=== PATIENT | female | born 1940 | race Caucasian/White ===

== ENCOUNTER → 2016-11-10 | Outpatient (CLI) | payer BC ==
[~2016-11-10] MED LIST: AMPH20TA2 PO; BUPR200T2 PO; CALC1CHW24 PO; CARV6.252 PO; CHOL1CHW10; CHOL4POW2 PO; CHOL4POW6 PO; CLC100 PO; CYAN10002; CYAN500S SL; CYCL0.052 OP; CYNI1000 INJ; DICY20TA10 PO; ERGO500037 PO; EYE PROMISE RESTORE PO; FERR325T PO; FERR325T51 PO; GABA-113 PO; HYDR-3124 PO; HYDR-5688 PO; IMMODIUM PO; KFL500 PO; LEVO-371 PO; LEVO175T PO; LOSA100T65 PO; LOSA50TA54 PO; LPT/20 PO; LSX20 PO; MCRK/20 PO; MULT-190 PO; MULT-663 PO; MULTCAP33 PO; NUTR1TAB4 PO; PANT1TAB48 PO; PEDICHW50 PO; POTATAB13 PO; RSTOPS OPB; VENL150C PO; VTMD PO; ZIPR1CAP8 PO; [UNRECOGNIZED DRUG - CODE] PO
[2016-11-10 15:35] LABS: HEMATOCRIT 37.8 % (37-47); MEAN CELL VOLUME 89.4 fL (80-100); MEAN CORPUSCULAR HEMOGLOBIN 29.6 pg (25-34); MEAN CORPUSCULAR HGB CONC 33.1 g/dl (32-36); MEAN PLATELET VOLUME 10.2 fL (7.4-10.4); PLATELET COUNT 279 K/uL (130-400); RED BLOOD COUNT 4.23 M/uL (4.2-5.4); WHITE BLOOD COUNT 7.13 K/uL (4.8-10.8)
[2016-11-10 15:55] LABS: BLOOD UREA NITROGEN 19 mg/dl (7-18); BUN/CREATININE RATIO 19.9 (10-20); CALCIUM 8.3 mg/dl (8.5-10.1); CARBON DIOXIDE 27 mmol/L (21-32); CHLORIDE 105 mmol/L (98-107); CREATININE 0.96 mg/dl (0.60-1.20); GLUCOSE 101 mg/dl (70-99); PHOSPHORUS 3.8 mg/dl (2.5-4.9); POTASSIUM 4.2 mmol/L (3.5-5.1); SODIUM 142 mmol/L (136-145); URIC ACID 5.2 mg/dl (2.6-7.2); URINE PROTIEN/CREAT RATIO 0.4 (0-0.2); URINE TOTAL PROTEIN 28.2 mg/dl (0-11.9)
[2016-11-10 16:02] LABS: URINE APPEARANCE CLEAR (CLEAR); URINE BILIRUBIN NEG (NEG); URINE COLOR YELLOW; URINE NITRITE NEG (NEG); URINE SPECIFIC GRAVITY 1.018 (1.000-1.030); UROBILINOGEN NEG (NEG)
[2016-11-10 16:07] LABS: MANUAL MICROSCOPIC REQUIRED? NO; REVIEW REQ? NO
== END | disposition home or self-care (01) ==
LOC: C.LAB1850 14:41
PROVIDERS: ATTEND Internal Medicine Nephrology
DX: I12.9 Hypertensive chronic kidney disease with stage 1 through stage 4 chronic kidney disease, or unspecified chronic kidney disease (principal); N18.3 Chronic kidney disease, stage 3 (moderate); N20.0 Calculus of kidney; M10.9 Gout, unspecified; R60.9 Edema, unspecified

== ENCOUNTER 2017-01-13 11:44 | Emergency (ER) | payer BC ==
[~2017-01-13] VITALS: Ht 160 cm; Wt 120.0 kg
[~2017-01-13 11:44] MED LIST changes: -CARV6.252 PO; -CHOL4POW2 PO; -CYCL0.052 OP; -CYNI1000 INJ; -FERR325T PO; -LOSA100T65 PO; -LPT/20 PO; -LSX20 PO; -MCRK/20 PO; -MULTCAP33 PO; -VTMD PO
[2017-01-13 12:00] VITALS: O2SAT 94
[2017-01-13 12:07] VITALS: TEMP 36.6; Ht 160 cm; Wt 120.0 kg
[2017-01-13 13:16] LABS: BASO % 0.9 %; BASO ABS # 0.06 K/uL (0-0.2); COMPLETE YES; EOS % 4.6 %; HEMATOCRIT 34.3 % (37-47); IG% 0.6 %; LYMPH ABS # 1.19 K/uL (1.2-3.4); MEAN CELL VOLUME 89.3 fL (80-100); MEAN CORPUSCULAR HEMOGLOBIN 29.4 pg (25-34); MEAN CORPUSCULAR HGB CONC 32.9 g/dl (32-36); MEAN PLATELET VOLUME 10.3 fL (7.4-10.4); MONO % 8.1 %; NEUT % 68.8 %; PLATELET COUNT 291 K/uL (130-400); RED BLOOD COUNT 3.84 M/uL (4.2-5.4); WHITE BLOOD COUNT 7.02 K/uL (4.8-10.8)
[2017-01-13 13:21] LABS: PARTIAL THROMBOPLASTIN RATIO 1.1; PROTHROMBIN TIME (PATIENT) 10.8 SECONDS (9.0-12.0)
[2017-01-13 13:23] LABS: ALT/SGPT 25 U/L (12-78); BLOOD UREA NITROGEN 46 mg/dl (7-18); BUN/CREATININE RATIO 45.6 (10-20); CALCIUM 7.9 mg/dl (8.5-10.1); CARBON DIOXIDE 29 mmol/L (21-32); CHLORIDE 102 mmol/L (98-107); GLUCOSE 98 mg/dl (70-99); MAGNESIUM 2.2 mg/dl (1.8-2.4); POTASSIUM 3.9 mmol/L (3.5-5.1); SODIUM 138 mmol/L (136-145)
[2017-01-13] MEDS ORDERED: LSX20 PO (13:24)
[2017-01-13] MEDS ORDERED: FERR325T PO (13:24)
[2017-01-13] MEDS ORDERED: CYNI1000 INJ (13:24)
[2017-01-13] MEDS ORDERED: LOSA100T65 PO (13:24)
[2017-01-13] MEDS ORDERED: CYCL0.052 OP (13:24)
[2017-01-13] MEDS ORDERED: CARV6.252 PO (13:24)
[2017-01-13] MEDS ORDERED: CHOL4POW2 PO (13:24)
[2017-01-13] MEDS ORDERED: LPT/20 PO (13:24)
[2017-01-13] MEDS ORDERED: VTMD PO (13:24)
[2017-01-13] MEDS ORDERED: MCRK/20 PO (13:24)
[2017-01-13] MEDS ORDERED: MULTCAP33 PO (13:29)
[2017-01-13] MEDS ORDERED: SODIUM CHLORIDE 0.9% 500ML 500 ML IV STA (13:32)
[2017-01-13 13:33] LABS: ALKALINE PHOSPHATASE 118 U/L (45-117); AST/SGOT 20 U/L (15-37)
--- NOTE | 2017-01-13 13:33 | DIAGNOSTIC IMAGING REPORT ---
CHEST ONE VIEW PORTABLE CLINICAL HISTORY: weakness, post mi dyspnea COMPARISON STUDY: 06/04/2016. FINDINGS: mild cardiomegaly. Density medial left base unchanged from the prior study. Mild increase in prominence of the pulmonary vasculature. Diaphragms are smooth. IMPRESSION: Probable early congestive failure Electronically signed by: Bismark Barrera M.D. 01/13/2017 1:32 PM Dictated Date/Time: 01/13/2017 1:31 PM
[2017-01-13 13:54] LABS: URINE APPEARANCE CLEAR (CLEAR); URINE BILIRUBIN NEG (NEG); URINE COLOR YELLOW; URINE NITRITE NEG (NEG); URINE SPECIFIC GRAVITY 1.009 (1.000-1.030); UROBILINOGEN NEG (NEG)
[2017-01-13 14:02] LABS: MANUAL MICROSCOPIC REQUIRED? NO; REVIEW REQ? NO
[2017-01-13 16:52] VITALS: BP 138/82; PULSE 70; O2SAT 96
--- NOTE | 2017-01-13 17:16 | EMERGENCY ROOM VISIT NOTE ---
History Report prepared by Hi: Neeta Harper Under the Supervision of: Dr. Patrice Livingston M.D. First contact with patient: 13:07 Chief Complaint: DEHYDRATION Stated Complaint: MEDICATION PROBLEMS Nursing Triage Summary: had VT on IN TO SEE HER DR TODAY BUT WAS FEELING DEHYDRATED AND GENERAL WEAKNESS. History of Present Illness The patient is a 76 year old female who presents to the Emergency Room with complaints of persistent weakness starting this morning around 1000. She reports feeling unsteady and overall weak. She states she is very sleepy and unable to keep her eyes open. She denies any missed medications. She was in the hospital last week for a "mild heart attack". She has a cardiac catheterization , but no stents were placed. She was feeling well after the hospitalization until this morning. She reports she feels dehydrated since she began taking Lasix twice daily. She reports that she has been urinating more and feels dehydrated. At the doctors office today, she was found to have an O2 sat of 90% and low blood pressure. Pt denies LOC, headache, fevers, chills, diaphoresis, visual changes, neck pain, chest pain, breathing difficulties, nausea, vomiting , abdominal pain, back pain, melena, hematochezia, numbness, lymphadenopathy, rash, or other complaints. Source of History: patient Onset: 1000 this morning Position: other (global) Quality: other (weakness) Timing: other (persistent) Associated Symptoms: + fatigue, + urinary symptoms (increased urination) Review of Systems See HPI for pertinent positives and negatives. A total of ten systems were reviewed and were otherwise negative. Past Medical & Surgical Medical Problems: (1) Aortic stenosis (2) Kidney disease (3) Pre-diabetes Surgical Problems: (1) History of gastric bypass (2) Hx of thyroidectomy (3) S/P knee replacement Family History Cancer Social History Smoking Status: Never Smoker Alcohol Use: none Drug Use: none Marital Status: Housing Status: lives alone Occupation Status: retired Current/Historical Medications Scheduled Amphetamine-Dextroamphetamine 20MG (Adderall 20MG), 20 MG PO BID Atorvastatin (Atorvastatin Calcium), 1 TAB PO DAILY Bupropion Hcl (Wellbutrin Sr), 200 MG PO QAM Calcium & Phosphorus W/ Vitami (Citracal Calcium Gummies), 2 PO BID Carvedilol (Coreg), 1 TAB PO BID Cholecalciferol (Vitamin D3), 1 TAB DAILY Cholestyramine Light (Questran Powder Light), 4 GM PO BID Cyanocobalamin (B-12 Dots), 500 MCG SL DAILY Cyanocobalamin (Cyanocobalamin), 1 DOSE INJ [id number] Cyclosporine (Ophth) (Restasis), 1 DROP OP BID [id number] Oil-Vitamin E (Thera Tears Nutrition), 3 CAP PO QAM Dicyclomine Hcl (Dicyclomine Hcl), 1 TAB PO QID Docusate Sodium (Docusate Sodium), 100 MG PO BID Ergocalciferol (Vitamin D), 1 CAP PO MONTHLY Ferrous Sulfate (Ferrous Sulfate), 1 TAB PO DAILY Furosemide (Furosemide), 1 TAB PO DAILY Gabapentin (Neurontin), 600 MG PO HS Hydroxyzine Hcl (Atarax), 25 MG PO HS Levocetirizine Dihydrochloride (Xyzal), 5 MG PO HS Levothyroxine Sodium (Synthroid), 175 MCG PO QAM Losartan Potassium (Cozaar), 1 TAB PO DAILY Multiple Minerals W/ Vitamins (Citracal Plus), 2 TABS PO BID Multiple Vitamins W/ Minerals (Preservision Areds), 1 CAP PO DAILY Nutritional Supplements (Theralith Xr), 2 TAB PO BID Pantoprazole (Protonix), 40 MG PO QAM Pediatric Multiple Vitamin W/ (Flintstones Chewable), 1 TAB PO BID Potassium Chloride (Potassium Chloride ER), 1 TAB PO DAILY Venlafaxine Hcl (Effexor Xr), 150 MG PO BID Ziprasidone Hcl (Geodon), 80 MG PO BID Scheduled PRN Hydrocodone/Acetaminophen 5MG/325MG ([place] 5MG/325MG), 1-2 TAB PO Q6H PRN for Pain Allergies Coded Allergies: Statins (Verified Allergy, Mild, UNKNOWN, 01/13/17) Oxycodone (Verified Allergy, Unknown, RASH, 01/13/17) Sulfa Antibiotics (Verified Allergy, Unknown, "TAKES TOP LAYER OF TONGUE OFF", 01/13/17) Lactose Intolerance (GI) (Verified Adverse Reaction, Unknown, GI UPSET AND DIARRHEA, 01/13/17) Physical Exam Vital Signs Date Time Temp Pulse Resp B/P Pulse Ox O2 Delivery O2 Flow Rate FiO2 01/13/17 16:52 70 20 138/82 96 Room Air 01/13/17 15:52 102 20 96 Room Air 01/13/17 15:51 102 20 96 Room Air 01/13/17 15:01 71 16 132/70 97 Nasal Cannula 01/13/17 14:04 64 122/58 69 143/73 71 134/77 01/13/17 12:07 36.6 70 18 140/75 95 Room Air 01/13/17 12:00 94 Room Air Physical Exam GENERAL: Awake, alert, tired-appearing, in no distress. HENT: Normocephalic, atraumatic. Oropharynx unremarkable. Dry mucous membranes. EYES: Normal conjunctiva. Sclera non-icteric. NECK: Supple. No nuchal rigidity. FROM. No JVD. RESPIRATORY: Clear to auscultation. CARDIAC: Regular rate, normal rhythm. Extremities warm and well perfused. Pulses equal. Systolic ejection murmur. ABDOMEN: Soft, non-distended. No tenderness to palpation. No rebound or guarding. No masses. RECTAL: Deferred. MUSCULOSKELETAL: Chest examination reveals no tenderness. The back is symmetrical on inspection without obvious abnormality. There is no CVA tenderness to palpation. No joint edema. LOWER EXTREMITIES: Calves are equal size bilaterally and non-tender. No edema. No discoloration. NEURO: Normal sensorium. No sensory or motor deficits noted. SKIN: No rash or jaundice noted. Medical Decision & Procedures ER Provider Diagnostic Interpretation: X ray results as stated below per my interpretation and radiologist interpretation. CHEST ONE VIEW PORTABLE CLINICAL HISTORY: weakness, post mi dyspnea COMPARISON STUDY: 06/04/2016. FINDINGS: mild cardiomegaly. Density medial left base unchanged from the prior study. Mild increase in prominence of the pulmonary vasculature. Diaphragms are smooth. IMPRESSION: Probable early congestive failure Electronically signed by: Bismark Barrera M.D. 01/13/2017 1:32 PM Dictated Date/Time: 01/13/2017 1:31 PM Laboratory Results 01/13/17 11:57 Red Blood Count 3.84, Mean Corpuscular Volume 89.3, Mean Corpuscular Hemoglobin 29.4, Mean Corpuscular Hemoglobin Concent 32.9, Mean Platelet Volume 10.3, Neutrophils (%) (Auto) 68.8, Lymphocytes (%) (Auto) 17.0, Monocytes (%) (Auto) 8.1, Eosinophils (%) (Auto) 4.6, Basophils (%) (Auto) 0.9, Neutrophils # (Auto) 4.84, Lymphocytes # (Auto) 1.19, Monocytes # (Auto) 0.57, Eosinophils # (Auto) 0.32, Basophils # (Auto) 0.06 01/13/17 11:57 Test 01/13/17 11:57 01/13/17 13:30 White Blood Count 7.02 K/uL (4.8-10.8) Red Blood Count 3.84 M/uL (4.2-5.4) Hemoglobin 11.3 g/dL (12.0-16.0) Hematocrit 34.3 % (37-47) Mean Corpuscular Volume 89.3 fL (80-100) Mean Corpuscular Hemoglobin 29.4 pg (25-34) Mean Corpuscular Hemoglobin Concent 32.9 g/dl (32-36) Platelet Count 291 K/uL (130-400) Mean Platelet Volume 10.3 fL (7.4-10.4) Neutrophils (%) (Auto) 68.8 % Lymphocytes (%) (Auto) 17.0 % Monocytes (%) (Auto) 8.1 % Eosinophils (%) (Auto) 4.6 % Basophils (%) (Auto) 0.9 % Neutrophils # (Auto) 4.84 K/uL (1.4-6.5) Lymphocytes # (Auto) 1.19 K/uL (1.2-3.4) Monocytes # (Auto) 0.57 K/uL (0.11-0.59) Eosinophils # (Auto) 0.32 K/uL (0-0.5) Basophils # (Auto) 0.06 K/uL (0-0.2) RDW Standard Deviation 45.1 fL (36.4-46.3) RDW Coefficient of Variation 13.9 % (11.5-14.5) Immature Granulocyte % (Auto) 0.6 % Immature Granulocyte # (Auto) 0.04 K/uL (0.00-0.02) Prothrombin Time 10.8 SECONDS (9.0-12.0) Prothromb Time International Ratio 1.0 (0.9-1.1) Activated Partial Thromboplast Time 27.5 SECONDS (21.0-31.0) Partial Thromboplastin Ratio 1.1 Anion Gap 7.0 mmol/L (3-11) Est Creatinine Clear Calc Drug Dose 61.0 ml/min Estimated GFR () 63.8 Estimated GFR (Non- 55.1 BUN/Creatinine Ratio 45.6 (10-20) Calcium Level 7.9 mg/dl (8.5-10.1) Magnesium Level 2.2 mg/dl (1.8-2.4) Total Bilirubin 0.3 mg/dl (0.2-1) Direct Bilirubin < 0.1 mg/dl (0-0.2) Aspartate Amino Transf (AST/SGOT) 20 U/L (15-37) Alanine Aminotransferase (ALT/SGPT) 25 U/L (12-78) Alkaline Phosphatase 118 U/L (45-117) Troponin I 0.017 ng/ml (0-0.045) Pro-B-Type Natriuretic Peptide 687 pg/ml (0-900) Total Protein 7.4 gm/dl (6.4-8.2) Albumin 3.2 gm/dl (3.4-5.0) Lipase 220 U/L (73-393) Thyroid Stimulating Hormone (TSH) 1.160 uIu/ml (0.300-4.500) Urine Color YELLOW Urine Appearance CLEAR (CLEAR) Urine pH 5.0 (4.5-7.5) Urine Specific [place] 1.009 (1.000-1.030) Urine Protein NEG (NEG) Urine Glucose (UA) NEG (NEG) Urine Ketones NEG (NEG) Urine Occult Blood NEG (NEG) Urine Nitrite NEG (NEG) Urine Bilirubin NEG (NEG) Urine Urobilinogen NEG (NEG) Urine Leukocyte Esterase NEG (NEG) Laboratory results reviewed by me. Medications Administered Medications (Trade) Dose Ordered Sig/Huey Route Start Time Stop Time Status Last Admin Dose Admin Sodium Chloride (Nss 500ml) 500 ml @ 999 mls/hr Q31M STAT IV 01/13/17 13:32 01/13/17 14:02 DC 01/13/17 13:32 999 MLS/HR ECG Indication: weakness Rate (beats per minute): 62 Rhythm: sinus rhythm Findings: 1st degree AV block, no acute ischemic change, no ectopy ED Course 1329: The patient was evaluated in room B8. A complete history and physical exam was performed. Pre-hospital EKG reveals no ischemic change. 1332: NSS 500 ml @ 999 mls/hr IV. 1558: I reevaluated the patient. She is feeling well. Her ambulatory pulse ox is normal. 1621: I discussed the patient's case with Dr. Walker, [facility] - cardiology. 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 She has been taking her Lasix twice a day, but he states that the patient was only supposed to be taking it once a day. 1641: I reevaluated the patient. I discussed results and discharge instructions : she verbalized understanding and agreement. The patient is ready for discharge. 1732: The patient's daughter has come to the ED. I told her that the patient had been taking double the prescribed dosage of Lasix. I went over all the results and the treatment plan with her. I answered any questions that she had pertaining to the patient. She verbalized understanding and agreement. The patient will go home now. Medical Decision Triage Nursing notes reviewed. The patient's presentation and history were concerning for weakness. Etiologies such as dehydration, metabolic, infection, hypo/hyperglycemia, electrolyte abnormalities, cardiac sources, intracerebral event, toxicologic, neurologic, as well as others were entertained. The patient was evaluated. She looks somewhat dehydrated. Her lips are dry. She had no lower extremity edema. There are no rales on examination. Pulse oximetry was normal. Orthostatic testing was unremarkable. The patient had an unremarkable CBC except for mild anemia. Urinalysis was negative. Dehydration was noted on chemical panel. Magnesium, troponin, TSH, LFTs and lipase were normal. BNP was normal. Chest x-ray question some pulmonary vascular congestion but this does not fit with the clinical examination. On consultation with cardiology it was noted that the patient should've been taking Lasix once daily and only twice daily if her weight increased. The patient was in a properly taking this twice daily. I believe that she is why I' m depleted. I discussed this with the patient and her family. She did receive a 500 mL saline bolus and was feeling much better. She will hold her evening Lasix and only take it once a day. She will follow-up as an outpatient. I gave my usual and customary discussion regarding this issue. By the evaluation outlined above other emergent etiologies such as those listed in the differential, as well as others, were deemed relatively unlikely. The patient and daughter were informed about the findings as listed above. All questions were answered and they were pleased with the treatment. Return instructions were outlined and the patient was discharged in stable condition. The patient was referred to cardiology and her PCP for follow-up for a recheck of the current condition. The chart was completed utilizing [employer] Speech voice recognition software. Grammatical errors, random word insertions, pronoun errors, and incomplete sentences are an occasional consequence of this system due to software limitations, ambient noise, and hardware issues. Any formal questions or concerns about the content, text, or information contained within the body of this dictation should be directly addressed to the physician for clarification. Consults Time Called: 1609 Consulting Physician: Dr. Walker, [facility] - cardiology Returned Call: [phone] I discussed the patient's case with him. 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 She has been taking her Lasix twice a day, but he states that the patient was only supposed to be taking it once a day. Impression Primary Impression: Dehydration Additional Impression: Weakness Scribe Attestation The scribe's documentation has been prepared under my direction and personally reviewed by me in its entirety. I confirm that the note above accurately reflects all work, treatment, procedures, and medical decision making performed by me. Departure Information Dispostion Home / Self-Care Referrals Raad Skinner M.D. (PCP) Forms HOME CARE DOCUMENTATION FORM, IMPORTANT VISIT INFORMATION, WORK / SCHOOL INSTRUCTIONS Patient Instructions My [facility] Additional Instructions Take your Lasix only once a day. Monitor your weight daily if you find that your weight is going up more than 2-3 pounds take the Lasix twice a day. Follow all instructions given to you by [facility]. Follow up with your primary clinic next week. Return to the ER for worsening weakness, feelings of dehydration, chest pain, difficulty breathing, fevers, vomiting, worsening of your condition, or as needed. Problem Qualifiers
== END 2017-01-13 16:54 | disposition home or self-care (01) ==
LOC: EDBD 11:44 → C.EDB 11:54
DX: E86.0 Dehydration (principal); R53.1 Weakness; I44.0 Atrioventricular block, first degree; R73.03 Prediabetes; I35.0 Nonrheumatic aortic (valve) stenosis; Z87.442 Personal history of urinary calculi; Z98.84 Bariatric surgery status; Z98.890 Other specified postprocedural states; Z96.659 Presence of unspecified artificial knee joint; Z79.899 Other long term (current) drug therapy; Z88.2 Allergy status to sulfonamides; Z88.5 Allergy status to narcotic agent; Z88.8 Allergy status to other drugs, medicaments and biological substances; Z91.011 Allergy to milk products; Z80.9 Family history of malignant neoplasm, unspecified

== ENCOUNTER → 2017-03-07 | Outpatient (CLI) | payer BC, OTHER ==
[~2017-03-07] MED LIST changes: +CARV6.252 PO; +CHOL4POW2 PO; -CHOL4POW6 PO; -CYAN10002; +CYCL0.052 OP; +CYNI1000 INJ; -ERGO500037 PO; -EYE PROMISE RESTORE PO; +FERR1TAB62 PO; -FERR325T51 PO; -IMMODIUM PO; -KFL500 PO; -LEVO-371 PO; +LEVO5TAB2 PO; +LOSA100T65 PO; -LOSA50TA54 PO; +LPT/20 PO; +LSX20 PO; +MCRK/20 PO; -MULT-190 PO; +MULTCAP33 PO; -POTATAB13 PO; -RSTOPS OPB; +VTMD PO
--- NOTE | 2017-03-08 08:28 | PAP/PSG TECHNICIAN REPORT ---
[facility] Client Customer Manager Polysomnogram Report Study name: None Report date: 03/08/2017 Study date: 03/07/2017 Referring Physician: Raad Skinner MD Name: WERNER NICOLAS Interpreting Physician: Patrice Gray M.D. Date of : 1940 Client Customer Manager: Alva Kelley, PSGT. Sex: Female Age: 76 StudyType: PSG Weight: 260 lbs Height: 76 years, Height 5' 4.5" BMI: 43.93 Medications: SEE LIST OF 15 MRDICATIONS LISTED IN CHART. Patient History 76 YR. OLD FEMALE HERE FOR TITRATION CHECK. SHE IS USEING C-PAP AT THIS TIME AT THE RATE OF 12 CM H2O. SHE STATES THAT SHE ISNT ABLE TO SLEEP LONGER THAN 3 HOURS PER NIGHT, SHE WAKES OFTEN THROUGHOUT THE NIGHT. SHE WAS SHORT OF BREATH WHEN SHE ARRIVED AND HAD TO SIT SOON SHE GOT INTO HER ROOM TONIGHT. Parameters Monitored NPSG: E1-M2, E2-M1, Fp1-M2, Fp2-M1, F3-M2, F4-M2, F4-M1, C3-M2, C4-M2, C4-M1, O1-M2, O2-M2, O2-M1, T3-M2, T4-M1, P3-M2, P4-M1, CHIN1, CHIN2, HR, EKG, Legs, PFLOW, SNOR, FLOW, CFLOW, Tidal Volume, THOR, ABDO, SpO2, PLTH, CPRESS, ETCO2 Wave, ETCO2, pH Sleep Architecture Sleep Stages Time at Lights Off 10:04:39 PM STAGES Time (min.) TST (%) Time at Lights On 5:12:09 AM Wake 66.5 -- Total Recording Time (TRT) 426.50 min. N1 2.5 1 Total Sleep Period (TSP) 412.5 min. N2 357.5 99 Total Sleep Time (TST) 360.0min. N3 0.0 0 Awake Time 66.5 min. REM 0.0 0 Wake after Sleep Onset 53.5 min. Sleep Efficiency (SE) 84 % Sleep Onset Latency (RASHEED) 14.0 min. Number of Stage 1 Shifts None Awakenings 3 Stage Changes 11 Number of REM periods N/A REM 0.0 0 REM Latency NONE min. NREM 360.0 100 Body Position Analysis Supine Right Left Side Prone Vertical Total Sleep Time (min.) 426.1 0.0 0.0 0.00 0.0 0.4 Total Sleep Time (%) 100% 0% 0% 0 0% N/A% Total Sleep Time REM (min.) 0.0 0.0 0.0 None 0.0 0.0 Total Sleep Time NREM (min.) 360.0 0.0 0.0 None 0.0 0.0 Intermittent Wake (min.) 66.1 0.0 0.0 None 0.0 0.4 Total Sleep Period (%) 100% None None None None None Arousals Myoclonus (PLM) * Events Count Index Events Count Index Spontaneous 18 3 Events Awake (PLMW) 0 0.0 Respiratory 1 0.2 Events Asleep w/ Arousal (PLMA) 1 0.2 PLM 1 0 Events Asleep w/o Arousal (PLMS) 49 8.2 Snoring 1 0 Total Asleep 50 8.3 Total 21 4 Total 50 7 Respiratory Analysis * CA OA MA CH H RERA Total Count 0 0 0 0 6 0 6 Index 0.0 0.0 0.0 0 1.0 0 1.0 Mean Duration 0.0 0.0 0.0 0.00 17.2 0.0 17.2 Longest Duration 0.0 0.0 0.0 0.00 0.0 0.0 22.2 Respiratory Event Summary Total Supine ~Supine Right Left Prone REM NREM Apneas Count 0 0 N/A N/A N/A N/A N/A 0 Index 0.0 0 N/A N/A N/A N/A N/A 0 Hypopneas (4% Desat) Count 6 6 N/A N/A N/A N/A N/A 6 Index 1.0 1.0 N/A N/A N/A N/A N/A 1.0 Apneas & All Hypopneas Count 6 6 N/A N/A N/A N/A N/A 6 Index 1.0 1 N/A N/A N/A N/A N/A 1.0 Respiratory Events (Neurological Surgeon+All Hyp+RERA) Count 6 6 N/A N/A N/A N/A N/A 6 Index 1.0 1 N/A N/A N/A N/A N/A 1.0 Respiratory Related Arousal Count 1 6 N/A N/A N/A N/A N/A 1 Index 0.2 0 N/A N/A N/A N/A N/A 0 Snoring Analysis Supine Right Left Prone REM NREM Total Snore duration 1.5 min Snores count 37 N/A N/A N/A N/A 37 37 Snore mean duration 2.4 Sec Snores index 6 N/A N/A N/A N/A 6.2 6.2 TST with snoring (%) 0.4% Desaturation Event Summary: Minimum %SpO2 Event Count Mean/Min/Max Duration(sec.) Desaturation Index % Time In Bed > 90 8 31.5 / 16.0 / 57.8 1.3 90.3 86 - 90 6 37.9 / 16.0 / 57.8 9.7 9.0 81 - 85 0 N/A 0.0 0.8 76 - 80 0 N/A 0.0 0.0 71 - 75 0 N/A 0.0 0.0 66 - 70 0 N/A 0.0 0.0 61 - 65 0 N/A 0.0 0.0 56 - 60 0 N/A 0.0 0.0 51 - 55 0 N/A 0.0 0.0 < 50 0 N/A 0.0 0.0 Total REM NREM Awake <50% 0.0 min. 0.0 min. 0.0 min. 0.0 min. 51 - 60% 0.0 min. 0.0 min. 0.0 min. 0.0 min. 61 - 70% 0.0 min. 0.0 min. 0.0 min. 0.0 min. 71 - 80% 0.0 min. 0.0 min. 0.0 min. 0.0 min. 81 - 90% 40.3 min. 0.0 min. 23.8 min. 16.6 min. 91 - 100% 374.0 min. 0.0 min. 336.3 min. 37.8 min. Average 92 0 92 92 Minimum SpO2 82 N/A 82 82 Desaturation Event Index 1.5 0.0 1.8 0.0 # Desat. Events below 89% 9 N/A 9 0 Time(%) with Saturation below 89% 4.4 0.0 2.4 2.0 Time(min.) with Saturation below 89% 18.4 0.0 10.0 8.4 Time (mins) REM (mins) NREM (mins) % of TST SpO2 Below 90% 10 N/A N10 4.0 SpO2 Below 88% 6 0 0 2 Heart Rate Analysis Min (bpm) Max (bpm) Average (bpm) Awake 57 127 64 NREM 55 75 64 REM N/A N/A N/A Overall 55 75 64 Supplemental O2 Values Minimum O2 level: None Value Start Time End Time Client Customer Manager Comments PAP Study: MS. Nicolas slept in the supine positions. No cardiac arrhythmia or PLM's noted. No bruxism noted. CPAP was initiated at +8 CMH2O and up-titrated to an optimal level of +12 CMH2O, which nearly eliminated all respiratory events and snoring. A Small Res Med Mirage Quattro, was used during titration Ms. Nicolas awoke to use the restroom one time during the night. Ms. Nicolas stated, I did sleep better than I do when I am in my own bed. The final report will be interpreted and signed by a sleep physician. The completed physician report will then be placed in the patient medical record. Therapy Event: Therapy (cm H20) 0 8 10 11 12 Total Time at Pressure (min.) 0.4 19.2 65.3 171.3 170.3 TST at Pressure (min.) 0.0 5.6 60.3 169.3 124.8 # Periods 1 1 1 1 1 Sleep Onset (min.) N/A 13.6 0.0 0.0 0.0 REM Onset (min.) N/A N/A N/A N/A N/A Sleep Efficiency % 0 29 92 98 73 Wakefulness (%) 100.0 70.7 7.7 1.2 26.7 Wakefulness (min.) 0.4 13.6 5.0 2.0 45.5 NREM 1 (%) 0.0 5.2 0.0 0.3 0.6 NREM 1 (min.) 0.0 1.0 0.0 0.5 1.0 NREM 2 (%) 0.0 24.0 92.3 98.5 72.7 NREM 2 (min.) 0.0 4.6 60.3 168.8 123.8 NREM 3 (%) 0.0 0.0 0.0 0.0 0.0 NREM 3 (min.) 0.0 0.0 0.0 0.0 0.0 REM (%) 0.0 0.0 0.0 0.0 0.0 REM (min.) 0.0 0.0 0.0 0.0 0.0 # Arousals N/A 0 5 10 6 Arousal Index N/A 0.0 5.0 3.5 2.9 # Snore N/A 6 10 0 21 Snore Index N/A 64.2 10.0 0.0 10.1 AHI N/A 10.7 1.0 1.1 0.5 AHI Supine N/A 10.7 1.0 1.1 0.5 AHI Non-Supine N/A N/A N/A N/A N/A NREM AHI N/A 10.7 1.0 1.1 0.5 REM AHI N/A N/A N/A N/A N/A RDI N/A 10.7 1.0 1.1 0.5 # Obstructive N/A 0 0 0 0 # Central Ap N/A 0 0 0 0 # Mixed N/A 0 0 0 0 # Hypopneas N/A 1 1 3 1 RERAS N/A 0 0 0 0 Total Respiratory Events N/A 1 1 3 1 Time Below SpO2 89.00% (min.) 0.0 2.6 6.6 0.4 0.4 Mean NREM SpO2 (%) N/A 88 91 92 93 Mean REM SpO2 (%) N/A N/A N/A N/A N/A Mean Sleep SpO2 (%) N/A 88 91 92 93 Min NREM SpO2 (%) N/A 83 82 83 88 Min REM SpO2 (%) N/A N/A N/A N/A N/A Position Supine (min.) 0.0 5.6 60.3 169.3 124.8 Position Non-supine (min.) 0.0 0.0 0.0 0.0 0.0 LM Index Sleep N/A 0.0 5.0 8.2 10.6 LM Index NREM N/A 0.0 5.0 8.2 10.6 LM Index REM N/A N/A N/A N/A N/A Mean Heart Rate (bpm) N/A 70 69 66 60 Min Heart Rate (bpm) N/A 65 66 55 57
--- NOTE | 2017-03-09 13:49 | POLYSOMNOGRAPH REPORT ---
CLINICAL DATA: 76-year-old female with BMI of 43.[address] Skinner and Dr. Beal for a CPAP titration study. She is currently using CPAP at 12 cm of water pressure. However, she cannot sleep any longer than 3 hours and awakens throughout the night. SLEEP ARCHITECTURE: Total sleep period was 412.5 minutes. Total sleep time was 360 minutes all non-REM sleep. Sleep onset latency was 14 minutes. REM was not achieved. Sleep efficiency was 84%. Wake after sleep onset was 53.5 minutes. Sleep consisted of stage N1 1%, and N2 99%. AROUSAL DATA: 21 arousals were recorded for an index of 4 per hour. PLM DATA: No significant PLMD was seen. There were 50 limb movements during sleep noted for an index of 8.3 per hour with arousal index of 0.2 per hour. RESPIRATORY DATA: The AHI was 1. There were 6 hypopneic episodes, the mean duration of which was 17.2 seconds. OXIMETRY DATA: Mild nocturnal hypoxemia was seen. Oxygen raul was 82% during non-REM sleep. Mean saturation was 92%. Time below 88% was 6 minutes. EKG: Heart rates ranged from 55-75 beats per minute. No arrhythmias were noted. SPIRAL RUNNER'S COMMENTS AND TREATMENT SUMMARY: The patient slept supine. She was started on CPAP and titrated up to 12 cm of water pressure using a small ResMed Mirage Quattro mask. At her final pressure setting, she slept for 124.8 minutes with an AHI of 0.5. At 10 cm water pressure she had an AHI of 1 and at 11 cm water pressure she had an AHI of 1.1. IMPRESSION: Obstructive sleep apnea corrected with CPAP at 12 cm of water pressure. RECOMMENDATIONS: The patient should be continued on her current regimen of CPAP. [facility]
== END | disposition home or self-care (01) ==
LOC: C.NEUR 20:00
PROVIDERS: ATTEND Internal Medicine Pulmonary Disease
DX: G25.81 Restless legs syndrome (principal); G47.30 Sleep apnea, unspecified

== ENCOUNTER → 2017-03-14 | Outpatient (CLI) | payer BC, OTHER ==
[~2017-03-14] VITALS: Ht 160 cm; Wt 119.9 kg
[2017-03-14 14:17] VITALS: BP 166/82; PULSE 78; Ht 160 cm; Wt 119.9 kg
== END | disposition home or self-care (01) ==
LOC: C.NEUR 13:37
PROVIDERS: ATTEND Physician Assistant
DX: G47.30 Sleep apnea, unspecified (principal)

== ENCOUNTER → 2017-05-09 | Outpatient (CLI) | payer BC ==
[~2017-05-09] MED LIST changes: -FERR1TAB62 PO; +FERR325T PO; +LEVO-371 PO; -LEVO5TAB2 PO
[2017-05-09 16:41] LABS: HEMATOCRIT 36.7 % (37-47); MEAN CELL VOLUME 89.7 fL (80-100); MEAN CORPUSCULAR HEMOGLOBIN 28.9 pg (25-34); MEAN CORPUSCULAR HGB CONC 32.2 g/dl (32-36); MEAN PLATELET VOLUME 10.1 fL (7.4-10.4); PLATELET COUNT 287 K/uL (130-400); RED BLOOD COUNT 4.09 M/uL (4.2-5.4)
[2017-05-09 17:09] LABS: BLOOD UREA NITROGEN 25 mg/dl (7-18); BUN/CREATININE RATIO 25.4 (10-20); CALCIUM 8.6 mg/dl (8.5-10.1); CARBON DIOXIDE 31 mmol/L (21-32); CHLORIDE 104 mmol/L (98-107); GLUCOSE 90 mg/dl (70-99); POTASSIUM 3.8 mmol/L (3.5-5.1); SODIUM 139 mmol/L (136-145); URIC ACID 4.9 mg/dl (2.6-7.2); URINE TOTAL PROTEIN < 5.0 mg/dl (0-11.9)
[2017-05-09 17:10] LABS: PHOSPHORUS 4.8 mg/dl (2.5-4.9)
[2017-05-09 17:17] LABS: URINE APPEARANCE CLEAR (CLEAR); URINE BILIRUBIN NEG (NEG); URINE COLOR YELLOW; URINE NITRITE NEG (NEG); URINE SPECIFIC GRAVITY 1.017 (1.000-1.030); UROBILINOGEN NEG (NEG)
[2017-05-09 17:29] LABS: MANUAL MICROSCOPIC REQUIRED? NO; REVIEW REQ? NO
== END | disposition home or self-care (01) ==
LOC: C.LAB1850 15:50
PROVIDERS: ATTEND Internal Medicine Nephrology
DX: I10 Essential (primary) hypertension (principal); N20.0 Calculus of kidney; M10.9 Gout, unspecified; R60.9 Edema, unspecified; N18.3 Chronic kidney disease, stage 3 (moderate); E55.9 Vitamin D deficiency, unspecified

== ENCOUNTER → 2017-05-09 | Outpatient (CLI) | payer BC, OTHER ==
--- NOTE | 2017-05-09 15:41 | DIAGNOSTIC IMAGING REPORT ---
[facility]UB CLINICAL HISTORY: NEPHROLITHIASIS nephrocalcinosis COMPARISON STUDY: 01/13/2016 FINDINGS: Nonobstructive bowel pattern. Surgical changes consistent with prior hernia repair. Stable bilateral nephrocalcinosis. No new or additional calcifications. Postoperative total right hip arthroplasty. Severe degenerative change lumbar spine unchanged. IMPRESSION: Stable bilateral nephrocalcinosis. The above report was generated using voice recognition software. It may contain grammatical, syntax or spelling errors. Electronically signed by: Bismark Barrera M.D. 05/09/2017 3:39 PM Dictated Date/Time: 05/09/2017 3:39 PM
== END | disposition home or self-care (01) ==
LOC: C.RAD 14:51
PROVIDERS: ATTEND Nurse Practitioner Family
DX: N20.0 Calculus of kidney (principal)

== ENCOUNTER → 2017-06-24 | Outpatient (CLI) | payer BC ==
--- NOTE | 2017-06-24 15:55 | DIAGNOSTIC IMAGING REPORT ---
SOFT TISS HEAD/NECK-THYROID CLINICAL HISTORY: 76 years-old Female with THYROID CA. COMPARISON: Thyroid ultrasound 06/19/2014 TECHNIQUE: Multiple real time sonographic images of the thyroid were obtained accessing meyers scale appearance and color doppler flow. FINDINGS: MEASUREMENTS: No residual thyroid tissue is identified. Small node of the right lateral neck is seen measuring up to 0.8 x 0.3 cm which appears physiologic. Small nodes of the left neck are seen, largest of which measures 1.1 x 0.4 cm. No pathologic adenopathy identified. IMPRESSION: 1. No evidence of residual or recurrent malignancy within the thyroid bed. 2. A few nonenlarged lymph nodes of the right and left neck are seen which appear physiologic. The above report was generated using voice recognition software. It may contain grammatical, syntax or spelling errors. Electronically signed by: Brennan Colvin M.D. 06/24/2017 3:54 PM Dictated Date/Time: 06/24/2017 3:52 PM
== END | disposition home or self-care (01) ==
LOC: C.ULTR 15:15
PROVIDERS: ATTEND Internal Medicine
DX: C73 Malignant neoplasm of thyroid gland (principal)

== ENCOUNTER → 2017-09-26 | Outpatient (CLI) | payer BC ==
[~2017-09-26] MED LIST changes: +FERR1TAB62 PO; -FERR325T PO; -LEVO-371 PO; +LEVO5TAB2 PO
[2017-09-26 16:58] LABS: HEMATOCRIT 35.7 % (37-47); MEAN CELL VOLUME 90.8 fL (80-100); MEAN CORPUSCULAR HEMOGLOBIN 28.5 pg (25-34); MEAN CORPUSCULAR HGB CONC 31.4 g/dl (32-36); MEAN PLATELET VOLUME 10.5 fL (7.4-10.4); PLATELET COUNT 275 K/uL (130-400); RED BLOOD COUNT 3.93 M/uL (4.2-5.4); WHITE BLOOD COUNT 6.16 K/uL (4.8-10.8)
[2017-09-26 17:04] LABS: ALT/SGPT 25 U/L (12-78); BLOOD UREA NITROGEN 51 mg/dl (7-18); BUN/CREATININE RATIO 39.8 (10-20); CALCIUM 8.4 mg/dl (8.5-10.1); CARBON DIOXIDE 31 mmol/L (21-32); CHLORIDE 101 mmol/L (98-107); CREATININE 1.28 mg/dl (0.60-1.20); GLUCOSE 91 mg/dl (70-99); MAGNESIUM 2.5 mg/dl (1.8-2.4); POTASSIUM 3.8 mmol/L (3.5-5.1); SODIUM 140 mmol/L (136-145); URIC ACID 6.4 mg/dl (2.6-7.2)
[2017-09-26 17:07] LABS: ALB/GLOB RATIO 0.8 (0.9-2); ALKALINE PHOSPHATASE 123 U/L (45-117); AST/SGOT 23 U/L (15-37)
[2017-09-26 17:08] LABS: URINE APPEARANCE CLEAR (CLEAR); URINE BILIRUBIN NEG (NEG); URINE COLOR YELLOW; URINE NITRITE NEG (NEG); URINE SPECIFIC GRAVITY 1.018 (1.000-1.030); UROBILINOGEN NEG (NEG)
[2017-09-26 17:12] LABS: MANUAL MICROSCOPIC REQUIRED? NO; REVIEW REQ? NO
[2017-09-26 17:28] LABS: CREATININE, URINE 29.4 mg/dl; URINE TOTAL PROTEIN < 5.0 mg/dl (0-11.9)
== END | disposition home or self-care (01) ==
LOC: C.LAB1850 14:41
PROVIDERS: ATTEND Internal Medicine Nephrology
DX: I10 Essential (primary) hypertension (principal); N20.0 Calculus of kidney; N18.3 Chronic kidney disease, stage 3 (moderate); R60.9 Edema, unspecified; E55.9 Vitamin D deficiency, unspecified

== ENCOUNTER 2017-12-05 14:49 | Inpatient (IN) | payer OTHER, BC ==
[2017-12-05] VITALS (9 sets, daily range): BP systolic 93–124; BP diastolic 55–78; PULSE 62–83; TEMP 36.7–36.8; O2SAT 99–100; BMI 46.4
[~2017-12-05] VITALS: Ht 170.2 cm; Wt 123.3 kg
[~2017-12-05 14:49] MED LIST changes: -LPT/20 PO; +LPT20 PO; +PANT1TAB3 PO; -PANT1TAB48 PO
[2017-12-05] MEDS ORDERED: RAPID SEQUENCE INDUCTION BAG ONE (14:56)
[2017-12-05] MEDS ORDERED: FUROSEMIDE 40 MG/4 ML VIAL ONE (14:59)
[2017-12-05] MEDS ORDERED: PROPOFOL IV EMULSION 10 MG/ML 100 ML VIAL IV STA (15:12)
--- NOTE | 2017-12-05 15:12 | DIAGNOSTIC IMAGING REPORT ---
CHEST ONE VIEW PORTABLE CLINICAL HISTORY: EVALUATE RESPIRATORY DISTRESS.DYSPNEA dyspnea COMPARISON STUDY: 01/13/2017 FINDINGS: Cardiomegaly. Findings of pulmonary edema. Diaphragms are smooth. Costophrenic angles are sharp. IMPRESSION: Pulmonary edema The above report was generated using voice recognition software. It may contain grammatical, syntax or spelling errors. Electronically signed by: Bismark Barrera M.D. 12/05/2017 3:11 PM Dictated Date/Time: 12/05/2017 3:11 PM
[2017-12-05] MEDS ORDERED: PROPOFOL IV EMULSION 10 MG/ML 100 ML VIAL IV ONE (15:14)
[2017-12-05] MEDS ORDERED: FENTANYL 1250MCG/250ML NSS IV PRN (15:15)
[2017-12-05] MEDS ORDERED: NITROGLYCERIN/D5W 100 MCG/ML 500 ML IV PRN (15:15)
[2017-12-05 15:16] LABS: BASO % 0.7 %; BASO ABS # 0.07 K/uL (0-0.2); EOS % 4.4 %; EOS ABS # 0.42 K/uL (0-0.5); HEMATOCRIT 39.5 % (37-47); HEMOGLOBIN 12.4 g/dL (12.0-16.0); IG# 0.03 K/uL (0.00-0.02); LYMPH % 22.6 %; LYMPH ABS # 2.13 K/uL (1.2-3.4); MEAN CORPUSCULAR HEMOGLOBIN 28.2 pg (25-34); MEAN CORPUSCULAR HGB CONC 31.4 g/dl (32-36); MEAN PLATELET VOLUME 10.2 fL (7.4-10.4); MONO % 4.8 %; MONO ABS # 0.45 K/uL (0.11-0.59); NEUT % 67.2 %; NEUT ABS # 6.34 K/uL (1.4-6.5); PLATELET COUNT 287 K/uL (130-400); RED CELL DISTRIBUTION WIDTH CV 14.8 % (11.5-14.5); RED CELL DISTRIBUTION WIDTH SD 48.9 fL (36.4-46.3); WHITE BLOOD COUNT 9.44 K/uL (4.8-10.8)
[2017-12-05] MEDS ORDERED: MIDAZOLAM HCL 5 MG/ML 1 ML VIAL IV STA (15:17)
--- NOTE | 2017-12-05 15:21 | DIAGNOSTIC IMAGING REPORT ---
CHEST ONE VIEW PORTABLE CLINICAL HISTORY: SOB dyspnea COMPARISON STUDY: 12/05/2017 2:58 PM. FINDINGS: Endotracheal tube placed at the origin of the right mainstem bronchus. This should be pulled back several centimeters. Heart remains enlarged. Findings of pulmonary edema are unchanged. IMPRESSION: Endotracheal tube placed in origin of the right mainstem bronchus. This should be pulled back several centimeters. Unchanging findings of pulmonary edema. The above report was generated using voice recognition software. It may contain grammatical, syntax or spelling errors. Electronically signed by: Bismark Barrera M.D. 12/05/2017 3:19 PM Dictated Date/Time: 12/05/2017 3:19 PM
[2017-12-05] MEDS ORDERED: MIDAZOLAM 125MG/250ML D5W 250 ML IV PRN (15:30)
[2017-12-05 15:31] LABS: ALBUMIN 3.4 gm/dl (3.4-5.0); CALCIUM 8.1 mg/dl (8.5-10.1); CREATININE 1.33 mg/dl (0.60-1.20); POTASSIUM 4.7 mmol/L (3.5-5.1)
[2017-12-05 15:33] LABS: PTT PATIENT 19.8 SECONDS (21.0-31.0)
[2017-12-05 15:36] LABS: TOTAL PROTEIN 8.2 gm/dl (6.4-8.2)
--- NOTE | 2017-12-05 16:10 | Cardiology Consultation ---
Cardiology Consultation Date of Consultation: Dec 05, 2017. Reason for Consultation: CHF Pt evaluation today including: physical exam, lab review, review of studies, review of inpatient medication list, conversation w/ attending History of Present Illness This is a 77-year-old woman whom I have seen in the past, although she currently follows with Dr. Walker. She has a history of morbid obesity for which she had gastric bypass surgery, hypercholesterolemia, hypertension as well as aortic stenosis. She does have a history of dyspnea on exertion and long -standing left ventricular hypertrophy and diastolic dysfunction. Per our office records, in 2015 her aortic valve area is 1.3 cm. She had cardiac catheterization at [facility] in December 2016 which showed clean coronary arteries, I don't know the extent of her aortic stenosis at that time. An echocardiogram done around that time however suggested mild to moderate aortic stenosis by don't know that there is been one subsequently. She apparently has been having difficulty with fluid retention and shortness of breath recently, she then presented with severe dyspnea and congestive heart failure requiring intubation. She is therefore currently intubated (I'm seeing her in the emergency room) and cannot provide a history. She is markedly hypertensive in the emergency room. She also has a left bundle branch block pattern which is new compared to our prior records here (from 01/13/2017). Past Medical/Surgical History (1) Aortic stenosis (2) Pre-diabetes (3) Kidney disease (4) History of gastric bypass (5) Hx of thyroidectomy (6) Open fracture of left elbow (7) S/P knee replacement Family History Cancer Social History Smoking Status: Never Smoker History of Alcohol Use: Yes Review of Systems Review of systems cannot be obtained as the patient is intubated. Allergies Coded Allergies: Statins (Verified Allergy, Mild, UNKNOWN, 01/13/17) Oxycodone (Verified Allergy, Unknown, RASH, 01/13/17) Sulfa Antibiotics (Verified Allergy, Unknown, "TAKES TOP LAYER OF TONGUE OFF", 01/13/17) Lactose Intolerance (GI) (Verified Adverse Reaction, Unknown, GI UPSET AND DIARRHEA, 01/13/17) Medications Current Inpatient Medications Medications (Trade) Dose Ordered Sig/Huey Route Start Time Stop Time Status Last Admin Dose Admin Nitroglycerin/ Dextrose 500 ml @ 0 mls/hr Q0M PRN IV 12/05/17 15:15 01/04/18 15:14 Physical Exam Vital Signs Past 12 Hours Date Time Temp Pulse Resp B/P (MAP) Pulse Ox O2 Delivery O2 Flow Rate FiO2 12/05/17 15:45 99 20 122/86 95 Mechanical Ventilator 12/05/17 15:20 Mechanical Ventilator 12/05/17 15:20 Mechanical Ventilator 12/05/17 15:19 108 22 183/115 96 Mechanical Ventilator 12/05/17 15:08 98 12/05/17 15:05 118 12/05/17 14:59 119 20 204/148 98 BiPAP Constitutional: General Apperance: overweight Level of Distress: NAD, severe distress, acutely ill Head: normocephalic Eyes: Pupils: PERRLA ENMT: normal ENT inspection Neck: supple, no masses Lungs: Respiratory effort: tachypneic Auscultation: breath sounds normal, no wheezing, rales/crackles on the left , rales/crackles on the right, pertinent finding (intubated) Cardiovascular: Heart Auscultation: RRR, no rubs, no gallops, III/ GEOVANNY Peripheral Pulses: Bruits: none appreciated Abdomen: Bowel Sounds: normal Inspection & Palpation: soft, no tenderness, guarding & rebound, no masses Extremities: edema (+1 bilateral edema) Neurologic: Cranial Nerves: grossly intact Sensation: grossly intact Data Laboratory Results: Last 24 Hours Test 12/05/17 15:00 12/05/17 15:35 White Blood Count 9.44 K/uL Red Blood Count 4.39 M/uL Hemoglobin 12.4 g/dL Hematocrit 39.5 % Mean Corpuscular Volume 90.0 fL Mean Corpuscular Hemoglobin 28.2 pg Mean Corpuscular Hemoglobin Concent 31.4 g/dl Platelet Count 287 K/uL Mean Platelet Volume 10.2 fL Neutrophils (%) (Auto) 67.2 % Lymphocytes (%) (Auto) 22.6 % Monocytes (%) (Auto) 4.8 % Eosinophils (%) (Auto) 4.4 % Basophils (%) (Auto) 0.7 % Neutrophils # (Auto) 6.34 K/uL Lymphocytes # (Auto) 2.13 K/uL Monocytes # (Auto) 0.45 K/uL Eosinophils # (Auto) 0.42 K/uL Basophils # (Auto) 0.07 K/uL RDW Standard Deviation 48.9 fL RDW Coefficient of Variation 14.8 % Immature Granulocyte % (Auto) 0.3 % Immature Granulocyte # (Auto) 0.03 K/uL Prothrombin Time 10.8 SECONDS Prothromb Time International Ratio 1.0 Activated Partial Thromboplast Time 19.8 SECONDS Partial Thromboplastin Ratio 0.8 Sodium Level 134 mmol/L Potassium Level 4.7 mmol/L Chloride Level 99 mmol/L Carbon Dioxide Level 26 mmol/L Anion Gap 9.0 mmol/L Blood Urea Nitrogen 26 mg/dl Creatinine 1.33 mg/dl Est Creatinine Clear Calc Drug Dose 51.5 ml/min Estimated GFR () 44.9 Estimated GFR (Non- 38.7 BUN/Creatinine Ratio 19.3 Random Glucose 272 mg/dl Calcium Level 8.1 mg/dl Total Bilirubin 0.5 mg/dl Aspartate Amino Transf (AST/SGOT) 25 U/L Alanine Aminotransferase (ALT/SGPT) 25 U/L Alkaline Phosphatase 148 U/L Troponin I 0.042 ng/ml Pro-B-Type Natriuretic Peptide 2941 pg/ml Total Protein 8.2 gm/dl Albumin 3.4 gm/dl Globulin 4.8 gm/dl Albumin/Globulin Ratio 0.7 Bedside Blood Gas pH (LAB) 7.14 Bedside Blood Gas pCO2 (LAB) 88 mmHg Bedside Blood Gas pO2 (LAB) 390 mmHg Bedside Blood Gas HCO3 (LAB) 30 meq/L Bedside Blood Gas Total CO2 33 mEq/l Bedside Blood Gas Base Excess (LAB) 1.0 meq/L Bedside Blood Gas O2 Saturation 100.0 % Imaging: Chest x-ray shows CHF (pulmonary edema) EKG: Electrocardiogram shows sinus tachycardia at 118 bpm with a left bundle branch block pattern Telemetry reviewed: Sinus tachycardia, no significant arrhythmia Cardiac catheterization: At [facility] in December 2016, no significant coronary artery disease. Echocardiography: December 2016 at [facility] showed severe left ventricular hypertrophy and diastolic dysfunction, mild to moderate aortic stenosis Assessment & Plan #1. CHF: She presents in severe congestive heart failure requiring intubation. She is markedly hypertensive. The contributing factors to her presentation may be severe hypertension, in conjunction with left ventricular hypertrophy and diastolic dysfunction. She also has some degree of aortic stenosis but that may not be related to her presentation. She does present with left bundle branch block however which can lead to decompensation. We will need to do an echocardiogram to look at her aortic valve as well as her left ventricular function. In the meantime she will need to be diuresed and supported for her respiratory status. #2. Left bundle-branch block: She has what appears to be new onset left bundle branch block (although I don't have electric cart gram over the last year in our records). That may or may not be related to her presentation. She does not have positive cardiac enzymes and to my knowledge has not been having chest discomfort and has a history of a clean catheterization within the last year therefore I don't believe we should consider emergency coronary evaluation. We will need to watch her following admission to see whether this is a rate- related bundle branch block. #3. Aortic stenosis: In 2016 she appeared to moderate aortic stenosis, I understand an echocardiogram in December 2016 done [facility] showed a similar finding. I don't have a valve area. That suggests that she does not have rapid progression, we will need to confirm that by echocardiography her. Thank you for allowing me to participate in her care.
[2017-12-05] MEDS ORDERED: CZR50 (16:52)
[2017-12-05] MEDS ORDERED: BUME1TAB PO (16:53)
[2017-12-05] MEDS ORDERED: VENL75CA PO (16:54)
[2017-12-05] MEDS ORDERED: AMPH20CA3 PO (16:55)
[2017-12-05] MEDS ORDERED: NUTR1TAB4 PO (16:58)
[2017-12-05] MEDS ORDERED: NITROGLYCERIN 0.4 MG SL PER TAB CHARGE SL PRN (17:00)
[2017-12-05] MEDS ORDERED: ICU PROTOCOL FOR HYPERGLYCEMIA PRN (17:00)
[2017-12-05] MEDS ORDERED: LORAZEPAM 2 MG/ML 1 ML VIAL IV PRN (17:00)
[2017-12-05] MEDS ORDERED: ASPI81TA28 PO (17:00)
[2017-12-05] MEDS ORDERED: CARV12.52 PO (17:02)
[2017-12-05] MEDS ORDERED: CHOL500024 PO (17:05)
[2017-12-05] MEDS ORDERED: CALC-20 PO (17:11)
[2017-12-05] MEDS ORDERED: LCTX PO (17:16)
[2017-12-05] MEDS ORDERED: TEMA15CA4 PO (17:17)
--- NOTE | 2017-12-05 18:13 | History and Physical ---
History & Physical Date & Time of Service: Dec 05, 2017 at 17:49 Chief Complaint: Primary Care Physician: Raad Skinner M.D. History of Present Illness Source: family, hospital records, EMS 77 year old female with past medical history of chronic diastolic congestive heart failure, patient had workup on December 2016 including cardiac catheterization that showed clean coronaries, 2-D echo that showed preserved contractility function. Patient recently gained 30 pounds weight and noticed increased swelling in her lower extremities. As per family she was placed in [place] and that caused some renal impairment. 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 She was instructed to use her CPAP machine regularly, strict salt restriction. Initially she thought that she is improving. Today she went to the dentist and then to grocery shopping. In her way back from grocery she was extremely short of breath. When she went to her apartment building the site operations manager of the apartment building called [phone] and she was brought to the hospital. She was found to be severely short of breath was brought on BiPAP by paramedics. Was intubated in ED for hypoxic respiratory failure. During my exam she was already intubated, most of history was obtained from her family, staff, and hospital records. Dr. Walker faxed his office notes. Past Medical/Surgical History Medical Problems: (1) Aortic stenosis Status: Chronic (2) Kidney disease Status: Chronic (3) Open fracture of left elbow Status: Resolved (4) Pre-diabetes Status: Chronic Surgical Problems: (1) History of gastric bypass Status: Resolved (2) Hx of thyroidectomy Status: Resolved (3) S/P knee replacement Status: Resolved Family History Cancer Social History Smoking Status: Never Smoker Drug Use: none Marital Status: Housing status: lives alone Occupational Status: retired Immunizations History of Influenza Vaccine: Unknown Influenza Vaccine Date: Sep 13, 2005 History of Tetanus Vaccine?: Yes Tetanus Immunization Date: Apr 01, 2001 History of Pneumococcal: Yes Pneumococcal Date: March 13, 2002 History of Hepatitis B Vaccine: Unknown Hepatitis Immunization Date: March 13, 2002 Multi-Drug Resistant Organisms History of MDRO: No Allergies Coded Allergies: Statins (Verified Allergy, Mild, UNKNOWN, 01/13/17) Oxycodone (Verified Allergy, Unknown, RASH, 01/13/17) Sulfa Antibiotics (Verified Allergy, Unknown, "TAKES TOP LAYER OF TONGUE OFF", 01/13/17) Lactose Intolerance (GI) (Verified Adverse Reaction, Unknown, GI UPSET AND DIARRHEA, 01/13/17) Home Medications Scheduled Amphetamine-Dextroamphetamine 20MG (Adderall Xr 20MG), 20 MG PO BID Aspirin (Aspirin Ec), 81 MG PO DAILY Atorvastatin (Lipitor), 20 MG PO DAILY Bumetanide (Bumex), 0.5 MG PO DAILY Bupropion Hcl (Wellbutrin Sr), 200 MG PO QAM Calcium Carbonate-Vitamin D (Calcium 600 + D), 2 TABS PO BID Carvedilol (Coreg), 12.5 MG PO BID Cholecalciferol (Vitamin D3 Ultra Potency), 50,000 UNITS PO MONTHLY Cyanocobalamin (Cyanocobalamin), 1 DOSE INJ [id number] Cyclosporine (Ophth) (Restasis), 1 DROP OP BID Ferrous Sulfate (Ferrous Sulfate), 325 MG PO BID Gabapentin (Neurontin), 600 MG PO HS Hydroxyzine Hcl (Atarax), 25 MG PO HS Lactobacillus Acidophilus (Lactinex), 1 TAB PO DAILY Levocetirizine Dihydrochloride (Xyzal), 5 MG PO HS Levothyroxine Sodium (Synthroid), 175 MCG PO QAM Losartan Potassium (Losartan Potassium), 50 MG DAILY Multiple Vitamins W/ Minerals (Preservision Areds), 1 CAP PO DAILY Nutritional Supplements (Theralith Xr), 1 TAB PO DAILY Pantoprazole (Protonix), 40 MG PO QAM Potassium Chloride (Potassium Chloride ER), 20 MEQ PO DAILY Temazepam (Restoril), 15 MG PO HS Venlafaxine Hcl (Effexor Xr), 75 MG PO DAILY Ziprasidone Hcl (Geodon), 80 MG PO BID Review of Systems Due to patient status review of system was unobtainable/unreliable We'll attempt to obtain review of system as needed from staff and family Physical Exam Vital Signs Date Time Temp Pulse Resp B/P (MAP) Pulse Ox O2 Delivery O2 Flow Rate FiO2 12/05/17 17:36 79 20 94/62 94 12/05/17 17:21 93/63 12/05/17 17:20 82 20 94 12/05/17 17:16 87 20 99/76 95 Mechanical Ventilator 12/05/17 17:05 89 22 110/72 97 Mechanical Ventilator 12/05/17 16:57 94 22 130/97 96 Mechanical Ventilator 12/05/17 16:51 91 20 125/76 94 Mechanical Ventilator 12/05/17 16:45 95 22 136/96 94 Mechanical Ventilator 12/05/17 16:40 96 20 146/91 94 Mechanical Ventilator 12/05/17 16:30 93 20 160/106 92 Mechanical Ventilator 12/05/17 16:25 91 22 143/91 93 Mechanical Ventilator 12/05/17 16:20 95 22 125/84 94 Mechanical Ventilator 12/05/17 16:10 96 20 138/86 94 Mechanical Ventilator 12/05/17 16:06 99 20 137/89 94 Mechanical Ventilator 12/05/17 16:00 99 22 132/82 94 Mechanical Ventilator 12/05/17 15:51 100 20 119/80 95 Mechanical Ventilator 12/05/17 15:45 99 20 122/86 95 Mechanical Ventilator 12/05/17 15:40 60 12/05/17 15:25 100 12/05/17 15:20 Mechanical Ventilator 12/05/17 15:20 Mechanical Ventilator 12/05/17 15:19 108 22 183/115 96 Mechanical Ventilator 12/05/17 15:08 98 12/05/17 15:05 118 12/05/17 14:59 119 20 204/148 98 BiPAP General Appearance: + moderate distress, + obese Head: normocephalic, atraumatic Eyes: normal inspection, EOMI ENT: normal ENT inspection Neck: supple Respiratory/Chest: + respiratory distress, + decreased breath sounds, + accessory muscle use, + crackles, + rales Cardiovascular: regular rate, rhythm, no edema, no gallop, no JVD, no murmur, normal peripheral pulses Abdomen/GI: normal bowel sounds, non tender, soft, no organomegaly, no pulsatile mass Back: normal inspection, no CVA tenderness, no muscle spasm, normal range of motion Extremities/Musculoskelatal: normal inspection, + pedal edema Neurologic/Psych: + pertinent finding (intubated sedated) Skin: normal color, warm/dry, no rash Diagnostics Laboratory Results Results Past 24 Hours Test 12/05/17 15:00 12/05/17 15:35 Range/Units White Blood Count 9.44 4.8-10.8 K/uL Red Blood Count 4.39 4.2-5.4 M/uL Hemoglobin 12.4 12.0-16.0 g/dL Hematocrit 39.5 37-47 % Mean Corpuscular Volume 90.0 80-100 fL Mean Corpuscular Hemoglobin 28.2 25-34 pg Mean Corpuscular Hemoglobin Concent 31.4 32-36 g/dl Platelet Count 287 130-400 K/uL Mean Platelet Volume 10.2 7.4-10.4 fL Neutrophils (%) (Auto) 67.2 % Lymphocytes (%) (Auto) 22.6 % Monocytes (%) (Auto) 4.8 % Eosinophils (%) (Auto) 4.4 % Basophils (%) (Auto) 0.7 % Neutrophils # (Auto) 6.34 1.4-6.5 K/uL Lymphocytes # (Auto) 2.13 1.2-3.4 K/uL Monocytes # (Auto) 0.45 0.11-0.59 K/uL Eosinophils # (Auto) 0.42 0-0.5 K/uL Basophils # (Auto) 0.07 0-0.2 K/uL RDW Standard Deviation 48.9 36.4-46.3 fL RDW Coefficient of Variation 14.8 11.5-14.5 % Immature Granulocyte % (Auto) 0.3 % Immature Granulocyte # (Auto) 0.03 0.00-0.02 K/uL Prothrombin Time 10.8 9.0-12.0 SECONDS Prothromb Time International Ratio 1.0 0.9-1.1 Activated Partial Thromboplast Time 19.8 21.0-31.0 SECONDS Partial Thromboplastin Ratio 0.8 Sodium Level 134 136-145 mmol/L Potassium Level 4.7 3.5-5.1 mmol/L Chloride Level 99 98-107 mmol/L Carbon Dioxide Level 26 21-32 mmol/L Anion Gap 9.0 3-11 mmol/L Blood Urea Nitrogen 26 7-18 mg/dl Creatinine 1.33 0.60-1.20 mg/dl Est Creatinine Clear Calc Drug Dose 51.5 ml/min Estimated GFR () 44.9 Estimated GFR (Non- 38.7 BUN/Creatinine Ratio 19.3 10-20 Random Glucose 272 70-99 mg/dl Calcium Level 8.1 8.5-10.1 mg/dl Total Bilirubin 0.5 0.2-1 mg/dl Aspartate Amino Transf (AST/SGOT) 25 15-37 U/L Alanine Aminotransferase (ALT/SGPT) 25 12-78 U/L Alkaline Phosphatase 148 45-117 U/L Troponin I 0.042 0-0.045 ng/ml Pro-B-Type Natriuretic Peptide 2941 0-1800 pg/ml Total Protein 8.2 6.4-8.2 gm/dl Albumin 3.4 3.4-5.0 gm/dl Globulin 4.8 2.5-4.0 gm/dl Albumin/Globulin Ratio 0.7 0.9-2 Bedside Blood Gas pH (LAB) 7.14 7.35-7.45 Bedside Blood Gas pCO2 (LAB) 88 35-46 mmHg Bedside Blood Gas pO2 (LAB) 390 80-95 mmHg Bedside Blood Gas HCO3 (LAB) 30 19-24 meq/L Bedside Blood Gas Total CO2 33 24-31 mEq/l Bedside Blood Gas Base Excess (LAB) 1.0 -9-1.8 meq/L Bedside Blood Gas O2 Saturation 100.0 90-95 % Impression Assessment and Plan 77 years old female presented to the ED with acute on chronic diastolic congestive heart failure with hypoxic respiratory failure required intubation ED. 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 Sunshine appreciate Consult critical care attending Dr. Morales Heparin for DVT prophylaxis Continue depression medications Continue levothyroxine Check lipids and hemoglobin A1c to stratify patient risk Protonix 40 GI prophylaxis VTE Prophylaxis VTE Risk Assessment Done? Y/N: Yes Risk Level: Moderate
[2017-12-05] MEDS ORDERED: FUROSEMIDE INJ 100 MG in DEXTROSE 5% 100ML 90 ML IV SCH (19:30)
[2017-12-05] MEDS: NITROGLYCERIN 2% OINTMENT 30GM TUBE EXT SCH (20:25)
[2017-12-05] MEDS: CARVEDILOL 6.25 MG TAB PO SCH (20:27)
[2017-12-05] MEDS: ZIPRASIDONE 80 MG CAP PO SCH (20:31)
[2017-12-05] MEDS ORDERED: CARVEDILOL 12.5 MG TAB PO SCH (21:00)
[2017-12-05] MEDS ORDERED: POTASSIUM CHLORIDE 20 MEQ TABCR PO SCH (21:00)
[2017-12-05] MEDS ORDERED: FENTANYL CITRATE INJ 50 MCG/1 ML 2 ML VIAL ONE (21:02)
[2017-12-05] MEDS ORDERED: POTASSIUM CHLORIDE 20 MEQ/15 ML UDC NG SCH (22:00)
[2017-12-05] MEDS: HEPARIN SOD 5000 UNIT/0.5 ML CARP SQ SCH (22:05)
--- NOTE | 2017-12-05 22:20 | EMERGENCY ROOM VISIT NOTE ---
History Report prepared by Hi: Amadeo Soria Under the Supervision of: Dr. Juan Fraire D.O. First contact with patient: 14:55 Chief Complaint: RESPIRATORY PROBLEMS History of Present Illness The patient is a 77 year old female who presents to the Emergency Room with complaints of constant shortness of breath starting this morning. Per the EMS, the patient was feeling more short of breath today, and she was fund to 47% on room air, and she was diaphoretic with increased work of breathing. The patient has a history of heart failure, and she has had a similar episode in the past which was relieved with a CPAP. The patient was given 40mg of Lasix, 3 sprays of nitroglycerin SL, and she was put on CPAP, and her saturation went up to 91% . She denies any new cough, chest pain, or runny nose. She states that she has been gaining weight recently. History is limited secondary to altered mental status. On review of the EMR, the patient has a history of aortic stenosis, gastric bypass, HTN, HLD, and she was in the hospital in 2011. Source of History: patient, EMS History Limited By: AMS Onset: this morning Position: other (global) Quality: other (shortness of breath) Timing: constant Associated Symptoms: No cough Review of Systems History is limited secondary to altered mental status. Past Medical & Surgical Medical Problems: (1) Acute respiratory failure with hypoxia (2) Aortic stenosis (3) Kidney disease (4) Open fracture of left elbow (5) Pre-diabetes Surgical Problems: (1) History of gastric bypass (2) Hx of thyroidectomy (3) S/P knee replacement Family History Cancer Social History Smoking Status: Never Smoker Alcohol Use: none Drug Use: none Marital Status: Housing Status: lives alone Occupation Status: retired Current/Historical Medications Scheduled Amphetamine-Dextroamphetamine 20MG (Adderall Xr 20MG), 20 MG PO BID Aspirin (Aspirin Ec), 81 MG PO DAILY Atorvastatin (Lipitor), 20 MG PO DAILY Bumetanide (Bumex), 0.5 MG PO DAILY Bupropion Hcl (Wellbutrin Sr), 200 MG PO QAM Calcium Carbonate-Vitamin D (Calcium 600 + D), 2 TABS PO BID Carvedilol (Coreg), 12.5 MG PO BID Cholecalciferol (Vitamin D3 Ultra Potency), 50,000 UNITS PO MONTHLY Cyanocobalamin (Cyanocobalamin), 1 DOSE INJ [id number] Cyclosporine (Ophth) (Restasis), 1 DROP OP BID Ferrous Sulfate (Ferrous Sulfate), 325 MG PO BID Gabapentin (Neurontin), 600 MG PO HS Hydroxyzine Hcl (Atarax), 25 MG PO HS Lactobacillus Acidophilus (Lactinex), 1 TAB PO DAILY Levocetirizine Dihydrochloride (Xyzal), 5 MG PO HS Levothyroxine Sodium (Synthroid), 175 MCG PO QAM Losartan Potassium (Losartan Potassium), 50 MG DAILY Multiple Vitamins W/ Minerals (Preservision Areds), 1 CAP PO DAILY Nutritional Supplements (Theralith Xr), 1 TAB PO DAILY Pantoprazole (Protonix), 40 MG PO QAM Potassium Chloride (Potassium Chloride ER), 20 MEQ PO DAILY Temazepam (Restoril), 15 MG PO HS Venlafaxine Hcl (Effexor Xr), 75 MG PO DAILY Ziprasidone Hcl (Geodon), 80 MG PO BID Allergies Coded Allergies: Statins (Verified Allergy, Mild, UNKNOWN, 01/13/17) Oxycodone (Verified Allergy, Unknown, RASH, 01/13/17) Sulfa Antibiotics (Verified Allergy, Unknown, "TAKES TOP LAYER OF TONGUE OFF", 01/13/17) Lactose Intolerance (GI) (Verified Adverse Reaction, Unknown, GI UPSET AND DIARRHEA, 01/13/17) Physical Exam Vital Signs Date Time Temp Pulse Resp B/P (MAP) Pulse Ox O2 Delivery O2 Flow Rate FiO2 12/05/17 17:05 89 22 110/72 97 Mechanical Ventilator 12/05/17 16:57 94 22 130/97 96 Mechanical Ventilator 12/05/17 16:51 91 20 125/76 94 Mechanical Ventilator 12/05/17 16:45 95 22 136/96 94 Mechanical Ventilator 12/05/17 16:40 96 20 146/91 94 Mechanical Ventilator 12/05/17 16:30 93 20 160/106 92 Mechanical Ventilator 12/05/17 16:25 91 22 143/91 93 Mechanical Ventilator 12/05/17 16:20 95 22 125/84 94 Mechanical Ventilator 12/05/17 16:10 96 20 138/86 94 Mechanical Ventilator 12/05/17 16:06 99 20 137/89 94 Mechanical Ventilator 12/05/17 16:00 99 22 132/82 94 Mechanical Ventilator 12/05/17 15:51 100 20 119/80 95 Mechanical Ventilator 12/05/17 15:45 99 20 122/86 95 Mechanical Ventilator 12/05/17 15:40 60 12/05/17 15:25 100 12/05/17 15:20 Mechanical Ventilator 12/05/17 15:20 Mechanical Ventilator 12/05/17 15:19 108 22 183/115 96 Mechanical Ventilator 12/05/17 15:08 98 12/05/17 15:05 118 12/05/17 14:59 119 20 204/148 98 BiPAP Physical Exam GENERAL: Sitting up in bed, intermittently responsive, on BIPAP, dyspneic unable to answer questions EYE EXAM: normal conjunctiva. OROPHARYNX: BIPAP in place. NECK: Positive JVD, supple, no nuchal rigidity, no adenopathy, non-tender LUNGS: Coarse bilaterally with rhonchi. Normal chest wall mechanics HEART: Tachycardic with systolic murmur, S1 normal and S2 normal ABDOMEN: abdomen soft, non-tender, normo-active bowel sounds, no masses, no rebound or guarding. BACK: Back is symmetrical on inspection and there is no deformity, no midline tenderness, no CVA tenderness. SKIN: no rashes and no bruising UPPER EXTREMITIES: upper extremities are grossly normal. LOWER EXTREMITIES: Pitting edema bilaterally. NEURO EXAM: Intermittently shakes her head yes and no. Moving all extremities. Non-focal. Medical Decision & Procedures ER Provider Diagnostic Interpretation: Radiology results as stated below per my review and the radiologist's interpretation: CHEST ONE VIEW PORTABLE CLINICAL HISTORY: EVALUATE RESPIRATORY DISTRESS.DYSPNEA dyspnea COMPARISON STUDY: 01/13/2017 FINDINGS: Cardiomegaly. Findings of pulmonary edema. Diaphragms are smooth. Costophrenic angles are sharp. IMPRESSION: Pulmonary edema The above report was generated using voice recognition software. It may contain grammatical, syntax or spelling errors. Electronically signed by: Haris Barrera M.D. 12/05/2017 3:11 PM Dictated Date/Time: 12/05/2017 3:11 PM CHEST ONE VIEW PORTABLE CLINICAL HISTORY: SOB dyspnea COMPARISON STUDY: 12/05/2017 2:58 PM. FINDINGS: Endotracheal tube placed at the origin of the right mainstem bronchus. This should be pulled back several centimeters. Heart remains enlarged. Findings of pulmonary edema are unchanged. IMPRESSION: Endotracheal tube placed in origin of the right mainstem bronchus. This should be pulled back several centimeters. Unchanging findings of pulmonary edema. The above report was generated using voice recognition software. It may contain grammatical, syntax or spelling errors. Electronically signed by: Haris Barrera M.D. 12/05/2017 3:19 PM Dictated Date/Time: 12/05/2017 3:19 PM Laboratory Results 12/05/17 15:00 Red Blood Count 4.39, Mean Corpuscular Volume 90.0, Mean Corpuscular Hemoglobin 28.2, Mean Corpuscular Hemoglobin Concent 31.4, Mean Platelet Volume 10.2, Neutrophils (%) (Auto) 67.2, Lymphocytes (%) (Auto) 22.6, Monocytes (%) (Auto) 4.8, Eosinophils (%) (Auto) 4.4, Basophils (%) (Auto) 0.7, Neutrophils # (Auto) 6.34, Lymphocytes # (Auto) 2.13, Monocytes # (Auto) 0.45, Eosinophils # (Auto) 0.42, Basophils # (Auto) 0.07 12/05/17 15:00 Test 12/05/17 15:00 12/05/17 15:35 White Blood Count 9.44 K/uL (4.8-10.8) Red Blood Count 4.39 M/uL (4.2-5.4) Hemoglobin 12.4 g/dL (12.0-16.0) Hematocrit 39.5 % (37-47) Mean Corpuscular Volume 90.0 fL (80-100) Mean Corpuscular Hemoglobin 28.2 pg (25-34) Mean Corpuscular Hemoglobin Concent 31.4 g/dl (32-36) Platelet Count 287 K/uL (130-400) Mean Platelet Volume 10.2 fL (7.4-10.4) Neutrophils (%) (Auto) 67.2 % Lymphocytes (%) (Auto) 22.6 % Monocytes (%) (Auto) 4.8 % Eosinophils (%) (Auto) 4.4 % Basophils (%) (Auto) 0.7 % Neutrophils # (Auto) 6.34 K/uL (1.4-6.5) Lymphocytes # (Auto) 2.13 K/uL (1.2-3.4) Monocytes # (Auto) 0.45 K/uL (0.11-0.59) Eosinophils # (Auto) 0.42 K/uL (0-0.5) Basophils # (Auto) 0.07 K/uL (0-0.2) RDW Standard Deviation 48.9 fL (36.4-46.3) RDW Coefficient of Variation 14.8 % (11.5-14.5) Immature Granulocyte % (Auto) 0.3 % Immature Granulocyte # (Auto) 0.03 K/uL (0.00-0.02) Prothrombin Time 10.8 SECONDS (9.0-12.0) Prothromb Time International Ratio 1.0 (0.9-1.1) Activated Partial Thromboplast Time 19.8 SECONDS (21.0-31.0) Partial Thromboplastin Ratio 0.8 Anion Gap 9.0 mmol/L (3-11) Est Creatinine Clear Calc Drug Dose 51.5 ml/min Estimated GFR () 44.9 Estimated GFR (Non- 38.7 BUN/Creatinine Ratio 19.3 (10-20) Calcium Level 8.1 mg/dl (8.5-10.1) Total Bilirubin 0.5 mg/dl (0.2-1) Aspartate Amino Transf (AST/SGOT) 25 U/L (15-37) Alanine Aminotransferase (ALT/SGPT) 25 U/L (12-78) Alkaline Phosphatase 148 U/L (45-117) Troponin I 0.042 ng/ml (0-0.045) Pro-B-Type Natriuretic Peptide 2941 pg/ml (0-1800) Total Protein 8.2 gm/dl (6.4-8.2) Albumin 3.4 gm/dl (3.4-5.0) Globulin 4.8 gm/dl (2.5-4.0) Albumin/Globulin Ratio 0.7 (0.9-2) Triglycerides Level 84 mg/dl (0-150) Cholesterol Level 213 mg/dl (0-200) HDL Cholesterol 102 mg/dl LDL Cholesterol, Calculated 94 mg/dl VLDL Cholesterol, Calculated 17 mg/dl Cholesterol/HDL Ratio 2.1 Bedside Blood Gas pH (LAB) 7.14 (7.35-7.45) Bedside Blood Gas pCO2 (LAB) 88 mmHg (35-46) Bedside Blood Gas pO2 (LAB) 390 mmHg (80-95) Bedside Blood Gas HCO3 (LAB) 30 meq/L (19-24) Bedside Blood Gas Total CO2 33 mEq/l (24-31) Bedside Blood Gas Base Excess (LAB) 1.0 meq/L (-9-1.8) Bedside Blood Gas O2 Saturation 100.0 % (90-95) Laboratory results per my review. Medications Administered Medications (Trade) Dose Ordered Sig/Huey Route Start Time Stop Time Status Last Admin Dose Admin Miscellaneous (Rapid Sequence Induction Bag) 1 ea STK-MED ONCE N/A 12/05/17 14:56 12/05/17 14:57 DC 12/05/17 14:56 1 EA Propofol (Diprivan Iv Emulsion 100ml Vial) 1 dose UD STAT IV 12/05/17 15:12 12/05/17 15:18 DC 12/05/17 15:12 1 DOSE Midazolam HCl (Versed Inj) 4 mg NOW STAT IV 12/05/17 15:17 12/05/17 15:19 DC 12/05/17 15:17 4 MG Procedure EM PROCEDURE NOTE - Endotracheal Intubation PROCEDURE NOTE: Informed consent was not obtained by the patient. Verify Correct Patient: yes Procedure: Endotracheal intubation Indication: Resp failure The procedure was done emergently. Description of the Procedure: The patient was seen and properly identified. The patient was pre-oxygenated and intubated after rapid sequence induction with meds: Succinylcholine and ketamine. Intubation was performed using a glidescope 3 and a 7.5 cuffed endotracheal tube. The tube was visualized going through the cords and secured with the 25cm haris at the lips. The patient had good bilateral breath sounds in the axillae with good chest rise. Proper ET tube placement was confirmed by end tidal CO2 detector. The patient tolerated the procedure well. ECG Indication: SOB/dyspnea Rate (beats per minute): 118 Rhythm: sinus tachycardia Findings: LBBB, nonspecific-ST abn (Inferior) Change: Patient's electrocardiogram interpreted by me. ED Course ED COURSE: Vital signs were reviewed and showed hypoxia, tachycardia, and tachypnea The patients medical record was reviewed The above diagnostic studies were performed and reviewed. ED treatments and interventions as stated above. 1455: The patient was evaluated in room B1. A complete history and physical examination was performed. 1514: I discussed the patient's case with Dr. Lorraine DAVALOS Cardiology, and he is going to evaluate the patient. 1528: I reevaluated the patient, and Dr. Peters was at the patient's bedside. 1536: I discussed the patient's case with Dr. Aaron Beatty Cardiology, and he follows up with the patient. He states that the patient has a clean cath in 2017. She had an EF of 65% and severe diastolic failure. 1546: I reviewed the patient's case with Dr. Raúl DAVALOS Hospitalist. He will evaluate the patient for further management. 1556: I reassessed the patient, and Dr. Raúl DAVALOS Hospitalist was evaluating the patient at bedside. The patient's daughter states that the patient has gained 30 pounds over the past year. The patient's ET tube was pulled back. On ABG, the patient's pH was 7.1 Respiratory increased the respiratory rate. 1603: I talked to Dr. Olsen and Dr. Peters at the patient's bedside. 1630: I reevaluated the patient. 1642: I discussed the patient's case with Dr. Andrew Pena [facility] 1650: Upon reevaluation, the patient is doing okay.I discussed my findings with the patient. Based on the patients age, coexisting illnesses, exam and lab findings the decision to treat as an inpatient was made. The patient remained stable while under my care. The patient will be evaluated for further management. Medical Decision Differential diagnoses includes but is not limited to pneumonia, bronchitis, COPD/Asthma exacerbation, pneumothorax, pulmonary embolism, congestive heart failure, acute coronary syndrome. Patient is a 77-year-old female who presents to ER in severe respiratory distress brought in by ambulance. She was on CPAP on arrival. Initially she was able to nod her head yes and no to some intermittent questioning. She eventually became unresponsive and started to lose her airway. At this point elected to intubate her. She remained on BiPAP as we push ketamine and was intubated with 7.5 ET tube following ketamine and succinylcholine. Chest x-ray was obtained. Tube was pulled back. Chest x-ray showed diffuse pulmonary edema which is confirmed on exam with pitting edema and JVD. I consult to cardiology due to the report of sudden onset of shortness of breath with the new left bundle. They evaluated her at bedside. They recommended discussing the case with her drier who sees her as an outpatient. I called Dr. Cespedes and notes the patient had a clean cath in 2017. She has severe diastolic dysfunction as well. He will not be able to see her today and consequently I had the patient valuated by 9 year. I also discussed the case with the associate professor of media arts who evaluated her at bedside as well. I did update the grandson spoke with the daughter via phone. I also discussed case with internal medicine. CBC and BMP was fairly unremarkable. BSG was slightly elevated. ABG shows a pH is 7.1. CO2 is 88. Patient was admitted to internal medicine with acute respiratory failure secondary to hypoxia, CHF, metabolic acidosis intubated on a propofol drip which was titrated and we held the nitroglycerin drip as her systolic blood pressures trended down. Medication Reconcilliation Current Medication List: was personally reviewed by me Blood Pressure Screening Patient's blood pressure: Elevated blood pressure Monitored by the hospitalist Consults Time Called: 1510 Consulting Physician: Dr. Lorraine DAVALOS Cardiology Returned Call: 1514 I discussed the patient's case with Dr. Lorraine DAVALOS Cardiology, and he is going to evaluate the patient. Additional Consults: Time Called: 1528 Consulted Physician: Dr. Aaron Beatty Cardiology Returned Call: 1536 Additional Comments: I discussed the patient's case with Dr. Aaron Beatty Cardiology, and he follows up with the patient. He states that the patient has a clean cath in 2017. She had an EF of 65% and severe diastolic failure. Time Called: 1538 Consulted Physician: Dr. Raúl DAVALOS Hospitalist Returned Call: 1549 Additional Comments: I reviewed the patient's case with Dr. Raúl DAVALOS Hospitalist. He will evaluate the patient for further management. Impression Primary Impression: CHF (congestive heart failure) Additional Impressions: Acute respiratory failure with hypoxia Metabolic acidosis Critical Care I have personally spent 130 minutes of critical care time in the direct management of this patient. This includes bedside care, interpretation of diagnostic studies, and testing, discussion with consultants, patient, and family members, and other required patient management activities. This 130 minutes is in excess of all separately billable procedures. Scribe Attestation The scribe's documentation has been prepared under my direction and personally reviewed by me in its entirety. I confirm that the note above accurately reflects all work, treatment, procedures, and medical decision making performed by me. Departure Information Dispostion Being Evaluated By Hospitalist Referrals Raad Skinner M.D. (PCP) Patient Instructions My [facility] Problem Qualifiers Primary Impression: CHF (congestive heart failure) Heart failure type: unspecified Heart failure chronicity: unspecified Qualified Codes: I50.9 - Heart failure, unspecified
[2017-12-05] MEDS: MIDAZOLAM HCL 5 MG/ML 1 ML VIAL IV PRN (22:37)
[2017-12-06] VITALS (20 sets, daily range): BP systolic 97–150; BP diastolic 51–81; PULSE 63–80; TEMP 36.5–36.9; O2SAT 93–100; Ht 170.2 cm; Wt 123.3 kg
[2017-12-06 01:13] LABS: CKMB 7.3 ng/ml (0.5-3.6)
[2017-12-06] MEDS: FENTANYL CITRATE INJ 50 MCG/1 ML 2 ML VIAL IV PRN ×2 (01:26→05:04)
[2017-12-06] MEDS: NITROGLYCERIN 2% OINTMENT 30GM TUBE EXT SCH (02:00)
[2017-12-06] MEDS: MIDAZOLAM HCL 5 MG/ML 1 ML VIAL IV PRN (03:07)
[2017-12-06] MEDS: HEPARIN SOD 5000 UNIT/0.5 ML CARP SQ SCH (05:31)
[2017-12-06] MEDS: LEVOTHYROXINE 175 MCG TAB PO SCH (05:33)
[2017-12-06 05:46] LABS: BASO % 0.2 %; BASO ABS # 0.02 K/uL (0-0.2); EOS % 0.3 %; EOS ABS # 0.03 K/uL (0-0.5); HEMATOCRIT 32.5 % (37-47); HEMOGLOBIN 10.5 g/dL (12.0-16.0); IG# 0.02 K/uL (0.00-0.02); LYMPH % 13.2 %; LYMPH ABS # 1.14 K/uL (1.2-3.4); MEAN CELL VOLUME 87.1 fL (80-100); MEAN CORPUSCULAR HEMOGLOBIN 28.2 pg (25-34); MEAN CORPUSCULAR HGB CONC 32.3 g/dl (32-36); MONO % 8.2 %; MONO ABS # 0.71 K/uL (0.11-0.59); NEUT % 77.9 %; NEUT ABS # 6.71 K/uL (1.4-6.5); PLATELET COUNT 234 K/uL (130-400); RED CELL DISTRIBUTION WIDTH CV 14.6 % (11.5-14.5); RED CELL DISTRIBUTION WIDTH SD 46.8 fL (36.4-46.3); WHITE BLOOD COUNT 8.63 K/uL (4.8-10.8)
[2017-12-06 06:01] LABS: HEMOGLOBIN A1C 5.8 % (4.5-5.6)
[2017-12-06 06:29] LABS: CKMB 7.1 ng/ml (0.5-3.6)
[2017-12-06 06:31] LABS: ALBUMIN 2.9 gm/dl (3.4-5.0); ALKALINE PHOSPHATASE 115 U/L (45-117); ALT/SGPT 21 U/L (12-78); AST/SGOT 18 U/L (15-37); BLOOD UREA NITROGEN 25 mg/dl (7-18); CALCIUM 7.8 mg/dl (8.5-10.1); CARBON DIOXIDE 30 mmol/L (21-32); CREATININE 1.04 mg/dl (0.60-1.20); GLUCOSE 104 mg/dl (70-99); PHOSPHORUS 5.5 mg/dl (2.5-4.9); POTASSIUM 3.7 mmol/L (3.5-5.1); SODIUM 136 mmol/L (136-145); TOTAL PROTEIN 6.8 gm/dl (6.4-8.2)
--- NOTE | 2017-12-06 07:16 | Critical Care Consultation ---
Critical Care Consultation Date of Consultation: Dec 05, 2017. Attending Physician: Malgorzata Mondragon MD Reason for Consultation: Acute on chronic diastolic CHF with hypoxic respiratory failure requiring intubation. History of Present Illness 77 yo female PMH chronic diastolic congestive HF presented via EMS with acute SOB on afternoon of admission. [This history per patient's daughter and medical records, as she was already intubated at my time of evaluation.] Reportedly has gained 30 lbs over past year. Sees cardiology (Dr. Walker). Has most recently been on bumex every other day per daughter. Daughter also notes poor compliance with CPAP use and salt restriction in diet. Today, became acutely SOB requiring BiPAP via EMS and intubation in the ED for hypoxic respiratory failure. Past Medical/Surgical History Medical Problems: (1) Aortic stenosis Status: Chronic (2) Kidney disease Status: Chronic (3) Open fracture of left elbow Status: Resolved (4) Pre-diabetes Status: Chronic Surgical Problems: (1) History of gastric bypass Status: Resolved (2) Hx of thyroidectomy Status: Resolved (3) S/P knee replacement Status: Resolved Family History Cancer Social History Smoking Status: Never Smoker Drug Use: none Marital Status: Housing Status: lives alone Occupation Status: retired Allergies Coded Allergies: Statins (Verified Allergy, Mild, UNKNOWN, 01/13/17) Oxycodone (Verified Allergy, Unknown, RASH, 01/13/17) Sulfa Antibiotics (Verified Allergy, Unknown, "TAKES TOP LAYER OF TONGUE OFF", 01/13/17) Lactose Intolerance (GI) (Verified Adverse Reaction, Unknown, GI UPSET AND DIARRHEA, 01/13/17) Home Medications Scheduled Amphetamine-Dextroamphetamine 20MG (Adderall Xr 20MG), 20 MG PO BID Aspirin (Aspirin Ec), 81 MG PO DAILY Atorvastatin (Lipitor), 20 MG PO DAILY Bumetanide (Bumex), 0.5 MG PO DAILY Bupropion Hcl (Wellbutrin Sr), 200 MG PO QAM Calcium Carbonate-Vitamin D (Calcium 600 + D), 2 TABS PO BID Carvedilol (Coreg), 12.5 MG PO BID Cholecalciferol (Vitamin D3 Ultra Potency), 50,000 UNITS PO MONTHLY Cyanocobalamin (Cyanocobalamin), 1 DOSE INJ [id number] Cyclosporine (Ophth) (Restasis), 1 DROP OP BID Ferrous Sulfate (Ferrous Sulfate), 325 MG PO BID Gabapentin (Neurontin), 600 MG PO HS Hydroxyzine Hcl (Atarax), 25 MG PO HS Lactobacillus Acidophilus (Lactinex), 1 TAB PO DAILY Levocetirizine Dihydrochloride (Xyzal), 5 MG PO HS Levothyroxine Sodium (Synthroid), 175 MCG PO QAM Losartan Potassium (Losartan Potassium), 50 MG DAILY Multiple Vitamins W/ Minerals (Preservision Areds), 1 CAP PO DAILY Nutritional Supplements (Theralith Xr), 1 TAB PO DAILY Pantoprazole (Protonix), 40 MG PO QAM Potassium Chloride (Potassium Chloride ER), 20 MEQ PO DAILY Temazepam (Restoril), 15 MG PO HS Venlafaxine Hcl (Effexor Xr), 75 MG PO DAILY Ziprasidone Hcl (Geodon), 80 MG PO BID Current Inpatient Medications Current Inpatient Medications Medications (Trade) Dose Ordered Sig/Huey Route Start Time Stop Time Status Last Admin Dose Admin Atorvastatin Calcium (Lipitor Tab) 20 mg DAILY PO 12/06/17 09:00 01/05/18 08:59 Bupropion HCl (Wellbutrin-Sr Tab) 200 mg QAM PO 12/06/17 09:00 01/05/18 08:59 Carvedilol (Coreg Tab) 6.25 mg BID PO 12/05/17 21:00 01/04/18 20:59 Levothyroxine Sodium (Synthroid Tab) 175 mcg DAILYBB PO 12/06/17 06:00 01/05/18 06:59 Venlafaxine HCl (effeXOR EXTENDED REL CAP) 75 mg DAILY PO 12/06/17 09:00 01/05/18 08:59 Ziprasidone (Geodon Cap) 80 mg BID PO 12/05/17 21:00 01/04/18 20:59 Heparin Sodium (Porcine) (Heparin Sq 5000 Unit/0.5ml) 5,000 unit Q8H SQ 12/05/17 22:00 01/04/18 21:59 Lorazepam (Ativan Inj) 1 mg Q6H PRN IV 12/05/17 17:00 01/04/18 16:59 Nitroglycerin (Nitrostat Tab) 0.4 mg UD PRN SL 12/05/17 17:00 01/04/18 16:59 Nitroglycerin (Nitroglycerin 2% Oint) 1 inch Q6H EXT 12/05/17 20:00 01/04/18 19:59 Pantoprazole Sodium 40 mg/ Syringe 10 ml @ 5 mls/min DAILY IV 12/06/17 09:00 01/05/18 08:59 Miscellaneous Information ([facility] Protocol For Hyperglycemia) 1 ea PRN PRN N/A 12/05/17 17:00 12/07/17 16:59 Furosemide 100 mg/ Dextrose 100 ml @ 3 mls/hr Q24H IV 12/05/17 19:30 01/04/18 19:29 Potassium Chloride (Klor-Con Tab) 20 meq BID PO 12/05/17 21:00 01/04/18 20:59 Aspirin (Aspirin Chew) 81 mg DAILY PO 12/06/17 09:00 01/05/18 08:59 Review of Systems Unable to obtain ROS due to patient's being intubated. Physical Exam Date Time Temp Pulse Resp B/P (MAP) Pulse Ox O2 Delivery O2 Flow Rate FiO2 12/05/17 18:47 36.8 83 21 111/69 12/05/17 18:01 60 12/05/17 17:36 79 20 94/62 94 12/05/17 17:21 93/63 12/05/17 17:20 82 20 94 12/05/17 17:16 87 20 99/76 95 Mechanical Ventilator 12/05/17 17:05 89 22 110/72 97 Mechanical Ventilator 12/05/17 16:57 94 22 130/97 96 Mechanical Ventilator 12/05/17 16:51 91 20 125/76 94 Mechanical Ventilator 12/05/17 16:45 95 22 136/96 94 Mechanical Ventilator 12/05/17 16:40 96 20 146/91 94 Mechanical Ventilator 12/05/17 16:30 93 20 160/106 92 Mechanical Ventilator 12/05/17 16:25 91 22 143/91 93 Mechanical Ventilator 12/05/17 16:20 95 22 125/84 94 Mechanical Ventilator 12/05/17 16:10 96 20 138/86 94 Mechanical Ventilator 12/05/17 16:06 99 20 137/89 94 Mechanical Ventilator 12/05/17 16:00 99 22 132/82 94 Mechanical Ventilator 12/05/17 15:51 100 20 119/80 95 Mechanical Ventilator 12/05/17 15:45 99 20 122/86 95 Mechanical Ventilator 12/05/17 15:40 60 12/05/17 15:25 100 12/05/17 15:20 Mechanical Ventilator 12/05/17 15:20 Mechanical Ventilator 12/05/17 15:19 108 22 183/115 96 Mechanical Ventilator 12/05/17 15:08 98 12/05/17 15:05 118 12/05/17 14:59 119 20 204/148 98 BiPAP Head: normocephalic Eyes: conjunctivae normal ENT: other (Intubated) Neck: trachea midline Respiratory: rales, respiratory distress, other (decreased breath sounds throughout) Cardiovasular: regular rate/rhythm, normal S1S2, no murmur Abdomen: normal bowel sounds, no guarding Upper Extremities: no edema Lower Extremities: edema (pedal) Neuro: other (Intubated, sedated on propofol) Laboratory Results Last 24 Hours Test 12/05/17 15:00 12/05/17 15:35 White Blood Count 9.44 K/uL Red Blood Count 4.39 M/uL Hemoglobin 12.4 g/dL Hematocrit 39.5 % Mean Corpuscular Volume 90.0 fL Mean Corpuscular Hemoglobin 28.2 pg Mean Corpuscular Hemoglobin Concent 31.4 g/dl Platelet Count 287 K/uL Mean Platelet Volume 10.2 fL Neutrophils (%) (Auto) 67.2 % Lymphocytes (%) (Auto) 22.6 % Monocytes (%) (Auto) 4.8 % Eosinophils (%) (Auto) 4.4 % Basophils (%) (Auto) 0.7 % Neutrophils # (Auto) 6.34 K/uL Lymphocytes # (Auto) 2.13 K/uL Monocytes # (Auto) 0.45 K/uL Eosinophils # (Auto) 0.42 K/uL Basophils # (Auto) 0.07 K/uL RDW Standard Deviation 48.9 fL RDW Coefficient of Variation 14.8 % Immature Granulocyte % (Auto) 0.3 % Immature Granulocyte # (Auto) 0.03 K/uL Prothrombin Time 10.8 SECONDS Prothromb Time International Ratio 1.0 Activated Partial Thromboplast Time 19.8 SECONDS Partial Thromboplastin Ratio 0.8 Sodium Level 134 mmol/L Potassium Level 4.7 mmol/L Chloride Level 99 mmol/L Carbon Dioxide Level 26 mmol/L Anion Gap 9.0 mmol/L Blood Urea Nitrogen 26 mg/dl Creatinine 1.33 mg/dl Est Creatinine Clear Calc Drug Dose 51.5 ml/min Estimated GFR () 44.9 Estimated GFR (Non- 38.7 BUN/Creatinine Ratio 19.3 Random Glucose 272 mg/dl Calcium Level 8.1 mg/dl Total Bilirubin 0.5 mg/dl Aspartate Amino Transf (AST/SGOT) 25 U/L Alanine Aminotransferase (ALT/SGPT) 25 U/L Alkaline Phosphatase 148 U/L Troponin I 0.042 ng/ml Pro-B-Type Natriuretic Peptide 2941 pg/ml Total Protein 8.2 gm/dl Albumin 3.4 gm/dl Globulin 4.8 gm/dl Albumin/Globulin Ratio 0.7 Triglycerides Level 84 mg/dl Cholesterol Level 213 mg/dl HDL Cholesterol 102 mg/dl LDL Cholesterol, Calculated 94 mg/dl VLDL Cholesterol, Calculated 17 mg/dl Cholesterol/HDL Ratio 2.1 Bedside Blood Gas pH (LAB) 7.14 Bedside Blood Gas pCO2 (LAB) 88 mmHg Bedside Blood Gas pO2 (LAB) 390 mmHg Bedside Blood Gas HCO3 (LAB) 30 meq/L Bedside Blood Gas Total CO2 33 mEq/l Bedside Blood Gas Base Excess (LAB) 1.0 meq/L Bedside Blood Gas O2 Saturation 100.0 % Diagnostic Results CHEST ONE VIEW PORTABLE - [id number] COMPARISON STUDY: 01/13/2017 FINDINGS: Cardiomegaly. Findings of pulmonary edema. Diaphragms are smooth. Costophrenic angles are sharp. IMPRESSION: Pulmonary edema CHEST ONE VIEW PORTABLE s/p intubation [id number] IMPRESSION: Endotracheal tube placed in origin of the right mainstem bronchus. This should be pulled back several centimeters. Unchanging findings of pulmonary edema. Assessment & Plan 77yo female presented to ED with acute on chronic diastolic congestive heart failure with hypoxic respiratory failure. [employer]: Sedated on propofol. - Continuing home effexor and geodon. Pulm: Intubated in ED on 12Feb. CXR suggestive of pulmonary edema. - Start on lasix drip. - Pulmonary toilet. CVS: Initially hypertensive, received NTG ointment. Initial TnI 0.42 and EKG with LBBB. - On home coreg. - Start lasix drip for diuresis. ID: Afebrile. No known recent illness. Endo: PMH pre-diabetes. Glucose here okay. - Check lipid and A1c values for some risk stratification. - Continue home levothyroxine. Renal/Electrolytes: Placed jimenez catheter. Monitor I/O and overall renal function. GI: Protonix for prophylaxis. Heme: Hb 12.4. No suspected bleeding issues. Skin: No acute issues. Lines: Left arm PIV. Right arm PIV. Code status: Full code DVT prophy: Heparin. PT/OT: Not at this time. Dispo: Admit to ICU. Resident Physician Supervision Note: Dr. Marino was resident physician during care of patient. I separately evaluated patient and did history and exam. I discussed the case with the resident and generally agree with the findings and plan. During my evaluation patient was intubated and mildly sedated with propofol. I had an extensive discussion with the patient's daughter regarding goals of care. It appears that the patient has a long-standing history of medical noncompliance and when she would comply with her sodium diuresis and fluid restriction she would routinely be adherent for a couple of days and then feel that if she was doing well she could have a "cheat day". Emphasized to the patient's daughter that she cannot have cheat days otherwise similar CHF decompensations will occur. In discussing goals of care and the decreased functional status and poor likelihood that the patient would actually survive a cardiac arrest it was felt patient would not want to undergo heroic measures in event of cardiopulmonary arrest. I have personally spent 45 minutes of critical care time in the direct management of this patient. This is a life/limb threatening event. This includes time spent evaluating patient, direct bedside care, chart review, placing orders, interpretation of diagnostic studies, discussion with consultants, patient, and/or family members regarding treatment decisions, as well as other required patient management activities. This time is exclusive of all separately billable procedures, and teaching time and separate from and in addition to any other critical care service time. This documentation is reflective of date of service December 05, 2017 Documented By: Jimmy Morales DO
--- NOTE | 2017-12-06 07:27 | DIAGNOSTIC IMAGING REPORT ---
CHEST ONE VIEW PORTABLE HISTORY: Short of breath. COMPARISON: Chest 12/05/2017. FINDINGS: No pneumothorax. No significant pleural effusions. The heart remains mildly enlarged. Nasogastric tube terminates below the diaphragm. Endotracheal tube terminates approximately 2 cm from the lola. Significant improvement in the pulmonary edema. No new focal lung consolidations. IMPRESSION: 1. Significant improvement in the pulmonary edema. 2. Satisfactory support line placement. Electronically signed by: Kirt Giang M.D. 12/06/2017 7:26 AM Dictated Date/Time: 12/06/2017 7:25 AM
[2017-12-06] MEDS ORDERED: PANTOprazole SOD 40 MG TAB PO SCH (09:00)
[2017-12-06] MEDS ORDERED: PANTOprazole INJ 40 MG in SYRINGE 0 ML IV SCH (09:00)
[2017-12-06] MEDS ORDERED: NURSING VERBAL MED ORDER ONE (09:15)
--- NOTE | 2017-12-06 09:40 | ECHOCARDIOGRAM REPORT ---
*NOTICE TO RECEIVING DEMOCRAT AGENCY This information is strictly Confidential and protected under [place] law. [place] law prohibits you from making any further disclosure of this information unless further disclosure is expressly permitted by the written consent of the person to whom it pertains or is authorized by law. A general authorization for the release of medical or other information is not sufficient for this purpose. Hospital accepts no responsibility if the information is made available to any other person, INCLUDING THE PATIENT. Interpretation Summary * Name: WERNER NICOLAS Study Date: 12/06/2017 07:20 AM BP: 136/74 mmHg * Patient Location: .MSICU\S\E108\S\1 HR: 80 * : 1940 (M/d/yyyy) Gender: Female Height: 67 in * Age: 77 yrs Ethnicity: [place] Weight: 296 lb * Ordering Physician: Leonard Peters * Referring Physician: Self, Referred * Performed By: Isabela Dinh RDCS * * Reason For Study: NEW LBBB, AORTIC STENOSIS * BSA: 2.4 m2 * -- Conclusions -- * The LV basal and mid segments are hyperdynamic (especially the base) with hypokinesis of the mid to apical segments most c/w Takasubo's CM. * Normal LV function with EF 55% * Hypertrophy of the basal septum. * Due to the hyperdynamic basal segments there is a late peaking dagger shaped 4 m/s gradient across the basal LV and LVOT. * The right ventricle is normal in size and function. * The right ventricular systolic function is normal as assessed by tricuspid annular plane systolic excursion (TAPSE) (normal >1.5 cm). * The left atrium is moderately dilated. * The right atrium is mildly dilated. * Visually the AoV is moderately stenotic and not severely stenotic * Peak Velocity is 4 m/s with MG 40 mm/hg but LVOT velocity can not be adequetely measured to calculate dimensionless index. * TR velocity not assessed Procedure Details * A contrast injection of Definity was performed to improve assessment of LV function. * Contrast was injected into an intravenous site in the right arm. * One vial of Definity ultrasound contrast was diluted in normal saline to a total volume of 10 ml. A total of '2' ml of solution was administered during imaging. * Lot # [id number] of Definity utilized for procedure. * Expiration date NOV 11. * The attending nurse who injected the contrast agent was ELIA TRINIDAD. Left Ventricle * The LV basal and mid segments are hyperdynamic (especially the base) with hypokinesis of the mid to apical segments most c/w Takasubo's CM. Normal LV function with EF 55% Hypertrophy of the basal septum. Due to the hyperdynamic basal segments there is a late peaking dagger shaped 4 m/s gradient across the basal LV and LVOT. Right Ventricle * The right ventricle is normal in size and function. * The right ventricular systolic function is normal as assessed by tricuspid annular plane systolic excursion (TAPSE) (normal >1.5 cm). Atria * The left atrium is moderately dilated. * The right atrium is mildly dilated. Mitral Valve * There is moderate mitral annular calcification. * There is mild mitral regurgitation. Tricuspid Valve * The tricuspid valve is not well visualized, but is grossly normal. * TR velocity not assessed Aortic Valve * Visually the AoV is moderately stenotic and not severely stenotic Peak Velocity is 4 m/s with MG 40 mm/hg but LVOT velocity can not be adequetely measured to calculate dimensionless index. Pulmonic Valve * The pulmonic valve is not well visualized. Great Vessels * The aortic root is normal size. Pericardium/Pleural * There is no pericardial effusion. Great Vessels * Normal inferior vena cava diameter and respiratory variation suggests normal central venous pressure. Left Ventricular Diastolic Function * Grade I diastolic dysfunction, (abnormal relaxation pattern). MMode 2D Measurements and Calculations Ao root diam 3.0 cm Ao root area 7.1 cm\S\2 LA dimension 4.2 cm LA/Ao 1.4 LVOT diam 2.1 cm LVOT area 3.3 cm\S\2 LVAd ap4 34.1 cm\S\2 LVLd ap4 8.6 cm EDV(MOD-sp4) 105.1 ml EDV(sp4-el) 113.9 ml LVAs ap4 23.5 cm\S\2 LVLs ap4 7.7 cm ESV(MOD-sp4) 56.5 ml ESV(sp4-el) 60.8 ml EF(MOD-sp4) 46.2 % EF(sp4-el) 46.6 % LVAd ap2 32.5 cm\S\2 LVLd ap2 8.4 cm EDV(MOD-sp2) 98.0 ml EDV(sp2-el) 106.7 ml LVAs ap2 22.0 cm\S\2 LVLs ap2 7.5 cm ESV(MOD-sp2) 52.4 ml ESV(sp2-el) 54.8 ml EF(MOD-sp2) 46.5 % EF(sp2-el) 48.6 % LVLd %diff -2.61 % EDV(MOD-bp) 102.6 ml LVLs %diff -2.47 % ESV(MOD-bp) 55.1 ml EF(MOD-bp) 46.3 % SV(MOD-sp4) 48.5 ml SI(MOD-sp4) 20.3 ml/m\S\2 SV(MOD-sp2) 45.6 ml SI(MOD-sp2) 19.1 ml/m\S\2 SV(MOD-bp) 47.5 ml SI(MOD-bp) 19.9 ml/m\S\2 SV(sp4-el) 53.1 ml SI(sp4-el) 22.2 ml/m\S\2 SV(sp2-el) 51.9 ml SI(sp2-el) 21.7 ml/m\S\2 Doppler Measurements and Calculations MV E max bea 97.3 cm/sec MV A max bea 175.7 cm/sec MV E/A 0.55 MV dec time 0.27 sec Ao V2 max 445.0 cm/sec Ao max PG 79.5 mmHg Ao max PG (full) 58.3 mmHg Ao V2 mean 299.3 cm/sec Ao mean PG 41.8 mmHg Ao mean PG (full) 30.5 mmHg Ao V2 VTI 106.2 cm LUMA(I,A) 1.7 cm\S\2 LUMA(I,D) 1.7 cm\S\2 LUMA(V,A) 1.7 cm\S\2 LUMA(V,D) 1.7 cm\S\2 LV V1 max PG 21.2 mmHg LV V1 mean PG 11.4 mmHg LV V1 max 230.1 cm/sec LV V1 mean 153.8 cm/sec LV V1 VTI 54.7 cm SV(Ao) 756.0 ml SI(Ao) 316.5 ml/m\S\2 SV(LVOT) 183.0 ml SI(LVOT) 76.6 ml/m\S\2
[2017-12-06] MEDS ORDERED: ACETAMINOPHEN IV 650 MG / 65ML IV PRN (09:45)
--- NOTE | 2017-12-06 09:59 | Cardiology Follow-Up ---
Subjective General Date of Service: Dec 06, 2017. Pt evaluation today including: conversation w/ patient, chart review, lab review, review of studies, conversation w/ retail wireless sales consultant History of Present Illness The patient is a 77 year old female Allergies Coded Allergies: Statins (Verified Allergy, Mild, UNKNOWN, 01/13/17) Oxycodone (Verified Allergy, Unknown, RASH, 01/13/17) Sulfa Antibiotics (Verified Allergy, Unknown, "TAKES TOP LAYER OF TONGUE OFF", 01/13/17) Lactose Intolerance (GI) (Verified Adverse Reaction, Unknown, GI UPSET AND DIARRHEA, 01/13/17) Social History Smoking Status: Never Smoker Hx Alcohol Use - Type And Amou: Yes Hx Substance Use - Type And Am: Yes (OBTAINED FROM OLD RECORD) Problem List Medical Problems: (1) CHF (congestive heart failure) Status: Acute (2) Dehydration Status: Acute (3) Metabolic acidosis Status: Acute (4) Weakness Status: Acute Review of Systems Respiratory: + cough, + shortness of breath (improved), No dyspnea at rest Cardiac: + edema, No chest pain, No palpitations Additional ROS Details: Feels better and looks much better than last week in office Physical Exam Vital Signs Last Vital Signs Documentation Date Time Temp Pulse Resp B/P (MAP) Pulse Ox O2 Delivery O2 Flow Rate FiO2 12/06/17 08:02 30 12/06/17 08:02 96 CPAP Mechanical Ventilator 12/06/17 08:00 36.8 80 12 136/74 (94) Physical Exam Constitutional: General Apperance: overweight Level of Distress: mild distress, acutely ill Head: normocephalic Eyes: Pupils: PERRLA Lungs: Auscultation: breath sounds normal, no wheezing, rales/crackles on the left , rales/crackles on the right Cardiovascular: Heart Auscultation: RRR, no rubs, no gallops, III/ GEOVANNY Abdomen: Bowel Sounds: normal Inspection & Palpation: soft, no tenderness, guarding & rebound, no masses Extremities: edema (mild edema) Assessment and Plan Assessment and Plan 1)Acute resp failure--extubated this am 2)Acute on chronic Diastolic CHF 3)Moderate Aortic Stenosis 4) Echo c/w Takotsubo's CM--LVEF 55%, hyperdynamic base with 4 m/s gradient 5) New LBBB resolved this am with minimal troponin elevation 6) Non compliance with diet and CPAP 7) Cath at [facility] [place] 01/07 without epicardial CAD and elevated LVEDP of 28 mm/hg and moderate by cath Diuresed well; Increase BB to achieve a HR of 55 BPM Palliative care consult Nutrition evaluation Switch to home lasix IV LBBB resolved Laboratory Results Last 24 Hours Test 12/05/17 15:00 12/05/17 15:35 12/05/17 19:05 12/05/17 20:16 White Blood Count 9.44 K/uL Red Blood Count 4.39 M/uL Hemoglobin 12.4 g/dL Hematocrit 39.5 % Mean Corpuscular Volume 90.0 fL Mean Corpuscular Hemoglobin 28.2 pg Mean Corpuscular Hemoglobin Concent 31.4 g/dl Platelet Count 287 K/uL Mean Platelet Volume 10.2 fL Neutrophils (%) (Auto) 67.2 % Lymphocytes (%) (Auto) 22.6 % Monocytes (%) (Auto) 4.8 % Eosinophils (%) (Auto) 4.4 % Basophils (%) (Auto) 0.7 % Neutrophils # (Auto) 6.34 K/uL Lymphocytes # (Auto) 2.13 K/uL Monocytes # (Auto) 0.45 K/uL Eosinophils # (Auto) 0.42 K/uL Basophils # (Auto) 0.07 K/uL RDW Standard Deviation 48.9 fL RDW Coefficient of Variation 14.8 % Immature Granulocyte % (Auto) 0.3 % Immature Granulocyte # (Auto) 0.03 K/uL Prothrombin Time 10.8 SECONDS Prothromb Time International Ratio 1.0 Activated Partial Thromboplast Time 19.8 SECONDS Partial Thromboplastin Ratio 0.8 Sodium Level 134 mmol/L Potassium Level 4.7 mmol/L Chloride Level 99 mmol/L Carbon Dioxide Level 26 mmol/L Anion Gap 9.0 mmol/L Blood Urea Nitrogen 26 mg/dl Creatinine 1.33 mg/dl Est Creatinine Clear Calc Drug Dose 51.5 ml/min Estimated GFR () 44.9 Estimated GFR (Non- 38.7 BUN/Creatinine Ratio 19.3 Random Glucose 272 mg/dl Calcium Level 8.1 mg/dl Total Bilirubin 0.5 mg/dl Aspartate Amino Transf (AST/SGOT) 25 U/L Alanine Aminotransferase (ALT/SGPT) 25 U/L Alkaline Phosphatase 148 U/L Troponin I 0.042 ng/ml Pro-B-Type Natriuretic Peptide 2941 pg/ml Total Protein 8.2 gm/dl Albumin 3.4 gm/dl Globulin 4.8 gm/dl Albumin/Globulin Ratio 0.7 Triglycerides Level 84 mg/dl Cholesterol Level 213 mg/dl HDL Cholesterol 102 mg/dl LDL Cholesterol, Calculated 94 mg/dl VLDL Cholesterol, Calculated 17 mg/dl Cholesterol/HDL Ratio 2.1 Bedside Blood Gas pH (LAB) 7.14 Bedside Blood Gas pCO2 (LAB) 88 mmHg Bedside Blood Gas pO2 (LAB) 390 mmHg Bedside Blood Gas HCO3 (LAB) 30 meq/L Bedside Blood Gas Total CO2 33 mEq/l Bedside Blood Gas Base Excess (LAB) 1.0 meq/L Bedside Blood Gas O2 Saturation 100.0 % Urine Color YELLOW Urine Appearance CLEAR Urine pH 5.0 Urine Specific [place] 1.008 Urine Protein NEG Urine Glucose (UA) NEG Urine Ketones NEG Urine Occult Blood TRACE Urine Nitrite NEG Urine Bilirubin NEG Urine Urobilinogen NEG Urine Leukocyte Esterase NEG Urine WBC (Auto) 1-5 /hpf Urine RBC (Auto) 0-4 /hpf Urine Hyaline Casts (Auto) 5-10 /lpf Urine Epithelial Cells (Auto) 5-10 /lpf Urine Bacteria (Auto) NEG Bedside Glucose 128 mg/dl Test 12/05/17 23:05 12/06/17 00:28 12/06/17 05:30 Bedside Glucose 121 mg/dl Creatine Kinase MB 7.3 ng/ml 7.1 ng/ml Creatine Kinase MB Ratio Troponin I 0.730 ng/ml 0.843 ng/ml White Blood Count 8.63 K/uL Red Blood Count 3.73 M/uL Hemoglobin 10.5 g/dL Hematocrit 32.5 % Mean Corpuscular Volume 87.1 fL Mean Corpuscular Hemoglobin 28.2 pg Mean Corpuscular Hemoglobin Concent 32.3 g/dl Platelet Count 234 K/uL Mean Platelet Volume 10.0 fL Neutrophils (%) (Auto) 77.9 % Lymphocytes (%) (Auto) 13.2 % Monocytes (%) (Auto) 8.2 % Eosinophils (%) (Auto) 0.3 % Basophils (%) (Auto) 0.2 % Neutrophils # (Auto) 6.71 K/uL Lymphocytes # (Auto) 1.14 K/uL Monocytes # (Auto) 0.71 K/uL Eosinophils # (Auto) 0.03 K/uL Basophils # (Auto) 0.02 K/uL RDW Standard Deviation 46.8 fL RDW Coefficient of Variation 14.6 % Immature Granulocyte % (Auto) 0.2 % Immature Granulocyte # (Auto) 0.02 K/uL Venous Blood pH 7.45 Venous Blood Partial Pressure CO2 45 mmHg Venous Blood Partial Pressure O2 95 mmHg Venous Blood HCO3 30 mmol/L Venous Blood Oxygen Saturation 97.3 % Venous Blood Base Excess 5.4 mEq/L Sodium Level 136 mmol/L Potassium Level 3.7 mmol/L Chloride Level 99 mmol/L Carbon Dioxide Level 30 mmol/L Anion Gap 7.0 mmol/L Blood Urea Nitrogen 25 mg/dl Creatinine 1.04 mg/dl Est Creatinine Clear Calc Drug Dose 63.7 ml/min Estimated GFR () 60.4 Estimated GFR (Non- 52.1 BUN/Creatinine Ratio 24.5 Random Glucose 104 mg/dl Estimated Average Glucose 120 mg/dl Hemoglobin A1c 5.8 % Calcium Level 7.8 mg/dl Phosphorus Level 5.5 mg/dl Magnesium Level 2.1 mg/dl Total Bilirubin 0.3 mg/dl Direct Bilirubin < 0.1 mg/dl Aspartate Amino Transf (AST/SGOT) 18 U/L Alanine Aminotransferase (ALT/SGPT) 21 U/L Alkaline Phosphatase 115 U/L Total Protein 6.8 gm/dl Albumin 2.9 gm/dl Globulin 3.9 gm/dl Albumin/Globulin Ratio 0.7
[2017-12-06] MEDS: ATORVASTATIN 20 MG TAB PO SCH (10:26)
[2017-12-06] MEDS: VENLAFAXINE HCL XR 75 MG CAPXR PO SCH (10:26)
[2017-12-06] MEDS: BuPROPion SR 100 MG TABCR PO SCH (10:26)
[2017-12-06] MEDS: ACETAMINOPHEN IV 650 MG / 65ML IV PRN (10:26)
[2017-12-06] MEDS: ASPIRIN 81 MG CHEW PO SCH (10:26)
[2017-12-06] MEDS: ZIPRASIDONE 80 MG CAP PO SCH ×2 (10:27→21:56)
[2017-12-06] MEDS: CARVEDILOL 6.25 MG TAB PO SCH ×2 (10:33→21:00)
--- NOTE | 2017-12-06 10:38 | Clinical Documentation Query ---
CLINICAL DOCUMENTATION QUERY Dr. JEFF, In your clinical opinion does this patient have: ( xx ) Chronic kidney disease, stage 2-3 ( ) Not Agree ( ) Other explanation of clinical findings (Please Explain) ( ) Unable to determine (Please Define) ( ) Need to Discuss The medical record reflects the following clinical findings, treatment, and risk factors. Clinical Indicators:77 yo female presenting with acute respiratory failure and acute/chronic diastolic CHF. PMH includes "kidney disease". Review of historical GFR shows range of 52.1-69.5 over the past 2 years Treatment: monitor PRP's, treat comorbid conditions Risk Factors: age, chronic diastolic CHF, pre DM, HTN Please clarify and document your clinical opinion in the progress notes and discharge summary. Terms such as "probable", "suspected", "likely", "questionable", "possible", or "still to be ruled out" are acceptable. IF IN AGREEMENT, YOU MUST DOCUMENT ABOVE DIAGNOSTIC STATEMENT IN DAILY PROGRESS NOTES AND DISCHARGE SUMMARY. This document is not part of the patient's record. Thank You, Greer Jin, RN [phone]
[2017-12-06] MEDS ORDERED: BUMETANIDE 1 MG TAB PO SCH (11:00)
[2017-12-06] MEDS: CARVEDILOL 3.125 MG TAB PO SCH ×2 (11:04→21:00)
[2017-12-06] MEDS: POTASSIUM CHLORIDE 20 MEQ TABCR PO SCH ×2 (11:06→21:57)
[2017-12-06] MEDS ORDERED: CHOLECALCIFEROL 50000 UNIT PO SCH (14:15)
[2017-12-06] MEDS: ENOXAPARIN 40 MG/0.4 ML SYR SQ SCH (14:16)
--- NOTE | 2017-12-06 14:56 | Hospitalist Progress Note ---
Hospitalist Progress Note Date of Service Dec 06, 2017. (Valeri Garcia .MYRON) Subjective Pt evaluation today including: conversation w/ patient, physical exam, chart review, lab review, review of studies, review of inpatient medication list Voiding: jimenez catheter in place Ms. Saunders was extubated this morning at 0845 and weaned to 2L NC, tolerating well. She has not had any chest pain today. She does report some wheezing but does not feel particularly sob. ROS Constitutional: no chills, aches, sweats or fever Respiratory: see HPI Cardiac: no chest pain, palpitations, edema, orthopnea or lightheadedness GI: no abdominal pain, nausea, vomiting, diarrhea or constipation : no dysuria or hesitancy Extremities: no joint pain or weakness Skin: no rash All other systems reviewed and negative (Valeri Garcia .MYRON) Medications Medications Administered Medications (Trade) Dose Ordered Sig/Huey Route Start Time Stop Time Status Last Admin Dose Admin Miscellaneous (Rapid Sequence Induction Bag) 1 ea STK-MED ONCE N/A 12/05/17 14:56 12/05/17 14:57 DC 12/05/17 14:56 1 EA Propofol (Diprivan Iv Emulsion 100ml Vial) 1 dose UD STAT IV 12/05/17 15:12 12/05/17 15:18 DC 12/05/17 15:12 1 DOSE Midazolam HCl (Versed Inj) 4 mg NOW STAT IV 12/05/17 15:17 12/05/17 15:19 DC 12/05/17 15:17 4 MG Atorvastatin Calcium (Lipitor Tab) 20 mg DAILY PO 12/06/17 09:00 01/05/18 08:59 12/06/17 10:26 20 MG Bupropion HCl (Wellbutrin-Sr Tab) 200 mg QAM PO 12/06/17 09:00 01/05/18 08:59 12/06/17 10:26 200 MG Carvedilol (Coreg Tab) 6.25 mg BID PO 12/05/17 21:00 01/04/18 20:59 12/06/17 10:33 6.25 MG Levothyroxine Sodium (Synthroid Tab) 175 mcg DAILYBB PO 12/06/17 06:00 01/05/18 06:59 12/06/17 05:33 175 MCG Venlafaxine HCl (effeXOR EXTENDED REL CAP) 75 mg DAILY PO 12/06/17 09:00 01/05/18 08:59 12/06/17 10:26 75 MG Ziprasidone (Geodon Cap) 80 mg BID PO 12/05/17 21:00 01/04/18 20:59 12/06/17 10:27 80 MG Heparin Sodium (Porcine) (Heparin Sq 5000 Unit/0.5ml) 5,000 unit Q8H SQ 12/05/17 22:00 12/06/17 09:56 DC 12/06/17 05:31 5,000 UNIT Nitroglycerin (Nitroglycerin 2% Oint) 1 inch Q6H EXT 12/05/17 20:00 12/06/17 08:32 DC 12/06/17 02:00 1 INCH Pantoprazole Sodium 40 mg/ Syringe 10 ml @ 5 mls/min DAILY IV 12/06/17 09:00 12/06/17 11:00 DC 12/06/17 10:26 5 MLS/MIN Furosemide 100 mg/ Dextrose 100 ml @ 3 mls/hr Q24H IV 12/05/17 19:30 12/06/17 09:54 DC 12/05/17 20:08 3 MLS/HR Aspirin (Aspirin Chew) 81 mg DAILY PO 12/06/17 09:00 01/05/18 08:59 12/06/17 10:26 81 MG Fentanyl Citrate (Fentanyl Inj) 50 mcg Q2H PRN IV 12/05/17 21:00 12/06/17 10:00 DC 12/06/17 05:04 50 MCG Midazolam HCl (Versed Inj) 2 mg Q2H PRN IV 12/05/17 21:00 12/06/17 10:01 DC 12/06/17 03:07 2 MG Fentanyl Citrate (Fentanyl Inj) 100 mcg STK-MED ONCE .ROUTE 12/05/17 21:02 12/05/17 21:03 DC 12/05/17 21:06 50 MCG Potassium Chloride (Yudith Ciel Elix) 20 meq BID NG 12/05/17 22:00 12/06/17 09:55 DC 12/05/17 22:04 20 MEQ Acetaminophen 650 mg/Empty Bag 65 ml @ 260 mls/hr Q6H PRN IV 12/06/17 09:45 01/05/18 09:44 12/06/17 10:26 260 MLS/HR Carvedilol (Coreg Tab) 3.125 mg BID PO 12/06/17 10:45 01/05/18 10:44 12/06/17 11:04 3.125 MG Potassium Chloride (Klor-Con Tab) 20 meq BID PO 12/06/17 11:00 01/05/18 10:59 12/06/17 11:06 20 MEQ Bumetanide (Bumex Tab) 0.5 mg QAM PO 12/06/17 11:00 01/05/18 10:59 12/06/17 11:05 0.5 MG (Valeri Garcia, MYRON) Objective Vital Signs Date Time Temp Pulse Resp B/P (MAP) Pulse Ox O2 Delivery O2 Flow Rate FiO2 12/06/17 14:03 36.9 66 17 107/56 (73) 93 Room Air 12/06/17 12:01 36.8 71 18 103/51 (68) 99 Nasal Cannula 2.0 12/06/17 12:01 96 Nasal Cannula 2.0 12/06/17 10:00 36.8 78 20 114/60 (78) 97 Nasal Cannula 4.0 12/06/17 08:02 30 12/06/17 08:02 96 CPAP 30 Mechanical Ventilator 12/06/17 08:00 36.8 80 12 136/74 (94) 97 CPAP 30 Mechanical Ventilator 12/06/17 07:33 30 12/06/17 06:01 65 16 128/71 (90) 100 12/06/17 05:20 60 12/06/17 04:01 68 16 148/76 (115) 100 12/06/17 04:01 36.6 68 16 148/76 (100) 100 Mechanical Ventilator 50 12/06/17 04:00 50 12/06/17 04:00 Mechanical Ventilator 50 12/06/17 04:00 69 16 100 12/06/17 03:01 67 16 140/70 (93) 100 Mechanical Ventilator 50 12/06/17 03:01 67 16 140/70 (91) 100 12/06/17 02:16 60 12/06/17 02:01 66 17 133/65 (87) 100 Mechanical Ventilator 50 12/06/17 02:01 66 17 133/65 (84) 100 12/06/17 02:00 63 16 100 12/06/17 01:01 69 16 150/81 (96) 100 12/06/17 01:01 69 16 150/81 (104) 100 Mechanical Ventilator 50 12/06/17 00:58 67 16 136/72 (91) 100 12/06/17 00:01 36.6 66 16 136/72 (93) 100 Mechanical Ventilator 50 12/06/17 00:01 66 16 136/72 (91) 100 12/06/17 00:00 67 16 100 12/05/17 23:59 Mechanical Ventilator 50 12/05/17 23:59 50 12/05/17 23:50 60 12/05/17 23:01 66 16 114/67 (83) 100 12/05/17 22:01 62 16 93/55 (69) 100 12/05/17 22:01 62 16 93/55 (68) 100 12/05/17 22:00 62 16 100 12/05/17 21:01 75 20 121/78 (94) 100 12/05/17 21:01 75 20 121/78 (92) 100 12/05/17 20:10 60 12/05/17 20:01 73 22 124/77 (96) 99 12/05/17 20:01 36.7 73 22 124/77 (93) 99 12/05/17 20:00 Mechanical Ventilator 50 12/05/17 20:00 50 12/05/17 20:00 72 23 100 12/05/17 19:24 36.8 83 21 111/69 99 Mechanical Ventilator 50 12/05/17 19:01 72 20 103/67 (79) 99 12/05/17 18:47 36.8 83 21 111/69 12/05/17 18:01 60 12/05/17 17:36 79 20 94/62 94 12/05/17 17:21 93/63 12/05/17 17:20 82 20 94 12/05/17 17:16 87 20 99/76 95 Mechanical Ventilator 12/05/17 17:05 89 22 110/72 97 Mechanical Ventilator 12/05/17 16:57 94 22 130/97 96 Mechanical Ventilator 12/05/17 16:51 91 20 125/76 94 Mechanical Ventilator 12/05/17 16:45 95 22 136/96 94 Mechanical Ventilator 12/05/17 16:40 96 20 146/91 94 Mechanical Ventilator 12/05/17 16:30 93 20 160/106 92 Mechanical Ventilator 12/05/17 16:25 91 22 143/91 93 Mechanical Ventilator 12/05/17 16:20 95 22 125/84 94 Mechanical Ventilator 12/05/17 16:10 96 20 138/86 94 Mechanical Ventilator 12/05/17 16:06 99 20 137/89 94 Mechanical Ventilator 12/05/17 16:00 99 22 132/82 94 Mechanical Ventilator 12/05/17 15:51 100 20 119/80 95 Mechanical Ventilator 12/05/17 15:45 99 20 122/86 95 Mechanical Ventilator 12/05/17 15:40 60 12/05/17 15:25 100 12/05/17 15:20 Mechanical Ventilator 12/05/17 15:20 Mechanical Ventilator 12/05/17 15:19 108 22 183/115 96 Mechanical Ventilator 12/05/17 15:08 98 12/05/17 15:05 118 12/05/17 14:59 119 20 204/148 98 BiPAP (Valeri Garcia, MYRON) Physical Exam Notes: General: no distress Eyes: normal inspection, PERLL Respiratory: chest non tender, expiratory wheezes throughout lung roberts to auscultation, no respiratory distress, no accessory muscle use Cardiac: regular rate and rhythm, no rub or gallop, 3/6 systolic murmur, no edema, no jvd GI/: active bowel sounds, no abd pain or tenderness, soft, non distended Extremities: normal range of motion, normal strength, non tender Neuro/Psych: alert and oriented x 3, normal mood and affect Skin: normal color, dry (Valeri Garcia, MYRON) Laboratory Results Last 24 Hours Test 12/05/17 15:00 12/05/17 15:35 12/05/17 19:05 12/05/17 20:16 White Blood Count 9.44 K/uL Red Blood Count 4.39 M/uL Hemoglobin 12.4 g/dL Hematocrit 39.5 % Mean Corpuscular Volume 90.0 fL Mean Corpuscular Hemoglobin 28.2 pg Mean Corpuscular Hemoglobin Concent 31.4 g/dl Platelet Count 287 K/uL Mean Platelet Volume 10.2 fL Neutrophils (%) (Auto) 67.2 % Lymphocytes (%) (Auto) 22.6 % Monocytes (%) (Auto) 4.8 % Eosinophils (%) (Auto) 4.4 % Basophils (%) (Auto) 0.7 % Neutrophils # (Auto) 6.34 K/uL Lymphocytes # (Auto) 2.13 K/uL Monocytes # (Auto) 0.45 K/uL Eosinophils # (Auto) 0.42 K/uL Basophils # (Auto) 0.07 K/uL RDW Standard Deviation 48.9 fL RDW Coefficient of Variation 14.8 % Immature Granulocyte % (Auto) 0.3 % Immature Granulocyte # (Auto) 0.03 K/uL Prothrombin Time 10.8 SECONDS Prothromb Time International Ratio 1.0 Activated Partial Thromboplast Time 19.8 SECONDS Partial Thromboplastin Ratio 0.8 Sodium Level 134 mmol/L Potassium Level 4.7 mmol/L Chloride Level 99 mmol/L Carbon Dioxide Level 26 mmol/L Anion Gap 9.0 mmol/L Blood Urea Nitrogen 26 mg/dl Creatinine 1.33 mg/dl Est Creatinine Clear Calc Drug Dose 51.5 ml/min Estimated GFR () 44.9 Estimated GFR (Non- 38.7 BUN/Creatinine Ratio 19.3 Random Glucose 272 mg/dl Calcium Level 8.1 mg/dl Total Bilirubin 0.5 mg/dl Aspartate Amino Transf (AST/SGOT) 25 U/L Alanine Aminotransferase (ALT/SGPT) 25 U/L Alkaline Phosphatase 148 U/L Troponin I 0.042 ng/ml Pro-B-Type Natriuretic Peptide 2941 pg/ml Total Protein 8.2 gm/dl Albumin 3.4 gm/dl Globulin 4.8 gm/dl Albumin/Globulin Ratio 0.7 Triglycerides Level 84 mg/dl Cholesterol Level 213 mg/dl HDL Cholesterol 102 mg/dl LDL Cholesterol, Calculated 94 mg/dl VLDL Cholesterol, Calculated 17 mg/dl Cholesterol/HDL Ratio 2.1 Bedside Blood Gas pH (LAB) 7.14 Bedside Blood Gas pCO2 (LAB) 88 mmHg Bedside Blood Gas pO2 (LAB) 390 mmHg Bedside Blood Gas HCO3 (LAB) 30 meq/L Bedside Blood Gas Total CO2 33 mEq/l Bedside Blood Gas Base Excess (LAB) 1.0 meq/L Bedside Blood Gas O2 Saturation 100.0 % Urine Color YELLOW Urine Appearance CLEAR Urine pH 5.0 Urine Specific [place] 1.008 Urine Protein NEG Urine Glucose (UA) NEG Urine Ketones NEG Urine Occult Blood TRACE Urine Nitrite NEG Urine Bilirubin NEG Urine Urobilinogen NEG Urine Leukocyte Esterase NEG Urine WBC (Auto) 1-5 /hpf Urine RBC (Auto) 0-4 /hpf Urine Hyaline Casts (Auto) 5-10 /lpf Urine Epithelial Cells (Auto) 5-10 /lpf Urine Bacteria (Auto) NEG Bedside Glucose 128 mg/dl Test 12/05/17 23:05 12/06/17 00:28 12/06/17 05:30 Bedside Glucose 121 mg/dl Creatine Kinase MB 7.3 ng/ml 7.1 ng/ml Creatine Kinase MB Ratio Troponin I 0.730 ng/ml 0.843 ng/ml White Blood Count 8.63 K/uL Red Blood Count 3.73 M/uL Hemoglobin 10.5 g/dL Hematocrit 32.5 % Mean Corpuscular Volume 87.1 fL Mean Corpuscular Hemoglobin 28.2 pg Mean Corpuscular Hemoglobin Concent 32.3 g/dl Platelet Count 234 K/uL Mean Platelet Volume 10.0 fL Neutrophils (%) (Auto) 77.9 % Lymphocytes (%) (Auto) 13.2 % Monocytes (%) (Auto) 8.2 % Eosinophils (%) (Auto) 0.3 % Basophils (%) (Auto) 0.2 % Neutrophils # (Auto) 6.71 K/uL Lymphocytes # (Auto) 1.14 K/uL Monocytes # (Auto) 0.71 K/uL Eosinophils # (Auto) 0.03 K/uL Basophils # (Auto) 0.02 K/uL RDW Standard Deviation 46.8 fL RDW Coefficient of Variation 14.6 % Immature Granulocyte % (Auto) 0.2 % Immature Granulocyte # (Auto) 0.02 K/uL Venous Blood pH 7.45 Venous Blood Partial Pressure CO2 45 mmHg Venous Blood Partial Pressure O2 95 mmHg Venous Blood HCO3 30 mmol/L Venous Blood Oxygen Saturation 97.3 % Venous Blood Base Excess 5.4 mEq/L Sodium Level 136 mmol/L Potassium Level 3.7 mmol/L Chloride Level 99 mmol/L Carbon Dioxide Level 30 mmol/L Anion Gap 7.0 mmol/L Blood Urea Nitrogen 25 mg/dl Creatinine 1.04 mg/dl Est Creatinine Clear Calc Drug Dose 63.7 ml/min Estimated GFR () 60.4 Estimated GFR (Non- 52.1 BUN/Creatinine Ratio 24.5 Random Glucose 104 mg/dl Estimated Average Glucose 120 mg/dl Hemoglobin A1c 5.8 % Calcium Level 7.8 mg/dl Phosphorus Level 5.5 mg/dl Magnesium Level 2.1 mg/dl Total Bilirubin 0.3 mg/dl Direct Bilirubin < 0.1 mg/dl Aspartate Amino Transf (AST/SGOT) 18 U/L Alanine Aminotransferase (ALT/SGPT) 21 U/L Alkaline Phosphatase 115 U/L Total Protein 6.8 gm/dl Albumin 2.9 gm/dl Globulin 3.9 gm/dl Albumin/Globulin Ratio 0.7 (Valeri Garcia CRNP) Assessment and Plan 77yo female here with acute on chronic diastolic congestive heart failure with hypoxic respiratory failure. Diastolic CHF, hypoxic respiratory failure - extubated 12/06 - saturating well on 2L NC - off lasix drip - 40 mg IV lasix push bid - continue strict Is&Os - Echo showed EF of 55% and Takatsubo - daily weights - prn nebs - recent cardiac cath showed clean coronaries - transfer to telemetry Elevated Trop/Type II FL - troponin peaked at 0.243 and trended down - initially with LBBB that has resolved - EKG with chest pain HTN - On home coreg. -IV lasix push for now - hold prn bumex po - losartan on hold as creat was initially high and now blood pressures are borderline high PMH pre-diabetes - Cholesterol 213 - A1c 5.8 - bsgs ac & hs, ss Hypothyroid - Continue home levothyroxine. Depression Continue home effexor and geodon. HLD Continue statin DVT prophylaxis: enoxaprin Full code (Valeri Garcia CRNP) HOISTMAN Physician Supervision Note: I Discussed with Valeri Garcia HOISTMAN and agree with findings and plan as documented in the note. Any exceptions or clarifications are listed here: None Patient was intubated earlier from 80 acute and chronic diastolic heart failure complicating her chronic lung disease of COPD and cursing significant aortic stenosis. Patient is markedly volume overloaded required intubation for ventilatory support she suffers with been extubating currently is having a meeting with palliative care. The patient has been with difficult compliance in the past was prompting a palliative care visit as we cannot improve her chronic problems of aortic stenosis and her COPD. Vital signs are evaluated showing a temp of 36 8 pulse 80 respirations 12 BP was 1 136/72 Acute hypoxic respiratory failure from acute on chronic diastolic heart failure has improved by ventilatory support and diuresis will plan to continue diuresis at this time being careful not to make her be hypovolemic with aortic stenosis as we could cause perfusion problems if her blood pressures too low. 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
[2017-12-06] MEDS ORDERED: ALBUT/IPRATROP 3MG/0.5MG NEB 3 ML VIAL INH PRN (15:00)
[2017-12-06] MEDS: ALBUT/IPRATROP 3MG/0.5MG NEB 3 ML VIAL INH SCH ×2 (15:51→20:12)
[2017-12-06] MEDS: INSULIN ASPART 100 UNITS/ML 3 ML PEN SC SCH ×2 (16:00→21:00)
--- NOTE | 2017-12-06 17:23 | Critical Care Progress Note ---
Critical Care Progress Note Date of Service Dec 06, 2017. ICU Day ICU Day Number: [address] Morales Subjective Patient was extubated this morning. This evening, found patient sitting up in a chair, eating dinner, and denies any particular acute pains or concerns. Says that she feels mildly SOB at rest and notes similar SOB with ADL's such as walking back from the bathroom. Objective HEENT: NCAT, EOMI, clear conjunctiva, supple neck. Dry oral MM. Respiratory: Rales at bases but not in any acute respiratory distress or noted accessory muscle use. On NC oxygen. Cardiovascular: +S1S2 RRR, 3/6 systolic murmur Abdomen: Positive bowel sounds, soft, non-tender, but morbid obesity. Upper Extremities: No edema and normal gross ROM. Lower Extremities: Positive pedal edema. Neuro: Awake, alert to person + place + time, no gross neuro deficits. Assessment & Plan 77 yo female presented to ED with acute on chronic diastolic congestive heart failure with acute hypoxic respiratory failure. 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 Awake, alert, conversational. CAM- ICU negative. - Continuing home effexor and geodon. Pulm: Intubated in ED on 12Feb, extubated today. CXR suggestive of pulmonary edema, much improved on repeat imaging. - Pulmonary toilet. CVS: Acute on chronic diastolic CHF. Non-compliant with diet or CPAP at home likely led to this admit. Initially hypertensive, received NTG ointment. TnI to 0.843, likely demand ischemia. Initial EKG with LBBB, now resolved. 13Feb echo suggestive of Takasubo's cardiomyopathy, LVEF 55%, hypertrophy of basal septum, and moderate . - Goal HR of 55 via beta macy (coreg). - Stop lasix drip, convert to lasix BID. [Previously on home bumex.] - Cardiology onboard. ID: Afebrile. No known recent illness. Endo: PMH pre-diabetes. Glucose here okay. HbA1c 5.8. - Continue home levothyroxine and lipitor. Renal/Electrolytes: Reportedly had gained 30 lbs over past year; suspect mostly fluid accumulation. Placed jimenez catheter. Out 1.3 liters yesterday. Cr back to 1.04 (from 1.33 on admit). - Following I&O's. - Potassium supplementation. GI: Protonix for prophylaxis. ADA, AHA, low sodium diet with 1800 mL fluid restriction. Heme: Hb 10.5. No suspected bleeding issues. Skin: No acute issues. Lines: Left arm PIV. Right arm PIV. Code status: Full code. Palliative care consult placed. DVT prophy: Lovenox. PT/OT: Not at this time. Dispo: Consider transfer to telemetry. Resident Physician Supervision Note: Dr. Tolliver was resident physician during care of patient. I separately evaluated patient and did history and exam. I discussed the case with the resident and generally agree with the findings and plan. Patient was successfully extubated after diuresis. We had a long extensive discussion with the patient as well as her daughter at the bedside regarding goals of care, plan of care, as well as her desires should she be unable to make medical decisions for herself. We will place a rodent control worker consult. Patient does not want to undergo her heroic efforts in event of cardiac arrest and does not want CPR nor intubation in event of cardiac arrest. Patient is stable for downgrade to telemetry status for continued diuresis and further management of her acute on chronic congestive heart failure. Documented By: Jimmy Morales DO Consults & Procedures Consultants: Cardiology (Dr. Walker) Data Medications: Current Inpatient Medications Medications (Trade) Dose Ordered Sig/Huey Route Start Time Stop Time Status Last Admin Dose Admin Atorvastatin Calcium (Lipitor Tab) 20 mg DAILY PO 12/06/17 09:00 01/05/18 08:59 12/06/17 10:26 20 MG Bupropion HCl (Wellbutrin-Sr Tab) 200 mg QAM PO 12/06/17 09:00 01/05/18 08:59 12/06/17 10:26 200 MG Carvedilol (Coreg Tab) 6.25 mg BID PO 12/05/17 21:00 01/04/18 20:59 12/06/17 10:33 6.25 MG Levothyroxine Sodium (Synthroid Tab) 175 mcg DAILYBB PO 12/06/17 06:00 01/05/18 06:59 12/06/17 05:33 175 MCG Venlafaxine HCl (effeXOR EXTENDED REL CAP) 75 mg DAILY PO 12/06/17 09:00 01/05/18 08:59 12/06/17 10:26 75 MG Ziprasidone (Geodon Cap) 80 mg BID PO 12/05/17 21:00 01/04/18 20:59 12/06/17 10:27 80 MG Nitroglycerin (Nitrostat Tab) 0.4 mg UD PRN SL 12/05/17 17:00 01/04/18 16:59 Miscellaneous Information (Icu Protocol For Hyperglycemia) 1 ea PRN PRN N/A 12/05/17 17:00 12/07/17 16:59 Aspirin (Aspirin Chew) 81 mg DAILY PO 12/06/17 09:00 01/05/18 08:59 12/06/17 10:26 81 MG Acetaminophen 650 mg/Empty Bag 65 ml @ 260 mls/hr Q6H PRN IV 12/06/17 09:45 01/05/18 09:44 12/06/17 10:26 260 MLS/HR Enoxaparin Sodium (Lovenox Inj) 40 mg DAILY@1400 SQ 12/06/17 14:00 01/05/18 13:59 12/06/17 14:16 40 MG Carvedilol (Coreg Tab) 3.125 mg BID PO 12/06/17 10:45 01/05/18 10:44 12/06/17 11:04 3.125 MG Potassium Chloride (Klor-Con Tab) 20 meq BID PO 12/06/17 11:00 01/05/18 10:59 12/06/17 11:06 20 MEQ Bumetanide (Bumex Tab) 0.5 mg QAM PO 12/06/17 11:00 01/05/18 10:59 Future Hold 12/06/17 11:05 0.5 MG Magnesium Oxide (Mag-Ox Tab) 400 mg HS PO 12/06/17 21:00 01/05/18 20:59 Pantoprazole Sodium (Protonix Tab) 40 mg QAM PO 12/07/17 09:00 01/06/18 08:59 Gabapentin (Neurontin Tab) 600 mg HS PO 12/06/17 21:00 01/05/18 20:59 Hydroxyzine HCl (Vistaril Tab) 25 mg HS PO 12/06/17 21:00 01/05/18 20:59 Temazepam (Restoril Cap) 15 mg HS PO 12/06/17 21:00 01/05/18 20:59 Calcium/Vitamin D (Caltrate Plus Tab) 1 tab BID PO 12/06/17 21:00 01/05/18 20:59 Ferrous Sulfate (Feosol Tab) 325 mg BID PO 12/06/17 21:00 01/05/18 20:59 Albuterol/ Ipratropium (Duoneb) 3 ml QIDR INH 12/06/17 16:00 01/05/18 15:59 12/06/17 15:51 3 ML Furosemide 40 mg/ Syringe 4 ml @ 4 mls/min BID IV 12/06/17 21:00 01/05/18 20:59 Albuterol/ Ipratropium (Duoneb) 3 ml Q2H PRN INH 12/06/17 15:00 01/05/18 14:59 Insulin Aspart (novoLOG ASPART) SLIDING SCALE If C... ACHS SC 12/06/17 16:00 01/05/18 15:59 I & O: 24-Hour Column 12/07/17 08:00 Intake Total 1133 ml Output Total 1500 ml Balance -367 ml Vital Signs: Date Time Temp Pulse Resp B/P (MAP) Pulse Ox O2 Delivery O2 Flow Rate FiO2 12/06/17 16:00 Nasal Cannula 2.0 12/06/17 15:51 66 18 95 Nasal Cannula 1.0 12/06/17 15:49 36.7 69 19 111/54 (73) 94 Nasal Cannula 2.0 12/06/17 14:03 36.9 66 17 107/56 (73) 93 Room Air 12/06/17 12:01 36.8 71 18 103/51 (68) 99 Nasal Cannula 2.0 12/06/17 12:01 96 Nasal Cannula 2.0 12/06/17 10:00 36.8 78 20 114/60 (78) 97 Nasal Cannula 4.0 12/06/17 08:02 30 12/06/17 08:02 96 CPAP 30 Mechanical Ventilator 12/06/17 08:00 36.8 80 12 136/74 (94) 97 CPAP 30 Mechanical Ventilator 12/06/17 07:33 30 12/06/17 06:01 65 16 128/71 (90) 100 12/06/17 05:20 60 12/06/17 04:01 68 16 148/76 (115) 100 2/13/18 04:01 36.6 68 16 148/76 (100) 100 Mechanical Ventilator 50 12/06/17 04:00 50 12/06/17 04:00 Mechanical Ventilator 50 12/06/17 04:00 69 16 100 12/06/17 03:01 67 16 140/70 (93) 100 Mechanical Ventilator 50 12/06/17 03:01 67 16 140/70 (91) 100 12/06/17 02:16 60 12/06/17 02:01 66 17 133/65 (87) 100 Mechanical Ventilator 50 12/06/17 02:01 66 17 133/65 (84) 100 12/06/17 02:00 63 16 100 12/06/17 01:01 69 16 150/81 (96) 100 12/06/17 01:01 69 16 150/81 (104) 100 Mechanical Ventilator 50 12/06/17 00:58 67 16 136/72 (91) 100 12/06/17 00:01 36.6 66 16 136/72 (93) 100 Mechanical Ventilator 50 12/06/17 00:01 66 16 136/72 (91) 100 12/06/17 00:00 67 16 100 12/05/17 23:59 Mechanical Ventilator 50 12/05/17 23:59 50 12/05/17 23:50 60 12/05/17 23:01 66 16 114/67 (83) 100 12/05/17 22:01 62 16 93/55 (69) 100 12/05/17 22:01 62 16 93/55 (68) 100 12/05/17 22:00 62 16 100 12/05/17 21:01 75 20 121/78 (94) 100 12/05/17 21:01 75 20 121/78 (92) 100 12/05/17 20:10 60 12/05/17 20:01 73 22 124/77 (96) 99 12/05/17 20:01 36.7 73 22 124/77 (93) 99 12/05/17 20:00 Mechanical Ventilator 50 12/05/17 20:00 50 12/05/17 20:00 72 23 100 12/05/17 19:24 36.8 83 21 111/69 99 Mechanical Ventilator 50 12/05/17 19:01 72 20 103/67 (79) 99 12/05/17 18:47 36.8 83 21 111/69 12/05/17 18:01 60 12/05/17 17:36 79 20 94/62 94 Laboratory Results: Last 24 Hours Test 12/05/17 19:05 12/05/17 20:16 12/05/17 23:05 12/06/17 00:28 Urine Color YELLOW Urine Appearance CLEAR Urine pH 5.0 Urine Specific [place] 1.008 Urine Protein NEG Urine Glucose (UA) NEG Urine Ketones NEG Urine Occult Blood TRACE Urine Nitrite NEG Urine Bilirubin NEG Urine Urobilinogen NEG Urine Leukocyte Esterase NEG Urine WBC (Auto) 1-5 /hpf Urine RBC (Auto) 0-4 /hpf Urine Hyaline Casts (Auto) 5-10 /lpf Urine Epithelial Cells (Auto) 5-10 /lpf Urine Bacteria (Auto) NEG Bedside Glucose 128 mg/dl 121 mg/dl Creatine Kinase MB 7.3 ng/ml Creatine Kinase MB Ratio Troponin I 0.730 ng/ml Test 12/06/17 05:30 12/06/17 15:51 White Blood Count 8.63 K/uL Red Blood Count 3.73 M/uL Hemoglobin 10.5 g/dL Hematocrit 32.5 % Mean Corpuscular Volume 87.1 fL Mean Corpuscular Hemoglobin 28.2 pg Mean Corpuscular Hemoglobin Concent 32.3 g/dl Platelet Count 234 K/uL Mean Platelet Volume 10.0 fL Neutrophils (%) (Auto) 77.9 % Lymphocytes (%) (Auto) 13.2 % Monocytes (%) (Auto) 8.2 % Eosinophils (%) (Auto) 0.3 % Basophils (%) (Auto) 0.2 % Neutrophils # (Auto) 6.71 K/uL Lymphocytes # (Auto) 1.14 K/uL Monocytes # (Auto) 0.71 K/uL Eosinophils # (Auto) 0.03 K/uL Basophils # (Auto) 0.02 K/uL RDW Standard Deviation 46.8 fL RDW Coefficient of Variation 14.6 % Immature Granulocyte % (Auto) 0.2 % Immature Granulocyte # (Auto) 0.02 K/uL Venous Blood pH 7.45 Venous Blood Partial Pressure CO2 45 mmHg Venous Blood Partial Pressure O2 95 mmHg Venous Blood HCO3 30 mmol/L Venous Blood Oxygen Saturation 97.3 % Venous Blood Base Excess 5.4 mEq/L Sodium Level 136 mmol/L Potassium Level 3.7 mmol/L Chloride Level 99 mmol/L Carbon Dioxide Level 30 mmol/L Anion Gap 7.0 mmol/L Blood Urea Nitrogen 25 mg/dl Creatinine 1.04 mg/dl Est Creatinine Clear Calc Drug Dose 63.7 ml/min Estimated GFR () 60.4 Estimated GFR (Non- 52.1 BUN/Creatinine Ratio 24.5 Random Glucose 104 mg/dl Estimated Average Glucose 120 mg/dl Hemoglobin A1c 5.8 % Calcium Level 7.8 mg/dl Phosphorus Level 5.5 mg/dl Magnesium Level 2.1 mg/dl Total Bilirubin 0.3 mg/dl Direct Bilirubin < 0.1 mg/dl Aspartate Amino Transf (AST/SGOT) 18 U/L Alanine Aminotransferase (ALT/SGPT) 21 U/L Alkaline Phosphatase 115 U/L Creatine Kinase MB 7.1 ng/ml Creatine Kinase MB Ratio Troponin I 0.843 ng/ml Total Protein 6.8 gm/dl Albumin 2.9 gm/dl Globulin 3.9 gm/dl Albumin/Globulin Ratio 0.7 Bedside Glucose 110 mg/dl Resident Tracking Resident Involvement: Resident Care Provided Care Provided: Adult Hospital Medicine (ICU care)
--- NOTE | 2017-12-06 17:40 | Palliative Care Consultation ---
Consultation Date of Consultation: Dec 06, 2017. Requesting Physician: Dr. Morales Attending Physician: MYRON Vaughan; Dr. Kern Reason for Consultation: Goals of care History of Present Illness This 77 year old female patient with PMH aortic stenosis, CHF, CKD, morbid obesity, and others listed below, presented to the hospital yesterday with stress-induced cardiomyopathy with subsequent respiratory failure requiring intubation and admission to ICU. She lives home alone in an apartment. She started the day out feeling normal which includes a baseline of dyspnea on exertion, but as the day went along she became more SOB. She was attending a crafting class and the instructor noted her to be in distress and called the ambulance. Patient follows with Dr. Walker outpatient for her cardiac issues. She notes a 30lb weight gain in the last year as well as increased lower extremity edema. Since admission, patient has improved markedly. She is extubated, has diuresed about 5L. Family reports that patient does not follow dietary or fluid restrictions despite their efforts to help her do so. Palliative care is consulted to discuss goals of care. I met with the patient, her daughter, and grandson, along with Dr. Morales in room 108. Patient is awake, alert and oriented x4. She is sitting up in chair eating dinner. Patient has no complaints at this time other than feeling hot and cold on/off. Dr. Morales discussed at length and detail patient's medical conditions. He stressed the gravity of the situation and the importance of adhering to physician recommendations on diet/fluid restrictions if patient wishes has the goal of "getting better." We discussed that her CHF can be classified as stage IV at this point due to the fact that she is SOB all day, every day and it severely limits her life. She verbalizes understanding. Patient states that her goal is to get better/well-enough to go to rehab. She does not want to pursue hospice care at this time and wishes to adhere to dietary/fluid restrictions. See plan below. Past Medical/Surgical History Medical History: Aortic stenosis CHF CKD Pre-DM CPAP use Obesity Surgical History: Gastric bypass Thyroidectomy Knee replacement Social History Smoking Status: Never Smoker History of Alcohol Use: Yes Drug Use: none Marital Status: Housing Status: lives alone Occupation Status: retired Review of Systems Constitutional: + weakness, + problem reported (hot and cold on/off) ENT: No trouble swallowing Respiratory: + cough, + sputum, + dyspnea on exertion, No wheezing Cardiac: No chest pain Abdomen: No pain, No nausea, No vomiting Female : No problem reported Psychiatric: No anxiety Allergies Coded Allergies: Statins (Verified Allergy, Mild, UNKNOWN, 01/13/17) Oxycodone (Verified Allergy, Unknown, RASH, 01/13/17) Sulfa Antibiotics (Verified Allergy, Unknown, "TAKES TOP LAYER OF TONGUE OFF", 01/13/17) Lactose Intolerance (GI) (Verified Adverse Reaction, Unknown, GI UPSET AND DIARRHEA, 01/13/17) Medications Current Inpatient Medications Medications (Trade) Dose Ordered Sig/Huey Route Start Time Stop Time Status Last Admin Dose Admin Atorvastatin Calcium (Lipitor Tab) 20 mg DAILY PO 12/06/17 09:00 01/05/18 08:59 12/06/17 10:26 20 MG Bupropion HCl (Wellbutrin-Sr Tab) 200 mg QAM PO 12/06/17 09:00 01/05/18 08:59 12/06/17 10:26 200 MG Carvedilol (Coreg Tab) 6.25 mg BID PO 12/05/17 21:00 01/04/18 20:59 12/06/17 10:33 6.25 MG Levothyroxine Sodium (Synthroid Tab) 175 mcg DAILYBB PO 12/06/17 06:00 01/05/18 06:59 12/06/17 05:33 175 MCG Venlafaxine HCl (effeXOR EXTENDED REL CAP) 75 mg DAILY PO 12/06/17 09:00 01/05/18 08:59 12/06/17 10:26 75 MG Ziprasidone (Geodon Cap) 80 mg BID PO 12/05/17 21:00 01/04/18 20:59 12/06/17 10:27 80 MG Nitroglycerin (Nitrostat Tab) 0.4 mg UD PRN SL 12/05/17 17:00 01/04/18 16:59 Miscellaneous Information (Icu Protocol For Hyperglycemia) 1 ea PRN PRN N/A 12/05/17 17:00 12/07/17 16:59 Aspirin (Aspirin Chew) 81 mg DAILY PO 12/06/17 09:00 01/05/18 08:59 12/06/17 10:26 81 MG Acetaminophen 650 mg/Empty Bag 65 ml @ 260 mls/hr Q6H PRN IV 12/06/17 09:45 01/05/18 09:44 12/06/17 10:26 260 MLS/HR Enoxaparin Sodium (Lovenox Inj) 40 mg DAILY@1400 SQ 12/06/17 14:00 01/05/18 13:59 12/06/17 14:16 40 MG Carvedilol (Coreg Tab) 3.125 mg BID PO 12/06/17 10:45 01/05/18 10:44 12/06/17 11:04 3.125 MG Potassium Chloride (Klor-Con Tab) 20 meq BID PO 12/06/17 11:00 01/05/18 10:59 12/06/17 11:06 20 MEQ Bumetanide (Bumex Tab) 0.5 mg QAM PO 12/06/17 11:00 01/05/18 10:59 Future Hold 12/06/17 11:05 0.5 MG Magnesium Oxide (Mag-Ox Tab) 400 mg HS PO 12/06/17 21:00 01/05/18 20:59 Pantoprazole Sodium (Protonix Tab) 40 mg QAM PO 12/07/17 09:00 01/06/18 08:59 Gabapentin (Neurontin Tab) 600 mg HS PO 12/06/17 21:00 01/05/18 20:59 Hydroxyzine HCl (Vistaril Tab) 25 mg HS PO 12/06/17 21:00 01/05/18 20:59 Temazepam (Restoril Cap) 15 mg HS PO 12/06/17 21:00 01/05/18 20:59 Calcium/Vitamin D (Caltrate Plus Tab) 1 tab BID PO 12/06/17 21:00 01/05/18 20:59 Ferrous Sulfate (Feosol Tab) 325 mg BID PO 12/06/17 21:00 01/05/18 20:59 Albuterol/ Ipratropium (Duoneb) 3 ml QIDR INH 12/06/17 16:00 01/05/18 15:59 12/06/17 15:51 3 ML Furosemide 40 mg/ Syringe 4 ml @ 4 mls/min BID IV 12/06/17 21:00 3/15/18 20:59 Albuterol/ Ipratropium (Duoneb) 3 ml Q2H PRN INH 12/06/17 15:00 01/05/18 14:59 Insulin Aspart (novoLOG ASPART) SLIDING SCALE If C... ACHS SC 12/06/17 16:00 01/05/18 15:59 Physical Exam Date Time Temp Pulse Resp B/P (MAP) Pulse Ox O2 Delivery O2 Flow Rate FiO2 12/06/17 16:00 Nasal Cannula 2.0 12/06/17 15:51 66 18 95 Nasal Cannula 1.0 12/06/17 15:49 36.7 69 19 111/54 (73) 94 Nasal Cannula 2.0 12/06/17 14:03 36.9 66 17 107/56 (73) 93 Room Air 12/06/17 12:01 36.8 71 18 103/51 (68) 99 Nasal Cannula 2.0 12/06/17 12:01 96 Nasal Cannula 2.0 12/06/17 10:00 36.8 78 20 114/60 (78) 97 Nasal Cannula 4.0 12/06/17 08:02 30 12/06/17 08:02 96 CPAP 30 Mechanical Ventilator 12/06/17 08:00 36.8 80 12 136/74 (94) 97 CPAP 30 Mechanical Ventilator 12/06/17 07:33 30 12/06/17 06:01 65 16 128/71 (90) 100 12/06/17 05:20 60 12/06/17 04:01 68 16 148/76 (115) 100 12/06/17 04:01 36.6 68 16 148/76 (100) 100 Mechanical Ventilator 50 12/06/17 04:00 50 12/06/17 04:00 Mechanical Ventilator 50 12/06/17 04:00 69 16 100 12/06/17 03:01 67 16 140/70 (93) 100 Mechanical Ventilator 50 12/06/17 03:01 67 16 140/70 (91) 100 12/06/17 02:16 60 12/06/17 02:01 66 17 133/65 (87) 100 Mechanical Ventilator 50 12/06/17 02:01 66 17 133/65 (84) 100 12/06/17 02:00 63 16 100 12/06/17 01:01 69 16 150/81 (96) 100 12/06/17 01:01 69 16 150/81 (104) 100 Mechanical Ventilator 50 12/06/17 00:58 67 16 136/72 (91) 100 12/06/17 00:01 36.6 66 16 136/72 (93) 100 Mechanical Ventilator 50 12/06/17 00:01 66 16 136/72 (91) 100 12/06/17 00:00 67 16 100 12/05/17 23:59 Mechanical Ventilator 50 12/05/17 23:59 50 12/05/17 23:50 60 12/05/17 23:01 66 16 114/67 (83) 100 12/05/17 22:01 62 16 93/55 (69) 100 12/05/17 22:01 62 16 93/55 (68) 100 12/05/17 22:00 62 16 100 12/05/17 21:01 75 20 121/78 (94) 100 12/05/17 21:01 75 20 121/78 (92) 100 12/05/17 20:10 60 12/05/17 20:01 73 22 124/77 (96) 99 12/05/17 20:01 36.7 73 22 124/77 (93) 99 12/05/17 20:00 Mechanical Ventilator 50 12/05/17 20:00 50 12/05/17 20:00 72 23 100 12/05/17 19:24 36.8 83 21 111/69 99 Mechanical Ventilator 50 12/05/17 19:01 72 20 103/67 (79) 99 12/05/17 18:47 36.8 83 21 111/69 12/05/17 18:01 60 12/05/17 17:36 79 20 94/62 94 General Appearance: no apparent distress, + obese ENT: hearing grossly normal Neck: supple, no JVD Respiratory: no respiratory distress, no accessory muscle use Cardiovascular: regular rate, rhythm Abdomen: + pertinent finding (did not assess abdomen at this time) Neurologic/Psychiatric: alert, normal mood/affect, oriented x 3 Skin: normal color Laboratory Results Last 24 Hours Test 12/05/17 19:05 12/05/17 20:16 12/05/17 23:05 12/06/17 00:28 Urine Color YELLOW Urine Appearance CLEAR Urine pH 5.0 Urine Specific [place] 1.008 Urine Protein NEG Urine Glucose (UA) NEG Urine Ketones NEG Urine Occult Blood TRACE Urine Nitrite NEG Urine Bilirubin NEG Urine Urobilinogen NEG Urine Leukocyte Esterase NEG Urine WBC (Auto) 1-5 /hpf Urine RBC (Auto) 0-4 /hpf Urine Hyaline Casts (Auto) 5-10 /lpf Urine Epithelial Cells (Auto) 5-10 /lpf Urine Bacteria (Auto) NEG Bedside Glucose 128 mg/dl 121 mg/dl Creatine Kinase MB 7.3 ng/ml Creatine Kinase MB Ratio Troponin I 0.730 ng/ml Test 12/06/17 05:30 12/06/17 15:51 White Blood Count 8.63 K/uL Red Blood Count 3.73 M/uL Hemoglobin 10.5 g/dL Hematocrit 32.5 % Mean Corpuscular Volume 87.1 fL Mean Corpuscular Hemoglobin 28.2 pg Mean Corpuscular Hemoglobin Concent 32.3 g/dl Platelet Count 234 K/uL Mean Platelet Volume 10.0 fL Neutrophils (%) (Auto) 77.9 % Lymphocytes (%) (Auto) 13.2 % Monocytes (%) (Auto) 8.2 % Eosinophils (%) (Auto) 0.3 % Basophils (%) (Auto) 0.2 % Neutrophils # (Auto) 6.71 K/uL Lymphocytes # (Auto) 1.14 K/uL Monocytes # (Auto) 0.71 K/uL Eosinophils # (Auto) 0.03 K/uL Basophils # (Auto) 0.02 K/uL RDW Standard Deviation 46.8 fL RDW Coefficient of Variation 14.6 % Immature Granulocyte % (Auto) 0.2 % Immature Granulocyte # (Auto) 0.02 K/uL Venous Blood pH 7.45 Venous Blood Partial Pressure CO2 45 mmHg Venous Blood Partial Pressure O2 95 mmHg Venous Blood HCO3 30 mmol/L Venous Blood Oxygen Saturation 97.3 % Venous Blood Base Excess 5.4 mEq/L Sodium Level 136 mmol/L Potassium Level 3.7 mmol/L Chloride Level 99 mmol/L Carbon Dioxide Level 30 mmol/L Anion Gap 7.0 mmol/L Blood Urea Nitrogen 25 mg/dl Creatinine 1.04 mg/dl Est Creatinine Clear Calc Drug Dose 63.7 ml/min Estimated GFR () 60.4 Estimated GFR (Non- 52.1 BUN/Creatinine Ratio 24.5 Random Glucose 104 mg/dl Estimated Average Glucose 120 mg/dl Hemoglobin A1c 5.8 % Calcium Level 7.8 mg/dl Phosphorus Level 5.5 mg/dl Magnesium Level 2.1 mg/dl Total Bilirubin 0.3 mg/dl Direct Bilirubin < 0.1 mg/dl Aspartate Amino Transf (AST/SGOT) 18 U/L Alanine Aminotransferase (ALT/SGPT) 21 U/L Alkaline Phosphatase 115 U/L Creatine Kinase MB 7.1 ng/ml Creatine Kinase MB Ratio Troponin I 0.843 ng/ml Total Protein 6.8 gm/dl Albumin 2.9 gm/dl Globulin 3.9 gm/dl Albumin/Globulin Ratio 0.7 Bedside Glucose 110 mg/dl Assessment & Plan Palliative Performance Scale: 50 % Problem list: SOB/SOARES Dry mouth Diastolic CHF, likely stage IV/end-stage Stress-induced cardiomyopathy, echo shows EF 55% Acute hypoxic respiratory failure- improved, now extubated Elevated troponin Goals of care Palliative care recs: discussed with patient, patient's daughter and grandson, Dr. Morales and MYRON Vaughan. -Patient states she would like to be a DO NOT RESUSCITATE. -Patient is okay with full treatment otherwise and has the goal of getting better/well-enough to get back home to her apartment. -It was STRESSED to the patient by Dr. Morales and myself the importance of adhering to fluid and sodium restriction in order to keep the CHF at bay; as well as daily weights and medication compliance. Patient is mostly concerned about fluid restriction and we discussed ways she can manage this. -Plan may be for rehab after hospitalization. Patient states she has been to [facility] several times and would be okay going back there. -POLST form will be completed prior to discharge. Thank you kindly for this consult. I will follow as needed. Total time spent 50 minutes. Greater than 50% of time with the patient was spent on counseling and coordinating care.
[2017-12-06] MEDS: FUROSEMIDE INJ 40 MG in SYRINGE 0 ML IV SCH (21:00)
[2017-12-06] MEDS: MAGNESIUM OXIDE 400 MG TAB PO SCH (21:57)
[2017-12-06] MEDS: TEMAZEPAM 15 MG CAP PO SCH (21:57)
[2017-12-06] MEDS: CALCIUM 600MG + VIT D 400 IU TAB PO SCH (21:58)
[2017-12-06] MEDS: FERROUS SULFATE 325 MG TAB PO SCH (21:58)
[2017-12-06] MEDS: GABAPENTIN 600 MG TAB PO SCH (21:58)
[2017-12-06] MEDS: hydrOXYzine HCL 25 MG TAB PO SCH (21:58)
[2017-12-07] VITALS (16 sets, daily range): BP systolic 90–113; BP diastolic 57–72; PULSE 66–80; TEMP 36.5–37.6; O2SAT 91–99
[2017-12-07 05:49] LABS: ALBUMIN 2.8 gm/dl (3.4-5.0); CALCIUM 7.5 mg/dl (8.5-10.1); CREATININE 1.26 mg/dl (0.60-1.20); POTASSIUM 4.1 mmol/L (3.5-5.1)
[2017-12-07 05:59] LABS: TOTAL PROTEIN 6.5 gm/dl (6.4-8.2)
[2017-12-07] MEDS: LEVOTHYROXINE 175 MCG TAB PO SCH (06:10)
[2017-12-07] MEDS: ALBUT/IPRATROP 3MG/0.5MG NEB 3 ML VIAL INH SCH ×4 (06:55→20:00)
[2017-12-07] MEDS: INSULIN ASPART 100 UNITS/ML 3 ML PEN SC SCH ×4 (07:00→20:52)
[2017-12-07] MEDS: FUROSEMIDE INJ 40 MG in SYRINGE 0 ML IV SCH ×2 (09:01→20:38)
[2017-12-07] MEDS: BuPROPion SR 100 MG TABCR PO SCH (09:04)
[2017-12-07] MEDS: ATORVASTATIN 20 MG TAB PO SCH (09:04)
[2017-12-07] MEDS: VENLAFAXINE HCL XR 75 MG CAPXR PO SCH (09:06)
[2017-12-07] MEDS: ASPIRIN 81 MG CHEW PO SCH (09:07)
[2017-12-07] MEDS: CALCIUM 600MG + VIT D 400 IU TAB PO SCH ×2 (09:07→20:39)
[2017-12-07] MEDS: CARVEDILOL 3.125 MG TAB PO SCH ×2 (09:08→20:39)
[2017-12-07] MEDS: CARVEDILOL 6.25 MG TAB PO SCH ×2 (09:08→20:39)
[2017-12-07] MEDS: POTASSIUM CHLORIDE 20 MEQ TABCR PO SCH ×2 (09:10→20:40)
[2017-12-07] MEDS: FERROUS SULFATE 325 MG TAB PO SCH ×2 (09:13→20:40)
[2017-12-07] MEDS: ZIPRASIDONE 80 MG CAP PO SCH ×2 (09:14→20:42)
[2017-12-07] MEDS: PANTOprazole SOD 40 MG TAB PO SCH (09:15)
--- NOTE | 2017-12-07 10:02 | Cardiology Follow-Up ---
Subjective General Date of Service: Dec 07, 2017. Pt evaluation today including: conversation w/ patient, chart review, lab review, review of studies History of Present Illness The patient is a 77 year old female Allergies Coded Allergies: Statins (Verified Allergy, Mild, UNKNOWN, 01/13/17) Oxycodone (Verified Allergy, Unknown, RASH, 01/13/17) Sulfa Antibiotics (Verified Allergy, Unknown, "TAKES TOP LAYER OF TONGUE OFF", 01/13/17) Lactose Intolerance (GI) (Verified Adverse Reaction, Unknown, GI UPSET AND DIARRHEA, 01/13/17) Social History Smoking Status: Never Smoker Hx Alcohol Use - Type And Amou: Yes Hx Substance Use - Type And Am: Yes (OBTAINED FROM OLD RECORD) Problem List Medical Problems: (1) CHF (congestive heart failure) Status: Acute (2) Dehydration Status: Acute (3) Metabolic acidosis Status: Acute (4) Weakness Status: Acute Review of Systems Respiratory: + cough, + dyspnea on exertion, No dyspnea at rest Cardiac: + edema, No chest pain, No palpitations (moved across room feeling better with no dizziness) Physical Exam Vital Signs Last Vital Signs Documentation Date Time Temp Pulse Resp B/P (MAP) Pulse Ox O2 Delivery O2 Flow Rate FiO2 12/07/17 09:01 80 105/72 (83) 12/07/17 08:00 Nasal Cannula 2.0 12/07/17 07:56 37.6 22 12/07/17 06:55 96 12/06/17 12:01 Physical Exam Constitutional: General Apperance: overweight Level of Distress: mild distress, acutely ill Head: normocephalic Eyes: Pupils: PERRLA Lungs: Auscultation: breath sounds normal, no wheezing, no rales/crackles, no rhonchi, decreased breath sounds (bases b/l) Cardiovascular: Heart Auscultation: RRR, no rubs, no gallops, III/ GEOVANNY Abdomen: Bowel Sounds: normal Inspection & Palpation: soft, no tenderness, guarding & rebound, no masses Extremities: edema (mild edema) Assessment and Plan Assessment and Plan 1)Acute resp failure--extubated this am 2)Acute on chronic Diastolic CHF 3)Moderate Aortic Stenosis 4) Echo c/w Takotsubo's CM--LVEF 55%, hyperdynamic base with 4 m/s gradient 5) New LBBB resolved with minimal troponin elevation 6) Non compliance with diet and CPAP 7) [place] [facility] [place] without epicardial CAD and elevated LVEDP of 28 mm/hg and moderate by cath Diuresing well; Weigh on bed scale today On coreg and received all doses at 9.375 mg BID but will need to watch BP--no dizziness currently Palliative care consult appreciated Nutrition evaluation lasix IV--continue with IV today--will need to keep her on dry side to avid CHF Needs to be compliant with CPAP at home Laboratory Results Last 24 Hours Test 12/06/17 11:25 12/06/17 15:51 12/06/17 18:00 12/06/17 20:14 Bedside Glucose 104 mg/dl 110 mg/dl 119 mg/dl Troponin I 0.978 ng/ml Test 12/07/17 04:51 12/07/17 07:27 Sodium Level 137 mmol/L Potassium Level 4.1 mmol/L Chloride Level 98 mmol/L Carbon Dioxide Level 32 mmol/L Anion Gap 7.0 mmol/L Blood Urea Nitrogen 28 mg/dl Creatinine 1.26 mg/dl Est Creatinine Clear Calc Drug Dose 52.6 ml/min Estimated GFR () 47.9 Estimated GFR (Non- 41.4 BUN/Creatinine Ratio 22.3 Random Glucose 95 mg/dl Calcium Level 7.5 mg/dl Total Bilirubin 0.4 mg/dl Direct Bilirubin 0.1 mg/dl Aspartate Amino Transf (AST/SGOT) 21 U/L Alanine Aminotransferase (ALT/SGPT) 19 U/L Alkaline Phosphatase 104 U/L Troponin I 1.100 ng/ml Total Protein 6.5 gm/dl Albumin 2.8 gm/dl Bedside Glucose 107 mg/dl
[2017-12-07] MEDS: ACETAMINOPHEN IV 650 MG / 65ML IV PRN (11:38)
--- NOTE | 2017-12-07 13:58 | Hospitalist Progress Note ---
Hospitalist Progress Note Date of Service Dec 07, 2017. (Valeri Garcia .MYRON) Subjective Pt evaluation today including: conversation w/ patient, physical exam, chart review, lab review, review of inpatient medication list Voiding: jimenez catheter in place Ms. Saunders is seated in a chair. She reports feeling much better, breathing has improved. She worked with therapy today which went well. She has had no chest pain. ROS Constitutional: no chills, aches, sweats or fever Respiratory: no sob,cough, sputum, or wheezing Cardiac: no chest pain, palpitations, edema, orthopnea or lightheadedness GI: no abdominal pain, nausea, vomiting, diarrhea or constipation : no dysuria or hesitancy Extremities: no joint pain or weakness Skin: no rash All other systems reviewed and negative (Valeri Garcia .MYRON) Medications Medications Administered Medications (Trade) Dose Ordered Sig/Huey Route Start Time Stop Time Status Last Admin Dose Admin Miscellaneous (Rapid Sequence Induction Bag) 1 ea STK-MED ONCE N/A 12/05/17 14:56 12/05/17 14:57 DC 12/05/17 14:56 1 EA Propofol (Diprivan Iv Emulsion 100ml Vial) 1 dose UD STAT IV 12/05/17 15:12 12/05/17 15:18 DC 12/05/17 15:12 1 DOSE Midazolam HCl (Versed Inj) 4 mg NOW STAT IV 12/05/17 15:17 12/05/17 15:19 DC 12/05/17 15:17 4 MG Atorvastatin Calcium (Lipitor Tab) 20 mg DAILY PO 12/06/17 09:00 01/05/18 08:59 12/07/17 09:04 20 MG Bupropion HCl (Wellbutrin-Sr Tab) 200 mg QAM PO 12/06/17 09:00 01/05/18 08:59 12/07/17 09:04 200 MG Carvedilol (Coreg Tab) 6.25 mg BID PO 12/05/17 21:00 01/04/18 20:59 12/07/17 09:08 6.25 MG Levothyroxine Sodium (Synthroid Tab) 175 mcg DAILYBB PO 12/06/17 06:00 01/05/18 06:59 12/07/17 06:10 175 MCG Venlafaxine HCl (effeXOR EXTENDED REL CAP) 75 mg DAILY PO 12/06/17 09:00 01/05/18 08:59 12/07/17 09:06 75 MG Ziprasidone (Geodon Cap) 80 mg BID PO 12/05/17 21:00 01/04/18 20:59 12/07/17 09:14 80 MG Heparin Sodium (Porcine) (Heparin Sq 5000 Unit/0.5ml) 5,000 unit Q8H SQ 12/05/17 22:00 12/06/17 09:56 DC 12/06/17 05:31 5,000 UNIT Nitroglycerin (Nitroglycerin 2% Oint) 1 inch Q6H EXT 12/05/17 20:00 12/06/17 08:32 DC 12/06/17 02:00 1 INCH Pantoprazole Sodium 40 mg/ Syringe 10 ml @ 5 mls/min DAILY IV 12/06/17 09:00 12/06/17 11:00 DC 12/06/17 10:26 5 MLS/MIN Furosemide 100 mg/ Dextrose 100 ml @ 3 mls/hr Q24H IV 12/05/17 19:30 12/06/17 09:54 DC 12/05/17 20:08 3 MLS/HR Aspirin (Aspirin Chew) 81 mg DAILY PO 12/06/17 09:00 01/05/18 08:59 12/07/17 09:07 81 MG Fentanyl Citrate (Fentanyl Inj) 50 mcg Q2H PRN IV 12/05/17 21:00 12/06/17 10:00 DC 12/06/17 05:04 50 MCG Midazolam HCl (Versed Inj) 2 mg Q2H PRN IV 12/05/17 21:00 12/06/17 10:01 DC 12/06/17 03:07 2 MG Fentanyl Citrate (Fentanyl Inj) 100 mcg STK-MED ONCE .ROUTE 12/05/17 21:02 12/05/17 21:03 DC 12/05/17 21:06 50 MCG Potassium Chloride (Yudith Ciel Elix) 20 meq BID NG 12/05/17 22:00 12/06/17 09:55 DC 12/05/17 22:04 20 MEQ Acetaminophen 650 mg/Empty Bag 65 ml @ 260 mls/hr Q6H PRN IV 2/13/18 09:45 01/05/18 09:44 12/07/17 11:38 260 MLS/HR Enoxaparin Sodium (Lovenox Inj) 40 mg DAILY@1400 SQ 12/06/17 14:00 01/05/18 13:59 12/06/17 14:16 40 MG Carvedilol (Coreg Tab) 3.125 mg BID PO 12/06/17 10:45 01/05/18 10:44 12/07/17 09:08 3.125 MG Potassium Chloride (Klor-Con Tab) 20 meq BID PO 12/06/17 11:00 01/05/18 10:59 12/07/17 09:10 20 MEQ Bumetanide (Bumex Tab) 0.5 mg QAM PO 12/06/17 11:00 01/05/18 10:59 Future Hold 12/06/17 11:05 0.5 MG Magnesium Oxide (Mag-Ox Tab) 400 mg HS PO 12/06/17 21:00 01/05/18 20:59 12/06/17 21:57 400 MG Pantoprazole Sodium (Protonix Tab) 40 mg QAM PO 12/07/17 09:00 01/06/18 08:59 12/07/17 09:15 40 MG Gabapentin (Neurontin Tab) 600 mg HS PO 12/06/17 21:00 01/05/18 20:59 12/06/17 21:58 600 MG Hydroxyzine HCl (Vistaril Tab) 25 mg HS PO 12/06/17 21:00 01/05/18 20:59 12/06/17 21:58 25 MG Temazepam (Restoril Cap) 15 mg HS PO 12/06/17 21:00 01/05/18 20:59 12/06/17 21:57 15 MG Calcium/Vitamin D (Caltrate Plus Tab) 1 tab BID PO 12/06/17 21:00 01/05/18 20:59 12/07/17 09:07 1 TAB Ferrous Sulfate (Feosol Tab) 325 mg BID PO 12/06/17 21:00 01/05/18 20:59 12/07/17 09:13 325 MG Albuterol/ Ipratropium (Duoneb) 3 ml QIDR INH 12/06/17 16:00 01/05/18 15:59 12/07/17 11:35 3 ML Furosemide 40 mg/ Syringe 4 ml @ 4 mls/min BID IV 12/06/17 21:00 01/05/18 20:59 12/07/17 09:01 4 MLS/MIN (Valeri Garcia ., MYRON) Objective Vital Signs Date Time Temp Pulse Resp B/P (MAP) Pulse Ox O2 Delivery O2 Flow Rate FiO2 12/07/17 12:14 37.2 73 22 100/70 (80) 99 73 12/07/17 12:00 Nasal Cannula 2.0 12/07/17 11:35 73 18 96 Nasal Cannula 2.0 12/07/17 09:30 94 12/07/17 09:01 80 105/72 (83) 12/07/17 08:00 Nasal Cannula 2.0 12/07/17 07:56 37.6 79 22 96/63 (74) 79 12/07/17 06:55 80 18 96 Nasal Cannula 2.0 12/07/17 04:46 98/64 (75) 95 CPAP 12/07/17 04:03 37.0 76 16 90/57 (68) 92 12/07/17 04:00 92 CPAP 12/07/17 00:17 37.2 80 16 95/60 (72) 91 12/07/17 00:00 91 Nasal Cannula 2.0 12/06/17 23:15 74 94 2.0 12/06/17 20:12 70 16 96 Nasal Cannula 2.0 12/06/17 20:11 36.5 70 20 97/61 (73) 96 2.0 12/06/17 20:00 Nasal Cannula 2.0 12/06/17 16:00 Nasal Cannula 2.0 12/06/17 15:51 66 18 95 Nasal Cannula 1.0 12/06/17 15:49 36.7 69 19 111/54 (73) 94 Nasal Cannula 2.0 12/06/17 14:03 36.9 66 17 107/56 (73) 93 Room Air (Valeri Garcia CRNP) Physical Exam Notes: General: no distress Eyes: normal inspection, PERLL Respiratory: chest non tender, clear to auscultation, normal breath sounds, no respiratory distress, no accessory muscle use Cardiac: regular rate and rhythm, no rub or gallop, no murmur, no edema, no jvd GI/: active bowel sounds, no abd pain or tenderness, soft, non distended Extremities: normal range of motion, normal strength, non tender Neuro/Psych: alert and oriented x 3, normal mood and affect Skin: normal color, dry (Valeri Garcia CRNP) Laboratory Results Last 24 Hours Test 12/06/17 15:51 12/06/17 18:00 12/06/17 20:14 12/07/17 04:51 Bedside Glucose 110 mg/dl 119 mg/dl Troponin I 0.978 ng/ml 1.100 ng/ml Sodium Level 137 mmol/L Potassium Level 4.1 mmol/L Chloride Level 98 mmol/L Carbon Dioxide Level 32 mmol/L Anion Gap 7.0 mmol/L Blood Urea Nitrogen 28 mg/dl Creatinine 1.26 mg/dl Est Creatinine Clear Calc Drug Dose 52.6 ml/min Estimated GFR () 47.9 Estimated GFR (Non- 41.4 BUN/Creatinine Ratio 22.3 Random Glucose 95 mg/dl Calcium Level 7.5 mg/dl Total Bilirubin 0.4 mg/dl Direct Bilirubin 0.1 mg/dl Aspartate Amino Transf (AST/SGOT) 21 U/L Alanine Aminotransferase (ALT/SGPT) 19 U/L Alkaline Phosphatase 104 U/L Total Protein 6.5 gm/dl Albumin 2.8 gm/dl Test 12/07/17 07:27 12/07/17 11:31 Bedside Glucose 107 mg/dl 113 mg/dl (Valeri Garcia CRNP) Assessment and Plan 77yo female here with acute on chronic diastolic congestive heart failure with hypoxic respiratory failure. Diastolic CHF, hypoxic respiratory failure - extubated 12/06 - saturating well on 2L NC - off lasix drip 12/06 - continue 40 mg IV lasix push bid - continue strict Is&Os - Echo showed EF of 55% and Takatsubo - daily weights - prn nebs - recent cardiac cath showed clean coronaries - cardiology on board - Palliative care consulted - Importance of regimen adherence emphasized Elevated Trop/Type II NM - trop is continuing to drift up - repeat this afternoon - patient is asymptomatic and had recent cath with clean coronaries - continue to trend - initially with LBBB that has resolved - EKG with chest pain HTN - On home coreg. - Continue IV lasix push - hold prn bumex po - losartan on hold as creat was initially high and now blood pressures are borderline low PMH pre-diabetes - Cholesterol 213 - A1c 5.8 - bsgs ac & hs, ss Hypothyroid - Continue home levothyroxine. Depression Continue home effexor and geodon. HLD Continue statin PT/OT - may need rehab after discharge DVT prophylaxis: enoxaprin Full code (Valeri Garcia ., MYRON) CONSULTING SALES MANAGER Physician Supervision Note: I interviewed and examined the patient. Discussed with Valeri Garcia CONSULTING SALES MANAGER and agree with findings and plan as documented in the note. 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
[2017-12-07] MEDS: ENOXAPARIN 40 MG/0.4 ML SYR SQ SCH (14:46)
[2017-12-07] MEDS: GABAPENTIN 600 MG TAB PO SCH (20:40)
[2017-12-07] MEDS: hydrOXYzine HCL 25 MG TAB PO SCH (20:40)
[2017-12-07] MEDS: MAGNESIUM OXIDE 400 MG TAB PO SCH (20:41)
[2017-12-07] MEDS: TEMAZEPAM 15 MG CAP PO SCH (22:18)
[2017-12-08] VITALS (9 sets, daily range): BP systolic 94–129; BP diastolic 62–81; PULSE 60–88; TEMP 36.4–37.3; O2SAT 92–98
[2017-12-08] MEDS: LEVOTHYROXINE 175 MCG TAB PO SCH (06:49)
[2017-12-08] MEDS: INSULIN ASPART 100 UNITS/ML 3 ML PEN SC SCH ×4 (07:00→21:00)
[2017-12-08] MEDS: ALBUT/IPRATROP 3MG/0.5MG NEB 3 ML VIAL INH SCH (07:01)
[2017-12-08 07:29] LABS: ALBUMIN 2.7 gm/dl (3.4-5.0); CREATININE 1.16 mg/dl (0.60-1.20); POTASSIUM 3.6 mmol/L (3.5-5.1)
[2017-12-08 07:32] LABS: TOTAL PROTEIN 6.7 gm/dl (6.4-8.2)
--- NOTE | 2017-12-08 08:26 | Cardiology Follow-Up ---
Subjective General Date of Service: Dec 08, 2017. Pt evaluation today including: conversation w/ patient, chart review, lab review, review of studies History of Present Illness The patient is a 77 year old female Allergies Coded Allergies: Statins (Verified Allergy, Mild, UNKNOWN, 01/13/17) Oxycodone (Verified Allergy, Unknown, RASH, 01/13/17) Sulfa Antibiotics (Verified Allergy, Unknown, "TAKES TOP LAYER OF TONGUE OFF", 01/13/17) Lactose Intolerance (GI) (Verified Adverse Reaction, Unknown, GI UPSET AND DIARRHEA, 01/13/17) Social History Smoking Status: Never Smoker Hx Alcohol Use - Type And Amou: Yes Hx Substance Use - Type And Am: Yes (OBTAINED FROM OLD RECORD) Problem List Medical Problems: (1) CHF (congestive heart failure) Status: Acute (2) Dehydration Status: Acute (3) Metabolic acidosis Status: Acute (4) Weakness Status: Acute Review of Systems Respiratory: No sputum, No dyspnea at rest Cardiac: + edema, No chest pain, No palpitations Additional ROS Details: ambulated in room without dyspnea, feels better Physical Exam Vital Signs Last Vital Signs Documentation Date Time Temp Pulse Resp B/P (MAP) Pulse Ox O2 Delivery O2 Flow Rate FiO2 12/08/17 07:11 36.7 68 18 124/79 (94) 97 2.0 12/08/17 07:04 Nasal Cannula 12/06/17 12:01 Physical Exam Constitutional: General Apperance: overweight Level of Distress: mild distress, acutely ill Head: normocephalic Eyes: Pupils: PERRLA Lungs: Auscultation: breath sounds normal, no wheezing, no rales/crackles, no rhonchi, decreased breath sounds (bases b/l) Cardiovascular: Heart Auscultation: RRR, no rubs, no gallops, III/ GEOVANNY Abdomen: Bowel Sounds: normal Inspection & Palpation: soft, no tenderness, guarding & rebound, no masses Extremities: edema (mild edema) Assessment and Plan Assessment and Plan 1)Acute resp failure- S/P VDRF 2)Acute on chronic Diastolic CHF 3)Moderate Aortic Stenosis 4) Echo c/w Takotsubo's CM--LVEF 55%, hyperdynamic base with 4 m/s gradient 5) New LBBB resolved with minimal troponin elevation 6) Non compliance with diet and CPAP 7) [place] [facility] [place] without epicardial CAD and elevated LVEDP of 28 mm/hg and moderate by cath Diuresing well; Weigh on standing scale today; negative 1.5 L in 24 hours and > 6 liters since admit On coreg and received all doses at 9.375 mg BID but will need to watch BP--no dizziness currently--HR ok Nutrition evaluation lasix IV--continue with IV today--will need to keep her on dry side to avoid CHF--no impact so far on renal function Needs to be compliant with CPAP at home Ambulate in hallway Laboratory Results Last 24 Hours Test 12/07/17 11:31 12/07/17 14:02 12/07/17 16:20 12/07/17 20:52 Bedside Glucose 113 mg/dl 136 mg/dl 123 mg/dl Troponin I 0.900 ng/ml Test 12/08/17 06:17 Sodium Level 139 mmol/L Potassium Level 3.6 mmol/L Chloride Level 99 mmol/L Carbon Dioxide Level 35 mmol/L Anion Gap 5.0 mmol/L Blood Urea Nitrogen 27 mg/dl Creatinine 1.16 mg/dl Est Creatinine Clear Calc Drug Dose 56.4 ml/min Estimated GFR () 53.0 Estimated GFR (Non- 45.7 BUN/Creatinine Ratio 23.1 Random Glucose 97 mg/dl Calcium Level 8.0 mg/dl Total Bilirubin 0.4 mg/dl Direct Bilirubin 0.1 mg/dl Aspartate Amino Transf (AST/SGOT) 17 U/L Alanine Aminotransferase (ALT/SGPT) 17 U/L Alkaline Phosphatase 94 U/L Total Protein 6.7 gm/dl Albumin 2.7 gm/dl
[2017-12-08] MEDS: ZIPRASIDONE 80 MG CAP PO SCH ×2 (09:09→21:05)
[2017-12-08] MEDS: CARVEDILOL 6.25 MG TAB PO SCH ×2 (09:09→21:07)
[2017-12-08] MEDS: FERROUS SULFATE 325 MG TAB PO SCH ×2 (09:10→21:04)
[2017-12-08] MEDS: POTASSIUM CHLORIDE 20 MEQ TABCR PO SCH ×2 (09:10→21:06)
[2017-12-08] MEDS: CARVEDILOL 3.125 MG TAB PO SCH ×2 (09:10→21:09)
[2017-12-08] MEDS: VENLAFAXINE HCL XR 75 MG CAPXR PO SCH (09:11)
[2017-12-08] MEDS: PANTOprazole SOD 40 MG TAB PO SCH (09:11)
[2017-12-08] MEDS: BuPROPion SR 100 MG TABCR PO SCH (09:11)
[2017-12-08] MEDS: ATORVASTATIN 20 MG TAB PO SCH (09:11)
[2017-12-08] MEDS: FUROSEMIDE INJ 40 MG in SYRINGE 0 ML IV SCH ×2 (09:11→20:52)
[2017-12-08] MEDS: CALCIUM 600MG + VIT D 400 IU TAB PO SCH ×2 (09:11→21:07)
[2017-12-08] MEDS: ASPIRIN 81 MG CHEW PO SCH (09:23)
--- NOTE | 2017-12-08 11:30 | Hospitalist Progress Note ---
Hospitalist Progress Note Date of Service Dec 08, 2017. (Valeri Garcia .MYRON) Subjective Pt evaluation today including: conversation w/ patient, physical exam, chart review, lab review, review of inpatient medication list Voiding: jimenez catheter in place Ms. Saunders was just finished PT when I saw her, saturating in the mid 90s on RA. She has a mild cough. She has no complaints except that she finds the fluid restriction very uncomfortable but understands its importance. ROS Constitutional: no chills, aches, sweats or fever Respiratory: no sob, sputum, or wheezing Cardiac: no chest pain, palpitations, edema, orthopnea or lightheadedness GI: no abdominal pain, nausea, vomiting, diarrhea or constipation : no dysuria or hesitancy Extremities: no joint pain or weakness Skin: no rash All other systems reviewed and negative (Valeri Garcia CRNP) Medications Medications Administered Medications (Trade) Dose Ordered Sig/Huey Route Start Time Stop Time Status Last Admin Dose Admin Miscellaneous (Rapid Sequence Induction Bag) 1 ea STK-MED ONCE N/A 12/05/17 14:56 12/05/17 14:57 DC 12/05/17 14:56 1 EA Propofol (Diprivan Iv Emulsion 100ml Vial) 1 dose UD STAT IV 12/05/17 15:12 12/05/17 15:18 DC 12/05/17 15:12 1 DOSE Midazolam HCl (Versed Inj) 4 mg NOW STAT IV 12/05/17 15:17 12/05/17 15:19 DC 12/05/17 15:17 4 MG Atorvastatin Calcium (Lipitor Tab) 20 mg DAILY PO 12/06/17 09:00 01/05/18 08:59 12/08/17 09:11 20 MG Bupropion HCl (Wellbutrin-Sr Tab) 200 mg QAM PO 12/06/17 09:00 01/05/18 08:59 12/08/17 09:11 200 MG Carvedilol (Coreg Tab) 6.25 mg BID PO 12/05/17 21:00 01/04/18 20:59 12/08/17 09:09 6.25 MG Levothyroxine Sodium (Synthroid Tab) 175 mcg DAILYBB PO 12/06/17 06:00 3/15/18 06:59 12/08/17 06:49 175 MCG Venlafaxine HCl (effeXOR EXTENDED REL CAP) 75 mg DAILY PO 12/06/17 09:00 01/05/18 08:59 12/08/17 09:11 75 MG Ziprasidone (Geodon Cap) 80 mg BID PO 12/05/17 21:00 01/04/18 20:59 12/08/17 09:09 80 MG Heparin Sodium (Porcine) (Heparin Sq 5000 Unit/0.5ml) 5,000 unit Q8H SQ 12/05/17 22:00 12/06/17 09:56 DC 12/06/17 05:31 5,000 UNIT Nitroglycerin (Nitroglycerin 2% Oint) 1 inch Q6H EXT 12/05/17 20:00 12/06/17 08:32 DC 12/06/17 02:00 1 INCH Pantoprazole Sodium 40 mg/ Syringe 10 ml @ 5 mls/min DAILY IV 12/06/17 09:00 12/06/17 11:00 DC 12/06/17 10:26 5 MLS/MIN Furosemide 100 mg/ Dextrose 100 ml @ 3 mls/hr Q24H IV 12/05/17 19:30 12/06/17 09:54 DC 12/05/17 20:08 3 MLS/HR Aspirin (Aspirin Chew) 81 mg DAILY PO 12/06/17 09:00 01/05/18 08:59 12/08/17 09:23 81 MG Fentanyl Citrate (Fentanyl Inj) 50 mcg Q2H PRN IV 12/05/17 21:00 12/06/17 10:00 DC 12/06/17 05:04 50 MCG Midazolam HCl (Versed Inj) 2 mg Q2H PRN IV 12/05/17 21:00 12/06/17 10:01 DC 12/06/17 03:07 2 MG Fentanyl Citrate (Fentanyl Inj) 100 mcg STK-MED ONCE .ROUTE 12/05/17 21:02 12/05/17 21:03 DC 12/05/17 21:06 50 MCG Potassium Chloride (Yudith Ciel Elix) 20 meq BID NG 12/05/17 22:00 12/06/17 09:55 DC 12/05/17 22:04 20 MEQ Acetaminophen 650 mg/Empty Bag 65 ml @ 260 mls/hr Q6H PRN IV 12/06/17 09:45 01/05/18 09:44 12/07/17 11:38 260 MLS/HR Enoxaparin Sodium (Lovenox Inj) 40 mg DAILY@1400 SQ 12/06/17 14:00 01/05/18 13:59 12/07/17 14:46 40 MG Carvedilol (Coreg Tab) 3.125 mg BID PO 12/06/17 10:45 01/05/18 10:44 12/08/17 09:10 3.125 MG Potassium Chloride (Klor-Con Tab) 20 meq BID PO 12/06/17 11:00 01/05/18 10:59 12/08/17 09:10 20 MEQ Bumetanide (Bumex Tab) 0.5 mg QAM PO 12/06/17 11:00 01/05/18 10:59 Future Hold 12/06/17 11:05 0.5 MG Magnesium Oxide (Mag-Ox Tab) 400 mg HS PO 12/06/17 21:00 01/05/18 20:59 12/07/17 20:41 400 MG Pantoprazole Sodium (Protonix Tab) 40 mg QAM PO 12/07/17 09:00 01/06/18 08:59 12/08/17 09:11 40 MG Gabapentin (Neurontin Tab) 600 mg HS PO 12/06/17 21:00 01/05/18 20:59 12/07/17 20:40 600 MG Hydroxyzine HCl (Vistaril Tab) 25 mg HS PO 12/06/17 21:00 01/05/18 20:59 12/07/17 20:40 25 MG Temazepam (Restoril Cap) 15 mg HS PO 12/06/17 21:00 01/05/18 20:59 12/07/17 22:18 15 MG Calcium/Vitamin D (Caltrate Plus Tab) 1 tab BID PO 12/06/17 21:00 01/05/18 20:59 12/08/17 09:11 1 TAB Ferrous Sulfate (Feosol Tab) 325 mg BID PO 12/06/17 21:00 01/05/18 20:59 12/08/17 09:10 325 MG Albuterol/ Ipratropium (Duoneb) 3 ml QIDR INH 12/06/17 16:00 12/08/17 08:53 DC 12/08/17 07:01 3 ML Furosemide 40 mg/ Syringe 4 ml @ 4 mls/min BID IV 12/06/17 21:00 01/05/18 20:59 12/08/17 09:11 4 MLS/MIN (Valeri Garcia CRNP) Objective Vital Signs Date Time Temp Pulse Resp B/P (MAP) Pulse Ox O2 Delivery O2 Flow Rate FiO2 12/08/17 07:20 Room Air 12/08/17 07:11 36.7 68 18 124/79 (94) 97 2.0 12/08/17 07:04 88 18 98 Nasal Cannula 2.0 12/08/17 03:52 36.4 65 18 120/76 (91) 94 CPAP 2.0 12/08/17 03:50 CPAP 2.0 12/07/17 23:35 CPAP 2.0 12/07/17 23:32 36.5 66 20 97/64 (75) 97 CPAP 2.0 12/07/17 22:30 72 18 97 Nasal Cannula 2.0 12/07/17 22:30 72 97 2.0 12/07/17 20:38 Nasal Cannula 2.0 12/07/17 19:28 37.2 73 19 113/72 (86) 97 Nasal Cannula 2.0 12/07/17 16:00 Nasal Cannula 2.0 12/07/17 15:22 37.2 71 18 100/59 (73) 93 Nasal Cannula 2.0 12/07/17 14:38 72 18 95 Nasal Cannula 2.0 12/07/17 12:14 37.2 73 22 100/70 (80) 99 73 12/07/17 12:00 Nasal Cannula 2.0 12/07/17 11:35 73 18 96 Nasal Cannula 2.0 (Valeri Garcia CRNP) Physical Exam Notes: General: no distress Eyes: normal inspection, PERLL Respiratory: chest non tender, clear to auscultation, normal breath sounds, no respiratory distress, no accessory muscle use Cardiac: regular rate and rhythm, no rub or gallop, systolic murmur, trace lower extremity edema GI/: active bowel sounds, no abd pain or tenderness, soft, non distended Extremities: normal range of motion, normal strength, non tender Neuro/Psych: alert and oriented x 3, normal mood and affect Skin: normal color, dry (Valeri Garcia CRNP) Laboratory Results Last 24 Hours Test 12/07/17 11:31 12/07/17 14:02 12/07/17 16:20 12/07/17 20:52 Bedside Glucose 113 mg/dl 136 mg/dl 123 mg/dl Troponin I 0.900 ng/ml Test 12/08/17 06:17 Sodium Level 139 mmol/L Potassium Level 3.6 mmol/L Chloride Level 99 mmol/L Carbon Dioxide Level 35 mmol/L Anion Gap 5.0 mmol/L Blood Urea Nitrogen 27 mg/dl Creatinine 1.16 mg/dl Est Creatinine Clear Calc Drug Dose 56.4 ml/min Estimated GFR () 53.0 Estimated GFR (Non- 45.7 BUN/Creatinine Ratio 23.1 Random Glucose 97 mg/dl Calcium Level 8.0 mg/dl Total Bilirubin 0.4 mg/dl Direct Bilirubin 0.1 mg/dl Aspartate Amino Transf (AST/SGOT) 17 U/L Alanine Aminotransferase (ALT/SGPT) 17 U/L Alkaline Phosphatase 94 U/L Total Protein 6.7 gm/dl Albumin 2.7 gm/dl (Valeri Garcia CRNP) Assessment and Plan 77yo female here with acute on chronic diastolic congestive heart failure with hypoxic respiratory failure. Diastolic CHF, hypoxic respiratory failure - extubated 12/06 - saturating well on RA - off lasix drip 12/06 - continue 40 mg IV lasix push bid - continue strict Is&Os - Echo showed EF of 55% and Takatsubo - daily weights with standing scale - prn nebs - recent cardiac cath showed clean coronaries - cardiology on board - Palliative care consulted - Importance of regimen adherence emphasized Elevated Trop/Type II MD - trop peaked at 1.1 and trended back down - initially with LBBB that has resolved - EKG with chest pain HTN - On home coreg. - Continue IV lasix push - hold prn bumex po - continue to hold losartan for low BP PMH pre-diabetes - Cholesterol 213 - A1c 5.8 - bsgs ac & hs, ss Hypothyroid - Continue home levothyroxine. Depression Continue home effexor and geodon. HLD Continue statin PT/OT - rehab after discharge, may be ready for dc tomorrow. DVT prophylaxis: enoxaprin Full code (Valeri Garcia ., MYRON) YARD DRIVER Physician Supervision Note: I interviewed and examined the patient. Discussed with Valeri Garcia YARD DRIVER and agree with findings and plan as documented in the note. Any exceptions or clarifications are listed here: None Patient with acute diastolic heart failure doing much better with diuresis. She does elevation of troponin consistent with her echo finding of ATakosubos myocarditis, these of trended and crested Vital signs are stable Cardiac exam is regular is a distant murmur lungs are clear with decreased breath of the bases she is some peripheral edema Continue diuresis with IV Lasix with reinforcement of diet and sodium restrictions. Starting lisinopril in the morning of 12/09 Documented By: Anders Kern (Anders Kern M.D.)
[2017-12-08] MEDS: ENOXAPARIN 40 MG/0.4 ML SYR SQ SCH (14:43)
[2017-12-08] MEDS: IPRATROPIUM BROMIDE/ALBUTEROL respimat INH INH SCH ×3 (14:44→21:01)
[2017-12-08] MEDS ORDERED: DOCUSATE SODIUM 100 MG CAP PO ONE (17:30)
[2017-12-08] MEDS: DOCUSATE SODIUM 100 MG CAP PO SCH (21:03)
[2017-12-08] MEDS: GABAPENTIN 600 MG TAB PO SCH (21:04)
[2017-12-08] MEDS: hydrOXYzine HCL 25 MG TAB PO SCH (21:05)
[2017-12-08] MEDS: MAGNESIUM OXIDE 400 MG TAB PO SCH (21:06)
[2017-12-08] MEDS: TEMAZEPAM 15 MG CAP PO SCH (21:16)
[2017-12-09] VITALS (9 sets, daily range): BP systolic 90–118; BP diastolic 58–77; PULSE 60–72; TEMP 36.3–37.1; O2SAT 90–97
[2017-12-09] MEDS: LEVOTHYROXINE 175 MCG TAB PO SCH (06:13)
[2017-12-09 06:43] LABS: ALBUMIN 2.7 gm/dl (3.4-5.0); ALT/SGPT 17 U/L (12-78); BLOOD UREA NITROGEN 31 mg/dl (7-18); CALCIUM 8.1 mg/dl (8.5-10.1); CARBON DIOXIDE 37 mmol/L (21-32); CREATININE 1.18 mg/dl (0.60-1.20); GLUCOSE 103 mg/dl (70-99); POTASSIUM 3.6 mmol/L (3.5-5.1); SODIUM 140 mmol/L (136-145)
[2017-12-09 06:46] LABS: ALKALINE PHOSPHATASE 88 U/L (45-117); AST/SGOT 17 U/L (15-37); TOTAL PROTEIN 6.7 gm/dl (6.4-8.2)
[2017-12-09] MEDS ORDERED: MIDAZOLAM HCL 5 MG/ML 2ML VIAL IV ONE (07:48)
[2017-12-09] MEDS ORDERED: SUCCINYLCHOLINE CHLORIDE 20 MG/ML 10 ML VIAL IV ONE (07:48)
[2017-12-09] MEDS ORDERED: KETAMINE HCL INJ 50 MG/ML 10 ML VIAL IV ONE (07:48)
[2017-12-09] MEDS: INSULIN ASPART 100 UNITS/ML 3 ML PEN SC SCH ×4 (08:00→21:31)
[2017-12-09] MEDS: IPRATROPIUM BROMIDE/ALBUTEROL respimat INH INH SCH ×3 (08:25→17:00)
--- NOTE | 2017-12-09 08:25 | Cardiology Follow-Up ---
Subjective General Date of Service: Dec 09, 2017. Pt evaluation today including: conversation w/ patient, chart review, lab review, review of studies History of Present Illness The patient is a 77 year old female Allergies Coded Allergies: Statins (Verified Allergy, Mild, UNKNOWN, 01/13/17) Oxycodone (Verified Allergy, Unknown, RASH, 01/13/17) Sulfa Antibiotics (Verified Allergy, Unknown, "TAKES TOP LAYER OF TONGUE OFF", 01/13/17) Social History Smoking Status: Never Smoker Hx Alcohol Use - Type And Amou: Yes Hx Substance Use - Type And Am: Yes (OBTAINED FROM OLD RECORD) Problem List Medical Problems: (1) CHF (congestive heart failure) Status: Acute (2) Dehydration Status: Acute (3) Metabolic acidosis Status: Acute (4) Weakness Status: Acute Review of Systems Respiratory: + shortness of breath, + dyspnea on exertion, No cough, No dyspnea at rest Cardiac: + edema, No chest pain, No palpitations Physical Exam Vital Signs Last Vital Signs Documentation Date Time Temp Pulse Resp B/P (MAP) Pulse Ox O2 Delivery O2 Flow Rate FiO2 12/09/17 07:31 36.4 61 16 90/58 (69) 94 CPAP 12/09/17 00:00 30 12/08/17 23:57 2.0 Physical Exam Constitutional: General Apperance: overweight Level of Distress: mild distress, acutely ill Head: normocephalic Eyes: Pupils: PERRLA Lungs: Auscultation: breath sounds normal, no wheezing, no rales/crackles, no rhonchi, decreased breath sounds (bases b/l but improved) Cardiovascular: Heart Auscultation: RRR, no rubs, no gallops, III/ GEOVANNY Abdomen: Bowel Sounds: normal Inspection & Palpation: soft, no tenderness, guarding & rebound, no masses Extremities: edema (mild edema) Assessment and Plan Assessment and Plan 1)Acute resp failure- S/P VDRF 2)Acute on chronic Diastolic CHF 3)Moderate Aortic Stenosis 4) Echo c/w Takotsubo's CM--LVEF 55%, hyperdynamic base with 4 m/s gradient 5) New LBBB resolved with minimal troponin elevation 6) Non compliance with diet and CPAP 7) Cath at [facility] [place] 01/07 without epicardial CAD and elevated LVEDP of 28 mm/hg and moderate by cath Diuresing well; Rise in BUN and we may be at point of worsening renal function if we push her diuretics Change to PO Bumex (on at Home) with equivalent lasix dose of 2 mg daily On coreg and received all doses at 9.375 mg BID but will need to watch BP--no dizziness currently--HR ok Will arrange for outpt followup when eventually discharged; Rehab first Laboratory Results Last 24 Hours Test 12/08/17 11:08 12/08/17 16:34 12/08/17 20:13 12/09/17 05:47 Bedside Glucose 120 mg/dl 131 mg/dl 107 mg/dl Sodium Level 140 mmol/L Potassium Level 3.6 mmol/L Chloride Level 96 mmol/L Carbon Dioxide Level 37 mmol/L Anion Gap 6.0 mmol/L Blood Urea Nitrogen 31 mg/dl Creatinine 1.18 mg/dl Est Creatinine Clear Calc Drug Dose 55.4 ml/min Estimated GFR () 51.9 Estimated GFR (Non- 44.8 BUN/Creatinine Ratio 26.5 Random Glucose 103 mg/dl Calcium Level 8.1 mg/dl Total Bilirubin 0.3 mg/dl Direct Bilirubin < 0.1 mg/dl Aspartate Amino Transf (AST/SGOT) 17 U/L Alanine Aminotransferase (ALT/SGPT) 17 U/L Alkaline Phosphatase 88 U/L Total Protein 6.7 gm/dl Albumin 2.7 gm/dl Test 12/09/17 07:00 Bedside Glucose 120 mg/dl
[2017-12-09] MEDS: FUROSEMIDE INJ 40 MG in SYRINGE 0 ML IV SCH (08:26)
[2017-12-09] MEDS: CALCIUM 600MG + VIT D 400 IU TAB PO SCH (08:33)
[2017-12-09] MEDS: ATORVASTATIN 20 MG TAB PO SCH (08:34)
[2017-12-09] MEDS: ASPIRIN 81 MG CHEW PO SCH (08:34)
[2017-12-09] MEDS: POTASSIUM CHLORIDE 20 MEQ TABCR PO SCH (08:34)
[2017-12-09] MEDS: PANTOprazole SOD 40 MG TAB PO SCH (08:34)
[2017-12-09] MEDS: BuPROPion SR 100 MG TABCR PO SCH (08:34)
[2017-12-09] MEDS: ZIPRASIDONE 80 MG CAP PO SCH (08:34)
[2017-12-09] MEDS: VENLAFAXINE HCL XR 75 MG CAPXR PO SCH (08:34)
[2017-12-09] MEDS: DOCUSATE SODIUM 100 MG CAP PO SCH (08:34)
[2017-12-09] MEDS: FERROUS SULFATE 325 MG TAB PO SCH (08:34)
[2017-12-09] MEDS: CARVEDILOL 6.25 MG TAB PO SCH (11:04)
[2017-12-09] MEDS: CARVEDILOL 3.125 MG TAB PO SCH (11:04)
[2017-12-09] MEDS: LISINOPRIL 2.5 MG TAB PO SCH (12:42)
[2017-12-09] MEDS: ENOXAPARIN 40 MG/0.4 ML SYR SQ SCH (12:43)
--- NOTE | 2017-12-09 19:28 | Progress Note ---
Subjective Date of Service: Dec 09, 2017. Subjective Pt evaluation today including: conversation w/ patient, physical exam, chart review, lab review, review of inpatient medication list very fatigued easy SOARES but overall better than before awaiting rehab placement no other new complaints Problem List Medical Problems: (1) CHF (congestive heart failure) Status: Acute (2) Dehydration Status: Acute (3) Metabolic acidosis Status: Acute (4) Weakness Status: Acute Review of Systems all other ROS otherwise negative except for as above Objective Vital Signs Date Time Temp Pulse Resp B/P (MAP) Pulse Ox O2 Delivery O2 Flow Rate FiO2 12/09/17 16:00 Room Air 12/09/17 15:50 37.1 71 18 103/69 (80) 97 Nasal Cannula 2.0 12/09/17 12:00 Room Air 12/09/17 11:47 37.0 72 18 118/77 (91) 94 Room Air 12/09/17 08:00 Room Air 12/09/17 07:31 36.4 61 16 90/58 (69) 94 CPAP 12/09/17 04:00 CPAP 12/09/17 03:30 36.3 62 17 106/70 (82) 90 BiPAP 12/09/17 00:00 94 Room Air 30 12/08/17 23:57 68 94 2.0 12/08/17 23:40 36.8 60 19 108/73 (85) 92 Room Air 12/08/17 20:00 Room Air 12/08/17 19:46 36.8 70 18 123/68 (86) 94 Room Air Physical Exam General Appearance: no apparent distress Eyes: EOMI ENT: hearing grossly normal Neck: trachea midline Respiratory/Chest: no respiratory distress, no accessory muscle use, + decreased breath sounds (but cta b/l no r/r/w good effort) Extremities: normal range of motion 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, alert, normal mood/affect Laboratory Results Last 24 Hours Test 12/08/17 20:13 12/09/17 05:47 12/09/17 07:00 12/09/17 11:11 Bedside Glucose 107 mg/dl 120 mg/dl 106 mg/dl Sodium Level 140 mmol/L Potassium Level 3.6 mmol/L Chloride Level 96 mmol/L Carbon Dioxide Level 37 mmol/L Anion Gap 6.0 mmol/L Blood Urea Nitrogen 31 mg/dl Creatinine 1.18 mg/dl Est Creatinine Clear Calc Drug Dose 55.4 ml/min Estimated GFR () 51.9 Estimated GFR (Non- 44.8 BUN/Creatinine Ratio 26.5 Random Glucose 103 mg/dl Calcium Level 8.1 mg/dl Total Bilirubin 0.3 mg/dl Direct Bilirubin < 0.1 mg/dl Aspartate Amino Transf (AST/SGOT) 17 U/L Alanine Aminotransferase (ALT/SGPT) 17 U/L Alkaline Phosphatase 88 U/L Total Protein 6.7 gm/dl Albumin 2.7 gm/dl Test 12/09/17 16:52 Bedside Glucose 117 mg/dl Assessment and Plan 77yo female here with acute on chronic diastolic congestive heart failure with hypoxic respiratory failure. Diastolic CHF, hypoxic respiratory failure - extubated 12/06 - saturating well on RA - off lasix drip 12/06 - continue ongoing diuretics - continue strict Is&Os - Echo showed EF of 55% and Takatsubo - stable for med surg - prn nebs - ?underlying OHS or AMNISHA? outpt w/u - recent cardiac cath showed clean coronaries - cardiology on board - Palliative care consulted, input appreciated - Importance of regimen adherence emphasized Elevated Trop/Type II [place] - trop peaked at 1.1 and trended back down - initially with LBBB that has resolved - EKG with chest pain - no new problems HTN - continue current meds control reasonable for situation PMH pre-diabetes - Cholesterol 213 - A1c 5.8 - bsgs ac & hs, ss - ongoing outpt f/u Hypothyroid - Continue home levothyroxine. Depression Continue home effexor and geodon. HLD Continue statin PT/OT ongoing for mobility and discharge planning- rehab after discharge - stable for rehab once available DVT prophylaxis: enoxaprin Full code
[2017-12-09] MEDS: ACETAMINOPHEN IV 650 MG / 65ML IV PRN (19:39)
[2017-12-09] MEDS: TEMAZEPAM 15 MG CAP PO SCH (22:08)
[2017-12-09] MEDS: MAGNESIUM OXIDE 400 MG TAB PO SCH (22:09)
[2017-12-09] MEDS: GABAPENTIN 600 MG TAB PO SCH (22:10)
[2017-12-09] MEDS: hydrOXYzine HCL 25 MG TAB PO SCH (22:10)
[2017-12-10] MEDS: LEVOTHYROXINE 175 MCG TAB PO SCH (06:22)
[2017-12-10 08:04] VITALS: O2SAT 97
[2017-12-10 08:05] LABS: CREATININE 1.34 mg/dl (0.60-1.20)
[2017-12-10 08:06] LABS: ALBUMIN 2.9 gm/dl (3.4-5.0); CALCIUM 8.1 mg/dl (8.5-10.1); POTASSIUM 3.5 mmol/L (3.5-5.1)
[2017-12-10 08:08] LABS: TOTAL PROTEIN 7.1 gm/dl (6.4-8.2)
[2017-12-10] MEDS: IPRATROPIUM BROMIDE/ALBUTEROL respimat INH INH SCH ×4 (08:23→21:44)
[2017-12-10] MEDS: INSULIN ASPART 100 UNITS/ML 3 ML PEN SC SCH ×4 (08:23→21:56)
[2017-12-10] MEDS: DOCUSATE SODIUM 100 MG CAP PO SCH ×2 (08:25→21:49)
[2017-12-10] MEDS: CALCIUM 600MG + VIT D 400 IU TAB PO SCH ×2 (08:25→21:48)
[2017-12-10] MEDS: CARVEDILOL 6.25 MG TAB PO SCH ×2 (08:26→21:49)
[2017-12-10] MEDS: CARVEDILOL 3.125 MG TAB PO SCH ×2 (08:27→21:52)
[2017-12-10] MEDS: VENLAFAXINE HCL XR 75 MG CAPXR PO SCH (08:27)
[2017-12-10] MEDS: FERROUS SULFATE 325 MG TAB PO SCH ×2 (08:27→21:50)
[2017-12-10] MEDS: ZIPRASIDONE 80 MG CAP PO SCH ×2 (08:28→21:53)
[2017-12-10] MEDS: POTASSIUM CHLORIDE 20 MEQ TABCR PO SCH ×2 (08:28→21:51)
[2017-12-10] MEDS: BuPROPion SR 100 MG TABCR PO SCH (08:29)
[2017-12-10] MEDS: PANTOprazole SOD 40 MG TAB PO SCH (08:29)
[2017-12-10] MEDS: LISINOPRIL 2.5 MG TAB PO SCH (08:29)
[2017-12-10] MEDS: ATORVASTATIN 20 MG TAB PO SCH (08:29)
[2017-12-10] MEDS: FUROSEMIDE INJ 40 MG in SYRINGE 0 ML IV SCH ×2 (08:30→21:44)
[2017-12-10] MEDS: ASPIRIN 81 MG CHEW PO SCH (08:32)
[2017-12-10 09:30] VITALS: BP 117/74; PULSE 67; TEMP 36.8; O2SAT 96
[2017-12-10] MEDS ORDERED: CIPROFLOXACIN 500 MG TAB PO ONE (10:09)
[2017-12-10] MEDS: ENOXAPARIN 40 MG/0.4 ML SYR SQ SCH (14:30)
--- NOTE | 2017-12-10 15:27 | Hospitalist Progress Note ---
Hospitalist Progress Note Date of Service Dec 10, 2017. (Valeri Garcia CRNP) Subjective Pt evaluation today including: conversation w/ patient, physical exam, chart review Voiding: no voiding problems Ms. Saunders continues to improve. She has been ambulating the halls. ROS Constitutional: no chills, aches, sweats or fever Respiratory: no sob,cough, sputum, or wheezing Cardiac: no chest pain, palpitations, edema, orthopnea or lightheadedness GI: no abdominal pain, nausea, vomiting, diarrhea or constipation : dysuria Extremities: no joint pain or weakness Skin: no rash All other systems reviewed and negative (Valeri Garcia CRNP) Medications Medications Administered Medications (Trade) Dose Ordered Sig/Huey Route Start Time Stop Time Status Last Admin Dose Admin Miscellaneous (Rapid Sequence Induction Bag) 1 ea STK-MED ONCE N/A 12/05/17 14:56 12/05/17 14:57 DC 12/05/17 14:56 1 EA Propofol (Diprivan Iv Emulsion 100ml Vial) 1 dose UD STAT IV 12/05/17 15:12 12/05/17 15:18 DC 12/05/17 15:12 1 DOSE Midazolam HCl (Versed Inj) 4 mg NOW STAT IV 12/05/17 15:17 12/05/17 15:19 DC 12/05/17 15:17 4 MG Atorvastatin Calcium (Lipitor Tab) 20 mg DAILY PO 12/06/17 09:00 01/05/18 08:59 12/10/17 08:29 20 MG Bupropion HCl (Wellbutrin-Sr Tab) 200 mg QAM PO 12/06/17 09:00 01/05/18 08:59 12/10/17 08:29 200 MG Carvedilol (Coreg Tab) 6.25 mg BID PO 12/05/17 21:00 01/04/18 20:59 12/10/17 08:26 6.25 MG Levothyroxine Sodium (Synthroid Tab) 175 mcg DAILYBB PO 12/06/17 06:00 01/05/18 06:59 12/10/17 06:22 175 MCG Venlafaxine HCl (effeXOR EXTENDED REL CAP) 75 mg DAILY PO 12/06/17 09:00 01/05/18 08:59 12/10/17 08:27 75 MG Ziprasidone (Geodon Cap) 80 mg BID PO 12/05/17 21:00 01/04/18 20:59 12/10/17 08:28 80 MG Heparin Sodium (Porcine) (Heparin Sq 5000 Unit/0.5ml) 5,000 unit Q8H SQ 12/05/17 22:00 12/06/17 09:56 DC 12/06/17 05:31 5,000 UNIT Nitroglycerin (Nitroglycerin 2% Oint) 1 inch Q6H EXT 12/05/17 20:00 12/06/17 08:32 DC 12/06/17 02:00 1 INCH Pantoprazole Sodium 40 mg/ Syringe 10 ml @ 5 mls/min DAILY IV 12/06/17 09:00 12/06/17 11:00 DC 12/06/17 10:26 5 MLS/MIN Furosemide 100 mg/ Dextrose 100 ml @ 3 mls/hr Q24H IV 12/05/17 19:30 12/06/17 09:54 DC 12/05/17 20:08 3 MLS/HR Aspirin (Aspirin Chew) 81 mg DAILY PO 12/06/17 09:00 01/05/18 08:59 12/10/17 08:32 81 MG Fentanyl Citrate (Fentanyl Inj) 50 mcg Q2H PRN IV 12/05/17 21:00 12/06/17 10:00 DC 12/06/17 05:04 50 MCG Midazolam HCl (Versed Inj) 2 mg Q2H PRN IV 12/05/17 21:00 12/06/17 10:01 DC 12/06/17 03:07 2 MG Fentanyl Citrate (Fentanyl Inj) 100 mcg STK-MED ONCE .ROUTE 12/05/17 21:02 12/05/17 21:03 DC 12/05/17 21:06 50 MCG Potassium Chloride (Yudith Ciel Elix) 20 meq BID NG 12/05/17 22:00 12/06/17 09:55 DC 12/05/17 22:04 20 MEQ Acetaminophen 650 mg/Empty Bag 65 ml @ 260 mls/hr Q6H PRN IV 12/06/17 09:45 01/05/18 09:44 12/09/17 19:39 260 MLS/HR Enoxaparin Sodium (Lovenox Inj) 40 mg DAILY@1400 SQ 12/06/17 14:00 01/05/18 13:59 12/10/17 14:30 40 MG Carvedilol (Coreg Tab) 3.125 mg BID PO 12/06/17 10:45 01/05/18 10:44 12/10/17 08:27 3.125 MG Potassium Chloride (Klor-Con Tab) 20 meq BID PO 12/06/17 11:00 01/05/18 10:59 12/10/17 08:28 20 MEQ Bumetanide (Bumex Tab) 0.5 mg QAM PO 12/06/17 11:00 01/05/18 10:59 Future Hold 12/06/17 11:05 0.5 MG Magnesium Oxide (Mag-Ox Tab) 400 mg HS PO 12/06/17 21:00 01/05/18 20:59 12/09/17 22:09 400 MG Pantoprazole Sodium (Protonix Tab) 40 mg QAM PO 12/07/17 09:00 01/06/18 08:59 12/10/17 08:29 40 MG Gabapentin (Neurontin Tab) 600 mg HS PO 12/06/17 21:00 01/05/18 20:59 12/09/17 22:10 600 MG Hydroxyzine HCl (Vistaril Tab) 25 mg HS PO 12/06/17 21:00 01/05/18 20:59 12/09/17 22:10 25 MG Temazepam (Restoril Cap) 15 mg HS PO 12/06/17 21:00 01/05/18 20:59 12/09/17 22:08 15 MG Calcium/Vitamin D (Caltrate Plus Tab) 1 tab BID PO 12/06/17 21:00 01/05/18 20:59 12/10/17 08:25 1 TAB Ferrous Sulfate (Feosol Tab) 325 mg BID PO 12/06/17 21:00 01/05/18 20:59 12/10/17 08:27 325 MG Albuterol/ Ipratropium (Duoneb) 3 ml QIDR INH 12/06/17 16:00 12/08/17 08:53 DC 12/08/17 07:01 3 ML Furosemide 40 mg/ Syringe 4 ml @ 4 mls/min BID IV 12/06/17 21:00 01/05/18 20:59 12/10/17 08:30 4 MLS/MIN Albuterol/ Ipratropium (Combivent Respimat Inh) 1 puffs QID INH 12/08/17 13:00 01/07/18 12:59 12/10/17 12:31 1 PUFFS Docusate Sodium (coLACE CAP) 100 mg NOW ONCE PO 12/08/17 17:30 12/08/17 17:37 DC 12/08/17 18:53 100 MG Docusate Sodium (coLACE CAP) 100 mg BID PO 12/08/17 21:00 01/07/18 20:59 12/10/17 08:25 100 MG Lisinopril (Zestril Tab) 2.5 mg QAM PO 12/09/17 09:00 01/08/18 08:59 12/10/17 08:29 2.5 MG Ciprofloxacin (Cipro Tab) 500 mg 1009 ONCE PO 12/10/17 10:09 12/10/17 10:19 DC 12/10/17 12:31 500 MG (Valeri Garcia, MYRON) Objective Vital Signs Date Time Temp Pulse Resp B/P (MAP) Pulse Ox O2 Delivery O2 Flow Rate FiO2 12/10/17 09:30 36.8 67 20 117/74 (88) 96 Nasal Cannula 2.0 12/10/17 08:04 97 Nasal Cannula 2.0 12/10/17 08:00 Nasal Cannula 2.0 12/09/17 23:56 36.6 60 16 98/66 (77) 97 BiPAP 12/09/17 22:38 70 97 2.0 12/09/17 20:16 37.1 71 18 97 2.0 12/09/17 20:00 Room Air 12/09/17 19:25 37.0 68 20 104/70 (81) 95 Nasal Cannula 2.0 12/09/17 16:00 Room Air 12/09/17 15:50 37.1 71 18 103/69 (80) 97 Nasal Cannula 2.0 (Valeri Garcia, ICING COATER) Physical Exam Notes: General: no distress Eyes: normal inspection, PERLL Respiratory: chest non tender, clear to auscultation, normal breath sounds, no respiratory distress, no accessory muscle use Cardiac: regular rate and rhythm, no rub or gallop, systolic murmur, no edema, no jvd GI/: active bowel sounds, no abd pain or tenderness, soft, non distended Extremities: normal range of motion, normal strength, non tender Neuro/Psych: alert and oriented x 3, normal mood and affect Skin: normal color, dry (Valeri Garcia CRNP) Laboratory Results Last 24 Hours Test 12/09/17 16:52 12/09/17 21:05 12/10/17 07:15 12/10/17 07:25 Bedside Glucose 117 mg/dl 117 mg/dl Sodium Level 135 mmol/L Potassium Level 3.5 mmol/L Chloride Level 94 mmol/L Carbon Dioxide Level 31 mmol/L Anion Gap 10.0 mmol/L Blood Urea Nitrogen 35 mg/dl Creatinine 1.34 mg/dl Est Creatinine Clear Calc Drug Dose 48.7 ml/min Estimated GFR () 44.5 Estimated GFR (Non- 38.4 BUN/Creatinine Ratio 26.0 Random Glucose 95 mg/dl Calcium Level 8.1 mg/dl Total Bilirubin 0.4 mg/dl Direct Bilirubin 0.1 mg/dl Aspartate Amino Transf (AST/SGOT) 14 U/L Alanine Aminotransferase (ALT/SGPT) 16 U/L Alkaline Phosphatase 92 U/L Total Protein 7.1 gm/dl Albumin 2.9 gm/dl Urine Color ORANGE Urine Appearance CLOUDY Urine pH 5.0 Urine Specific Edison 1.018 Urine Protein TRACE Urine Glucose (UA) NEG Urine Ketones NEG Urine Occult Blood 3+ Urine Nitrite NEG Urine Bilirubin NEG Urine Urobilinogen NEG Urine Leukocyte Esterase MODERATE Urine WBC (Auto) >30 /hpf Urine RBC (Auto) >30 /hpf Urine Hyaline Casts (Auto) 1-5 /lpf Urine Epithelial Cells (Auto) 0-5 /lpf Urine Bacteria (Auto) 4+ Test 12/10/17 08:19 Bedside Glucose 115 mg/dl (Valeri Garcia CRNP) Assessment and Plan 77yo female here with acute on chronic diastolic congestive heart failure with hypoxic respiratory failure. Diastolic CHF, hypoxic respiratory failure - extubated 12/06 - saturating well on RA - off lasix drip 12/06 - continue 40 mg IV lasix push bid - continue strict Is&Os - Echo showed EF of 55% and Takatsubo - daily weights with standing scale - prn nebs - recent cardiac cath showed clean coronaries - cardiology on board - Palliative care consulted - Importance of regimen adherence emphasized - continue IV lasix until discharged Elevated Trop/Type II [place] - trop peaked at 1.1 and trended back down - initially with LBBB that has resolved - EKG with chest pain UTI - Dysuria and history of catheterization this admission - UA dirty - UC pending - Cipro - EKG today did not show QTc prolongation but EKG 12/07 did show QTc prolongation - EKG daily while on cipro HTN - On home coreg. - Continue IV lasix push - hold prn bumex po - continue to hold losartan for low BP PMH pre-diabetes - Cholesterol 213 - A1c 5.8 - bsgs ac & hs, ss Hypothyroid - Continue home levothyroxine. Depression Continue home effexor and geodon. HLD Continue statin PT/OT - ready for DC when bed available at [facility] DVT prophylaxis: enoxaprin Full code (Valeri Garcia ., MYRON) i personally examined pt and verified all man points w Braxton SANCHES feeling about the same still far better than days prior does have dysuria - cipro ordered, culture pending discussed ongoing outpt eval for MANISHA/restrictive disease type pathology that might accentuate her SOB vitals noted nad breathing unlabored CHF /hypoxia - possibly multifactorial but improved, stable for HSR once bed available UTI - cipro pending ID&S, follow QT otherwise as above (Juan Yang D.O.)
[2017-12-10 17:02] VITALS: BP 109/66; PULSE 66; TEMP 36.6; O2SAT 95
[2017-12-10 21:47] VITALS: BP 104/68; PULSE 75
[2017-12-10] MEDS: GABAPENTIN 600 MG TAB PO SCH (21:50)
[2017-12-10] MEDS: MAGNESIUM OXIDE 400 MG TAB PO SCH (21:51)
[2017-12-10] MEDS: CIPROFLOXACIN 500 MG TAB PO SCH (21:53)
[2017-12-10] MEDS: TEMAZEPAM 15 MG CAP PO SCH (22:01)
[2017-12-10] MEDS: hydrOXYzine HCL 25 MG TAB PO SCH (22:48)
[2017-12-10 23:14] VITALS: PULSE 84; O2SAT 98
[2017-12-10 23:45] VITALS: BP 96/61; PULSE 64; TEMP 36.7; O2SAT 97
[2017-12-11] MEDS: LEVOTHYROXINE 175 MCG TAB PO SCH (06:03)
[2017-12-11] MEDS: INSULIN ASPART 100 UNITS/ML 3 ML PEN SC SCH ×2 (06:30→11:00)
[2017-12-11] MEDS: ZIPRASIDONE 80 MG CAP PO SCH (07:31)
[2017-12-11] MEDS: CIPROFLOXACIN 500 MG TAB PO SCH (07:31)
[2017-12-11] MEDS: POTASSIUM CHLORIDE 20 MEQ TABCR PO SCH (07:32)
[2017-12-11] MEDS: FERROUS SULFATE 325 MG TAB PO SCH (07:32)
[2017-12-11] MEDS: BuPROPion SR 100 MG TABCR PO SCH (07:32)
[2017-12-11] MEDS: CALCIUM 600MG + VIT D 400 IU TAB PO SCH (07:32)
[2017-12-11] MEDS: ATORVASTATIN 20 MG TAB PO SCH (07:32)
[2017-12-11] MEDS: PANTOprazole SOD 40 MG TAB PO SCH (07:32)
[2017-12-11] MEDS: VENLAFAXINE HCL XR 75 MG CAPXR PO SCH (07:32)
[2017-12-11] MEDS: IPRATROPIUM BROMIDE/ALBUTEROL respimat INH INH SCH ×2 (07:33→12:03)
[2017-12-11] MEDS: LISINOPRIL 2.5 MG TAB PO SCH (07:33)
[2017-12-11] MEDS: FUROSEMIDE INJ 40 MG in SYRINGE 0 ML IV SCH (07:34)
[2017-12-11] MEDS: DOCUSATE SODIUM 100 MG CAP PO SCH (07:34)
[2017-12-11] MEDS: CARVEDILOL 6.25 MG TAB PO SCH (07:38)
[2017-12-11] MEDS: CARVEDILOL 3.125 MG TAB PO SCH (07:38)
[2017-12-11 07:41] VITALS: BP 95/56; PULSE 62; TEMP 36.6; O2SAT 98
[2017-12-11] MEDS: ASPIRIN 81 MG CHEW PO SCH (08:10)
[2017-12-11 10:23] LABS: CREATININE 1.67 mg/dl (0.60-1.20); POTASSIUM 3.5 mmol/L (3.5-5.1)
[2017-12-11] MEDS ORDERED: CRG3125 PO (12:42)
[2017-12-11] MEDS ORDERED: MCRK20 PO (12:42)
[2017-12-11] MEDS ORDERED: LSN25 PO (12:42)
[2017-12-11] MEDS ORDERED: CRG625 PO (12:42)
[2017-12-11] MEDS ORDERED: LSX40 PO (12:42)
[2017-12-11] MEDS ORDERED: CPR500 PO (12:42)
--- NOTE | 2017-12-11 12:46 | Discharge Instructions ---
Discharge Instructions Date of Service Dec 11, 2017. Admission Reason for Admission: Acute Respiratory Failure With Hypoxia Discharge Discharge Diagnosis / Problem: Acute Respiratory Failure with Hypoxia Discharge Goals Goal(s): Improve function, Improve disease control Activity Recommendations Activity Level: Up Ad Johanna Therapies: Physical Therapy, Occupational Therapy . Additional Information Patient informed of condition: Yes Advance Directives: Yes DNR: Yes Level of Care: Acute Rehab Communicable Disease: No Prognosis: Stable Oxygen at (LPM): prn/hs 2L nc Stokes Catheter: No Instructions / Follow-Up Instructions / Follow-Up Please have patient follow up with Dr. Walker from [facility] in about a week Daily EKGs to monitor for QT prolongation while on Cipro as patient did have one EKG during this admission with a prolonged QT Current Hospital Diet Patient's current hospital diet: AHA Diet (Heart Healthy), Low Sodium Diet (2gm Na), Diabetes Type 2 Diet Discharge Diet Recommended Diet: AHA Diet (Heart Healthy), Low Sodium Diet (2gm Na), Diabetes Type 2 Diet Fluid Restriction: 1500 ml (6 cups) Procedures Procedures Performed: Chest Xray Echo Pending Studies Studies pending at discharge: yes List of pending studies: Urine culture pending Laboratory Results Hemoglobin A1c Test 12/06/17 05:30 Range/Units Estimated Average Glucose 120 mg/dl Hemoglobin A1c 5.8 H 4.5-5.6 % Lipid Panel Test 12/05/17 15:00 Range/Units Triglycerides Level 84 0-150 mg/dl Cholesterol Level 213 H 0-200 mg/dl HDL Cholesterol 102 mg/dl Cholesterol/HDL Ratio 2.1 LDL Cholesterol, Calculated 94 mg/dl Medical Emergencies . Who to Call and When: Medical Emergencies: If at any time you feel your situation is an emergency, please call 911 immediately. . Non-Emergent Contact Non-Emergency issues call your: Primary Care Provider Call Non-Emergent contact if: you have any medication questions . . "Provider Documentation" section prepared by Valeri Garcia. . Core Measure Problem Core Measures: None
--- NOTE | 2017-12-11 12:58 | Discharge Summary ---
Discharge Summary Date of Service Dec 11, 2017. Discharge Summary Admission Date: Dec 05, 2017 at 17:11 Discharge Date: Dec 11, 2017 Discharge Disposition: Home Principal Diagnosis: Diastolic CHF with acute hypoxic respiratory failure Problems/Secondary Diagnoses: Elevated Trop/Type II NH, UTI, HTN, PMH pre-diabetes, Hypothyroid, Depression, HLD Immunizations: Have You Had Influenza Vaccine: Unknown Influenza Vaccine Date: Sep 13, 2005 History of Tetanus Vaccine?: Yes Tetanus Immunization Date: Apr 01, 2001 History of Pneumococcal: Yes Pneumococcal Date: March 13, 2002 History of Hepatitis B Vaccine: Unknown Hepatitis Immunization Date: March 13, 2002 Procedures: Echo Interpretation Summary * Name: WERNER NICOLAS Study Date: 12/06/2017 07:20 AM BP: 136/74 mmHg * [place] [facility]\S\1 HR: 80 * : 1940 (M/d/yyyy) Gender: Female Height: 67 in * Age: 77 yrs Ethnicity: [place] Weight: 296 lb * Ordering Physician: Leonard Peters * Referring Physician: Self, Referred * Performed By: Isabela Dinh RDCS * * Reason For Study: NEW LBBB, AORTIC STENOSIS * BSA: 2.4 m2 * -- Conclusions -- * The LV basal and mid segments are hyperdynamic (especially the base) with hypokinesis of the mid to apical segments most c/w Takasubo's CM. * Normal LV function with EF 55% * Hypertrophy of the basal septum. * Due to the hyperdynamic basal segments there is a late peaking dagger shaped 4 m/s gradient across the basal LV and LVOT. * The right ventricle is normal in size and function. * The right ventricular systolic function is normal as assessed by tricuspid annular plane systolic excursion (TAPSE) (normal >1.5 cm). * The left atrium is moderately dilated. * The right atrium is mildly dilated. * Visually the AoV is moderately stenotic and not severely stenotic * Peak Velocity is 4 m/s with MG 40 mm/hg but LVOT velocity can not be adequetely measured to calculate dimensionless index. * TR velocity not assessed Procedure Details * A contrast injection of Definity was performed to improve assessment of LV function. * Contrast was injected into an intravenous site in the right arm. * One vial of Definity ultrasound contrast was diluted in normal saline to a total volume of 10 ml. A total of '2' ml of solution was administered during imaging. * Lot # [id number] of Definity utilized for procedure. * Expiration date NOV 11. * The attending nurse who injected the contrast agent was ELIA TRINIDAD. Left Ventricle * The LV basal and mid segments are hyperdynamic (especially the base) with hypokinesis of the mid to apical segments most c/w Takasubo's CM. Normal LV function with EF 55% Hypertrophy of the basal septum. Due to the hyperdynamic basal segments there is a late peaking dagger shaped 4 m/s gradient across the basal LV and LVOT. Right Ventricle * The right ventricle is normal in size and function. * The right ventricular systolic function is normal as assessed by tricuspid annular plane systolic excursion (TAPSE) (normal >1.5 cm). Atria * The left atrium is moderately dilated. * The right atrium is mildly dilated. Mitral Valve * There is moderate mitral annular calcification. * There is mild mitral regurgitation. Tricuspid Valve * The tricuspid valve is not well visualized, but is grossly normal. * TR velocity not assessed Aortic Valve * Visually the AoV is moderately stenotic and not severely stenotic Peak Velocity is 4 m/s with MG 40 mm/hg but LVOT velocity can not be adequetely measured to calculate dimensionless index. Pulmonic Valve * The pulmonic valve is not well visualized. Great Vessels * The aortic root is normal size. Pericardium/Pleural * There is no pericardial effusion. Great Vessels * Normal inferior vena cava diameter and respiratory variation suggests normal central venous pressure. Left Ventricular Diastolic Function * Grade I diastolic dysfunction, (abnormal relaxation pattern). CHEST ONE VIEW PORTABLE CLINICAL HISTORY: EVALUATE RESPIRATORY DISTRESS.DYSPNEA dyspnea COMPARISON STUDY: 01/13/2017 FINDINGS: Cardiomegaly. Findings of pulmonary edema. Diaphragms are smooth. Costophrenic angles are sharp. IMPRESSION: Pulmonary edema Electronically signed by: Bismark Barrera M.D. 12/05/2017 3:11 PM CHEST ONE VIEW PORTABLE HISTORY: Short of breath. COMPARISON: Chest 12/05/2017. FINDINGS: No pneumothorax. No significant pleural effusions. The heart remains mildly enlarged. Nasogastric tube terminates below the diaphragm. Endotracheal tube terminates approximately 2 cm from the lola. Significant improvement in the pulmonary edema. No new focal lung consolidations. IMPRESSION: 1. Significant improvement in the pulmonary edema. 2. Satisfactory support line placement. Electronically signed by: Kirt Giang M.D. 12/06/2017 7:26 AM Consultations: Dr. Walker from cardiology Dr. Morales construction consultant Deanna Arango from palliative care Medication Reconciliation New Medications: Furosemide (Furosemide) 40 Mg Tab 40 MG PO BID for 30 Days, #60 DOSE Carvedilol (Carvedilol) 3.125 Mg Tab 3.125 MG PO BID for 30 Days, #30 TAB Carvedilol (Carvedilol) 6.25 Mg Tab 6.25 MG PO BID for 30 Days, #30 TAB Ciprofloxacin (Ciprofloxacin HCl) 500 Mg Tab 500 MG PO BID for 6 Days, #11 TAB Lisinopril (Lisinopril) 2.5 Mg Tab 2.5 MG PO QAM for 30 Days, #30 TAB Potassium Chloride (Klor-Con M20) 20 Meq Tabcr 20 MEQ PO BID for 30 Days, #30 DOSE Continued Medications: Aspirin (Aspirin Ec) 81 Mg Tab 81 MG PO DAILY Atorvastatin (Lipitor) 20 Mg Tab 20 MG PO DAILY, #30 Bupropion Hcl (Wellbutrin Sr) 200 Mg Tab 200 MG PO QAM, TAB Calcium Carbonate-Vitamin D (Calcium 600 + D) 1 Tab Tab 2 TABS PO BID Cholecalciferol (Vitamin D3 Ultra Potency) 50,000 Unit Tab 50691 UNITS PO MONTHLY Cyanocobalamin (Cyanocobalamin) 1,000 Mcg/Ml Inj 1 DOSE INJ [id number] Cyclosporine (Ophth) (Restasis) 0.05 % Emu 1 DROP OP BID, BTL Ferrous Sulfate (Ferrous Sulfate) 325 Mg Tab 325 MG PO BID Gabapentin (Neurontin) 300 Mg Cap 600 MG PO HS, CAP Hydroxyzine Hcl (Atarax) 25 Mg Tab 25 MG PO HS, TAB Lactobacillus Acidophilus (Lactinex) Tab 1 TAB PO DAILY, TAB Levocetirizine Dihydrochloride (Xyzal) 5 Mg Tab 5 MG PO HS Levothyroxine Sodium (Synthroid) 175 Mcg Tab 175 MCG PO QAM, TAB Multiple Vitamins W/ Minerals (Preservision Areds) 1 Cap Cap 1 CAP PO DAILY Nutritional Supplements (Theralith Xr) 1 Tab Tab 1 TAB PO DAILY Pantoprazole (Protonix) 40 Mg Tab 40 MG PO QAM, TAB Temazepam (Restoril) 15 Mg Cap 15 MG PO HS, CAP Venlafaxine Hcl (Effexor Xr) 75 Mg Cap 75 MG PO DAILY Ziprasidone Hcl (Geodon) 80 Mg Cap 80 MG PO BID, CAP Discontinued Medications: Amphetamine-Dextroamphetamine 20MG (Adderall Xr 20MG) 1 Cap Cap 20 MG PO BID, CAP Bumetanide (Bumex) 1 Mg Tab 0.5 MG PO DAILY, TAB Carvedilol (Coreg) 12.5 Mg Tab 12.5 MG PO BID, TAB Losartan Potassium (Losartan Potassium) 50 Mg Tab 50 MG DAILY Potassium Chloride (Potassium Chloride ER) 20 Meq Tabcr 20 MEQ PO DAILY Discharge Exam ROS Constitutional: no chills, aches, sweats or fever Respiratory: no sob,cough, sputum, or wheezing Cardiac: no chest pain, palpitations, edema, orthopnea or lightheadedness GI: no abdominal pain, nausea, vomiting, diarrhea or constipation : no dysuria or hesitancy Extremities: no joint pain or weakness Skin: no rash All other systems reviewed and negative PE General: no distress Eyes: normal inspection, PERLL Respiratory: chest non tender, clear to auscultation, normal breath sounds, no respiratory distress, no accessory muscle use Cardiac: regular rate and rhythm, no rub or gallop, 3/6 systolic murmur, trace le edema GI/: active bowel sounds, no abd pain or tenderness, soft, non distended Extremities: normal range of motion, normal strength, non tender Neuro/Psych: alert and oriented x 3, normal mood and affect Skin: normal color, dry Hospital Course 77 year old female with past medical history of chronic diastolic congestive heart failure, patient had workup on December 2016 including cardiac catheterization that showed clean coronaries, 2-D echo that showed preserved contractility function. Patient recently gained 30 pounds weight and noticed increased swelling in her lower extremities. As per family she was placed in Bumex and that caused some renal impairment. 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 She was instructed to use her CPAP machine regularly, strict salt restriction. In the ED she was found to be severely short of breath was brought on BiPAP by paramedics. Was intubated in ED for hypoxic respiratory failure. Diastolic CHF, hypoxic respiratory failure - extubated 12/06 - saturating well on RA - off lasix drip 12/06 - continued 40 mg IV lasix push bid - 40 mg po bid for discharge - continued strict Is&Os - 11 kg down and 9 L out since admission - Echo showed EF of 55% and Takatsubo - prn nebs - recent cardiac cath showed clean coronaries - cardiology on board - Palliative care consulted - Importance of regimen adherence emphasized by hospitalists as well as consultants - 1500 ml fluid restriction Elevated Trop/Type II NH - trop peaked at 1.1 and trended back down - initially with LBBB that has resolved - EKG with chest pain - UTI - Dysuria and history of catheterization this admission - UC initial result gram negative - awaiting final sensitivities - Cipro - EKG today did not show QTc prolongation but EKG 12/07 did show QTc prolongation - EKG daily while on cipro HTN - Coreg reduced from home dose - continue new dose for outpatient. - losartan discontinued - low dose lisinopril started - can be titrated up if bps rise PMH pre-diabetes - Cholesterol 213 - A1c 5.8 - bsgs ac & hs, ss while inpatient Hypothyroid - Continue home levothyroxine. Depression Continue home effexor and geodon. HLD Continue statin i personally examined pt and verified all man points w S Jose SANCHES feeling ok wants to go to rehab viatls noted nad breathing unlabored no pallor or icterus CHF /hypoxia - stable for HSR would have ongoing OHS/MANISHA w/u as outpt as well Total Time Spent: Greater than 30 minutes This includes examination of the patient, discharge planning, medication reconciliation, and communication with other providers. Discharge Instructions Please refer to the electronic Patient Visit Report (Discharge Instructions) for additional information. Follow-Up Dr. Walker in a week Additional Copies To [facility]
[2017-12-11] MEDS: ENOXAPARIN 40 MG/0.4 ML SYR SQ SCH (13:39)
[2017-12-11 13:42] VITALS: O2SAT 96
[2017-12-11 13:46] VITALS: BP 95/56; PULSE 62; TEMP 36.6; O2SAT 96
== END 2017-12-11 17:26 | DRG 208 ==
LOC: EDBD 14:49 → C.EDB 14:52 → C.MSICU 17:11 → ENRESERV 17:26 → C.2T 12-06 17:59 → ENRESERV 12-09 19:57 → CANRESERV 12-09 19:57 → ENRESERV 12-09 20:11 → C.MS4W 12-09 20:49
PROVIDERS: ADMIT Internal Medicine; ATTEND Family Medicine
PROC: 0BH18EZ Insertion of Endotracheal Airway into Trachea, Via Natural or Artificial Opening Endoscopic (ICD-10-PCS; principal; 2017-12-05)
PROC: 5A1935Z Respiratory Ventilation, Less than 24 Consecutive Hours (ICD-10-PCS; 2017-12-05)
DX: J96.01 Acute respiratory failure with hypoxia (principal); E87.2 Acidosis; I50.33 Acute on chronic diastolic (congestive) heart failure; I13.0 Hypertensive heart and chronic kidney disease with heart failure and stage 1 through stage 4 chronic kidney disease, or unspecified chronic kidney disease; I21.A1 Myocardial infarction type 2; I35.0 Nonrheumatic aortic (valve) stenosis; E78.5 Hyperlipidemia, unspecified; R73.03 Prediabetes; N18.9 Chronic kidney disease, unspecified; E66.01 Morbid (severe) obesity due to excess calories; J44.9 Chronic obstructive pulmonary disease, unspecified; E53.8 Deficiency of other specified B group vitamins; I44.7 Left bundle-branch block, unspecified; E86.0 Dehydration; Z96.659 Presence of unspecified artificial knee joint; Z88.2 Allergy status to sulfonamides; Z98.84 Bariatric surgery status; Z88.8 Allergy status to other drugs, medicaments and biological substances; Z91.11 Patient's noncompliance with dietary regimen; Z79.82 Long term (current) use of aspirin

== ENCOUNTER 2017-12-28 18:32 | Inpatient (IN) | payer OTHER, BC ==
[~2017-12-28] VITALS: Ht 154.9 cm; Wt 125.1 kg
[~2017-12-28 18:32] MED LIST changes: -AMPH20TA2 PO; +ASPI81TA28 PO; +CALC-20 PO; -CALC1CHW24 PO; -CARV6.252 PO; -CHOL1CHW10; -CHOL4POW2 PO; +CHOL500024 PO; -CLC100 PO; +CPR500 PO; +CRG3125 PO; +CRG625 PO; -CYAN500S SL; -DICY20TA10 PO; -HYDR-5688 PO; +LCTX PO; -LOSA100T65 PO; +LSN25 PO; -LSX20 PO; +LSX40 PO; -MCRK/20 PO; +MCRK20 PO; -MULT-663 PO; -PEDICHW50 PO; +TEMA15CA4 PO; -VENL150C PO; +VENL75CA PO; -VTMD PO; -[UNRECOGNIZED DRUG - CODE] PO
[2017-12-28 19:33] LABS: BASO % 0.2 %; BASO ABS # 0.01 K/uL (0-0.2); EOS % 0.2 %; EOS ABS # 0.01 K/uL (0-0.5); HEMATOCRIT 32.4 % (37-47); HEMOGLOBIN 10.6 g/dL (12.0-16.0); IG# 0.03 K/uL (0.00-0.02); LYMPH % 7.6 %; LYMPH ABS # 0.45 K/uL (1.2-3.4); MEAN CELL VOLUME 84.4 fL (80-100); MEAN CORPUSCULAR HEMOGLOBIN 27.6 pg (25-34); MEAN CORPUSCULAR HGB CONC 32.7 g/dl (32-36); MEAN PLATELET VOLUME 9.7 fL (7.4-10.4); MONO ABS # 0.06 K/uL (0.11-0.59); NEUT % 90.5 %; PLATELET COUNT 273 K/uL (130-400); RED CELL DISTRIBUTION WIDTH CV 14.1 % (11.5-14.5); RED CELL DISTRIBUTION WIDTH SD 42.9 fL (36.4-46.3); WHITE BLOOD COUNT 5.96 K/uL (4.8-10.8)
[2017-12-28 19:43] LABS: INR 1.1 (0.9-1.1); PTT PATIENT 27.3 SECONDS (21.0-31.0)
[2017-12-28] MEDS ORDERED: CARV6.252 PO (19:49)
[2017-12-28 19:50] LABS: ALBUMIN 3.3 gm/dl (3.4-5.0); CALCIUM 8.5 mg/dl (8.5-10.1); CREATININE 1.43 mg/dl (0.60-1.20); POTASSIUM 4.1 mmol/L (3.5-5.1)
[2017-12-28] MEDS ORDERED: LOSA50TA6 PO (19:58)
[2017-12-28] MEDS ORDERED: FURO40TA3 PO (19:58)
[2017-12-28 20:01] LABS: CKMB 4.6 ng/ml (0.5-3.6); TOTAL PROTEIN 7.5 gm/dl (6.4-8.2)
[2017-12-28] MEDS ORDERED: AMPH20CA3 PO (20:03)
--- NOTE | 2017-12-28 20:07 | DIAGNOSTIC IMAGING REPORT ---
SINGLE VIEW CHEST CLINICAL HISTORY: Change in mental status. Weakness. FINDINGS: An AP, portable, upright chest radiograph is compared to study dated 12/06/2017. The examination is degraded by portable technique, apical lordotic positioning, and patient rotation. The heart is enlarged and there is atherosclerotic calcification of the thoracic aorta. The pulmonary vasculature is noncongested. Chronic interstitial thickening is similar to previous. No airspace consolidation or large pleural effusion is identified. Bibasilar atelectasis is noted. No pneumothorax is seen. The skeletal structures are osteopenic. The bony thorax is grossly intact. IMPRESSION: Cardiomegaly with no acute cardiopulmonary abnormality. Electronically signed by: Jack Villegas M.D. 12/28/2017 8:05 PM Dictated Date/Time: 12/28/2017 8:04 PM
--- NOTE | 2017-12-28 20:37 | EMERGENCY ROOM VISIT NOTE ---
History Report prepared by Hi: Neeta Harper Under the Supervision of: Dr. Jefferson Lucas D.O. 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 The patient was walking to her car after an appointment with her PCP today when she started feeling unsteady on her feet. Her daughter tried to help her to the car, but she reports that her legs were weak and then gave out. The patient was discharged from [facility] 3 days ago after a 2 week stay for CHF. Her PCP thought that she might have just overexerted herself today. She denies having any pain. She denies fever, headache, nausea, vomiting, or chest pain. She has felt SOB with exertion. She denies any SOB with lying flat. She has had some leg swelling since being discharged. She previously had compression wraps on. She is urinating more than usual. She notes that she started taking Adderall again today after being off of it for 3 weeks. She was switched to lisinopril from losartan recently. She is currently not on antibiotics. She was recently treated for a UTI. She has a heart murmur. She denies any history of atrial fibrillation. She is not on any other new medications. 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 Review of Systems See HPI for pertinent positives & negatives. A total of 10 systems reviewed and were otherwise negative. Past Medical & Surgical Medical Problems: (1) Acute respiratory failure with hypoxia (2) Aortic stenosis (3) Hypokalemia (4) Kidney disease (5) Open fracture of left elbow (6) Pre-diabetes (7) UTI (urinary tract infection) Surgical Problems: (1) History of gastric bypass (2) Hx of thyroidectomy (3) S/P knee replacement Family History Cancer Social History Smoking Status: Never Smoker Alcohol Use: none Drug Use: none Marital Status: Housing Status: lives alone Occupation Status: retired Current/Historical Medications Scheduled Amphetamine-Dextroamphetamine 20MG (Adderall Xr 20MG), 20 MG PO today Aspirin (Aspirin Ec), 81 MG PO DAILY Atorvastatin (Lipitor), 20 MG PO DAILY Bupropion Hcl (Wellbutrin Sr), 200 MG PO QAM Calcium Carbonate-Vitamin D (Calcium 600 + D), 2 TABS PO BID Carvedilol (Coreg), 1.5 TABS PO BID Cholecalciferol (Vitamin D3 Ultra Potency), 50,000 UNITS PO MONTHLY Cyanocobalamin (Cyanocobalamin), 1 DOSE INJ [id number] Cyclosporine (Ophth) (Restasis), 1 DROP OP BID Ferrous Sulfate (Ferrous Sulfate), 325 MG PO BID Furosemide (Lasix), 40 MG PO DAILY Gabapentin (Neurontin), 600 MG PO HS Hydroxyzine Hcl (Atarax), 25 MG PO HS Lactobacillus Acidophilus (Lactinex), 1 TAB PO DAILY Levocetirizine Dihydrochloride (Xyzal), 5 MG PO HS Levothyroxine Sodium (Synthroid), 175 MCG PO QAM Lisinopril (Lisinopril), 2.5 MG PO QAM Losartan Potassium (Cozaar), 50 MG PO DAILY Multiple Vitamins W/ Minerals (Preservision Areds), 1 CAP PO DAILY Nutritional Supplements (Theralith Xr), 1 TAB PO DAILY Pantoprazole (Protonix), 40 MG PO QAM Potassium Chloride (Klor-Con M20), 20 MEQ PO BID Temazepam (Restoril), 15 MG PO HS Venlafaxine Hcl (Effexor Xr), 75 MG PO DAILY Ziprasidone Hcl (Geodon), 80 MG PO BID Allergies Coded Allergies: Statins (Verified Allergy, Mild, UNKNOWN, 01/13/17) Oxycodone (Verified Allergy, Unknown, RASH, 01/13/17) Sulfa Antibiotics (Verified Allergy, Unknown, "TAKES TOP LAYER OF TONGUE OFF", 01/13/17) Physical Exam Vital Signs Date Time Temp Pulse Resp B/P (MAP) Pulse Ox O2 Delivery O2 Flow Rate FiO2 12/28/17 20:32 90 18 118/68 95 Room Air 12/28/17 19:10 94 Room Air 12/28/17 19:10 94 Room Air 12/28/17 18:44 36.9 94 22 122/70 90 Room Air Physical Exam GENERAL: Patient is awake, alert, non anxious appearing. EYES: The conjunctivae are clear. The pupils are round and reactive. EARS, NOSE, MOUTH AND THROAT: The nose is without any evidence of any deformity. Mucous membranes are moist tongue is midline NECK: The neck is nontender and supple. RESPIRATORY: Lung sounds diminished throughout with scattered rales. No tachypnea or conversational dyspnea. CARDIOVASCULAR: Regular rate and rhythm noted to auscultation. There was a systolic murmur noted to auscultation. GASTROINTESTINAL: The abdomen is soft. Bowel sounds are present in all quadrants. Abdomen is nontender MUSCULOSKELETAL/EXTREMITIES: There is no evidence of gross deformity full range of motion is noted in the hips and shoulders SKIN: There is pedal edema bilaterally. NEUROLOGIC: Patient is awake alert and oriented x3 strength is diminished but symmetric Medical Decision & Procedures ER Provider Diagnostic Interpretation: X-ray results as stated below per interpretation by me and the radiologist. SINGLE VIEW CHEST CLINICAL HISTORY: Change in mental status. Weakness. FINDINGS: An AP, portable, upright chest radiograph is compared to study dated 12/06/2017. The examination is degraded by portable technique, apical lordotic positioning, and patient rotation. The heart is enlarged and there is atherosclerotic calcification of the thoracic aorta. The pulmonary vasculature is noncongested. Chronic interstitial thickening is similar to previous. No airspace consolidation or large pleural effusion is identified. Bibasilar atelectasis is noted. No pneumothorax is seen. The skeletal structures are osteopenic. The bony thorax is grossly intact. IMPRESSION: Cardiomegaly with no acute cardiopulmonary abnormality. Electronically signed by: Jack Villegas M.D. 12/28/2017 8:05 PM Dictated Date/Time: 12/28/2017 8:04 PM Laboratory Results 12/28/17 19:10 Red Blood Count 3.84, Mean Corpuscular Volume 84.4, Mean Corpuscular Hemoglobin 27.6, Mean Corpuscular Hemoglobin Concent 32.7, Mean Platelet Volume 9.7, Neutrophils (%) (Auto) 90.5, Lymphocytes (%) (Auto) 7.6, Monocytes (%) (Auto) 1.0, Eosinophils (%) (Auto) 0.2, Basophils (%) (Auto) 0.2, Neutrophils # (Auto) 5.40, Lymphocytes # (Auto) 0.45, Monocytes # (Auto) 0.06, Eosinophils # (Auto) 0.01, Basophils # (Auto) 0.01 12/28/17 19:10 Test 12/28/17 19:10 White Blood Count 5.96 K/uL (4.8-10.8) Red Blood Count 3.84 M/uL (4.2-5.4) Hemoglobin 10.6 g/dL (12.0-16.0) Hematocrit 32.4 % (37-47) Mean Corpuscular Volume 84.4 fL (80-100) Mean Corpuscular Hemoglobin 27.6 pg (25-34) Mean Corpuscular Hemoglobin Concent 32.7 g/dl (32-36) Platelet Count 273 K/uL (130-400) Mean Platelet Volume 9.7 fL (7.4-10.4) Neutrophils (%) (Auto) 90.5 % Lymphocytes (%) (Auto) 7.6 % Monocytes (%) (Auto) 1.0 % Eosinophils (%) (Auto) 0.2 % Basophils (%) (Auto) 0.2 % Neutrophils # (Auto) 5.40 K/uL (1.4-6.5) Lymphocytes # (Auto) 0.45 K/uL (1.2-3.4) Monocytes # (Auto) 0.06 K/uL (0.11-0.59) Eosinophils # (Auto) 0.01 K/uL (0-0.5) Basophils # (Auto) 0.01 K/uL (0-0.2) RDW Standard Deviation 42.9 fL (36.4-46.3) RDW Coefficient of Variation 14.1 % (11.5-14.5) Immature Granulocyte % (Auto) 0.5 % Immature Granulocyte # (Auto) 0.03 K/uL (0.00-0.02) Prothrombin Time 11.8 SECONDS (9.0-12.0) Prothromb Time International Ratio 1.1 (0.9-1.1) Activated Partial Thromboplast Time 27.3 SECONDS (21.0-31.0) Partial Thromboplastin Ratio 1.1 Anion Gap 11.0 mmol/L (3-11) Est Creatinine Clear Calc Drug Dose 43.3 ml/min Estimated GFR () 41.1 Estimated GFR (Non- 35.5 BUN/Creatinine Ratio 22.6 (10-20) Calcium Level 8.5 mg/dl (8.5-10.1) Magnesium Level 1.9 mg/dl (1.8-2.4) Total Bilirubin 0.4 mg/dl (0.2-1) Direct Bilirubin 0.1 mg/dl (0-0.2) Aspartate Amino Transf (AST/SGOT) 22 U/L (15-37) Alanine Aminotransferase (ALT/SGPT) 19 U/L (12-78) Alkaline Phosphatase 99 U/L (45-117) Total Creatine Kinase 94 U/L (26-192) Creatine Kinase MB 4.6 ng/ml (0.5-3.6) Creatine Kinase MB Ratio 4.9 (0-3.0) Troponin I 0.045 ng/ml (0-0.045) Pro-B-Type Natriuretic Peptide 8686 pg/ml (0-1800) Total Protein 7.5 gm/dl (6.4-8.2) Albumin 3.3 gm/dl (3.4-5.0) Thyroid Stimulating Hormone (TSH) 0.539 uIu/ml (0.300-4.500) Laboratory results per my review. ECG Per My Interpretation Indication: weakness Rate (beats per minute): 92 Rhythm: sinus rhythm Findings: T-wave inversion (diffuse), other (no PVC) Comparison ECG Date: 11-Dec-2017 Change: T wave inversions are new. ED Course 1853: The patient was evaluated in room A2. A complete history and physical examination were performed. 2025: Upon reevaluation, the patient is stable. I discussed results and treatment plan with her and her daughter. They verbalize agreement and understanding. The patient will be evaluated for further management and care. 2030: I discussed the patient's case with Dr. Phoenix, [facility] hospitalist. The patient will be evaluated for further management. Medical Decision Prior records/ancillary studies reviewed and summarized above. Nursing notes reviewed. Additional history obtained from daughter. The patient's history was concerning for weakness. Differential diagnosis: Etiologies such as metabolic, infection, hypo/hyperglycemia, electrolyte abnormalities, cardiac sources, intracerebral event, toxicologic, neurologic, as well as others were entertained. The patient is a 77-year-old female who presented to the emergency department after she became weak in both legs. She was seeing her primary care physician today as a follow-up appointment from her recent admission when she was leaving the office she became very weak in both legs. The patient denies any chest pain shortness of breath but she has a very abnormal EKG. I discussed the patient's laboratory and radiographic studies with her. I also discussed this case with the on-call [facility] hospitalist group. They have agreed to evaluate the patient in the emergency department for further management and disposition. Given the patient's presentation and findings as well as her comorbidities I do feel that she may require inpatient management to ensure that no other life-threatening cause for the patient's presentation exist. Medication Reconcilliation Current Medication List: was personally reviewed by me Blood Pressure Screening Patient's blood pressure: Normal blood pressure Blood pressure disposition: Did not require urgent referral Consults Time Called: 2028 Consulting Physician: Dr. Phoenix [facility] hospitalist Returned Call: [phone] I discussed the patient's case with him. The patient will be evaluated for further management. Impression Primary Impression: Weakness Additional Impressions: Hyponatremia Abnormal EKG Scribe Attestation The scribe's documentation has been prepared under my direction and personally reviewed by me in its entirety. I confirm that the note above accurately reflects all work, treatment, procedures, and medical decision making performed by me. Departure Information Dispostion Being Evaluated By Hospitalist Referrals Raad Skinner M.D. (PCP) Patient Instructions My [facility] Problem Qualifiers
[2017-12-28] MEDS ORDERED: ALUMINUM/MAGNESIUM/SIMETH (MAALOX MAX) 30 ML UDC PO PRN (21:45)
[2017-12-28] MEDS ORDERED: POLYETHYLENE (MIRALAX) 17 GM PACK PO PRN (21:45)
[2017-12-28] MEDS ORDERED: MAGNESIUM HYDROXIDE SUSP 30 ML UDC PO PRN (21:45)
[2017-12-28] MEDS ORDERED: IV FLUIDS COMPLETED PRN (22:00)
[2017-12-28 22:45] VITALS: BP 144/72; PULSE 82; TEMP 37.3; O2SAT 96; Ht 154.9 cm; Wt 125.1 kg
[2017-12-28] MEDS: NSS + 20MEQ KCL 1000ML 1,000 ML IV SCH (22:55)
[2017-12-28] MEDS: ACETAMINOPHEN 325 MG TAB PO PRN (22:55)
--- NOTE | 2017-12-28 23:07 | History and Physical ---
History & Physical Date & Time of Service: Dec 28, 2017 at 23:07 Chief Complaint: Hyponatremia, Weakness Primary Care Physician: Raad Skinner M.D. History of Present Illness Source: patient, family The patient is a 77-year-old female who presents to the emergency department with a fall prior to arrival. Her daughter was walking with her to her car after an appointment with her PCP today when she developed severe bilateral leg weakness and her legs gave out. She reports that she was at the doctor's office for approximately 2 hours. She had most recently been admitted to [facility] from December 05 - December 11 for acute respiratory failure, and was diagnosed with Takasubo's cardiomyopathy at that time. She was then discharged to [facility] for rehab, and was just discharged from that facility a few days ago. On her own today she started to resume Adderall in the morning and at 1:00 , after having been off of it for 3 weeks, and had been told to not restart it unless instructed to do so by her physician. Recent medication changes include a change from losartan to lisinopril, and she was recently treated for UTI. She does complain of generalized fatigue and weakness at this time as her primary symptoms. Family History Cancer Social History Smoking Status: Never Smoker Smokeless Tobacco Use: Yes Alcohol Use: none Drug Use: none Marital Status: Housing status: lives alone Occupational Status: retired Immunizations History of Influenza Vaccine: Unknown Influenza Vaccine Date: Sep 13, 2005 History of Tetanus Vaccine?: Yes Tetanus Immunization Date: Apr 01, 2001 History of Pneumococcal: Yes Pneumococcal Date: March 13, 2002 History of Hepatitis B Vaccine: Unknown Hepatitis Immunization Date: March 13, 2002 Allergies Coded Allergies: Statins (Verified Allergy, Mild, UNKNOWN, 01/13/17) Oxycodone (Verified Allergy, Unknown, RASH, 01/13/17) Sulfa Antibiotics (Verified Allergy, Unknown, "TAKES TOP LAYER OF TONGUE OFF", 01/13/17) Home Medications Scheduled Amphetamine-Dextroamphetamine 20MG (Adderall Xr 20MG), 20 MG PO today Aspirin (Aspirin Ec), 81 MG PO DAILY Atorvastatin (Lipitor), 20 MG PO DAILY Bupropion Hcl (Wellbutrin Sr), 200 MG PO QAM Calcium Carbonate-Vitamin D (Calcium 600 + D), 2 TABS PO BID Carvedilol (Coreg), 1.5 TABS PO BID Cholecalciferol (Vitamin D3 Ultra Potency), 50,000 UNITS PO MONTHLY Cyanocobalamin (Cyanocobalamin), 1 DOSE INJ [id number] Cyclosporine (Ophth) (Restasis), 1 DROP OP BID Ferrous Sulfate (Ferrous Sulfate), 325 MG PO BID Furosemide (Lasix), 40 MG PO DAILY Gabapentin (Neurontin), 600 MG PO HS Hydroxyzine Hcl (Atarax), 25 MG PO HS Lactobacillus Acidophilus (Lactinex), 1 TAB PO DAILY Levocetirizine Dihydrochloride (Xyzal), 5 MG PO HS Levothyroxine Sodium (Synthroid), 175 MCG PO QAM Lisinopril (Lisinopril), 2.5 MG PO QAM Losartan Potassium (Cozaar), 50 MG PO DAILY Multiple Vitamins W/ Minerals (Preservision Areds), 1 CAP PO DAILY Nutritional Supplements (Theralith Xr), 1 TAB PO DAILY Pantoprazole (Protonix), 40 MG PO QAM Potassium Chloride (Klor-Con M20), 20 MEQ PO BID Temazepam (Restoril), 15 MG PO HS Venlafaxine Hcl (Effexor Xr), 75 MG PO DAILY Ziprasidone Hcl (Geodon), 80 MG PO BID Physical Exam Vital Signs Date Time Temp Pulse Resp B/P (MAP) Pulse Ox O2 Delivery O2 Flow Rate FiO2 12/28/17 22:45 37.3 82 22 144/72 96 Room Air 12/28/17 22:16 84 18 120/65 97 12/28/17 20:32 90 18 118/68 95 Room Air 12/28/17 19:10 94 Room Air 12/28/17 19:10 94 Room Air 12/28/17 18:44 36.9 94 22 122/70 90 Room Air The patient is awake, alert and oriented 3, looks fatigued and mildly dehydrated, lying in bed and in no acute distress. HEENT--PERRL, EOMI, mucous membranes and oropharynx dry. Neck--supple. No JVD. No bruits. Thyroid normal, trachea midline, no adenopathy. Heart--normal S1 and S2. No murmurs, rubs or gallops. Lungs--clear bilaterally, no respiratory distress, no accessory muscle use. Abdomen--normal bowel sounds and soft. Nontender. Nondistended, no hernias or masses, no organomegaly. Extremities--no cyanosis or clubbing. No edema. There are good distal pulses b/ l. Dermatologic--normal skin turgor, normal color, no abnormal lymph nodes, no rash. Neurologic--cranial nerves II through XII grossly intact. Rheumatologic--normal range of motion. Psychiatric--normal affect. Diagnostics Laboratory Results Results Past 24 Hours Test 12/28/17 19:10 12/28/17 22:40 Range/Units White Blood Count 5.96 4.8-10.8 K/uL Red Blood Count 3.84 4.2-5.4 M/uL Hemoglobin 10.6 12.0-16.0 g/dL Hematocrit 32.4 37-47 % Mean Corpuscular Volume 84.4 80-100 fL Mean Corpuscular Hemoglobin 27.6 25-34 pg Mean Corpuscular Hemoglobin Concent 32.7 32-36 g/dl Platelet Count 273 130-400 K/uL Mean Platelet Volume 9.7 7.4-10.4 fL Neutrophils (%) (Auto) 90.5 % Lymphocytes (%) (Auto) 7.6 % Monocytes (%) (Auto) 1.0 % Eosinophils (%) (Auto) 0.2 % Basophils (%) (Auto) 0.2 % Neutrophils # (Auto) 5.40 1.4-6.5 K/uL Lymphocytes # (Auto) 0.45 1.2-3.4 K/uL Monocytes # (Auto) 0.06 0.11-0.59 K/uL Eosinophils # (Auto) 0.01 0-0.5 K/uL Basophils # (Auto) 0.01 0-0.2 K/uL RDW Standard Deviation 42.9 36.4-46.3 fL RDW Coefficient of Variation 14.1 11.5-14.5 % Immature Granulocyte % (Auto) 0.5 % Immature Granulocyte # (Auto) 0.03 0.00-0.02 K/uL Prothrombin Time 11.8 9.0-12.0 SECONDS Prothromb Time International Ratio 1.1 0.9-1.1 Activated Partial Thromboplast Time 27.3 21.0-31.0 SECONDS Partial Thromboplastin Ratio 1.1 Sodium Level 129 136-145 mmol/L Potassium Level 4.1 3.5-5.1 mmol/L Chloride Level 94 98-107 mmol/L Carbon Dioxide Level 24 21-32 mmol/L Anion Gap 11.0 3-11 mmol/L Blood Urea Nitrogen 32 7-18 mg/dl Creatinine 1.43 0.60-1.20 mg/dl Est Creatinine Clear Calc Drug Dose 43.3 ml/min Estimated GFR () 41.1 Estimated GFR (Non- 35.5 BUN/Creatinine Ratio 22.6 10-20 Random Glucose 171 70-99 mg/dl Calcium Level 8.5 8.5-10.1 mg/dl Magnesium Level 1.9 1.8-2.4 mg/dl Total Bilirubin 0.4 0.2-1 mg/dl Direct Bilirubin 0.1 0-0.2 mg/dl Aspartate Amino Transf (AST/SGOT) 22 15-37 U/L Alanine Aminotransferase (ALT/SGPT) 19 12-78 U/L Alkaline Phosphatase 99 45-117 U/L Total Creatine Kinase 94 26-192 U/L Creatine Kinase MB 4.6 0.5-3.6 ng/ml Creatine Kinase MB Ratio 4.9 0-3.0 Troponin I 0.045 0-0.045 ng/ml Pro-B-Type Natriuretic Peptide 8686 0-1800 pg/ml Total Protein 7.5 6.4-8.2 gm/dl Albumin 3.3 3.4-5.0 gm/dl Thyroid Stimulating Hormone (TSH) 0.539 0.300-4.500 uIu/ml Diagnostic Radiology Patient Name: WERNER NICOLAS Unit Number: [id number] Dictated: 12/28/172003 Transcribed: 12/28/172003 EV Printed Date/Time: [~ rep prt dt]/[~ rep prt tm] [~ rep ct labl] - [~ rep ct ivnm] [facility] [place] [address] Dictated: 12/28/172003 Transcribed: 12/28/172003 EV Printed Date/Time: [~ rep prt dt]/[~ rep prt tm] [~ rep ct labl] - [~ rep ct ivnm] [~ rep ct add3]] SINGLE VIEW CHEST CLINICAL HISTORY: Change in mental status. Weakness. FINDINGS: An AP, portable, upright chest radiograph is compared to study dated 12/06/2017. The examination is degraded by portable technique, apical lordotic positioning, and patient rotation. The heart is enlarged and there is atherosclerotic calcification of the thoracic aorta. The pulmonary vasculature is noncongested. Chronic interstitial thickening is similar to previous. No airspace consolidation or large pleural effusion is identified. Bibasilar atelectasis is noted. No pneumothorax is seen. The skeletal structures are osteopenic. The bony thorax is grossly intact. IMPRESSION: Cardiomegaly with no acute cardiopulmonary abnormality. Electronically signed by: Jack Villegas M.D. 12/28/2017 8:05 PM Dictated Date/Time: 12/28/2017 8:04 PM The status of this report is Signed. Draft = Not yet reviewed or approved by Radiologist. Signed = Reviewed and approved by Radiologist. <AttendingPhy></AttendingPhy> <FamilyPhy>Raad Skinner M.D.</FamilyPhy> <PrimaryPhy >Raad Skinner M.D.</PrimaryPhy> <UnitNumber>[id number]</UnitNumber> <VisitNumber> [id number]</VisitNumber> <PatientName>WERNER NICOLAS</PatientName> < DateOfBirth>1940</DateOfBirth> <Location>[facility]</Location> <ServiceDate>05/10</ServiceDate> <MNE>ESINDI</MNE> <OrderingPhy>Jefferson Lucas D.O.</ OrderingPhy> <OrderingPhyMNE>f rep ord dr burleson</OrderingPhyMNE> <DictatingPhyMNE> f rep dict dr burleson</DictatingPhyMNE> <CCListMNE>f rep ct benjy</CCListMNE> < AdmittingPhyMNE>f pt admit dr burleson</AdmittingPhyMNE> <AttendingPhyMNE>f pt attend dr burleson</AttendingPhyMNE> <ConsultingPhyMNE>f pt consult dr burleson</ConsultingPhyMNE> <FamilyPhyMNE>f pt fam dr burleson</FamilyPhyMNE> <OtherPhyMNE>f pt other dr burleson</OtherPhyMNE> < PrimaryPhyMNE>f pt prim care dr burleson</PrimaryPhyMNE> <ReferringPhyMNE>f pt referring dr burleson</ReferringPhyMNE> EKG EKG shows normal sinus rhythm 89 bpm, first-degree heart block, T-wave inversions leads V2 through V6, I and aVL. Impression Assessment and Plan Bilateral lower extremity weakness/generalized fatigue/dehydration/ deconditioning/Takasubo's cardiomyopathy/moderate aortic stenosis-- During last admission, the patient had had a transient left bundle branch block , and other variable EKG signs. The patient will be admitted to telemetry for serial cardiac enzymes, serial EKG's, cardiac rhythm monitoring. She has no symptoms of chest pain or shortness of breath. Suspect she has become relatively hypotensive, is dependent upon her preload, and may have been aggravated by stimulation of Adderall which she resumed on her own. We will hold her furosemide 40 mg daily, potassium chloride, losartan, and lisinopril. We will gently rehydrate with IV fluids. Follow serial CBC with differential, BMP and magnesium levels. Continue aspirin 81 mg daily, carvedilol twice daily. Consult her director of rehabilitation Dr. Walker. Consult PT/OT/long term care social worker. Hyperlipidemia-- Continue atorvastatin 20 mg daily. Anxiety with depression-- Continue Wellbutrin SR 200 mg p.o. every morning, gabapentin 600 mg p.o. at bedtime, hydroxyzine 25 mg p.o. at bedtime, Effexor XR 75 mg daily, Geodon 80 mg p.o. twice daily, and temazepam 15 mg p.o. at bedtime. Will hold Adderall XR. Gastric bypass history-- Continue usual vitamin supplements. Hypothyroidism--continue levothyroxine sodium at 75 mcg every morning. GERD-- Continue pantoprazole 40 mg every morning. Seasonal allergy-- Continue Xyzal 5 mg p.o. at bedtime Advanced Directives Existing Living Will: Yes Existing Power of Police Clerk: Yes Resuscitation Status VTE Prophylaxis Will order VTE Prophylaxis: Yes
[2017-12-28 23:15] VITALS: BP 113/64; PULSE 75; TEMP 37; O2SAT 94
[2017-12-28] MEDS ORDERED: TEMAZEPAM 15 MG CAP PO SCH (23:15)
[2017-12-28] MEDS: GABAPENTIN 600 MG TAB PO SCH (23:26)
[2017-12-28] MEDS: TEMAZEPAM 15 MG CAP PO SCH (23:26)
[2017-12-28] MEDS: hydrOXYzine HCL 25 MG TAB PO SCH (23:27)
[2017-12-28] MEDS: CARVEDILOL 3.125 MG TAB PO SCH (23:28)
[2017-12-28] MEDS: CALCIUM 600MG + VIT D 400 IU TAB PO SCH (23:28)
[2017-12-29] VITALS (8 sets, daily range): BP systolic 110–131; BP diastolic 60–73; PULSE 58–74; TEMP 36.6–37.1; O2SAT 96–98
[2017-12-29] MEDS: ACETAMINOPHEN 325 MG TAB PO PRN ×2 (04:08→08:10)
[2017-12-29] MEDS: LEVOTHYROXINE 175 MCG TAB PO SCH (06:01)
[2017-12-29] MEDS: RESTASIS~ORDER AWAITING ACTION SCH ×4 (07:20→22:53)
[2017-12-29] MEDS: XYZAL~ORDER AWAITING ACTION SCH ×4 (07:20→22:53)
[2017-12-29] MEDS: FERROUS SULFATE 325 MG TAB PO SCH ×2 (08:00→16:40)
[2017-12-29] MEDS: CEROVITE ADV FORMULA TAB PO SCH (08:00)
[2017-12-29] MEDS: ATORVASTATIN 20 MG TAB PO SCH (08:00)
[2017-12-29] MEDS: PANTOprazole SOD 40 MG TAB PO SCH (08:00)
[2017-12-29] MEDS: POTASSIUM CHLORIDE 20 MEQ TABCR PO SCH ×2 (08:01→20:30)
[2017-12-29] MEDS: ZIPRASIDONE 80 MG CAP PO SCH ×2 (08:01→20:30)
[2017-12-29] MEDS: BuPROPion SR 100 MG TABCR PO SCH (08:01)
[2017-12-29] MEDS: LACTOBACILLUS ACIDOPHILUS (FLORANEX) TAB PO SCH (08:01)
[2017-12-29] MEDS: CARVEDILOL 3.125 MG TAB PO SCH ×2 (08:02→20:30)
[2017-12-29] MEDS: ASPIRIN 81 MG ECTAB PO SCH (08:02)
[2017-12-29] MEDS: CALCIUM 600MG + VIT D 400 IU TAB PO SCH ×2 (08:03→20:29)
[2017-12-29] MEDS: HEPARIN SOD 5000 UNIT/0.5 ML CARP SQ SCH ×2 (08:06→20:35)
--- NOTE | 2017-12-29 08:23 | Hospitalist Progress Note ---
Hospitalist Progress Note Date of Service Dec 29, 2017. Subjective Pt evaluation today including: conversation w/ patient, physical exam, chart review, lab review, review of studies Pain: None PO Intake: Fair Voiding: no voiding problems The patient was seen and examined this morning. Pt reports "I feel shakey when I try to get up and walk". She admits to feeling short of breath with ambulation as well today. Her diet has been poor since leaving [facility] 2 days prior to admission. Since being home she has not really eaten, but is drinking a lot of water because of her mouth being dry. She denies having issues with appetite before. She also states she did not sleep at all last night. Pt took adderall yesterday around 8am and noon to help her stay awake and focus during her PCP and orthopedic doctors appointments she had scheduled yesterday. She had not taken adderall for the past 3 weeks prior to this. It is prescribed by her PCP. Constitutional: + fatigue, + problem reported (headache, frontal), No fever , No chills Eyes: No redness, No discharge ENT: No nasal symptoms, No trouble swallowing Respiratory: + dyspnea on exertion, No cough, No sputum, No dyspnea at rest Cardiovascular: No chest pain, No edema, No claudication Abdomen: + problem reported (poor appetite), No pain, No nausea, No vomiting , No diarrhea, No constipation Musculoskeletal: No joint pain, No muscle pain, No swelling Female : No dysuria Neurologic: No weakness, No numbness/tingling Psychiatric: + problem reported (on adderall for fatigue) Endo: No fatigue Skin: No rash Objective Vital Signs Date Time Temp Pulse Resp B/P (MAP) Pulse Ox O2 Delivery O2 Flow Rate FiO2 12/29/17 07:48 36.7 74 18 121/60 (80) 96 12/29/17 04:00 Room Air 12/29/17 03:20 37.1 70 22 116/66 (83) 96 Room Air 12/29/17 00:00 Room Air 12/28/17 23:15 37.0 75 17 113/64 (80) 94 Room Air 12/28/17 22:45 37.3 82 22 144/72 96 Room Air 12/28/17 22:16 84 18 120/65 97 12/28/17 20:32 90 18 118/68 95 Room Air 12/28/17 19:10 94 Room Air 12/28/17 19:10 94 Room Air 12/28/17 18:44 36.9 94 22 122/70 90 Room Air Physical Exam General Appearance: WD/WN, no apparent distress, + obese Eyes: PERRL, EOMI ENT: hearing grossly normal, pharynx normal Neck: supple, no JVD Respiratory/Chest: lungs clear, no accessory muscle use, + pertinent finding ( on RA) Cardiovascular: regular rate, rhythm, + systolic murmur Abdomen: normal bowel sounds, non tender, soft Extremities: non-tender, no calf tenderness, + pedal edema (trace pitting in BLE) Neurologic/Psychiatric: alert, normal mood/affect, oriented x 3 Skin: normal color, warm/dry Laboratory Results Last 24 Hours Test 12/28/17 19:10 12/28/17 22:40 12/29/17 08:12 White Blood Count 5.96 K/uL Red Blood Count 3.84 M/uL Hemoglobin 10.6 g/dL Hematocrit 32.4 % Mean Corpuscular Volume 84.4 fL Mean Corpuscular Hemoglobin 27.6 pg Mean Corpuscular Hemoglobin Concent 32.7 g/dl Platelet Count 273 K/uL Mean Platelet Volume 9.7 fL Neutrophils (%) (Auto) 90.5 % Lymphocytes (%) (Auto) 7.6 % Monocytes (%) (Auto) 1.0 % Eosinophils (%) (Auto) 0.2 % Basophils (%) (Auto) 0.2 % Neutrophils # (Auto) 5.40 K/uL Lymphocytes # (Auto) 0.45 K/uL Monocytes # (Auto) 0.06 K/uL Eosinophils # (Auto) 0.01 K/uL Basophils # (Auto) 0.01 K/uL RDW Standard Deviation 42.9 fL RDW Coefficient of Variation 14.1 % Immature Granulocyte % (Auto) 0.5 % Immature Granulocyte # (Auto) 0.03 K/uL Prothrombin Time 11.8 SECONDS Prothromb Time International Ratio 1.1 Activated Partial Thromboplast Time 27.3 SECONDS Partial Thromboplastin Ratio 1.1 Sodium Level 129 mmol/L Potassium Level 4.1 mmol/L Chloride Level 94 mmol/L Carbon Dioxide Level 24 mmol/L Anion Gap 11.0 mmol/L Blood Urea Nitrogen 32 mg/dl Creatinine 1.43 mg/dl Est Creatinine Clear Calc Drug Dose 43.3 ml/min Estimated GFR () 41.1 Estimated GFR (Non- 35.5 BUN/Creatinine Ratio 22.6 Random Glucose 171 mg/dl Calcium Level 8.5 mg/dl Magnesium Level 1.9 mg/dl Total Bilirubin 0.4 mg/dl Direct Bilirubin 0.1 mg/dl Aspartate Amino Transf (AST/SGOT) 22 U/L Alanine Aminotransferase (ALT/SGPT) 19 U/L Alkaline Phosphatase 99 U/L Total Creatine Kinase 94 U/L Creatine Kinase MB 4.6 ng/ml Creatine Kinase MB Ratio 4.9 Troponin I 0.045 ng/ml Pro-B-Type Natriuretic Peptide 8686 pg/ml Total Protein 7.5 gm/dl Albumin 3.3 gm/dl Thyroid Stimulating Hormone (TSH) 0.539 uIu/ml Urine Color YELLOW Urine Appearance CLEAR Urine pH 5.0 Urine Specific [place] 1.012 Urine Protein NEG Urine Glucose (UA) NEG Urine Ketones NEG Urine Occult Blood NEG Urine Nitrite NEG Urine Bilirubin NEG Urine Urobilinogen NEG Urine Leukocyte Esterase TRACE Urine WBC (Auto) 1-5 /hpf Urine RBC (Auto) 0-4 /hpf Urine Hyaline Casts (Auto) 1-5 /lpf Urine Epithelial Cells (Auto) 10-20 /lpf Urine Bacteria (Auto) NEG Assessment and Plan 77 yo F with PMHx of Hyponatremia Bilateral lower extremity weakness Generalized fatigue - Likely due to poor oral intake and excessive free water intake. - Will stop IVFs and fluid restrict to 1500mL per day to increased sodium. - PT/OT Hx of Takasubo's cardiomyopathy Moderate aortic stenosis- Chronic diastolic and right-sided heart failure. Hx of LBBB - Cardiology consulted- Dr. Walker - appreciate recs - During last admission, the patient had had a transient left bundle branch block, and other variable EKG signs. - Echocardiogram November 2017 consistent with Takotsubo cardiomyopathy with an EF of 55% and hyperdynamic basal segments. - Trop x 3 neg - EKG reviewed showing ST wave inversions although no signs for cardiac ischemia as she does not have any cardiac sx. may have been aggravated by stimulation of Adderall which she resumed on her own. - We will hold her furosemide 40 mg daily - per cards may need to reduce this dose even further - Hold potassium chloride, losartan, and lisinopril. - Continue carvedilol BID, asa 81 mg daily Hyperlipidemia-- - Continue atorvastatin 20 mg daily. CKD stage III - Stable, Cr Anxiety with depression-- - Continue Wellbutrin SR 200 mg p.o. every morning, gabapentin 600 mg p.o. at bedtime, hydroxyzine 25 mg p.o. at bedtime, Effexor XR 75 mg daily, Geodon 80 mg p.o. twice daily, and temazepam 15 mg p.o. at bedtime. - Hold Adderall XR indefinitely - pt counseled on not resuming at the time of discharge - pt gets this medication from her PCP Dr. Gamez Gastric bypass history- - Continue usual vitamin supplements. Hypothyroidism -continue levothyroxine sodium at 75 mcg qam. GERD- - Continue pantoprazole 40 mg qam Seasonal allergy-- Continue Xyzal 5 mg p.o. at bedtime MANISHA - Continue on cpap at night - follows with Dr. Acosta in sleep medicine - was also counseled by him not to take adderall. DVT ppx: teds, scds CODE STATUS: FULL CODE Disposition: From home, was previously at [facility] after last hospitalization and was home for 2 days. CM to assist with dc planning.
[2017-12-29] MEDS: NSS + 20MEQ KCL 1000ML 1,000 ML IV SCH (08:43)
[2017-12-29] MEDS ORDERED: NUTRITIONAL SUPPLEMENTS PO SCH (09:00)
[2017-12-29 09:08] LABS: CALCIUM 8.3 mg/dl (8.5-10.1); CREATININE 1.22 mg/dl (0.60-1.20); PHOSPHORUS 4.5 mg/dl (2.5-4.9)
--- NOTE | 2017-12-29 10:54 | CARDIOLOGY CONSULTATION ---
DATE OF CONSULTATION: 12/29/2017 REQUESTING: Gordon Phoenix MD. MOVIE EXTRA: Clem Walker DO., [facility] Cardiology. REASON FOR CONSULTATION: Weakness, hyponatremia, chronic right-sided and diastolic heart failure. Dear Dr. Phoenix: Thank you for requesting cardiology consultation on Racheal with regards to her admission for hyponatremia, chronic diastolic and right-sided heart failure, moderate aortic stenosis, significant sleep apnea requiring oxygen and CPAP, medication noncompliance and recent admission to [facility] in November for which she had approximately a 25 pound weight loss associated with heart failure. She was just recently discharged from [facility]. She was going to see her primary care provider and felt that she needed Adderall to stay awake. Of note, while she was at [facility] over the 3 week period of time, she did not receive any Adderall at all and did well. In addition, she wore her CPAP every night and looking at her abdomen, her abdomen is not more distended. Her lower extremity edema is trace and is markedly better even when she left the hospital. Her skin turgor looks decreased. After leaving her family doctor after being there for 2 hours, she was walking with her daughter, her legs felt weak. She has generalized fatigue. She notes her appetite has been poor and the only thing that she has really been consuming has been water. She describes herself as very thirsty and basically drinking incessantly. She denies any chest pain or chest pressure. She does have a headache. It has gotten better. She denies any lightheadedness, dizziness, presyncope or syncope. As noted, her appetite is poor. She believes her weight at [facility] was stable, although she has not been weighed here. She does walk with a walker, which is her baseline. REVIEW OF SYSTEMS: The rest of review of systems otherwise negative. PAST MEDICAL HISTORY: 1. Chronic diastolic and right-sided heart failure. 2. Moderate aortic stenosis. 3. Echocardiogram November 2017 consistent with Takotsubo cardiomyopathy with an EF of 55% and hyperdynamic basal segments. 4. History of a left bundle branch block with previous admission. 5. History of noncompliance with her diet and CPAP, although wearing CPAP at [facility] over the last 2 weeks. 6. Cardiac catheterization at [facility] December 2016 without evidence of epicardial coronary artery disease and an elevated left ventricular end diastolic pressure 20 mmHg and moderate aortic stenosis by cardiac catheterization. 7. Hyponatremia. 8. History of gastric bypass. 9. History of thyroidectomy. 10. Status post knee replacement. 11. Open fracture, left elbow. 12. Chronic kidney disease stage III. 13. Hospitalization in November 2017 for vent dependent respiratory failure. SOCIAL HISTORY: She lives by herself. She has support from her family. ALLERGIES: OXYCODONE, STATINS AND SULFA. FAMILY HISTORY: Noncontributory. MEDICATIONS: Reviewed in electronic medical record. PHYSICAL EXAMINATION: GENERAL: She is awake, alert, oriented x3. She does feel weak. VITAL SIGNS: Her heart rate is 74, respirations are 18, blood pressure 121/60, her pulse ox is 96% on room air. HEENT: 2+ carotid upstrokes, no evidence of carotid bruits. Jugular venous pressure could not be assessed due to her neck size. Her sclerae is anicteric. Her hearing is normal. LUNGS: Clear to auscultation bilaterally. No rales, rhonchi or wheezing. HEART: Regular rate and rhythm. She has a harsh crescendo-decrescendo murmur, which is 2/6 in its mid peaking. ABDOMEN: Soft, nontender, chronically distended. Positive bowel sounds. Her abdomen did not appear any more distended than when she was last in the hospital. EXTREMITIES: Trace bilateral lower extremity edema markedly better than when she left the hospital. PSYCHIATRIC: Affect appeared appropriate. LABORATORY STUDIES: Hemoglobin 10.6, platelet count of 273. Sodium 127, potassium 4.0, BUN 29, creatinine 1.22, TSH 0.539. Her albumin is 3.3. Her coags are normal. Chest x-ray cardiomegaly without acute cardiopulmonary abnormality. EKG: Sinus rhythm, nonspecific IVCD, deep T-wave inversions across the precordial leads, consider anterior lateral ischemia, unchanged from her admission EKG. IMPRESSION: 1. Weakness, fatigue and fall. 2. Hyponatremia. 3. Acute on chronic diastolic and right-sided heart failure. 4. Moderate aortic stenosis. 5. Concern for Takotsubo cardiomyopathy during her last admission with a negative cardiac catheterization for epicardial coronary artery disease at [facility], December 2016. 6. Deep symmetrical T-wave inversions which looked like they are evolving compared to her previous admission. 7. Stable chronic kidney disease stage III. 8. Sleep apnea, intolerant to CPAP and compliant over the last 3 weeks. As discussed with the primary service, I would fluid restrict her to 1500 mL. In addition, she has already received a liter of saline to improve her sodium. Hopefully, as her sodium rises some of her weakness and lack of appetite will improve. With her wearing CPAP, I do believe that we were not able to unload her right ventricle which has improved her diuresis and ultimately, although she was only on 40 mg of Lasix, she may need less diuretics. Given the fact that her LV function is relatively normal, if there is not a lot of blood pressure room, I would hold her ANISHA and/or ARB treatment. She should remain on carvedilol. She does have very ischemic looking T-wave inversions in her precordial leads. As noted in the previous admission, she was thought to have Takotsubo cardiomyopathy and had an intermittent left bundle at that time. There is nothing clinically to suggest she is having coronary ischemia. She denies any anginal symptoms and she does not have acute heart failure. In addition, her baseline troponin is negative and one would expect if she was ischemic with the kind of EKG changes she is having that her troponin should be elevated. I would continue to trend her troponins. As was discussed with the hospitalist service, I would try to see if she will tolerate Boost, especially if there is a low sodium variety to improve her oral intake. I will continue to follow with you. Thank you for allowing us to participate in her care.
[2017-12-29] MEDS: hydrOXYzine HCL 25 MG TAB PO SCH (20:29)
[2017-12-29] MEDS: GABAPENTIN 600 MG TAB PO SCH (20:30)
[2017-12-29] MEDS: TEMAZEPAM 15 MG CAP PO SCH (20:32)
[2017-12-30 03:07] VITALS: BP 125/77; PULSE 57; TEMP 36.5; O2SAT 98
[2017-12-30] MEDS: LEVOTHYROXINE 175 MCG TAB PO SCH (05:43)
[2017-12-30 07:05] LABS: CALCIUM 8.1 mg/dl (8.5-10.1); CREATININE 1.16 mg/dl (0.60-1.20)
[2017-12-30 07:07] LABS: PHOSPHORUS 3.6 mg/dl (2.5-4.9)
[2017-12-30] MEDS: ASPIRIN 81 MG ECTAB PO SCH (07:56)
[2017-12-30] MEDS: LACTOBACILLUS ACIDOPHILUS (FLORANEX) TAB PO SCH (07:56)
[2017-12-30] MEDS: CEROVITE ADV FORMULA TAB PO SCH (07:57)
[2017-12-30] MEDS: PANTOprazole SOD 40 MG TAB PO SCH (07:57)
[2017-12-30] MEDS: ZIPRASIDONE 80 MG CAP PO SCH (07:59)
[2017-12-30] MEDS: CARVEDILOL 3.125 MG TAB PO SCH (07:59)
[2017-12-30] MEDS: POTASSIUM CHLORIDE 20 MEQ TABCR PO SCH (07:59)
[2017-12-30] MEDS: XYZAL~ORDER AWAITING ACTION SCH ×2 (08:00→16:00)
[2017-12-30] MEDS: CALCIUM 600MG + VIT D 400 IU TAB PO SCH (08:00)
[2017-12-30] MEDS: RESTASIS~ORDER AWAITING ACTION SCH ×2 (08:00→16:00)
[2017-12-30] MEDS: FERROUS SULFATE 325 MG TAB PO SCH ×2 (08:00→16:28)
[2017-12-30] MEDS: ATORVASTATIN 20 MG TAB PO SCH (08:01)
[2017-12-30] MEDS: BuPROPion SR 100 MG TABCR PO SCH (08:01)
[2017-12-30] MEDS: HEPARIN SOD 5000 UNIT/0.5 ML CARP SQ SCH (08:02)
[2017-12-30 08:05] VITALS: BP 115/66; PULSE 65; TEMP 36.5; O2SAT 96
--- NOTE | 2017-12-30 08:23 | Hospitalist Progress Note ---
Hospitalist Progress Note Date of Service Dec 30, 2017. Subjective Pt evaluation today including: conversation w/ patient, physical exam, chart review, lab review, review of studies Pain: none PO Intake: Improving Voiding: no voiding problems The patient was seen and examined this morning. Patient reports feeling better compared to yesterday. She states she is still somewhat shaky and weak whenever she is ambulating. Patient worked with physical therapy yesterday but only moved from bed to bathroom in the room. She denies any lightheadedness or dizziness during this time. Patient notes that she is still feeling short of breath with any exertion, however this is improved. She also feels that her sleep was improved with wearing CPAP last night. Patient does not like fluid restriction although is in agreement with abiding by. Additional Comments: Constitutional: No fever, sweats or chills Eyes: No diplopia, no worsening or blurred vision ENT: normal hearing, no trouble swallowing Respiratory: See HPI Cardiovascular: No chest pain, tightness or palpitations Abdomen: No pain, nausea, vomiting, diarrhea or constipation Musculoskeletal: + Minimal swelling in the right lower extremity compared to the left, no joint pain or calf pain Neurologic: No weakness, numbness/tingling, or balance problems Objective Vital Signs Date Time Temp Pulse Resp B/P (MAP) Pulse Ox O2 Delivery O2 Flow Rate FiO2 12/30/17 08:05 36.5 65 18 115/66 (82) 96 12/30/17 04:00 CPAP 12/30/17 03:07 36.5 57 18 125/77 (93) 98 CPAP 12/30/17 00:01 CPAP 12/29/17 23:03 36.7 58 18 110/67 (81) 98 CPAP 12/29/17 22:05 64 96 2.0 12/29/17 20:00 Room Air 12/29/17 19:07 36.8 60 16 114/67 (83) 97 Room Air 12/29/17 16:00 Room Air 12/29/17 15:27 36.6 63 22 123/73 (90) Room Air 12/29/17 12:00 Room Air 12/29/17 11:48 37.0 74 16 131/69 (89) 97 Physical Exam Notes: General Appearance: WD/WN, no apparent distress, + obese, morbid Eyes: PERRL, EOMI ENT: hearing grossly normal, pharynx normal Neck: supple, no JVD Respiratory/Chest: lungs clear, no accessory muscle use, + pertinent finding ( on RA) Cardiovascular: Slightly bradycardic with HR in 50s-60s, + systolic murmur RUSB , grade III/ Abdomen: normal bowel sounds, non tender, soft Extremities: non-tender, no calf tenderness, + pedal edema (trace pitting in BLE) Neurologic/Psychiatric: alert, normal mood/affect, oriented x 3 Skin: normal color, warm/dry Laboratory Results Last 24 Hours Test 12/29/17 11:32 12/29/17 16:14 12/30/17 06:18 Bedside Glucose 135 mg/dl 126 mg/dl Sodium Level 132 mmol/L Potassium Level 4.0 mmol/L Chloride Level 97 mmol/L Carbon Dioxide Level 27 mmol/L Anion Gap 8.0 mmol/L Blood Urea Nitrogen 28 mg/dl Creatinine 1.16 mg/dl Est Creatinine Clear Calc Drug Dose 51.3 ml/min Estimated GFR () 53.0 Estimated GFR (Non- 45.7 BUN/Creatinine Ratio 24.0 Random Glucose 99 mg/dl Calcium Level 8.1 mg/dl Phosphorus Level 3.6 mg/dl Magnesium Level 2.2 mg/dl Assessment and Plan 77 yo F with PMHx of Hyponatremia Bilateral lower extremity weakness Generalized fatigue - Sodium has improved today to 132 from 127 - Likely initial cause was due to poor oral intake and excessive free water intake. - Continue to fluid restrict to 1500mL per day to increased sodium. - PT/OT -patient will likely require short rehab stay at [facility] again. Hx of Takasubo's cardiomyopathy Moderate aortic stenosis Chronic diastolic and right-sided heart failure. Hx of LBBB - Cardiology consulted- Dr. Walker - appreciate recs - During last admission, the patient had had a transient left bundle branch block, and other variable EKG signs. - Echocardiogram November 2017 consistent with Takotsubo cardiomyopathy with an EF of 55% and hyperdynamic basal segments. - Trop x 3 neg - EKG reviewed showing ST wave inversions although no signs for cardiac ischemia as she does not have any cardiac sx. may have been aggravated by stimulation of Adderall which she resumed on her own. - We will hold her furosemide 40 mg daily - per cards may need to reduce this dose even further - Hold potassium chloride, losartan, and lisinopril. - Continue carvedilol BID, asa 81 mg daily Hyperlipidemia-- - Continue atorvastatin 20 mg daily. CKD stage III - Stable, Cr Anxiety with depression-- - Continue Wellbutrin SR 200 mg p.o. every morning, gabapentin 600 mg p.o. at bedtime, hydroxyzine 25 mg p.o. at bedtime, Effexor XR 75 mg daily, Geodon 80 mg p.o. twice daily, and temazepam 15 mg p.o. at bedtime. - Hold Adderall XR indefinitely - pt counseled on not resuming - reiterate again at the time of discharge - pt gets this medication from her PCP Dr. Gamez Gastric bypass history- - Continue usual vitamin supplements. Hypothyroidism -continue levothyroxine sodium at 75 mcg qam. GERD- - Continue pantoprazole 40 mg qam Seasonal allergy-- Continue Xyzal 5 mg p.o. at bedtime MANISHA - Continue on cpap at night - follows with Dr. Acosta in sleep medicine - was also counseled by him not to take adderall. DVT ppx: teds, scds CODE STATUS: FULL CODE Disposition: From home, was previously at [facility] after last hospitalization and was home for 2 days, PT/OT on board. CM to assist with dc planning. Move to med surg today.
[2017-12-30 11:31] VITALS: BP 132/69; PULSE 66; TEMP 36.5; O2SAT 98
[2017-12-30] MEDS ORDERED: FURO-85 PO (13:11)
--- NOTE | 2017-12-30 13:24 | Discharge Instructions ---
Discharge Instructions Date of Service Dec 30, 2017. Admission Reason for Admission: Hyponatremia, Weakness Discharge Discharge Diagnosis / Problem: Hyponatremia, weakness Discharge Goals Goal(s): Decrease discomfort, Improve function, Increase independence, Improve disease control Activity Recommendations Activity Level: Up Ad Johanna, Assistance Required Therapies: Physical Therapy Lifting Limitations: none Exercise/Sports Limitations: as tolerated Shower/Bathe: no limitations . Additional Information Patient informed of condition: Yes Advance Directives: Yes DNR: No Level of Care: Acute Rehab Communicable Disease: No Prognosis: Stable Instructions / Follow-Up Instructions / Follow-Up You were admitted to [facility] with weakness, generalized fatigue and diagnosed with hyponatremia. During your stay here you were treated with fluid restriction of 1500mL and a reduced dose of lasix. Hyponatremia resolved. Your antihypertensive medications including losartan and lisinopril were held during your admission, your blood pressure remained stable so these should remain HELD during your [facility] stay unless otherwise directed by the physician. Please have blood pressure checked twice daily at [facility]. Continue to participate in physical therapy and occupational therapy. Medications: Continue taking your medications as prescribed. Continue to hold losartan and lisinopril as above Lasix has been reduced to 20 mg daily. Appointments: Follow up with PCP within 1 week. Follow up with cardiology within 1 week, Dr. Walker Current Hospital Diet Patient's current hospital diet: AHA Diet (Heart Healthy), Diabetes Type 2 Diet Discharge Diet Recommended Diet: AHA Diet (Heart Healthy), Diabetes Type 2 Diet Fluid Restriction: 1500 ml (6 cups) Pending Studies Studies pending at discharge: no Laboratory Results Hemoglobin A1c Test 12/06/17 05:30 Range/Units Estimated Average Glucose 120 mg/dl Hemoglobin A1c 5.8 H 4.5-5.6 % Lipid Panel Test 12/05/17 15:00 Range/Units Triglycerides Level 84 0-150 mg/dl Cholesterol Level 213 H 0-200 mg/dl HDL Cholesterol 102 mg/dl Cholesterol/HDL Ratio 2.1 LDL Cholesterol, Calculated 94 mg/dl Medical Emergencies . Who to Call and When: Medical Emergencies: If at any time you feel your situation is an emergency, please call 911 immediately. . Non-Emergent Contact Non-Emergency issues call your: Primary Care Provider Call Non-Emergent contact if: you have a fever, temperature is above 100.5, your pain is not controlled, your pain is worsening, your pain is unusual for you, your pain is concerning you, you have any medication questions other concerns with your health. Call 911 or go directly to the Emergency Department if you experience any of the following: Chest pain, chest tightness, shortness of breath, abdominal pain , lightheadedness, dizziness, gastrointestinal bleeding, or have any other concerns regarding your health. . Past History Medical & Surgical History: (1) Hyponatremia (2) Weakness . "Provider Documentation" section prepared by Nanda Navarro. . Core Measure Problem Core Measures: None [place] Drug Monitoring Program Search Results: no issues identified
[2017-12-30 13:41] VITALS: BP 132/69; PULSE 66; TEMP 36.5; O2SAT 98
--- NOTE | 2017-12-30 14:21 | Discharge Summary ---
Discharge Summary Date of Service Dec 30, 2017. Discharge Summary Admission Date: Dec 30, 2017 at 11:30 Discharge Date: Dec 30, 2017 Discharge Disposition: Rehab (Critical Access Hospital) Principal Diagnosis: Hyponatremia, weakness, fatigue Problems/Secondary Diagnoses: Medical Problems: Hyponatremia (1) Acute respiratory failure with hypoxia (2) Aortic stenosis (3) Diastolic CHF due to valvular disease (4) ARCHIE (generalized anxiety disorder) (5) HLD (hyperlipidemia) (6) Hx of left bundle branch block (7) Hypokalemia (8) Hypothyroidism (9) Kidney disease (10) MDD (major depressive disorder) (11) Open fracture of left elbow (12) Pre-diabetes (13) Takotsubo cardiomyopathy (14) UTI (urinary tract infection) Surgical Problems: (1) History of gastric bypass (2) Hx of thyroidectomy (3) S/P knee replacement Immunizations: Have You Had Influenza Vaccine: Unknown Influenza Vaccine Date: Sep 13, 2005 History of Tetanus Vaccine?: Yes Tetanus Immunization Date: Apr 01, 2001 History of Pneumococcal: Yes Pneumococcal Date: March 13, 2002 History of Hepatitis B Vaccine: Unknown Hepatitis Immunization Date: March 13, 2002 Procedures: SINGLE VIEW CHEST 12/28/17 IMPRESSION: Cardiomegaly with no acute cardiopulmonary abnormality. Consultations: Cardiology Medication Reconciliation Changed Medications: Furosemide (Lasix) 20 Mg Tab 1 TAB PO DAILY for 30 Days, #30 TAB 0 Refills (Changed from: Furosemide (Lasix) 40 Mg Tab 40 Mg PO DAILY) Continued Medications: Amphetamine-Dextroamphetamine 20MG (Adderall Xr 20MG) 1 Cap Cap 20 MG PO today, CAP Aspirin (Aspirin Ec) 81 Mg Tab 81 MG PO DAILY Atorvastatin (Lipitor) 20 Mg Tab 20 MG PO DAILY, #30 Bupropion Hcl (Wellbutrin Sr) 200 Mg Tab 200 MG PO QAM, TAB Calcium Carbonate-Vitamin D (Calcium 600 + D) 1 Tab Tab 2 TABS PO BID Carvedilol (Coreg) 6.25 Mg Tab 1.5 TABS PO BID, TAB Cholecalciferol (Vitamin D3 Ultra Potency) 50,000 Unit Tab 73359 UNITS PO MONTHLY Cyanocobalamin (Cyanocobalamin) 1,000 Mcg/Ml Inj 1 DOSE INJ [id number] Cyclosporine (Ophth) (Restasis) 0.05 % Emu 1 DROP OP BID, BTL Ferrous Sulfate (Ferrous Sulfate) 325 Mg Tab 325 MG PO BID Gabapentin (Neurontin) 300 Mg Cap 600 MG PO HS, CAP Hydroxyzine Hcl (Atarax) 25 Mg Tab 25 MG PO HS, TAB Lactobacillus Acidophilus (Lactinex) Tab 1 TAB PO DAILY, TAB Levocetirizine Dihydrochloride (Xyzal) 5 Mg Tab 5 MG PO HS Levothyroxine Sodium (Synthroid) 175 Mcg Tab 175 MCG PO QAM, TAB Multiple Vitamins W/ Minerals (Preservision Areds) 1 Cap Cap 1 CAP PO DAILY Nutritional Supplements (Theralith Xr) 1 Tab Tab 1 TAB PO DAILY Pantoprazole (Protonix) 40 Mg Tab 40 MG PO QAM, TAB Potassium Chloride (Klor-Con M20) 20 Meq Tabcr 20 MEQ PO BID for 30 Days, #30 DOSE Temazepam (Restoril) 15 Mg Cap 15 MG PO HS, CAP Venlafaxine Hcl (Effexor Xr) 75 Mg Cap 75 MG PO DAILY Ziprasidone Hcl (Geodon) 80 Mg Cap 80 MG PO BID, CAP Discontinued Medications: Lisinopril (Lisinopril) 2.5 Mg Tab 2.5 MG PO QAM for 30 Days, #30 TAB Losartan Potassium (Cozaar) 50 Mg Tab 50 MG PO DAILY, TAB Discharge Exam Subjective Pt evaluation today including: conversation w/ patient, physical exam, chart review, lab review, review of studies Pain: none PO Intake: Improving Voiding: no voiding problems The patient was seen and examined this morning. Patient reports feeling better compared to yesterday. She states she is still somewhat shaky and weak whenever she is ambulating. Patient worked with physical therapy yesterday but only moved from bed to bathroom in the room. She denies any lightheadedness or dizziness during this time. Patient notes that she is still feeling short of breath with any exertion, however this is improved. She also feels that her sleep was improved with wearing CPAP last night. Patient does not like fluid restriction although is in agreement with abiding by. Additional Comments: Constitutional: No fever, sweats or chills Eyes: No diplopia, no worsening or blurred vision ENT: normal hearing, no trouble swallowing Respiratory: See HPI Cardiovascular: No chest pain, tightness or palpitations Abdomen: No pain, nausea, vomiting, diarrhea or constipation Musculoskeletal: + Minimal swelling in the right lower extremity compared to the left, no joint pain or calf pain Neurologic: No weakness, numbness/tingling, or balance problems Physical Exam General Appearance: WD/WN, no apparent distress, + obese, morbid Eyes: PERRL, EOMI ENT: hearing grossly normal, pharynx normal Neck: supple, no JVD Respiratory/Chest: lungs clear, no accessory muscle use, + pertinent finding ( on RA) Cardiovascular: Slightly bradycardic with HR in 50s-60s, + systolic murmur RUSB , grade III/ Abdomen: normal bowel sounds, non tender, soft Extremities: non-tender, no calf tenderness, + pedal edema (trace pitting in BLE) Neurologic/Psychiatric: alert, normal mood/affect, oriented x 3 Skin: normal color, warm/dry Hospital Course 77 yo F with PMHx of Hyponatremia Bilateral lower extremity weakness Generalized fatigue - Sodium has improved today to 132 from 127 - follow up PRP with PCP appointment within 1 week. - Likely initial cause was due to poor oral intake and excessive free water intake. - Continue to fluid restrict to 1500mL per day to increased sodium. - PT/OT -patient will likely require short rehab stay at [facility] again. Hx of Takasubo's cardiomyopathy Moderate aortic stenosis Chronic diastolic and right-sided heart failure. Hx of LBBB - Cardiology consulted- Dr. Walker - appreciate recs - During last admission, the patient had had a transient left bundle branch block, and other variable EKG signs. - Echocardiogram November 2017 consistent with Takotsubo cardiomyopathy with an EF of 55% and hyperdynamic basal segments. - Trop x 3 neg - EKG reviewed showing ST wave inversions although no signs for cardiac ischemia as she does not have any cardiac sx. may have been aggravated by stimulation of Adderall which she resumed on her own. - We will hold her furosemide 40 mg daily - per cards may need to reduce this dose even further - Hold potassium chloride, losartan, and lisinopril. - Continue carvedilol BID, asa 81 mg daily Hyperlipidemia-- - Continue atorvastatin 20 mg daily. CKD stage III - Stable, Cr Anxiety with depression-- - Continue Wellbutrin SR 200 mg p.o. every morning, gabapentin 600 mg p.o. at bedtime, hydroxyzine 25 mg p.o. at bedtime, Effexor XR 75 mg daily, Geodon 80 mg p.o. twice daily, and temazepam 15 mg p.o. at bedtime. - Hold Adderall XR indefinitely - pt counseled on not resuming - reiterate again at the time of discharge - pt gets this medication from her PCP Dr. Gamez Gastric bypass history- - Continue usual vitamin supplements. Hypothyroidism -continue levothyroxine sodium at 75 mcg qam. GERD- - Continue pantoprazole 40 mg qam Seasonal allergy-- Continue Xyzal 5 mg p.o. at bedtime MANISHA - Continue on cpap at night - follows with Dr. Acosta in sleep medicine - was also counseled by him not to take adderall. DVT ppx: teds, scds CODE STATUS: FULL CODE Disposition: From home, was previously at [facility] after last hospitalization and was home for 2 days, PT/OT on board. CM to assist with dc planning. Move to med surg today. Total Time Spent: Greater than 30 minutes This includes examination of the patient, discharge planning, medication reconciliation, and communication with other providers. Discharge Instructions Please refer to the electronic Patient Visit Report (Discharge Instructions) for additional information. Follow-Up Follow up with your Primary Care Provider within 1 week. Follow up with cardiology within 1 week. Additional Copies To Raad Skinner M.D.
== END 2017-12-30 17:13 | DRG 640 ==
LOC: EDBD 18:32 → C.EDA 18:33 → C.2T 21:37 → ENRESERV 21:51 → OBSVTOIN 12-30 11:30 → ENRESERV 12-30 12:24 → CANBEDREQ 12-30 13:42
PROVIDERS: ADMIT Hospitalist; ATTEND Hospitalist
DX: E87.1 Hypo-osmolality and hyponatremia (principal); I50.33 Acute on chronic diastolic (congestive) heart failure; I13.0 Hypertensive heart and chronic kidney disease with heart failure and stage 1 through stage 4 chronic kidney disease, or unspecified chronic kidney disease; I51.81 Takotsubo syndrome; I50.813 Acute on chronic right heart failure; M62.81 Muscle weakness (generalized); R53.83 Other fatigue; T43.625A Adverse effect of amphetamines, initial encounter; I35.0 Nonrheumatic aortic (valve) stenosis; E78.5 Hyperlipidemia, unspecified; N18.3 Chronic kidney disease, stage 3 (moderate); F41.9 Anxiety disorder, unspecified; F32.9 Major depressive disorder, single episode, unspecified; E89.0 Postprocedural hypothyroidism; K21.9 Gastro-esophageal reflux disease without esophagitis; J30.2 Other seasonal allergic rhinitis; G47.33 Obstructive sleep apnea (adult) (pediatric); Z91.14 Patient's other noncompliance with medication regimen; Z86.79 Personal history of other diseases of the circulatory system; Z98.84 Bariatric surgery status; Z96.659 Presence of unspecified artificial knee joint; Z87.81 Personal history of (healed) traumatic fracture; Z79.82 Long term (current) use of aspirin; Z79.899 Other long term (current) drug therapy; Z88.2 Allergy status to sulfonamides; Z88.5 Allergy status to narcotic agent; Z88.8 Allergy status to other drugs, medicaments and biological substances

== ENCOUNTER → 2018-01-10 | Outpatient (CLI) | payer OTHER, BC ==
[~2018-01-10] MED LIST changes: +AMPH20CA3 PO; +CARV6.252 PO; -CPR500 PO; -CRG3125 PO; -CRG625 PO; +FURO-85 PO; -LSN25 PO; -LSX40 PO
--- NOTE | 2018-01-10 18:07 | DIAGNOSTIC IMAGING REPORT ---
LUMBAR SPINE CT CT DOSE: 1108.31 mGy.cm HISTORY: Low BACK PAIN TECHNIQUE: Multiaxial CT images of the lumbar spine were performed and reformatted in the sagittal and coronal plane without the use of contrast. A dose lowering technique was utilized adhering to the principles of ALARA. COMPARISON: Abdomen and pelvis CT 06/14/2013. FINDINGS: Moderate to severe levoscoliosis of the lumbar spine. No fractures identified within the lumbar spine. Vertebral body heights are well-maintained. There is partial fusion of the L2-L3. 2 bodies. Severe disc space narrowing throughout the lumbar spine with endplate osteophytes. Mild to moderate facet degenerative changes throughout the lumbar spine. Bilateral nephrolithiasis. Paraspinal soft tissues are unremarkable. Severe central canal narrowing at L4-L5 due to the scoliosis and left lateral subluxation of L4 on L5. IMPRESSION: 1. No acute fractures within the lumbar spine. 2. Moderate to severe scoliosis. 3. Severe degenerative disc disease throughout the lumbar spine. 4. Severe central canal narrowing at L4-L5 due to the scoliosis and left lateral subluxation of L4 on L5. Electronically signed by: Kirt Giang M.D. 01/10/2018 6:06 PM Dictated Date/Time: 01/10/2018 5:57 PM
--- NOTE | 2018-01-10 18:09 | DIAGNOSTIC IMAGING REPORT ---
SPINE ONE VIEW, ANY LEVEL CLINICAL HISTORY: Low back pain. COMPARISON STUDY: Lumbar spine CT 01/10/2018. FINDINGS: Single lateral view of the lumbar spine. No acute fractures identified. The moderate to severe levoscoliosis is better appreciated on the same day lumbar spine CT. Severe disc space narrowing throughout the lumbar spine. Moderate facet degenerative changes within the lower lumbar spine. IMPRESSION: No fractures identified within the lumbar spine on this single lateral view. Of note, the moderate to severe levoscoliosis is better appreciated on the same day lumbar spine CT. Electronically signed by: Kirt Giang M.D. 01/10/2018 6:07 PM Dictated Date/Time: 01/10/2018 6:06 PM
== END | disposition home or self-care (01) ==
LOC: C.CTS 16:42
PROVIDERS: ATTEND Registered Nurse
DX: M54.5 Low back pain (principal); M51.36 Other intervertebral disc degeneration, lumbar region; M41.9 Scoliosis, unspecified

== ENCOUNTER → 2018-01-25 | Outpatient (CLI) | payer BC ==
--- NOTE | 2018-01-25 13:40 | DIAGNOSTIC IMAGING REPORT ---
EXAMINATION: RENAL ULTRASOUND CLINICAL HISTORY: HEMATURIA COMPARISON STUDY: October 2012 FINDINGS: The study is very limited from a technical standpoint due to the patient's large body habitus. The right kidney measures 9.7 cm. The left kidney measures 11.8 cm. There is no evidence of hydronephrosis. There is a 26 mm left renal cyst. There are bilateral echogenic foci within the kidneys consistent with calculi. No bladder abnormalities are visualized. Bilateral ureteral jets were visualized. IMPRESSION : 1. Very limited study secondary to the patient's large body habitus 2. Bilateral nephrolithiasis 3. No evidence of hydronephrosis 4. 26 mm left renal cyst Electronically signed by: Noé Obregon M.D. 01/25/2018 1:39 PM Dictated Date/Time: 01/25/2018 1:36 PM
== END | disposition home or self-care (01) ==
LOC: C.ULTR 12:36
PROVIDERS: ATTEND Student in an Organized Health Care Education/Training Program
DX: R09.89 Other specified symptoms and signs involving the circulatory and respiratory systems (principal); R31.9 Hematuria, unspecified; N20.0 Calculus of kidney; N28.1 Cyst of kidney, acquired

== ENCOUNTER → 2018-05-25 | Outpatient (CLI) | payer BC ==
[~2018-05-25] VITALS: Ht 162.6 cm; Wt 111.5 kg
[~2018-05-25] MED LIST changes: +CALC1CHW71 PO; +LEVO-14 PO; +MODA1TAB PO; +PEDICHW50 PO; +POTA1TAB97 PO; +SLOW RELEASE IRON PO; -VENL75CA PO; +VENL75CA88 PO
[2018-05-25 14:24] VITALS: BP 131/71; PULSE 76; Ht 162.6 cm; Wt 111.5 kg
== END | disposition home or self-care (01) ==
LOC: C.NEUR 13:50
PROVIDERS: ATTEND Physician Assistant
DX: G47.30 Sleep apnea, unspecified (principal)

== ENCOUNTER → 2018-06-05 | Day surgery (SDC) | payer BC ==
[2018-06-01 09:13] VITALS: Ht 162.6 cm; Wt 110.5 kg
[~2018-06-05] VITALS: Ht 162.6 cm; Wt 110.5 kg
[~2018-06-05] MED LIST changes: -AMPH20CA3 PO; -CALC-20 PO; -CHOL500024 PO; -CYCL0.052 OP; -CYNI1000 INJ; -FERR1TAB62 PO; -LCTX PO; -LEVO175T PO; -LEVO5TAB2 PO; +LIDOCAINE HCL 2% 2 ML VIAL (20MG/ML) ONE; -MCRK20 PO; -MULTCAP33 PO; +PROPOFOL IV EMULSION 10 MG/ML 20 ML VIAL ONE
[2018-06-05 14:17] VITALS: TEMP 37.1
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
--- NOTE | 2018-06-05 15:19 | Discharge Instructions ---
Endoscopy Patient Instructions Date / Procedure(s) Performed Jun 05, 2018. Colonoscopy Allergy Information Coded Allergies: Statins (Verified Allergy, Mild, BONE PAIN, 06/05/18) Lactose (Verified Allergy, Unknown, INTOLERANCE, 06/05/18) Oxycodone (Verified Allergy, Unknown, RASH, 06/05/18) Sulfa Antibiotics (Verified Allergy, Unknown, "TAKES TOP LAYER OF TONGUE OFF", 06/05/18) Discharge Date / Findings Jun 05, 2018. polyps, hemorrhoids Medication Instructions Stopped Medication(s): 81mg Aspirin last taken today 06/05/18 Restart Stopped Medication(s): resume meds Reported Home Medications Medications Dose Route/Sig Max Daily Dose Days Date Category Aspirin Ec (Aspirin) 81 Mg Tab 81 Mg PO DAILY 06/05/18 Reported Theralith Xr (Nutritional Supplements) 1 Tab Tab 2 Tab PO QAM 06/01/18 Reported [Slow Release Iron] 1 Tab PO QAM 06/01/18 Reported Calcium Chews (Calcium Carbonate-Cholecalcife) 1 Chw Chw 1 Tab PO BID 06/01/18 Reported Flintstones Chewable (Pediatric Multiple Vitamin W/) 1 Chw Chw 1 Tab PO BID 06/01/18 Reported Neurontin (Gabapentin) 300 Mg Cap 600 Mg PO HS 06/01/18 Reported Wellbutrin Sr (Bupropion HCl) 200 Mg Ertab 200 Mg PO QAM 06/01/18 Reported K-Tab (Potassium Chloride) 20 Meq Tab 1 Tab PO BID 06/01/18 Reported Provigil (Modafinil) 200 Mg Tab 200 Mg PO QAM 06/01/18 Reported Levocetirizine Dihydrochl (Levocetirizine Dihydrochloride) 5 Mg Tab 1 Tab PO HS 06/01/18 Reported Coreg (Carvedilol) 6.25 Mg Tab 1.5 Tab PO BID 06/01/18 Reported Lasix (Furosemide) 20 Mg Tab 20 Mg PO QAM 06/01/18 Reported Restoril (Temazepam) 15 Mg Cap 15 Mg PO HS 12/05/17 Reported Effexor Xr (Venlafaxine Hcl) 75 Mg Cap 75 Mg PO QAM 12/05/17 Reported Lipitor (Atorvastatin Calcium) 20 Mg Tab 20 Mg PO HS 01/13/17 Reported Protonix (Pantoprazole) 40 Mg Tab 40 Mg PO QAM 07/28/15 Reported Atarax (Hydroxyzine Hcl) 25 Mg Tab 25 Mg PO HS 07/28/15 Reported Geodon (Ziprasidone Hcl) 80 Mg Cap 80 Mg PO BID 01/25/14 Reported Provider Instructions Activity Restrictions - No exercising or heavy lifting for 24 hours. - Do not drink alcohol the day of the procedure. - Do not drive a car or operate machinery until the day after the procedure. - Do not make any important decisions or sign important papers in 24 hours after the procedure. Following Day: - Return to full activity which may include returning to work/school. Diet Start your diet with liquids and light foods (jello, soup, juice, toast). Then eat your usual diet if not nauseated. Treatment For Common After Affects For mild abdominal pain, bloating, or excessive gas: - Rest - Eat lightly - Lie on right side Follow-Up Information Follow-up with Raad Skinner as scheduled Anesthesia Information What You Should Know You have had a procedure that required some medicine to reduce anxiety and discomfort. This treatment is called moderate sedation. After receiving the treatment, you may be sleepy, but you will be able to breathe on your own. The effects of the treatment may last for several hours. Follow these instructions along with Activity/Diet recommendations noted above: * Do NOT do anything where dizziness or clumsiness would be dangerous. * Rest quietly at home today, then you can be up and about tomorrow. * Have a responsible person stay with you the rest of today. * You may have had an I.V. today. If so, you may take the dressing off later today. Recommendations Call your doctor if: * Trouble breathing * Continuous vomiting for more than 24 hours * Temperature above 101 degrees * Severe abdominal pain or bloating * Pain not relieved by pain medicine ordered * There is increased drainage or redness from any incision * A large amount of rectal bleeding greater than 2-3 tablespoons. (If you had a polyp/s removed or have hemorrhoids, a small amount of blood - from the rectum is to be expected.) * You have any unanswered questions or concerns. IN THE EVENT OF A SERIOUS EMERGENCY, GO TO THE NEAREST EMERGENCY ROOM Your discharge instructions were prepared by provider Del Larios. Patient Instructions Signature Page Racheal Saunders Patient (or Guardian) Signature/Date: I have read and understand the instructions given to me by my caregivers. Caregiver/RN/Doctor Signature/Date: The above-named patient and/or guardian has received patient instructions on this date. + Original Patient Signature Page (only) stays with chart. Please make copy for patient.
--- NOTE | 2018-06-05 15:23 | GI REPORT ---
Patient Name: Racheal Saunders Procedure Date: 06/05/2018 2:43 PM Date of : 1940 Admit Type: Outpatient Age: 77 Gender: Female Attending MD: Del Larios MD Procedure: Colonoscopy Providers: Del Larios MD Referring MD: Del Larios MD Indications: Iron deficiency anemia Medicines: Propofol total dose 260 mg IV, Lidocaine 40 mg IV Complications: No immediate complications. Estimated Blood Loss: Estimated blood loss was minimal. Procedure: Pre-Anesthesia Assessment: - Prior to the procedure, a History and Physical was performed, and patient medications, allergies and sensitivities were reviewed. The patient's tolerance of previous anesthesia was reviewed. - The risks and benefits of the procedure and the sedation options and risks were discussed with the patient. All questions were answered and informed consent was obtained. After I obtained informed consent, the scope was passed under direct vision. Throughout the procedure, the patient's blood pressure, pulse, and oxygen saturations were monitored continuously. The scope was introduced through the anus and advanced to the cecum, identified by appendiceal orifice and ileocecal valve. The colonoscopy was performed without difficulty. The patient tolerated the procedure well. The quality of the bowel preparation was good. Findings: A 4 mm polyp was found in the transverse colon. The polyp was sessile. The polyp was removed with a cold biopsy forceps. Resection and retrieval were complete. Estimated blood loss was minimal. A 4 mm polyp was found in the ileocecal valve. The polyp was sessile. The polyp was removed with a cold snare. Resection and retrieval were complete. Estimated blood loss was minimal. A 4 mm polyp was found in the transverse colon. The polyp was sessile. The polyp was removed with a cold snare. Resection and retrieval were complete. Estimated blood loss was minimal. Non-bleeding internal hemorrhoids were found during endoscopy. The hemorrhoids were mild. Impression: - One 4 mm polyp in the transverse colon, removed with a cold biopsy forceps. Resected and retrieved. - One 4 mm polyp at the ileocecal valve, removed with a cold snare. Resected and retrieved. - One 4 mm polyp in the transverse colon, removed with a cold snare. Resected and retrieved. - Non-bleeding internal hemorrhoids. Recommendation: - Discharge patient to home (ambulatory). - Continue present medications. - Await pathology results. - Return to primary care physician PRN. Del aLrios M.D. Del Larios MD 06/05/2018 3:22:28 PM This report has been signed electronically. Note Initiated On: 06/05/2018 2:43 PM Number of Addenda: 0 I attest to the content of the Intraoperative Record and orders documented therein, exceptions below {[id number]}
--- NOTE | 2018-06-05 15:25 | Anesthesiology Progress Note ---
Anesthesia Post Op Note Date & Time Jun 05, 2018 at 15:24 Vital Signs Pain Intensity: 0 Vital Signs Past 12 Hours Date Time Temp Pulse Resp B/P (MAP) Pulse Ox O2 Delivery O2 Flow Rate FiO2 06/05/18 15:23 58 20 114/74 (87) 92 Room Air 06/05/18 14:17 37.1 57 20 152/83 (106) 94 Room Air Notes Mental Status: alert / awake / arousable, participated in evaluation Pt Amnestic to Procedure: Yes Nausea / Vomiting: adequately controlled Pain: adequately controlled Airway Patency, RR, SpO2: stable & adequate BP & HR: stable & adequate Hydration State: stable & adequate Anesthetic Complications: no major complications apparent
[2018-06-05 15:48] VITALS: BP 121/74; PULSE 60; O2SAT 96
== END | disposition home or self-care (01) ==
LOC: C.GI 13:26
PROVIDERS: ATTEND Internal Medicine Gastroenterology
DX: D50.9 Iron deficiency anemia, unspecified (principal); D12.3 Benign neoplasm of transverse colon; D12.0 Benign neoplasm of cecum; K64.8 Other hemorrhoids; G47.33 Obstructive sleep apnea (adult) (pediatric); I10 Essential (primary) hypertension; M19.90 Unspecified osteoarthritis, unspecified site; E78.5 Hyperlipidemia, unspecified; E78.00 Pure hypercholesterolemia, unspecified; F32.9 Major depressive disorder, single episode, unspecified; K21.9 Gastro-esophageal reflux disease without esophagitis; E66.9 Obesity, unspecified; Z68.41 Body mass index [BMI] 40.0-44.9, adult; Z99.89 Dependence on other enabling machines and devices; Z88.5 Allergy status to narcotic agent; Z88.2 Allergy status to sulfonamides; Z79.82 Long term (current) use of aspirin; Z96.653 Presence of artificial knee joint, bilateral

== ENCOUNTER 2022-07-09 08:15 | Observation (INO) ==
--- NOTE | 2022-06-07 13:52 | PAT Medication Instructions ---
Medication Instructions Date of Service June 07, 2022 Home Medications calcium carbonate 600 mg calcium (1,500 mg) tablet 600 mg PO BID ferrous sulfate 142 mg (45 mg iron) tablet,extended release (Slow Release Iron) 142 mg PO QPM gabapentin 300 mg capsule 600 mg PO HS pediatric multivitamin (Flintstones Multivitamin chewable tablet) 1 tab PO BID temazepam 15 mg capsule 15 mg PO HS venlafaxine 75 mg capsule,extended release 24 hr 75 mg PO QAM vit B6-mag cit,ox-potassium cit 3.75 mg-45 mg-45 mg-49.5 mg tablet ER (Theralith XR) 2 tabs PO QAM ziprasidone HCl 80 mg capsule (Geodon) 80 mg PO BID atorvastatin 80 mg tablet 80 mg PO QPM bupropion HCl 100 mg tablet 100 mg PO QAM carvedilol 6.25 mg tablet 6.25 mg PO BID cyclosporine 0.05 % eye drops in a dropperette 1 drops ophthalmic (eye) BID PRN Dry Eye modafinil 100 mg tablet 100 mg PO QAM potassium chloride 20 mEq tablet,extended release 20 meq PO BID alendronate 70 mg tablet (Fosamax) 70 mg PO WK cyanocobalamin (vitamin B-12) 1,000 mcg/mL injection solution 1,000 mcg subcut UD hydroxyzine HCl 25 mg tablet 25 mg PO HS acetaminophen 650 mg tablet,extended release 1,300 mg PO Q12H apixaban 5 mg tablet (Eliquis) 5 mg PO BID furosemide 20 mg tablet 20 mg PO 3XWK levothyroxine 175 mcg tablet 175 mcg PO QAM Continue as directed alendronate 70 mg tablet (Fosamax) 70 mg PO WK (do not take day of surgery) ASK your prescriber and surgeon apixaban 5 mg tablet (Eliquis) 5 mg PO BID ziprasidone HCl 80 mg capsule (Geodon) 80 mg PO BID (if no recommendations from prescriber, to continue day of surgery) STOP taking 2 weeks before surgery vit B6-mag cit,ox-potassium cit 3.75 mg-45 mg-45 mg-49.5 mg tablet ER (Theralith XR) 2 tabs PO QAM DO NOT take the morning of surgery calcium carbonate 600 mg calcium (1,500 mg) tablet 600 mg PO BID pediatric multivitamin (Flintstones Multivitamin chewable tablet) 1 tab PO BID modafinil 100 mg tablet 100 mg PO QAM potassium chloride 20 mEq tablet,extended release 20 meq PO BID cyanocobalamin (vitamin B-12) 1,000 mcg/mL injection solution 1,000 mcg subcut UD furosemide 20 mg tablet 20 mg PO 3XWK Take morning of surgery With a small sip of water, OTHERWISE NOTHING TO EAT OR DRINK AFTER MIDNIGHT: venlafaxine 75 mg capsule,extended release 24 hr 75 mg PO QAM bupropion HCl 100 mg tablet 100 mg PO QAM carvedilol 6.25 mg tablet 6.25 mg PO BID cyclosporine 0.05 % eye drops in a dropperette 1 drops ophthalmic (eye) BID PRN (if needed) acetaminophen 650 mg tablet,extended release 1,300 mg PO Q12H(if needed) levothyroxine 175 mcg tablet 175 mcg PO QAM Take evening before surgery calcium carbonate 600 mg calcium (1,500 mg) tablet 600 mg PO BID ferrous sulfate 142 mg (45 mg iron) tablet,extended release (Slow Release Iron) 142 mg PO QPM gabapentin 300 mg capsule 600 mg PO HS pediatric multivitamin (Flintstones Multivitamin chewable tablet) 1 tab PO BID temazepam 15 mg capsule 15 mg PO HS atorvastatin 80 mg tablet 80 mg PO QPM carvedilol 6.25 mg tablet 6.25 mg PO BID cyclosporine 0.05 % eye drops in a dropperette 1 drops ophthalmic (eye) BID PRN (if needed) potassium chloride 20 mEq tablet,extended release 20 meq PO BID hydroxyzine HCl 25 mg tablet 25 mg PO HS acetaminophen 650 mg tablet,extended release 1,300 mg PO Q12H(if needed) Other Notes If you have any questions please call us at [phone] or [phone] or [phone] or [phone]
--- NOTE | 2022-06-09 13:19 | Anesthesiology Consultation ---
Date of Service June 09, 2022 Assessment & Plan (1) Encounter for pre-operative examination: - Awaiting most recent Echo (done 2020 per cardio note) and pacer check (scheduled 06/10 per pt; Dr. Walker). - Cardiology office visit (02/09/22): "history of TAVR secondary to severe aortic stenosis.. cardiac catheterization without evidence of epicardial coronary artery disease before the procedure, complete heart block status post dual- chamber pacemaker, chronic right-sided heart failure, short episodes of both paroxysmal atrial fibrillation and paroxysmal atrial tachycardia on anticoagulation.. I reviewed her last device interrogations. She is pretty much RV paced all the time. She did have an echocardiogram done last January which revealed normal LV function with moderate left ventricular hypertrophy. She had normally functioning TAVR valve and did not have significant mitral regurgitation.. There is nothing to suggest LV dysfunction from chronic RV pacing." 1 year follow-up recommended. - Cardiology addendum (04/27/22): "may proceed with shoulder surgery at intermediate risk. Her greatest risk is that of recurrence of her atrial arrhythmias and right sided CHF. I believe her cardiac risk is in the range of 4-5% including CA//arrhythmia/CHF/CVA. I would be judicious with her fluids in the perioperative period. She may hold her apixaban 72 hours prior to surgery and it can be restarted after surgery when the risk of bleeding is acceptable." - Nephrology office visit (04/29/22): "Kidney stones.. 04/14 [facility]: 2.7 L urine vol, ss CaOx, CaPO4 and UA are all acceptable.. Hypertension.. BP reported to be within acceptable limits. Continue current medical regimen. No change at present.. GOUT.. No acute symptoms. Will monitor.. Weight loss.. 80 lb weight loss over last 1 year.. Advised follow up w/ PCP for general health maintenance screening" - Eliquis instructions per surgeon/prescriber - COVID screening: Per assessment on 06/09: No known COVID-19 positive contacts or current COVID-19 related symptoms. Travel screen- [place]. Visited family. Travel via private car. Patient vaccinated. At surgeon discretion if preop Covid testing being done. - Outpatient joint assessment: Patient currently scheduled as inpatient pathway. If surgeon requests review for outpatient joint pathway, patient is not acceptable candidate for outpatient joint program from anesthesia standpoint. - Pacemaker: Pacer rep requested for AM DOS > OR made aware Chart Review Chart Review: Patient seen in Pre Admission Testing Teaching & Discussion Pre-Anesthesia Teaching/Discussion Notes: Instructed NPO after midnight before surgery,except medications with 15 cc of water. Medication instructions provided according to the PAT guidelines. History Surgery Operation Date: 07/09/22 11:40 Proposed Procedures p Right Reverse Total Shoulder Arthroplasty - Jimmy Ibarra DO Height/Weight Height: 5 ft 3.5 in Weight: 72.4 kg Allergies Allergy/AdvReac Type Severity Reaction Status Date / Time lactose Allergy Mild Intolerance Verified 06/09/22 15:06 oxycodone Allergy Mild Rash Verified 06/09/22 15:06 prednisone Allergy Mild Itchy Verified 06/09/22 15:06 Sulfa (Sulfonamide Allergy Mild Takes off Verified 06/09/22 15:06 Antibiotics) "top layer of tongue" simvastatin [From Zocor] Allergy Muscle Verified 06/09/22 15:06 aches, bone pain Xguwnmy-CHV-GuJ Reductase AdvReac Mild Bone pain Verified 06/09/22 15:06 Inhibitor [Xxgswfi-Oju-Hmr Reductase Inhibitor] Medications Home Medications Medication Instructions Recorded Confirmed Last Taken calcium carbonate 600 mg calcium 600 mg PO BID 09/10/18 06/07/22 09/23/19 21:00 (1,500 mg) tablet ferrous sulfate 142 mg (45 mg 142 mg PO QPM 09/10/18 06/07/22 09/23/19 21:00 iron) tablet,extended release (Slow Release Iron) gabapentin 300 mg capsule 600 mg PO HS 09/10/18 06/07/22 09/23/19 21:00 pediatric multivitamin 1 tab PO BID 09/10/18 06/07/22 09/23/19 08:00 (Flintstones Multivitamin chewable tablet) temazepam 15 mg capsule 15 mg PO HS 09/10/18 06/07/22 09/23/19 21:00 venlafaxine 75 mg capsule,extended 75 mg PO QAM 09/10/18 06/07/22 09/23/19 08:00 release 24 hr vit B6-mag cit,ox-potassium cit 2 tabs PO QAM 09/10/18 06/07/22 09/23/19 08:00 3.75 mg-45 mg-45 mg-49.5 mg tablet ER (Theralith XR) ziprasidone HCl 80 mg capsule 80 mg PO BID 09/10/18 06/07/22 09/23/19 21:00 (Geodon) atorvastatin 80 mg tablet 80 mg PO QPM 06/20/19 06/07/22 09/23/19 21:00 bupropion HCl 100 mg tablet 100 mg PO QAM 06/20/19 06/07/22 09/23/19 08:00 carvedilol 6.25 mg tablet 6.25 mg PO BID 06/20/19 06/07/22 09/23/19 08:00 cyclosporine 0.05 % eye drops in a 1 drops ophthalmic (eye) BID PRN 06/20/19 06/07/22 09/23/19 21:00 dropperette Dry Eye(S) modafinil 100 mg tablet 100 mg PO QAM 06/20/19 06/07/22 09/23/19 08:00 potassium chloride 20 mEq 20 meq PO BID #30 tabs 06/20/19 06/07/22 09/23/19 21:00 tablet,extended release alendronate 70 mg tablet (Fosamax) 70 mg PO WK 09/13/19 06/07/22 09/18/19 08:00 cyanocobalamin (vitamin B-12) 1,000 mcg subcut UD 09/13/19 06/07/22 Unknown 1,000 mcg/mL injection solution hydroxyzine HCl 25 mg tablet 25 mg PO HS 09/13/19 06/07/22 09/23/19 21:00 acetaminophen 650 mg 1,300 mg PO Q12H 06/07/22 06/07/22 Unknown tablet,extended release apixaban 5 mg tablet (Eliquis) 5 mg PO BID 06/07/22 06/07/22 Unknown furosemide 20 mg tablet 20 mg PO 3XWK 06/07/22 06/07/22 Unknown levothyroxine 175 mcg tablet 175 mcg PO QAM 06/07/22 06/07/22 Unknown tramadol 50 mg tablet 50 mg PO Q8H PRN pain #30 tabs 06/09/22 06/09/22 Unknown Past Medical History Medical History (Updated 06/09/22 @ 16:18 by Josefina Will) Anemia Chronic Anxiety Chronic kidney disease, stage 3 (moderate) [place] [facility] [place] Congestive heart failure Daytime sleepiness Reason for modafinil Depression Esophageal reflux History of aortic valve stenosis s/p AVR (04/2019) History of thyroid cancer s/p partial thyroidectomy/radiation (2002) Hypercholesterolemia Hypertension Hypothyroidism Irritable bowel syndrome (IBS) Kidney stones Obesity Osteoarthritis Pacemaker Implanted 2017 ([employer]) Follows with Dr. Walker Paroxysmal atrial fibrillation Paroxysmal atrial tachycardia Restless legs syndrome Sleep apnea CPAP + 2L O2 Exercise / Class Metabolic Activity III < 4 Walking/Shop/Light housework (+ walker, no CP or SOB with daily activities) Past Family History Family History Mother Ovarian cancer Father Parkinson disease Other No family history of adverse response to anesthesia Past Surgical History Surgical History (Updated 06/09/22 @ 16:18 by Josefina Will) History of aortic valve replacement 2018 ([facility] [place]) History of appendectomy History of arthroscopic knee surgery History of bilateral cataract extraction History of bilateral tubal ligation History of cardiac cath 03/2019 ([facility]) > no stents History of colonoscopy with polypectomy History of esophagogastroduodenoscopy (EGD) History of gastric bypass History of nephrolithotomy with removal of calculi History of open reduction and internal fixation (ORIF) procedure left wrist---hardware in place History of open reduction and internal fixation (ORIF) procedure left elbow--hardware in place History of partial thyroidectomy d/t cancer History of tonsillectomy and adenoidectomy History of tooth extraction History of total left knee replacement (TKR) History of total right hip replacement History of total right knee replacement (TKR) History of wisdom tooth extraction S/P cardiac pacemaker procedure 2018 Status post biopsy of thyroid gland malignant Past Anesthesia History No Hx of Anesthesia Complications and No Family Hx of Anesthesia Complications History of PONV No Hx of PONV Social History Smoking Status: Never smoker Do You Dip or Chew Tobacco: No Hx Alcohol Use: Yes Alcohol type: wine alcohol intake frequency: holidays/special occasions only Hx Substance Use: No substance use type: does not use Review of Systems Patient denies chest pain, shortness of breath, fever, chills, cough, wheezing, palpitations. Physical Exam Vital Signs VITALS BP 124/71 P 62 TEMP 98.6 SP02 95%RA RESP 16 PHYSICAL Full cervical extension range of motion. Full TMJ range of motion. TMD 3.5 finger breaths Mallampati Score 3, + macroglossia Dentition: several missing, lower four teeth "repaired" Lungs: clear throughout to auscultation Cardiac: regular rate and rhythm, II-III/ systolic murmur Spine: normal Carotid arteries: negative bruit Extremities: no edema Constitutional not mechanically ventilated Lab Results Anesthesia Preop Results Results Anesthesia Widget: WBC 5.47 K/ul (4.8-10.8) 06/09/22 Hgb 10.3 g/dl (12.0-16.0) L 06/09/22 Hct 32.6 % (34.1-44.9) L 06/09/22 Plt 166 K/uL (130-400) 06/09/22 Na 139 mmol/L (136-145) 06/09/22 K 3.8 mmol/L (3.5-5.1) 06/09/22 Cl 102 mmol/L (98-107) 06/09/22 CO2 30 mmol/L (21-32) 06/09/22 BUN 24 mg/dl (6-23) H 06/09/22 Creat 0.77 mg/dl (0.6-1.2) 06/09/22 Glucose Level 100 mg/dl (70-99(Fasting)) H 06/09/22 PT 11.9 Seconds (9.0-12.0) 06/09/22 PTT 29.7 Seconds (21.0-31.0) 06/09/22 INR 1.1 (0.9-1.1) 06/09/22 Urine Color Yellow 05/04/22 Urine Appearance Clear (Clear) 05/04/22 Urine pH 6.5 (4.5-7.5) 05/04/22 Urine Specific [place] 1.021 (1.000-1.030) 05/04/22 Urine Protein Negative (Negative) 05/04/22 Urine Glucose (UA) Negative (Negative) 05/04/22 Urine Ketones Negative (Negative) 05/04/22 Urine Blood 3+ (Negative) H 05/04/22 Urine Nitrite Negative (Negative) 05/04/22 Urine Bilirubin Negative (Negative) 05/04/22 Urine Urobilinogen Negative (Negative) 05/04/22 Urine Leukocyte Esterase 1+ (Negative) H 05/04/22 Urine WBC (Auto) 5-10 /hpf (0-5) H 05/04/22 Urine RBC (Auto) >30 /hpf (0-4) H 05/04/22 Urine Hyaline Casts (Auto) 1-5 /lpf (0-5) 05/04/22 Urine Epithelial Cells (Auto) >30 /lpf (0-5) H 05/04/22 Urine Bacteria (Auto) Negative (Negative) 05/04/22 Blood Type B Positive 06/09/22 Antibody Screen NEGATIVE 06/09/22 Testing Electrocardiogram Date: 06/09/22 AV dualpaced rhythm at 60 bpm. Chest X-Ray Date: 06/09/22 FINDINGS: No pneumothorax. No pleural effusions. No focal lung consolidations to suggest pneumonia. No evidence for pulmonary edema. Suture coils partially visualized within the right upper quadrant. Left-sided dual-chamber pacemaker. A cardiac valve prosthesis is noted. The heart remains enlarged. Mild chronic interstitial thickening at the lung bases persists. Stable enlargement of the central pulmonary arteries suggesting pulmonary hypertension. There is a tortuous thoracic aorta. IMPRESSION: No significant change compared to the prior study. No acute process. Echocardiogram Date: 03/01/19 LVEF 55%. Severe cLVH with basal septal thickening. No RWMA. Grade I DD. Pacemaker lead in RV. Severe LAD. Calcified aortic root and sinotubular junction. Dilated IVC with severely reduced inspiratory collapse. Severe aortic stenosis. Mild aortic insufficiency. Mild pulmonary HTN. Subsequent 04/2019 AVR. Cardiac Catheterization Date: 04/06/19 Essentially normal coronary arteries Normal left and right-sided filling pressures Preserved cardiac output Normal pulmonary artery pressures
[~2022-07-09 08:15] MED LIST changes: +ACETAMINOPHEN 500 MG TAB PO SCH; -ASPI81TA28 PO; +BUPIVACAINE 0.5 % 5 MG/1 ML PF 10ML VIAL ONE; -BUPR200T2 PO; -CALC1CHW71 PO; -CARV6.252 PO; +FAMOTIDINE 20 MG TAB PO SCH; -FURO-85 PO; -GABA-113 PO; +GABAPENTIN 300 MG CAP PO SCH; -HYDR-3124 PO; -LEVO-14 PO; -LIDOCAINE HCL 2% 2 ML VIAL (20MG/ML) ONE; -LPT20 PO; +LR 15ML/HR IV SCH; +LR 60ML/HR IV SCH; -MODA1TAB PO; -NUTR1TAB4 PO; +ORTHO JOINT MIX INFIL SCH; -PANT1TAB3 PO; -PEDICHW50 PO; -POTA1TAB97 PO; -PROPOFOL IV EMULSION 10 MG/ML 20 ML VIAL ONE; -SLOW RELEASE IRON PO; -TEMA15CA4 PO; +TRANEXAMIC ACID 1,000 MG **IV Intra-op IV SCH; +TRANEXAMIC ACID 1,000 MG **IV Pre-op IV SCH; -VENL75CA88 PO; -ZIPR1CAP8 PO; +ceFAZolin 1000MG 1,000 MG/7.5 ML SYR IV SCH; +dexAMETHasone 4 MG TAB PO SCH
--- NOTE | 2022-07-09 09:39 | History & Physical Bridge Note ---
Date of Service July 09, 2022 History & Physical Bridge Note I have examined the patient, reviewed the History & Physical and in the interval since the performance of the History & Physical I have noted the following changes of clinical significance: no changes noted
[2022-07-09] MEDS ORDERED: ORTHO JOINT ANESTHETIC ONE (09:59)
[2022-07-09] MEDS ORDERED: fentaNYL citrate 100 MCG/2 ML VIAL ONE (10:08)
[2022-07-09] MEDS ORDERED: MIDAZOLAM HCL 1 MG/ML 2ML VIAL ONE (10:08)
[2022-07-09] MEDS ORDERED: ePHEDrine sulfate 50 MG/ML AMP IV PRN (10:19)
[2022-07-09] MEDS ORDERED: ONDANSETRON INJ 2 MG/ML 2 ML VIAL IV PRN ×2 (10:19→13:29)
[2022-07-09] MEDS ORDERED: ATROPINE SULFATE 0.1 MG/ML 10ML SYR IV PRN (10:19)
[2022-07-09] MEDS ORDERED: fentaNYL citrate 100 MCG/2 ML VIAL IV PRN (10:19)
[2022-07-09] MEDS ORDERED: HYDROmorphone INJ 2 MG/ML SYR/VIAL IV PRN (10:19)
[2022-07-09] MEDS ORDERED: ONDANSETRON INJ 2 MG/ML 2 ML VIAL ONE (10:59)
[2022-07-09] MEDS ORDERED: LIDOCAINE 2% MPF LOCAL 5 ML VIAL INFIL ONE (10:59)
[2022-07-09] MEDS ORDERED: PROPOFOL IV EMULSION 10 MG/ML 20 ML VIAL IV ONE (10:59)
[2022-07-09] MEDS ORDERED: ceFAZolin 330 MG/ML 1 GM VIAL ONE (10:59)
--- NOTE | 2022-07-09 12:04 | Operative Report ---
PG Post Operative Report Pre & Post Diagnosis Operation Date: 07/09/22 10:30 Pre-Op Diagnosis: Rotator cuff arthropathy of right shoulder Post-Op Diagnosis: Rotator cuff arthropathy of right shoulder I identified the patient and participated in the time-out.: Yes Procedure Operation Date: 07/09/22 10:30 Actual Procedures p Right Reverse Total Shoulder Arthroplasty(Right) - Jimmy Ibarra DO Surgeon Jimmy Ibarra DO Plate Printer Juan Vaz PA-C Estimated Blood Loss 250 Findings Consistent with Post-Op Diagnosis Specimens Right humeral head Description of Procedure Implants used: I used a Biomet Comprehensive reverse total shoulder arthroplasty system with a size 10 press fit micro humeral stem, a +6 offset humeral tray and a +3 retentive humeral bearing, a 25 mm medium augment baseplate with a 6.5 mm central screw and superior and inferior locking screws, and a size 36 mm eccentric glenosphere. Racheal arrived at [facility] for the above procedure. She was seen in the preoperative holding area and the operative extremity was identified and signed. She was given a preoperative antibiotic, TXA, and an interscalene nerve block. She was taken back to the operating room, laid on table in supine position, and put under general anesthesia. She was then put into the beachchair position. The shoulder was then prepped and draped in sterile fashion. A timeout was done and the patient and the operative extremity was properly identified. A deltopectoral approach was used. Dissection was taken down through the fascia and the deltoid was retracted laterally and the conjoined tendon was retracted medially. The anterior shoulder was exposed. The biceps tendon was chronically torn. The subscapularis was then directly released off the lesser tuberosity with a peel technique. The inferior capsule was released and the humeral head was dislocated. A canal finding reamer was sent down the center of the humeral canal. Sequential reaming up to a size 10 reamer was done. Off that reamer, a proximal humeral resection guide was placed. The proximal humerus was resected at 135 o f inclination and 25 of retroversion. Osteophytes were then removed and the glenoid was exposed. Time was spent doing a complete capsular and labral release. The glenoid guide was then placed in the inferior aspect of the glenoid. A 3.2 mm Steinmann pin was then placed into the glenoid vault at 10 of inclination. The glenoid baseplate was then reamed. The final size 25 mm medium augment baseplate was then impacted in the place. A 6.5 mm central screw was then placed followed by superior and inferior locking screws. A 36 mm eccentric glenosphere was then impacted into place. Surrounding soft tissues were then injected with 100 cc an orthopedic pain control cocktail. The proximal humerus was then exposed. Sequential broaching of the humerus up to a size 10 broach was done. Off that broach a +6 offset and +3 retentive humeral tray was trialed. The shoulder was then reduced, brought through a full range of motion, and felt to be stable. The shoulder was then dislocated and the broach was removed. The final size 10 micro press-fit humeral stem was then impacted into place. A +3 retentive humeral bearing was then snapped onto a +6 offset humeral tray. The humeral tray was then impacted onto the humeral stem. The shoulder was once again reduced, brought through a full range of motion, and felt to be stable. The subscapularis was very poor quality and unable to be repaired. A dilute betadyne lavage was then done for 3 minutes. The joint was then irrigated with normal saline solution. Hemostasis was obtained. The interval was closed with 2-0 Vicryl suture. The skin was then closed with 2-0 Vicryl and shashi. A Silverlon dressing was placed and the arm was rested in a regular arm sling. She was then extubated and transferred to a hospital bed. She taken to the postanesthesia care unit in stable condition. She tolerated the procedure well. Jimmy Brooke PA-C, was present for the entire procedure. He was critical for patient positioning, prepping, draping, retraction exposure, wound closure and application of sterile dressing. I attest to the content of the Intraoperative Record and any orders documented therein. Any exceptions are noted below.
--- NOTE | 2022-07-09 12:59 | Anesthesiology Progress Note ---
Date of Service July 09, 2022 Anesthesia Post Procedure Vital Signs Vital Signs: Temp Pulse Pulse Resp BP Pulse Ox O2 Del Method 07/09/22 12:40 60 20 120/68 99 Oxymask 07/09/22 12:50 60 18 124/68 99 Room Air 07/09/22 12:30 60 18 131/72 99 Oxymask 07/09/22 12:22 36.1 C L 58 L 18 128/70 97 Oxymask 07/09/22 08:44 36.9 C 99 H 16 145/77 H 97 O2 Flow Rate 07/09/22 12:40 2 07/09/22 12:50 07/09/22 12:30 3 07/09/22 12:22 6 07/09/22 08:44 Transfer of Care Handoff Completed per policy Notes Mental Status: alert / awake / arousable and participated in evaluation Patient Amnestic to Procedure: Yes Nausea / Vomiting: adequately controlled Pain: adequately controlled Airway Patency, RR, SpO2: stable & adequate BP & HR: stable & adequate Hydration State: stable & adequate Anesthetic Complications: no major complications apparent and Pt Satisfied with anesthetic care
--- NOTE | 2022-07-09 13:06 | XRay Report ---
XR shoulder RT min 2V routine CLINICAL HISTORY: Post shoulder surgery COMPARISON: Right shoulder radiographs January 13, 2022. FINDINGS: Alignment of the reverse total right shoulder arthroplasty is anatomic. There is no peripr osthetic fracture or unexpected radiopaque foreign body. A small bone fragment along the proximal asp ect of the humeral component is likely postsurgical. There are skin shashi. IMPRESSION: 1. Status post total right shoulder arthroplasty. Hardware intact. No unexpected radiopaque foreign b odies. 2. Small bone fragment along the proximal aspect of the humeral component which is likely postsurgica l. ACT 112: Negative or not required by law. Electronically signed by: Bautista Jimenez M.D. 07/09/2022 1:04 PM
[2022-07-09] MEDS ORDERED: FUROSEMIDE 20 MG TAB PO SCH (13:29)
[2022-07-09] MEDS ORDERED: bisacodyL 10 MG SUPP PR PRN (13:29)
[2022-07-09] MEDS ORDERED: MAGNESIUM HYDROXIDE SUSP 30 ML UDC PO PRN (13:29)
[2022-07-09] MEDS ORDERED: HYDROmorphone INJ 0.5 MG/0.5 ML SYR IV PRN (13:29)
[2022-07-09] MEDS ORDERED: METOCLOPRAMIDE HCL INJ 5 MG/ML 2 ML VIAL IV PRN (13:29)
[2022-07-09] MEDS ORDERED: NALOXONE HCL 0.4 MG/1 ML VIAL/CARP IV PRN (13:29)
[2022-07-09] MEDS: SODIUM CHLORIDE 0.9% 1000ML 1,000 ML IV SCH (14:22)
[2022-07-09] MEDS: ACETAMINOPHEN 500 MG TAB PO SCH ×2 (14:25→21:27)
[2022-07-09] MEDS: ceFAZolin 2000MG 2,000 MG/15 ML SYR IV SCH (18:09)
[2022-07-09] MEDS: hydrOXYzine HCl 25 MG TAB PO SCH (21:25)
[2022-07-09] MEDS: POTASSIUM CHLORIDE CRTAB 20 MEQ TABCR PO SCH (21:26)
[2022-07-09] MEDS: ziprasidone HCL 80 MG CAP PO SCH (21:26)
[2022-07-09] MEDS: carvediloL 6.25 MG TAB PO SCH (21:26)
[2022-07-09] MEDS: ATORVASTATIN 20 MG TAB PO SCH (21:27)
[2022-07-09] MEDS: SENNA 8.6 MG TAB PO SCH (21:27)
[2022-07-09] MEDS: GABAPENTIN 300 MG CAP PO SCH (21:27)
[2022-07-09] MEDS: DOCUSATE SODIUM 100 MG CAP PO SCH (21:28)
[2022-07-09] MEDS: TEMAZEPAM 15 MG CAPSULE PO SCH (21:29)
[2022-07-10] MEDS: SODIUM CHLORIDE 0.9% 1000ML 1,000 ML IV SCH ×3 (00:13→18:28)
[2022-07-10] MEDS: ceFAZolin 2000MG 2,000 MG/15 ML SYR IV SCH (02:31)
[2022-07-10] MEDS: ACETAMINOPHEN 500 MG TAB PO SCH ×3 (06:07→21:57)
[2022-07-10] MEDS: LEVOTHYROXINE SODIUM 175 MCG TABLET PO SCH (06:07)
--- NOTE | 2022-07-10 07:48 | Orthopedic Progress Note ---
Date of Service July 10, 2022 Assessment & Plan (1) Status post reverse total replacement of right shoulder: Overall she is doing fairly well. She is having much pain in the right shoulder. She will be seen by physical therapy today for ambulation and range of motion exercises. She is awaiting placement at [facility]. She will need insurance authorization first. She is orthopedically stable for discharge when a bed becomes available. Deborah Springer was seen and examined at bedside this morning. Overall she is doing fairly well. She is not having much pain in the right shoulder. She was able to get some sleep last night. She has no complaints.. Review of Systems All systems reviewed & are unremarkable except as noted in HPI & below. Physical Exam On physical examination of the right shoulder, the dressing is clean and dry. Her radial, median, and ulnar nerves are checked intact at the wrist.. Results & Data Results & Data Laboratory Results . Diagnostic Findings X-rays of the right shoulder show the prosthesis to be in anatomic alignment without any evidence of fracture, screws, or loosening. PG Care Time/CCT Total # of Minutes Spent Total Time Spent with Patient: Total time spent is greater than 50% in coordination of care (as documented) at patient's floor/unit and/or counseling patient: Coding Level of Care Code 79254 Post Operative Follow-Up Diagnoses Status post reverse total replacement of right shoulder Z96.611
[2022-07-10] MEDS ORDERED: VIT B6 MAG CIT OXID POTASS CIT PO SCH (09:00)
[2022-07-10] MEDS ORDERED: [UNRECOGNIZED DRUG - OTHER] PO SCH (09:00)
[2022-07-10] MEDS: carvediloL 6.25 MG TAB PO SCH ×2 (09:15→20:06)
[2022-07-10] MEDS: POTASSIUM CHLORIDE CRTAB 20 MEQ TABCR PO SCH ×2 (09:16→20:08)
[2022-07-10] MEDS: VENLAFAXINE HCL XR 75 MG CAPXR PO SCH (09:16)
[2022-07-10] MEDS: buPROPion HCl 100 MG TABLET PO SCH (09:16)
[2022-07-10] MEDS: DOCUSATE SODIUM 100 MG CAP PO SCH ×2 (09:16→20:08)
[2022-07-10] MEDS: MULTIVITAMIN TAB PO SCH (09:16)
[2022-07-10] MEDS: ziprasidone HCL 80 MG CAP PO SCH ×2 (09:16→20:09)
[2022-07-10] MEDS: modafiniL 100 MG TAB PO SCH (09:18)
[2022-07-10] MEDS: APIXABAN 5 MG TABLET PO SCH ×2 (10:23→20:09)
[2022-07-10] MEDS: TEMAZEPAM 15 MG CAPSULE PO SCH (20:07)
[2022-07-10] MEDS: ATORVASTATIN 20 MG TAB PO SCH (20:08)
[2022-07-10] MEDS: traMADol HCL 50 MG TABLET PO PRN (20:08)
[2022-07-10] MEDS: GABAPENTIN 300 MG CAP PO SCH (20:08)
[2022-07-10] MEDS: SENNA 8.6 MG TAB PO SCH (20:09)
[2022-07-10] MEDS: hydrOXYzine HCl 25 MG TAB PO SCH (20:09)
[2022-07-11] MEDS: SODIUM CHLORIDE 0.9% 1000ML 1,000 ML IV SCH ×3 (01:32→14:16)
[2022-07-11] MEDS: LEVOTHYROXINE SODIUM 175 MCG TABLET PO SCH (05:55)
[2022-07-11] MEDS: ACETAMINOPHEN 500 MG TAB PO SCH ×2 (05:55→14:26)
[2022-07-11 07:49] LABS: Basophils # (auto) 0.04 K/uL (0-0.2); Basophils % (auto) 0.6 %; Eosinophils % (auto) 3.2 %; Hematocrit (blood only) 25.9 % (34.1-44.9); Hemoglobin 8.2 g/dl (12.0-16.0); Immature Granulocytes # (auto) 0.09 K/uL (0.00-0.02); Immature Granulocytes % (auto) 1.5 %; Lymphocytes # (auto) 0.72 K/uL (1.2-3.4); Lymphocytes % (auto) 11.6 %; Mean Corpuscular Hemoglobin 29.7 pg (25.0-34.0); Mean Corpuscular Hgb Conc 31.7 g/dL (32.0-36.0); Mean Corpuscular Volume 93.8 fL (80.0-100.0); Mean Platelet Volume 10.3 fL (9.4-12.3); Monocytes # (auto) 0.79 K/uL (0.24-0.82); Monocytes % (auto) 12.8 %; Neutrophils # (auto) 4.35 K/uL (1.4-6.5); Neutrophils % (auto) 70.3 %; Platelet Count 130 K/uL (130-400); RDW Coefficient of Variation 14.3 % (11.5-14.5); RDW Standard Deviation 47.9 fL (36.4-46.3); Red Blood Count 2.76 M/uL (3.93-5.22); White Blood Count 6.19 K/ul (4.8-10.8)
[2022-07-11 08:14] LABS: BUN Creatinine Ratio 29.8 (10-20); Calcium 7.1 mg/dl (8.5-10.1); Creatinine Clr Calc Pharmacy 52.4 ml/min; Est GFR (African American) 76.1 ml/min; Est GFR (Non-African American) 65.6 ml/min; Potassium 3.9 mmol/L (3.5-5.1)
[2022-07-11] MEDS: MULTIVITAMIN TAB PO SCH (08:42)
[2022-07-11] MEDS: modafiniL 100 MG TAB PO SCH (08:42)
[2022-07-11] MEDS: VENLAFAXINE HCL XR 75 MG CAPXR PO SCH (08:43)
[2022-07-11] MEDS: ziprasidone HCL 80 MG CAP PO SCH (08:43)
[2022-07-11] MEDS: POTASSIUM CHLORIDE CRTAB 20 MEQ TABCR PO SCH (08:43)
[2022-07-11] MEDS: APIXABAN 5 MG TABLET PO SCH (08:43)
[2022-07-11] MEDS: buPROPion HCl 100 MG TABLET PO SCH (08:43)
[2022-07-11] MEDS: DOCUSATE SODIUM 100 MG CAP PO SCH (08:43)
--- NOTE | 2022-07-11 11:40 | Progress Notes ---
DATE OF SERVICE: 07/11/2022 Racheal is a patient of Dr. Foster. She is awaiting placement. He has asked me to look in on her in his absence. Racheal is reporting some constipation and is getting medicine for that. She is philippe iting placement at [facility], which she believes may happen today. She was woozy yesterday an d had some low blood pressure and therefore was not very mobile. Today, she is feeling much more nor mal. Her shoulder pain is well controlled. She has a good appetite and is eating breakfast. Her vital signs are stable and she is afebrile. Her urine output is adequate. White count is 6, hem oglobin 8, hematocrit is 26. Hematocrit previously was 32.6 and her hemoglobin was 10. Platelets ar e 130. Her PRP is noted. She has mildly elevated BUN. On physical examination, her dressing is clean, dry and intact. There is appropriate swelling of the right shoulder area and the arm is soft. Her hand is not swollen. She has intact median, radial, a nd ulnar motor and sensory functions. Her radial pulse is 1+. She can flex and extend her elbow aga inst resistance. Racheal is stable postop day 2 from a right shoulder arthroplasty. The plan is to continue routine p ostoperative care in terms of bowel regimen, pain management and therapy. When a bed is available at the next facility, she will be transferred there by her daughter. She is receiving Eliquis. A 49 time and I cannot find any right leg to be done tomorrow as his age and flat jelly and hand. Th e patient by drilling and highlighted regarding the ear. I do not authenticated what I can see how s he does not need, I am turning every time I feel like I cannot remember anything. Thank leg. We did not have enough now direction when it comes to try to participate cannot place by tightening carried out. MEDICATIONS: Tylenol, amlodipine, vitamin B12, folic acid and vitamin D. Do not heal and that she h as a reorder all of them. I think I got down to the hospital because of the dense length 30 days. T here, no ability would be dependent on the table. I gave her right leg and be independent with her w hat it had been there does not have 100%. I think I gave her chart and I do think that her left leg because it out. I now went over totally nontoxic talked about hair on her head, neck, back to the op en abscess. We have one year. Physical and we actually do anything due to medication or diagnostic testing. She has had prior partial sincerely and then we check that and she looked like she would rob nava Dr. and call [employer], which had a good 120 114-1 thing I discharge 9 cm. She can hop on 6.5. Her CBC, PT/INR BMP and that she would feel comfortable continuing with the patient. She did report from the hospital. X-rays multiple x-rays show no further diagnostic tests x-ray, MRI, CT scan. The re is knee pain. States that this first procedure is diagnostic ultrasound table. Ultrasound anyway s into internal rotation. Diagnostic sequence started by nodding or malalignment by radiation. LAD okay Sign Your appear to be rotated. There is some slightly more. DIAGNOSTICS: CT medical, surgical, is not working just fine and down stairs and other complication h ardware complication spinal anesthetic, as well as a tear of the long run along the clavicle. We renetta l get LABS AND DIAGNOSTICS This is Davey reverse shoulder system around this portion, I would have to be placed. The humerus have a ball and occasionally to the bone socket shell right ankle lateral ma lleolus shoulder reverse shoulder glenoid plate and the lateral mass, which is seen here. She is rot ate her before. She should, but she cannot hold still works and. Her shoulder was lengthened her da rachealhter showed me how she broke her shoulder, wrist and hand exercises and her daughter showed me hepa titis or go to the very [facility] and his family practice. Anesthesiology CONSULT: [facility] [place] is a puncture brace and trying to catch a pacemaker anxious and shoulder x-r ay that she had a prior peripheral IV. Right leg is status post reverse total replacement, right emy julián. She is doing fairly well. She is having no chest pain or sores. She motion exercises [facility] Rehab physician and she was afebrile. Her blood pressure 80/40. She is away stabilized that thi s morning it was 120. She slipped on the skin texture. I went over the diagnosis of 6 L1 patient th at colon whatever her medical Right shoulder 2019. She stands for some clinical evidence of degenera tive joint disease, left knee degenerative joint disease, right shoulder DJD diagnostic EGD, right sh oulder MEDICAL DIAGNOSIS right nursing and she is at risk for right heart failure. Cervical radicular neuro genic bladder control, but I think community the same day. Job ID: [id number]
[2022-07-11] MEDS: traMADol HCL 50 MG TABLET PO PRN (11:44)
--- NOTE | 2022-07-11 14:07 | Consultation ---
Date of Consultation July 11, 2022 Assessment & Plan (1) Status post reverse total replacement of right shoulder: POD #2 s/p right total shoulder placement. Doing well from ortho standpoint. Is being d/c to [facility] for rehab. (2) Hypotension: AM 07/10/22 - resolved with IV fluids and holding coreg ok to resume normal coreg dosing resume lasix per home schedule BPs wnl today and no dizziness, etc (3) Acute blood loss anemia: About 2 gram drop from baseline. Mild. Given her gastric bypass status I recommended to her to consider IV iron replacement in marya of PO replacement. Recommended that she discuss this with her PCP. (4) Pre-diabetes: Most recent a1c uncertain. Fasting glucose today <100. (5) Chronic anemia: Baseline Hb about 10-11. Now with superimposed acute blood loss anemia. Consider IV iron replacement while at [facility]. At minimum advise a repeat CBC in 2-3 days for stability. (6) Hypothyroidism: Cont synthroid. Most recent TSH unavailable. (7) Complete heart block: s/p pacemaker insertion for such EKG today stable - v-pacing (8) Obstructive sleep apnea of adult: cont home CPAP unit (9) Hypertension: Coreg held yesterday due to hypotension BPs now normal Ok to resume coreg at discharge (10) Hypercholesterolemia: cont statin (11) Chronic kidney disease, stage 3 (moderate): stage 3a CrCL 50s today stable (12) Depression: cont home meds (13) History of aortic valve replacement: s/p TAVR 2019 echo 01/2021 (see scanned echo report) with preserved EF and preserved aortic valve function she appears compensated today on exam I was concerned she was in a.fib based on my exam; however, EKG with v-pacing only Plan from medical standpoint she appears optimized and fit for hospital d/c Thank you for this consult History of Present Illness Requesting Physician: Jimmy Ibarra DO Reason for Consultation: low blood pressure, post-op medical management Attending Physician: Jimmy Ibarra DO History of Present Illness Pleasant 81yo female with history of pre-DM, CKD stage 3, chronic anemia, gastric bypass status, pacemaker status, PAF on Eliquis, MANISHA on CPAP, HTN, GERD, h/o s/p TAVR (follows with Clem Walker DO - [facility]), hypothyroidism, and prior episode of Takotsubo's. She presented on 07/09/22 for elective right total shoulder replacement by Dr Quinton hankins. Surgery went well without any complications. EBL 250cc. However, on 07/10, she felt unwell with dizziness, lightheadedness, and low blood pressures. She had considerable pain in the right shoulder yesterday/today. Coreg and lasix were held. She received IV fluids yesterday and today. She reports that today was a much better day. She had no dizziness, BPs were better, eating/drinking, pain improved, and overall just feeling better. She is scheduled to go to [facility] today. She denies any chest pain, dyspnea, abd pain, nausea, emesis, dysphagia, fevers or chills. She had a bowel movement today. Allergies Allergy/AdvReac Type Severity Reaction Status Date / Time lactose Allergy Mild Intolerance Verified 07/09/22 08:36 oxycodone Allergy Mild Rash Verified 07/09/22 08:36 prednisone Allergy Mild Itchy Verified 07/09/22 08:36 Sulfa (Sulfonamide Allergy Mild Takes off Verified 07/09/22 08:36 Antibiotics) "top layer of tongue" simvastatin [From Zocor] Allergy Muscle Verified 07/09/22 08:36 aches, bone pain Zuvmqpy-ONA-ZiR Reductase AdvReac Mild Bone pain Verified 07/09/22 08:36 Inhibitor [Yrvfaca-Vpk-Eal Reductase Inhibitor] Home Medications Medication Instructions Recorded Confirmed Type calcium carbonate 600 mg calcium 600 mg PO BID 09/10/18 07/09/22 History (1,500 mg) tablet ferrous sulfate 142 mg (45 mg 142 mg PO QPM 09/10/18 07/09/22 History iron) tablet,extended release (Slow Release Iron) gabapentin 300 mg capsule 600 mg PO HS 09/10/18 07/09/22 History pediatric multivitamin 1 tab PO BID 09/10/18 07/09/22 History (Flintstones Multivitamin chewable tablet) temazepam 15 mg capsule 15 mg PO HS 09/10/18 07/09/22 History venlafaxine 75 mg capsule,extended 75 mg PO QAM 09/10/18 07/09/22 History release 24 hr vit B6-mag cit,ox-potassium cit 2 tabs PO QAM 09/10/18 07/09/22 History 3.75 mg-45 mg-45 mg-49.5 mg tablet ER (Theralith XR) ziprasidone HCl 80 mg capsule 80 mg PO BID 09/10/18 07/09/22 History (Geodon) atorvastatin 80 mg tablet 80 mg PO QPM 06/20/19 07/09/22 History bupropion HCl 100 mg tablet 100 mg PO QAM 06/20/19 07/09/22 History carvedilol 6.25 mg tablet 6.25 mg PO BID 06/20/19 07/09/22 History cyclosporine 0.05 % eye drops in a 1 drops ophthalmic (eye) BID PRN 06/20/19 06/07/22 History dropperette Dry Eye(S) modafinil 100 mg tablet 100 mg PO QAM 06/20/19 07/09/22 History potassium chloride 20 mEq 20 meq PO BID #30 tabs 06/20/19 07/09/22 History tablet,extended release alendronate 70 mg tablet (Fosamax) 70 mg PO WK 09/13/19 07/09/22 History cyanocobalamin (vitamin B-12) 1,000 mcg subcut UD 09/13/19 07/09/22 History 1,000 mcg/mL injection solution hydroxyzine HCl 25 mg tablet 25 mg PO HS 09/13/19 07/09/22 History acetaminophen 650 mg 1,300 mg PO Q12H 06/07/22 07/09/22 History tablet,extended release apixaban 5 mg tablet (Eliquis) 5 mg PO BID 06/07/22 07/09/22 History furosemide 20 mg tablet 20 mg PO 3XWK 06/07/22 07/09/22 History levothyroxine 175 mcg tablet 175 mcg PO QAM 06/07/22 07/09/22 History tramadol 50 mg tablet 50 mg PO Q8H PRN pain #30 tabs 07/09/22 Rx Patient History Medical History (Updated 07/11/22 @ 21:40 by Luis Antonio Medina) Anemia Chronic Anxiety Chronic kidney disease, stage 3 (moderate) Follows with [facility] nephro (Dr. Kraus) Congestive heart failure Daytime sleepiness Reason for modafinil Depression Esophageal reflux History of aortic valve stenosis s/p AVR (04/2019) History of thyroid cancer s/p partial thyroidectomy/radiation (2002) Hypercholesterolemia Hypertension Hypothyroidism Irritable bowel syndrome (IBS) Kidney stones Obesity Osteoarthritis Pacemaker Implanted 2018 ([employer]) Follows with Dr. Walker Paroxysmal atrial fibrillation Paroxysmal atrial tachycardia Restless legs syndrome Sleep apnea CPAP + 2L O2 Surgical History (Updated 07/11/22 @ 21:42 by Luis Antonio Medina) History of aortic valve replacement 2019 ([facility] [place]) History of appendectomy History of arthroscopic knee surgery History of bilateral cataract extraction History of bilateral tubal ligation History of cardiac cath 03/2019 ([place]) > no stents History of colonoscopy with polypectomy History of esophagogastroduodenoscopy (EGD) History of gastric bypass History of nephrolithotomy with removal of calculi History of open reduction and internal fixation (ORIF) procedure left wrist---hardware in place History of open reduction and internal fixation (ORIF) procedure left elbow--hardware in place History of partial thyroidectomy d/t cancer History of tonsillectomy and adenoidectomy History of tooth extraction History of total left knee replacement (TKR) History of total right hip replacement History of total right knee replacement (TKR) History of wisdom tooth extraction S/P cardiac pacemaker procedure 2018 Status post biopsy of thyroid gland malignant Family History Mother Ovarian cancer Father Parkinson disease Other No family history of adverse response to anesthesia Social History (Updated 07/11/22 @ 21:27 by Luis Antonio Medina) Smoking Status: Never smoker Second Hand Exposure: No; Hx Alcohol Use: Yes Alcohol type: wine Alcohol Intake Frequency: Monthly or Less Hx Substance Use: No Preferred Language: Japanese Communication Ability: Effective Acting Professor Required: No Beliefs That Will Affect Care: None marital status: / Current Living Situation: Alone current occupational status: 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 How many Children do You have: 4 Feels Safe at Home: Yes Assistive Devices: None Review of Systems Review of Systems: gen - no fevers, chills; good appetite today HENT - no runny nose, congestion or dysphagia CV - no chest pain, no orthopnea pulm - no cough or dyspnea GI - no nausea/emesis/abd pain; no constipation; +BM today - voiding without LUTS musculo - right shoulder pain only neuro - transient numbness right hand now resolved; no headache endo - h/o preDM only skin - no rash Physical Exam Physical Exam: gen - sitting in chair comfortably, NAD, pleasant eyes - PERRL HENT - MMM, no lesions neck - no JVD, no lymph nodes heart - modestly irregular (extra beats?), regular rate, s1 s2, 2/6 holosystolic murmur mid LSB lungs - CTA b/l abd - soft NT ND BS+ ext - no edema, pulses 2+ b/l skin - no rash musculo - right shoulder in large sling/brace neuro - handgrip 5/5 b/l Results & Data ([facility]) Vital Signs (Past 12 Hours) Vital Signs Temp Pulse Pulse Resp BP Pulse Ox O2 Del Method 07/11/22 12:45 36.6 C 70 18 124/70 96 Room Air 07/11/22 08:05 114/66 07/11/22 08:00 36.7 C 60 60 18 120/60 99 Room Air 07/11/22 08:27 Room Air Laboratory Results Laboratory Results - last 24 hr 07/11/22 07/11/22 07:33 07:33 WBC 6.19 RBC 2.76 L Hgb 8.2 L Hct 25.9 L MCV 93.8 MCH 29.7 MCHC 31.7 L RDW Std Deviation 47.9 H RDW Coeff of Mary 14.3 Plt Count 130 MPV 10.3 Immature Gran % (Auto) 1.5 Neut % (Auto) 70.3 Lymph % (Auto) 11.6 Coleman % (Auto) 12.8 Eos % (Auto) 3.2 Baso % (Auto) 0.6 Neut # (Auto) 4.35 Lymph # (Auto) 0.72 L Coleman # (Auto) 0.79 Eos # (Auto) 0.20 Baso # (Auto) 0.04 Immature Gran # (Auto) 0.09 H Sodium 139 Potassium 3.9 Chloride 108 H Carbon Dioxide 28 Anion Gap 3 BUN 25 H Creatinine 0.84 Est Cr Clr Drug Dosing 52.4 Est GFR ( Amer) 76.1 Est GFR (Non-Af Amer) 65.6 BUN/Creatinine Ratio 29.8 H Glucose 90 Calcium 7.1 L Diagnostic Findings EKG - my reading - ventricular pacing PG Care Time/CCT Total # of Minutes Spent Total Time Spent with Patient: Total time spent is greater than 50% in coordination of care (as documented) at patient's floor/unit and/or counseling patient: Coding Level of Care Code 89958 Subseq Obs Care Lvl 3 Diagnoses Status post reverse total replacement of right shoulder Z96.611 Hypotension I95.9 Acute blood loss anemia D62 Pre-diabetes R73.03 Chronic anemia D64.9 Hypothyroidism E03.9 Complete heart block I44.2 Obstructive sleep apnea of adult G47.33 Hypertension I10 Hypercholesterolemia E78.00 Chronic kidney disease, stage 3 (moderate) N18.3 Depression F32.9 History of aortic valve replacement Z95.2
--- NOTE | 2022-07-12 12:44 | Electrocardiogram Report ---
Test Reason : Blood Pressure : / mmHG Vent. Rate : 074 BPM Atrial Rate : 074 BPM P-R Int : 202 ms QRS Dur : 220 ms QT Int : 488 ms P-R-T Axes : 040 -63 106 degrees QTc Int : 541 ms Atrial-sensed ventricular-paced rhythm Abnormal ECG When compared with ECG of 09-JUN-2022 13:36, Vent. rate has increased BY 14 BPM Confirmed by Leonard Peters ([id number]) on 07/12/2022 12:44:08 PM Referred By: Jimmy Ibarra Confirmed By:Leonard Peters
[2022-07-13] MEDS ORDERED: ALENDRONATE SODIUM 70 MG TAB PO SCH (06:30)
--- NOTE | 2022-07-13 07:06 | Discharge Summary ---
Date of Service July 13, 2022 Principal Diagnosis Same as "Discharge Diagnosis" noted below under Discharge Instructions. Discharge Exam On physical examination of the right shoulder, the dressing is clean and dry. Her radial, median, and ulnar nerves are checked intact at the wrist.. Discharge Data Consultations 07/10/22 14:58 Consult Hospitalist Routine Procedures Performed Operation Date: 07/09/22 10:30 Actual Procedures p Right Reverse Total Shoulder Arthroplasty(Right) - Jimmy Ibarra DO Ordered Studies 07/09/22 05:00 US - OR guided needle placemen Routine Hospital Course (1) Status post reverse total replacement of right shoulder: On July 09, 2022 Racheal arrived at [facility] and underwent a right reverse shoulder replacement without complication. She had a general anesthetic and a right interscalene nerve block. Postoperatively she was placed in a sling and transferred to the general orthopedic floors. Her hospital course was uneventful. On postop day #1, her vital signs were stable and her pain was well controlled. She was able to participate well with physical therapy doing ambulation and range of motion exercises. She was awaiting discharge to an acute care facility. On postop day #2 she continued to do well. Her pain was well controlled. A bed was available at [facility]. She was then discharged to [facility]. She will follow-up with orthopedics in 2 weeks. PG Care Time/CCT Total # of Minutes Spent Total Time Spent with Patient: Total time spent is greater than 50% in coordination of care (as documented) at patient's floor/unit and/or counseling patient: Discharge Plan Discharge Items Patient Disposition: Transfer Inpatient Rehab Fac Reason For Visit: DJD Right Shoulder Discharge Diagnosis: Right reverse shoulder replacement Activity: Per Instructions section Non-emergency contact: Surgeon Call non-emergency contact if: your wound has increased redness and your wound has increased drainage Follow-up/Referrals: Raad Skinner MD [Primary Care Provider] - Diet: Regular Addtl Attending Provider Instructions: Activity and Therapy Recommendations: * If you are using [facility] then therapy will be provided at your home until they feel you have accomplished all of your goals. * If you are using [facility] then Physical Therapy will be provided until they feel you are ready to start Outpatient Physical Therapy. * If you are not using home therapy then Outpatient Physical Therapy should start about 3-5 days from your day of surgery. Therapy will last about 8-12 weeks * Wear your sling for 3 weeks, unless otherwise instructed. You may remove your sling to shower and to dress, but otherwise, you should be in your sling at all times, including while sleeping * The shoulder replacement is very stable and you can use your hand while in the sling * You were shown a series of exercises in the hospital. Do these exercises daily including the exercises you were shown in physical therapy. Medications: * Narcotic You will likely be sent home from the hospital with a prescription for the narcotic pain medication that worked best throughout your stay. * Other medications may be prescribed for specific circumstances. If you have any questions, please call the office at . * Resume previous home medications unless otherwise instructed Dressing Care: Leave the Silverlon dressing in place for 7 days. After 7 days you may remove the dressing. If the incision is not draining then you may leave the shashi open to air. If there is a little bit of drainage or if the shashi are getting stuck on your clothing then cover the incision with a dry dressing. The shashi will be removed at your 2 week follow-up appointment. Showering: You may shower with the Silverlon dressing in place. Do not let the shower spray hit the dressing directly. Pat the Silverlon dressing dry. If the dressing becomes wet underneath, then simply remove the dressing. Keep the incision dry until you are 7 days out from the day of surgery. After 7 days you may remove the Silverlon dressing and shower with the shashi exposed. Let soapy water run over the shashi and pat them dry. Do not scrub or soak the incision. Things To Watch For: * Drainage from the incision site that occurs more than one week after your surgery. * Increased redness at the incision site. * Fever above 102 degrees Fahrenheit. * Unusual chest pain or shortness of breath. * Call [facility] at with any of the above problems Follow-Up Visit: Follow-up with Dr. Ibarra's PA (Jimmy Brooke) 2-3 weeks after your day of surgery. He will remove your shashi and answer any questions. If you have any additional questions or concerns, Dr Ibarra is usually in the office at the same time and will be available An appointment was probably scheduled when you signed-up for surgery in the office. If you have any questions call More detailed instructions as well as Frequently Asked Questions were provided in a folder by our office when you signed-up for surgery. Please review these instructions when you get home. If you have any further questions or concerns, please feel free to call the office at [phone] Pending Studies at Discharge: No Stand-Alone Forms: [facility] [employer], Smoking Cessation Skilled Items Patient informed of condition?: Yes DNR: No Discharge Level of Care: Acute rehab Communicable Disease: No Discharge Prognosis: Improving Lines: None Urinary Catheter: No Medications and DC Order Prescriptions: Continued bupropion HCl 100 mg tablet 100 mg PO QAM potassium chloride 20 mEq tablet extended release 20 meq PO BID Qty: 30 atorvastatin 80 mg tablet 80 mg PO QPM carvedilol 6.25 mg tablet 6.25 mg PO BID modafinil 100 mg tablet 100 mg PO QAM cyclosporine 0.05 % dropperette 1 drops OP BID PRN (Reason: Dry Eye(S)) alendronate [Fosamax] 70 mg Tablet 70 mg PO WK Rx Instructions: on tuesday in the am hydroxyzine HCl 25 mg Tablet 25 mg PO HS cyanocobalamin (vitamin B-12) 1,000 mcg/mL Solution 1,000 mcg SUBCUT UD Rx Instructions: every 3 months gabapentin 300 mg capsule 600 mg PO HS ziprasidone HCl [Geodon] 80 mg capsule 80 mg PO BID venlafaxine 75 mg capsule,extended release 24hr 75 mg PO QAM temazepam 15 mg capsule 15 mg PO HS Flintstones Multivitamin Tablet,Chewable 1 tab PO BID calcium carbonate 600 mg calcium (1,500 mg) Tablet 600 mg PO BID Slow Release Iron 142 mg (45 mg iron) Tablet Extended Release 142 mg PO QPM Theralith XR 3.75-45-45-49.5 mg Tablet Extended Release 2 tabs PO QAM levothyroxine 175 mcg Tablet 175 mcg PO QAM Eliquis 5 mg Tablet 5 mg PO BID furosemide 20 mg tablet 20 mg PO [id number] Rx Instructions: tuesday, tuesday and tuesday acetaminophen 650 mg Tablet Extended Release 1,300 mg PO Q12H tramadol 50 mg tablet 50 mg PO Q8H PRN (Reason: pain) Qty: 30 0RF Discharge Orders: Discharge Order (Routine); Ordered 07/11/22 Ordered By: Ernie Dick Admission Data Admit Date/Time: 07/09/22 12:23 Attending Provider: Jimmy Ibarra Admit Provider: Jimmy Ibarra Primary Care Provider: Raad Skinner Other Providers: [facility] ; Luis Antonio Medina Other Interventions: Discharge Summary Assessment (RN) Last Done: 07/11/22 14:23
== END 2022-07-11 15:32 ==
LOC: ASU 08:15 → 3E 08:15

== ENCOUNTER 2022-11-27 12:19 | Inpatient (IN) ==
--- NOTE | 2022-11-27 12:24 | Emergency Department Note ---
Impression & Plan Acute anemia, Fall, Weakness, Heme positive stool, Traumatic hematoma of buttock ED Provider Note NAME: WERNER NICOLAS AGE: 82 SEX: F : 1940 ARRIVES VIA: Ambulance INFORMANT: Patient, ED PROVIDER(S): Vega Ruggiero MD CHIEF COMPLAINT: Slurred speech, fall, buttock pain MEDICAL DECISION MAKING: Patient presents for slurred speech fall and buttock pain and is on Eliquis. Patient did have a CT of the head completed along with left hip sacrum and coccygeal films. The patient did have blood work completed along with an EKG. Patient CT of the head is negative. Patient's plain film is unremarkable. The patient's blood work showed anemia hemoglobin of 8.6 this is somewhat close to where the patient had blood work done most recently and has been in the eights before. White count platelet count unremarkable with normal kidney function relatively normal electrolytes. Prerenal azotemia noted. The patient did receive small mount of IV fluids given the patient's intermittent hypotension. Urinalysis does not show obvious infection. Patient would like to go home. The patient's troponin is elevated and so repeat was ordered. The patient did undergo an ambulatory trial and seems to do relatively well. I did state that we would perform a Hemoccult given the patient's slight drop in hemoglobin from prior and given the patient's Eliquis use. Patient is heme positive. Protonix bolus and drip ordered. Type and screen ordered and I did speak the on-call hospitalist Dr. Daily. Patient also does have a larger hematoma to the left buttock which is likely secondary to the fall and the Eliquis use but the patient has no hip pain no abdominal pain. Patient was admitted to the medicine service. Prior /Outside records reviewed: None Differential diagnosis: ICH, TIA fracture, dislocation, contusion, intra-abdominal, pneumothorax, intrathoracic, intracranial, neurologic, compartment syndrome, rhabdomyolysis, as well as other pathologies. Diagnostics, as interpreted by me: ECG: A sensed V paced rhythm, rate of 63, wide QRS, lateral branch block pattern. No ST elevations. Cardiac monitoring: An order was placed for continuous cardiac monitoring. The monitor shows a rate of 65 with paced rhythm. Patient was placed on pulse oximetry Medical decision rules: None Imaging studies: See below HPI: Patient present status post fall that occurred prior to arrival around 830 this morning. The patient states that she was bending to pick something up and then fell to her buttock. The patient does not believe that she struck her head and denies any LOC. Patient's family member and found her and thought that she has some slurred speech and the patient has been worked up for possible TIAs and the patient has had intermittent hypotension. Additional history was gathered from the daughter at bedside. She did state that she was recent seen by Dr Walker's office with cardiology and they were to stop her on her Coreg and to start her on metoprolol. The patient has not yet done this or picked up the medication is continuing to take the Coreg. Patient does complain of some left buttock pain but no head or neck pain. No numbness tingling or focal weakness. Patient denies any current slurred speech or confusion. Patient denies any chest pains or shortness of breath. Patient was noted to have low blood pressure this morning at 80s over 40s and the repeat blood pressure showed the patient had a systolic of slightly greater than 100. PAST MEDICAL HISTORY: See Below PAST SURGICAL HISTORY: See Below SOCIAL HISTORY: See Below HOME MEDICATIONS: See Below ALLERGIES: See Below VITALS: See Below PHYSICAL EXAMINATION: GENERAL: NAD, wearing a mask, non-toxic. Wearing glasses. EYE EXAM: Normal conjunctiva. PERRL, no anisocoria and EOM's grossly intact w/o pain. NECK: Supple, no nuchal rigidity, no adenopathy, non-tender. No signs of meningismus. FROM of the neck with good chin to chest and neck extension. No stridor. LUNGS: Clear to auscultation. Normal chest wall mechanics. HEART: NSR, systolic ejection murmur noted. ABDOMEN: Abdomen soft, non-tender, normo-active bowel sounds, no masses, no rebound or guarding. BACK: No CVA TTP. SKIN: Bruising noted with hematoma to the left buttock area. UPPER EXTREMITIES: Upper extremities are grossly normal. No TTP or obvious deformity. LOWER EXTREMITIES: Grossly normal, no edema. Good range of motion at the hip knee and ankle. NEURO EXAM: A&O x3, cranial nerves II-XII grossly intact, normal speech, moves all 4 extremities. No sensory deficits and good dlkxap-vw-yxaz. Past Med/Surg History Medical History Anemia Chronic Anxiety Chronic kidney disease, stage 3 (moderate) Follows with [facility] nephro (Dr. Kraus) Congestive heart failure Daytime sleepiness Reason for modafinil Depression Esophageal reflux History of aortic valve stenosis s/p AVR (04/2019) History of thyroid cancer s/p partial thyroidectomy/radiation (2002) Hypercholesterolemia Hypertension Hypothyroidism Irritable bowel syndrome (IBS) Kidney stones Obesity Osteoarthritis Pacemaker Implanted 2017 ([employer]) Follows with Dr. Walker Paroxysmal atrial fibrillation Paroxysmal atrial tachycardia Restless legs syndrome Sleep apnea CPAP + 2L O2 Surgical History [place] History of appendectomy History of arthroscopic knee surgery History of bilateral cataract extraction History of bilateral tubal ligation History of cardiac cath 03/2019 ([facility]) > no stents History of colonoscopy with polypectomy History of esophagogastroduodenoscopy (EGD) History of gastric bypass History of nephrolithotomy with removal of calculi History of open reduction and internal fixation (ORIF) procedure left wrist---hardware in place History of open reduction and internal fixation (ORIF) procedure left elbow--hardware in place History of partial thyroidectomy d/t cancer History of tonsillectomy and adenoidectomy History of tooth extraction History of total left knee replacement (TKR) History of total right hip replacement History of total right knee replacement (TKR) History of wisdom tooth extraction S/P cardiac pacemaker procedure 2018 Status post biopsy of thyroid gland malignant Family History Mother Ovarian cancer Father Parkinson disease Other No family history of adverse response to anesthesia Social History Smoking Status: Never smoker Second Hand Exposure: No; Hx Alcohol Use: No Hx Substance Use: No Preferred Language: Italian Communication Ability: Effective 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: No Beliefs That Will Affect Care: None marital status: / Current Living Situation: Alone current occupational status: 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 How many Children do You have: 4 Other Information That Helps Us Care for You: No Feels Safe at Home: Yes Assistive Devices: Walker Allergies Allergies Allergy/AdvReac Type Severity Reaction Status Date / Time lactose Allergy Mild Intolerance Verified 11/27/22 17:31 oxycodone Allergy Mild Rash Verified 11/27/22 17:31 prednisone Allergy Mild Itchy Verified 11/27/22 17:31 Sulfa (Sulfonamide Allergy Mild Takes off Verified 11/27/22 17:31 Antibiotics) "top layer of tongue" simvastatin [From Zocor] Allergy Muscle Verified 11/27/22 17:31 aches, bone pain Ikqvjrx-GEA-OtI Reductase AdvReac Mild Bone pain Verified 11/27/22 17:31 Inhibitor [Jnyymnt-Ess-Iqe Reductase Inhibitor] Home Meds Home Medications Medication Instructions Recorded Confirmed calcium carbonate 600 mg calcium 600 mg PO BID 09/10/18 11/27/22 (1,500 mg) tablet ferrous sulfate 142 mg (45 mg 142 mg PO QPM 09/10/18 11/27/22 iron) tablet,extended release (Slow Release Iron) gabapentin 300 mg capsule 600 mg PO HS 09/10/18 11/27/22 temazepam 15 mg capsule 15 mg PO HS 09/10/18 11/27/22 venlafaxine 75 mg capsule,extended 75 mg PO QAM 09/10/18 11/27/22 release 24 hr vit B6-mag cit,ox-potassium cit 2 tabs PO QAM 09/10/18 11/27/22 3.75 mg-45 mg-45 mg-49.5 mg tablet ER (Theralith XR) ziprasidone HCl 80 mg capsule 80 mg PO BID 09/10/18 11/27/22 (Geodon) bupropion HCl 100 mg tablet 100 mg PO QAM 06/20/19 11/27/22 modafinil 100 mg tablet 100 mg PO QAM 06/20/19 11/27/22 potassium chloride 20 mEq 20 meq PO BID #30 tabs 06/20/19 11/27/22 tablet,extended release alendronate 70 mg tablet (Fosamax) 70 mg PO WK 09/13/19 11/27/22 cyanocobalamin (vitamin B-12) 1,000 mcg subcut UD 09/13/19 11/27/22 1,000 mcg/mL injection solution hydroxyzine HCl 25 mg tablet 25 mg PO HS 09/13/19 11/27/22 acetaminophen 650 mg 1,300 mg PO Q12H 06/07/22 11/27/22 tablet,extended release apixaban 5 mg tablet (Eliquis) 5 mg PO BID 06/07/22 11/27/22 furosemide 20 mg tablet 20 mg PO BID 06/07/22 11/27/22 Bariactric Advantage Multi Vit 1 tab PO BID 09/17/22 11/27/22 levothyroxine 200 mcg tablet 200 mcg PO DAILYBB 09/17/22 11/27/22 atorvastatin 20 mg tablet 40 mg PO DAILY 11/01/22 11/27/22 Lactobacillus rhamnosus GG 15 1 cap PO DAILY 11/27/22 11/27/22 billion cell sprinkle capsule (Culturelle) aspirin 81 mg tablet,delayed 81 mg PO QAM 11/27/22 11/27/22 release cholecalciferol (vitamin D3) 50 50 mcg PO DAILY 11/27/22 11/27/22 mcg (2,000 unit) tablet (Vitamin D3) copper 2 mg tablet 2 mg PO DAILY 11/27/22 11/27/22 cyanocobalamin (vitamin B-12) 2,500 mcg PO QAM 11/27/22 11/27/22 2,500 mcg tablet metoprolol succinate 25 mg 12.5 mg PO BID 11/27/22 11/27/22 tablet,extended release 24 hr omeprazole 40 mg capsule,delayed 40 mg PO QAM 11/27/22 11/27/22 release vit C 250 mg-vit E 90 mg-zinc 40 1 tab PO BID 11/27/22 11/27/22 mg-copper 1 gv-slodzt-ssfyty capsule (PreserVision AREDS-2) Previous Rx's Medication Instructions Recorded tramadol 50 mg tablet 50 mg PO Q8H PRN pain #30 tabs 07/09/22 Results & Data (ED) Vital Signs Vital Signs - 24 hr 11/27/22 12:29 11/27/22 12:49 Temperature 36.9 C Temperature Source Oral Pulse Rate 64 Pulse Rhythm Regular Pulse Strength Normal Respiratory Rate 20 Respiratory Effort / Characteristics Non-Labored Respiratory Depth Normal Respiratory Pattern Regular Blood Pressure 116/61 Blood Pressure Mean 79 Blood Pressure Position Lying Pulse Oximetry 97 Oxygen Delivery Method Room Air Room Air Sepsis Recent Fever Within 48 Hours No Sepsis New/Unexplained Change in Mental Status No Sepsis Action Taken by Nursing No Action Required Home Medications Current Medication List: was personally reviewed by me Laboratory Data Attestation: I reviewed the patient's lab results. 11/28/22 06:38 11/28/22 06:38 Lab Results 11/27/22 11/27/22 11/27/22 Range/Units 12:30 12:30 12:30 WBC 9.15 (4.8-10.8) K/ul RBC 3.00 L (4.20-5.40) M/uL Hgb 8.6 L (12.0-16.0) g/dl Hct 27.2 L (37.0-47.0) % MCV 90.7 (80.0-100.0) fL MCH 28.7 (25.0-34.0) pg MCHC 31.6 L (32.0-36.0) g/dL RDW Std Deviation 50.3 H (36.4-46.3) fL RDW Coeff of Mary 15.1 H (11.5-14.5) % Plt Count 177 (130-400) K/uL MPV 9.9 (9.4-12.4) fL Immature Gran % (Auto) 0.4 % Neut % (Auto) 80.7 % Lymph % (Auto) 9.1 % [place] % (Auto) 7.5 % Eos % (Auto) 1.4 % Baso % (Auto) 0.9 % Neut # (Auto) 7.38 H (1.40-6.50) K/uL Lymph # (Auto) 0.83 L (1.2-3.4) K/uL [place] # (Auto) 0.69 H (0.11-0.59) K/uL Eos # (Auto) 0.13 (0-0.50) K/uL Baso # (Auto) 0.08 (0-0.2) K/uL Immature Gran # (Auto) 0.04 (0.01-0.20) K/uL Sodium 139 (136-145) mmol/L Potassium 4.3 (3.5-5.1) mmol/L Chloride 104 (98-107) mmol/L Carbon Dioxide 32 (21-32) mmol/L Anion Gap 3 (3-11) BUN 24 H (6-23) mg/dl Creatinine 0.89 (0.6-1.2) mg/dl Est Cr Clr Drug Dosing 50.3 ml/min Est GFR ( Amer) 70.4 ml/min Est GFR (Non-Af Amer) 60.8 ml/min BUN/Creatinine Ratio 27.0 H (10-20) Glucose 96 (70-99(Fasting)) mg/dl Calcium 7.9 L (8.5-10.1) mg/dl Total Bilirubin 0.3 (0.2-1.0) mg/dl AST 30 (13-39) U/L ALT 24 (7-52) U/L Alkaline Phosphatase 84 (34-104) U/L Troponin I High Sens 42.3 H (0-14) pg/ml Total Protein 5.5 L (6.0-8.3) gm/dl Albumin 3.3 L (3.4-5.0) gm/dl Globulin 2.2 L (2.5-4.0) gm/dl Albumin/Globulin Ratio 1.5 (0.9-2) TSH 3.525 (0.300-4.500) uIu/ml Urine Color Urine Appearance (Clear) Urine pH (4.5-7.5) Ur Specific [place] (1.000-1.030) Urine Protein (Negative) Urine Glucose (UA) (Negative) Urine Ketones (Negative) Urine Blood (Negative) Urine Nitrite (Negative) Urine Bilirubin (Negative) Urine Urobilinogen (Negative) Ur Leukocyte Esterase (Negative) Urine WBC (Auto) (0-5) /hpf Urine RBC (Auto) (0-4) /hpf U Hyaline Cast (Auto) (0-5) /lpf U Epithel Cells (Auto) (0-5) /lpf Urine Bacteria (Auto) (Negative) POC Stool Occult Blood (Negative) SARS-CoV-2, RNA, NAAT (NEGATIVE) 11/27/22 11/27/22 11/27/22 Range/Units 15:10 15:12 15:49 WBC (4.8-10.8) K/ul RBC (4.20-5.40) M/uL Hgb (12.0-16.0) g/dl Hct (37.0-47.0) % MCV (80.0-100.0) fL MCH (25.0-34.0) pg MCHC (32.0-36.0) g/dL RDW Std Deviation (36.4-46.3) fL RDW Coeff of Mary (11.5-14.5) % Plt Count (130-400) K/uL MPV (9.4-12.4) fL Immature Gran % (Auto) % Neut % (Auto) % Lymph % (Auto) % [place] % (Auto) % Eos % (Auto) % Baso % (Auto) % Neut # (Auto) (1.40-6.50) K/uL Lymph # (Auto) (1.2-3.4) K/uL [place] # (Auto) (0.11-0.59) K/uL Eos # (Auto) (0-0.50) K/uL Baso # (Auto) (0-0.2) K/uL Immature Gran # (Auto) (0.01-0.20) K/uL Sodium (136-145) mmol/L Potassium (3.5-5.1) mmol/L Chloride (98-107) mmol/L Carbon Dioxide (21-32) mmol/L Anion Gap (3-11) BUN (6-23) mg/dl Creatinine (0.6-1.2) mg/dl Est Cr Clr Drug Dosing ml/min Est GFR ( Amer) ml/min Est GFR (Non-Af Amer) ml/min BUN/Creatinine Ratio (10-20) Glucose (70-99(Fasting)) mg/dl Calcium (8.5-10.1) mg/dl Total Bilirubin (0.2-1.0) mg/dl AST (13-39) U/L ALT (7-52) U/L Alkaline Phosphatase (34-104) U/L Troponin I High Sens 48.2 H (0-14) pg/ml Total Protein (6.0-8.3) gm/dl Albumin (3.4-5.0) gm/dl Globulin (2.5-4.0) gm/dl Albumin/Globulin Ratio (0.9-2) TSH (0.300-4.500) uIu/ml Urine Color Yellow Urine Appearance Clear (Clear) Urine pH 5.5 (4.5-7.5) Ur Specific [place] 1.013 (1.000-1.030) Urine Protein Negative (Negative) Urine Glucose (UA) Negative (Negative) Urine Ketones Negative (Negative) Urine Blood 2+ H (Negative) Urine Nitrite Negative (Negative) Urine Bilirubin Negative (Negative) Urine Urobilinogen Negative (Negative) Ur Leukocyte Esterase Negative (Negative) Urine WBC (Auto) 1-5 (0-5) /hpf Urine RBC (Auto) >30 H (0-4) /hpf U Hyaline Cast (Auto) 1-5 (0-5) /lpf U Epithel Cells (Auto) 5-10 H (0-5) /lpf Urine Bacteria (Auto) Negative (Negative) POC Stool Occult Blood Positive A (Negative) SARS-CoV-2, RNA, NAAT (NEGATIVE) 11/27/22 Range/Units 16:07 WBC (4.8-10.8) K/ul RBC (4.20-5.40) M/uL Hgb (12.0-16.0) g/dl Hct (37.0-47.0) % MCV (80.0-100.0) fL MCH (25.0-34.0) pg MCHC (32.0-36.0) g/dL RDW Std Deviation (36.4-46.3) fL RDW Coeff of Mary (11.5-14.5) % Plt Count (130-400) K/uL MPV (9.4-12.4) fL Immature Gran % (Auto) % Neut % (Auto) % Lymph % (Auto) % [place] % (Auto) % Eos % (Auto) % Baso % (Auto) % Neut # (Auto) (1.40-6.50) K/uL Lymph # (Auto) (1.2-3.4) K/uL [place] # (Auto) (0.11-0.59) K/uL Eos # (Auto) (0-0.50) K/uL Baso # (Auto) (0-0.2) K/uL Immature Gran # (Auto) (0.01-0.20) K/uL Sodium (136-145) mmol/L Potassium (3.5-5.1) mmol/L Chloride (98-107) mmol/L Carbon Dioxide (21-32) mmol/L Anion Gap (3-11) BUN (6-23) mg/dl Creatinine (0.6-1.2) mg/dl Est Cr Clr Drug Dosing ml/min Est GFR ( Amer) ml/min Est GFR (Non-Af Amer) ml/min BUN/Creatinine Ratio (10-20) Glucose (70-99(Fasting)) mg/dl Calcium (8.5-10.1) mg/dl Total Bilirubin (0.2-1.0) mg/dl AST (13-39) U/L ALT (7-52) U/L Alkaline Phosphatase (34-104) U/L Troponin I High Sens (0-14) pg/ml Total Protein (6.0-8.3) gm/dl Albumin (3.4-5.0) gm/dl Globulin (2.5-4.0) gm/dl Albumin/Globulin Ratio (0.9-2) TSH (0.300-4.500) uIu/ml Urine Color Urine Appearance (Clear) Urine pH (4.5-7.5) Ur Specific [place] (1.000-1.030) Urine Protein (Negative) Urine Glucose (UA) (Negative) Urine Ketones (Negative) Urine Blood (Negative) Urine Nitrite (Negative) Urine Bilirubin (Negative) Urine Urobilinogen (Negative) Ur Leukocyte Esterase (Negative) Urine WBC (Auto) (0-5) /hpf Urine RBC (Auto) (0-4) /hpf U Hyaline Cast (Auto) (0-5) /lpf U Epithel Cells (Auto) (0-5) /lpf Urine Bacteria (Auto) (Negative) POC Stool Occult Blood (Negative) SARS-CoV-2, RNA, NAAT NEGATIVE (NEGATIVE) Administered Medications Acetaminophen (Acetaminophen 325 Mg Tab) 650 mg PO Q4H PRN PRN Reason: pain or fever Stop: 12/27/22 19:26 Last Admin: 11/28/22 08:10 Dose: 650 mg Documented By: Admin: 11/27/22 19:48 Dose: 650 mg Documented By: OLGA Bupropion HCl (Bupropion Hcl 100 Mg Tablet) 100 mg PO QAM [facility] Stop: 12/28/22 08:59 Last Admin: 11/28/22 06:59 Dose: 100 mg Documented By: DEVORAH Lactated Ringer's (Lr) 1,000 mls @ 80 mls/hr IV .[id number] [facility] Stop: 12/27/22 19:16 Last Admin: 11/27/22 19:47 Dose: 80 mls/hr Documented By: OLGA Pantoprazole Sodium 40 mg/ (Syringe) 10 mls @ 5 mls/min IV BID [facility] Stop: 12/27/22 20:59 Last Admin: 11/28/22 06:58 Dose: 5 mls/min Documented By: Admin: 11/27/22 22:22 Dose: 5 mls/min Documented By: OLGA Levothyroxine Sodium (Levothyroxine Sodium 200 Mcg Tablet) 200 mcg PO DAILYBB [facility] Stop: 12/28/22 06:29 Last Admin: 11/28/22 05:08 Dose: 200 mcg Documented By: OLGA Modafinil (Modafinil 100 Mg Tab) 100 mg PO QAM [facility] Stop: 12/28/22 08:59 Last Admin: 11/28/22 08:08 Dose: 100 mg Documented By: DEVORAH Temazepam (Temazepam 15 Mg Capsule) 15 mg PO HSZ [facility] Stop: 12/27/22 21:59 Last Admin: 11/27/22 21:31 Dose: 15 mg Documented By: OLGA Venlafaxine HCl (Venlafaxine Hcl Xr 75 Mg Capxr) 75 mg PO QAM [facility] Stop: 12/28/22 08:59 Last Admin: 11/28/22 06:59 Dose: 75 mg Documented By: DEVORAH Ziprasidone (Ziprasidone Hcl 80 Mg Cap) 80 mg PO BID [facility] Stop: 12/27/22 20:59 Last Admin: 11/28/22 06:58 Dose: 80 mg Documented By: Admin: 11/27/22 20:24 Dose: 80 mg Documented By: OLGA Discontinued Medications Hydromorphone HCl (Hydromorphone Inj 0.5 Mg/0.5 Ml Syr) 0.25 mg IV NOW STA Stop: 11/27/22 22:07 Last Admin: 11/27/22 22:22 Dose: 0.25 mg Documented By: OLGA Sodium Chloride (Nss) 500 mls @ 999 mls/hr IV .Q31M [facility] Stop: 11/27/22 13:15 Last Admin: 11/27/22 14:32 Dose: Not Given Documented By: TEGAN Pantoprazole Sodium (Protonix Bolus/Drip) 0 mls @ 1 mls/hr IV ONE STA Stop: 11/27/22 15:50 Last Infusion: 11/27/22 21:46 Dose: 0 mls/hr Documented By: Admin: 11/27/22 16:59 Dose: 1 mls/hr Documented By: CHINMAY Pantoprazole Sodium 40 mg/ (Dextrose) 100 mls @ 20 mls/hr IV Q5H [facility] Stop: 12/27/22 16:14 Last Infusion: 11/27/22 19:30 Dose: 0 mg/hr, 0 mls/hr Documented By: Admin: 11/27/22 16:53 Dose: 8 mg/hr, 20 mls/hr Documented By: CHINMAY Pantoprazole Sodium 80 mg/ (Dextrose) 120 mls @ 400 mls/hr IV NOW ONE Stop: 11/27/22 16:06 Last Infusion: 11/27/22 16:53 Dose: 0 mls/hr Documented By: Admin: 11/27/22 16:35 Dose: 400 mls/hr Documented By: CHINMAY Imaging Data Radiologist's Impression: Hip/Pelvis X-Ray 11/27/22 12:40 XR hip LT 2V w pelvis, XR sacrum coccyx min 2V HISTORY: 82 years-old Female pain, fall acute pain of the pelvis status post fall COMPARISON: [facility] 05/09/2017 TECHNIQUE: AP view the pelvis with 2 views of the left hip, 3 views of the sacrum and coccyx FINDINGS: PELVIS/LEFT HIP: Right hip total joint arthroplasty. Mild to moderate osteoarthritis of the left hip. The mineralized appearance of the bones. No acute fracture, dislocation or avascular necrosis. There is suggestion of a healed chronic fracture of the left inferior pubic ramus. Herniorrhaphy coils within the right lower abdomen. SACRUM/COCCYX: Demineralized appearance of the bones. Moderate degeneration of the SI joints with severe degeneration and levoscoliosis of the lumbar spine. Severe degeneration of the pubic symphysis. IMPRESSION: No acute fracture or subluxation identified. ACT 112: Negative or not required by law. The above report was generated using voice recognition software. It may contain grammatical, syntax or spelling errors. Electronically signed by: Moises Colvin M.D. 11/27/2022 2:40 PM Sacrum and Coccyx X-Ray 11/27/22 12:40 XR hip LT 2V w pelvis, XR sacrum coccyx min 2V HISTORY: 82 years-old Female pain, fall acute pain of the pelvis status post fall COMPARISON: [facility] 05/09/2017 TECHNIQUE: AP view the pelvis with 2 views of the left hip, 3 views of the sacrum and coccyx FINDINGS: PELVIS/LEFT HIP: Right hip total joint arthroplasty. Mild to moderate osteoarthritis of the left hip. The mineralized appearance of the bones. No acute fracture, dislocation or avascular necrosis. There is suggestion of a healed chronic fracture of the left inferior pubic ramus. Herniorrhaphy coils within the right lower abdomen. SACRUM/COCCYX: Demineralized appearance of the bones. Moderate degeneration of the SI joints with severe degeneration and levoscoliosis of the lumbar spine. Severe degeneration of the pubic symphysis. IMPRESSION: No acute fracture or subluxation identified. ACT 112: Negative or not required by law. The above report was generated using voice recognition software. It may contain grammatical, syntax or spelling errors. Electronically signed by: Moises Colvin M.D. 11/27/2022 2:[address] 11/27/22 12:41 CT head/brain wo con CLINICAL HISTORY: 82 years-old Female with fall, h/o TIA, slurred speech. Acute strokelike symptoms. TECHNIQUE: Multiple axial CT images of the head were obtained without contrast. A dose lowering technique was utilized adhering to the principles of ALARA. CT DOSE: 691.05 mGy.cm COMPARISON: 09/17/2022 FINDINGS: No acute intracranial hemorrhage, midline shift, intracranial mass, hydrocephalus, territorial ischemia or abnormal extra-axial collection. Involutional changes with chronic microvascular ischemic disease. The calvarium is intact. Hyperostosis frontalis interna. Prior bilateral lens repair. The paranasal sinuses, mastoid air cells, and middle ear cavities are clear. IMPRESSION: No acute intracranial abnormality identified. ACT 112: Negative or not required by law. The above report was generated using voice recognition software. It may contain grammatical, syntax or spelling errors. Electronically signed by: Moises Colvin M.D. 11/27/2022 1:37 PM Discharge Plan Visit Data Chief Complaint: Fall Stated Complaint: FALL ED Provider: Vega Ruggiero Discharge Problem: Acute anemia, Fall, Weakness, Heme positive stool, Traumatic hematoma of buttock Patient Disposition: Admitted As Inpatient Discharge Instructions Interventions: ED Discharge Assessment Last Done: 11/27/22 18:35
[2022-11-27] MEDS ORDERED: SODIUM CHLORIDE 0.9% 500 ML IV SCH (12:45)
[2022-11-27 12:50] LABS: Basophils # (auto) 0.08 K/uL (0-0.2); Basophils % (auto) 0.9 %; Eosinophils # (auto) 0.13 K/uL (0-0.50); Eosinophils % (auto) 1.4 %; Hematocrit (blood only) 27.2 % (37.0-47.0); Hemoglobin 8.6 g/dl (12.0-16.0); Immature Granulocytes # (auto) 0.04 K/uL (0.01-0.20); Immature Granulocytes % (auto) 0.4 %; Lymphocytes # (auto) 0.83 K/uL (1.2-3.4); Lymphocytes % (auto) 9.1 %; Mean Corpuscular Hemoglobin 28.7 pg (25.0-34.0); Mean Corpuscular Hgb Conc 31.6 g/dL (32.0-36.0); Mean Corpuscular Volume 90.7 fL (80.0-100.0); Mean Platelet Volume 9.9 fL (9.4-12.4); Monocytes # (auto) 0.69 K/uL (0.11-0.59); Monocytes % (auto) 7.5 %; Neutrophils # (auto) 7.38 K/uL (1.40-6.50); Neutrophils % (auto) 80.7 %; Platelet Count 177 K/uL (130-400); RDW Coefficient of Variation 15.1 % (11.5-14.5); RDW Standard Deviation 50.3 fL (36.4-46.3); White Blood Count 9.15 K/ul (4.8-10.8)
[2022-11-27 13:12] LABS: Albumin Globulin Ratio 1.5 (0.9-2); Albumin Level 3.3 gm/dl (3.4-5.0); Bilirubin,Total 0.3 mg/dl (0.2-1.0); Calcium 7.9 mg/dl (8.5-10.1); Creatinine Clr Calc Pharmacy 50.3 ml/min; Est GFR (African American) 70.4 ml/min; Est GFR (Non-African American) 60.8 ml/min; Globulin 2.2 gm/dl (2.5-4.0); Potassium 4.3 mmol/L (3.5-5.1); Total Protein 5.5 gm/dl (6.0-8.3)
[2022-11-27 13:18] LABS: Troponin I High Sensitivity 42.3 pg/ml (0-14)
--- NOTE | 2022-11-27 13:19 | Electrocardiogram Report ---
Test Reason : Blood Pressure : / mmHG Vent. Rate : 063 BPM Atrial Rate : 063 BPM P-R Int : 196 ms QRS Dur : 208 ms QT Int : 548 ms P-R-T Axes : 000 -72 092 degrees QTc Int : 560 ms Poor data quality, interpretation may be adversely affected Atrial-sensed ventricular-paced rhythm Abnormal ECG When compared with ECG of 17-SEP-2022 12:18, Vent. rate has increased BY 3 BPM Confirmed by Jefferson Shaffer ([id number]) on 11/27/2022 1:18:55 PM Referred By: Confirmed By:Jefferson Shaffer
--- NOTE | 2022-11-27 13:39 | CT Scan Report ---
CT head/brain wo con CLINICAL HISTORY: 82 years-old Female with fall, h/o TIA, slurred speech. Acute strokelike symptoms. TECHNIQUE: Multiple axial CT images of the head were obtained without contrast. A dose lowering tech nique was utilized adhering to the principles of ALARA. CT DOSE: 691.05 mGy.cm COMPARISON: 09/17/2022 FINDINGS: No acute intracranial hemorrhage, midline shift, intracranial mass, hydrocephalus, territorial ischem ia or abnormal extra-axial collection. Involutional changes with chronic microvascular ischemic disea se. The calvarium is intact. Hyperostosis frontalis interna. Prior bilateral lens repair. The paranasal s inuses, mastoid air cells, and middle ear cavities are clear. IMPRESSION: No acute intracranial abnormality identified. ACT 112: Negative or not required by law. The above report was generated using voice recognition software. It may contain grammatical, syntax o r spelling errors. Electronically signed by: Moises Colvin M.D. 11/27/2022 1:37 PM
--- NOTE | 2022-11-27 14:43 | XRay Report ---
XR hip LT 2V w pelvis, XR sacrum coccyx min 2V HISTORY: 82 years-old Female pain, fall acute pain of the pelvis status post fall COMPARISON: [facility] 05/09/2017 TECHNIQUE: AP view the pelvis with 2 views of the left hip, 3 views of the sacrum and coccyx FINDINGS: PELVIS/LEFT HIP: Right hip total joint arthroplasty. Mild to moderate osteoarthritis of the left hip. The mineralized appearance of the bones. No acute fracture, dislocation or avascular necrosis. There is suggestion o f a healed chronic fracture of the left inferior pubic ramus. Herniorrhaphy coils within the right lo wer abdomen. SACRUM/COCCYX: Demineralized appearance of the bones. Moderate degeneration of the SI joints with severe degeneratio n and levoscoliosis of the lumbar spine. Severe degeneration of the pubic symphysis. IMPRESSION: No acute fracture or subluxation identified. ACT 112: Negative or not required by law. The above report was generated using voice recognition software. It may contain grammatical, syntax o r spelling errors. Electronically signed by: Moises Colvin M.D. 11/27/2022 2:40 PM
[2022-11-27] MEDS ORDERED: PANTOPRAZOLE BOLUS/DRIP 1 EACH IV STA (15:49)
[2022-11-27] MEDS ORDERED: PANTOprazole 80 MG in DEXTROSE 5% 100 ML IV ONE (15:49)
[2022-11-27 16:03] LABS: Appearance Urine Clear (Clear); Bacteria Urine Automated Negative (Negative); Bilirubin Urine Negative (Negative); Blood Urine 2+ (Negative); Color Urine Yellow; Glucose Urine UA Negative (Negative); Ketones Urine Negative (Negative); Leukocyte Esterase Urine Negative (Negative); Nitrite Urine Negative (Negative); Protein Urine Negative (Negative); RBC Urine Automated >30 /hpf (0-4); Specific Gravity Urine 1.013 (1.000-1.030); Urobilinogen Urine Negative (Negative); pH Urine 5.5 (4.5-7.5)
--- NOTE | 2022-11-27 16:05 | History & Physical Report ---
Date of Service November 27, 2022 Assessment & Plan (1) Acute anemia: Plan: Racheal is a 82-year-old female with past medical history of paroxysmal atrial fibrillation, right total shoulder arthroplasty, iron deficiency anemia, thyroid a cancer s/p thyroidectomy with subsequent hypothyroidism on Synthroid, CKD 3, hypertension, TAVR, pacemaker for complete heart block, GERD, and recurrent TIAs who has been seen by neurology for recurrent TIAs. Acute blood loss anemia Baseline hemoglobin dropped from 10-8.6 Patient did fall and has a left hip hematoma Patient has not had epigastric pain, had an EGD in the last year which did not show ulcers per patient, and has had no melena/bright red blood per rectum. Hemoccult in ER was positive for blood. She has been started on a PPI which will be converted to twice daily, although suspect the source of her hemoglobin drop is likely Hold Eliquis/aspirin H&H trended N.p.o. Fall Patient was bending over and stood up, was lightheaded and dizzy which is frequently happened to her while on carvedilol Blood pressure is low 100s in room, no tachycardia Hold antihypertensives at this time Suspect orthostasis, follow H&H Does have history of TIAs, patient denies any focal symptoms or anything sim ilar to prior TIAs on admission Anxiety/depression/insomnia Continue monae Huntlafaxine Did discuss long-term risk of harm of temazepam. Patient voices understanding of this but reports significantly improved sleep and she takes this every day. We will continue given risk of withdrawal, patient will discuss down titration and alternatives of this as outpatient Mild troponin elevation, history of CHF Patient denies history of stents/[place] EKG without ST segment changes. Clinically with no chest pain.? Volume depletion/demand Trended Follow on telemetry DVT PPx: Apixaban/aspirin held in the setting of acute bleeding, SCDs Diet: N.p.o. Disposition medical telemetry CODE STATUS DNR (2) Fall: (3) Chronic kidney disease, stage 3 (moderate): (4) Depression: (5) History of aortic valve replacement: (6) Hypotension: (7) MDD (major depressive disorder): (8) Obstructive sleep apnea of adult: (9) Sleep apnea: History of Present Illness Primary Care Provider: Raad Skinner MD Racheal is a 82-year-old female with past medical history of paroxysmal atrial fibrillation, right total shoulder arthroplasty, iron deficiency anemia, thyroid a cancer s/p thyroidectomy with subsequent hypothyroidism on Synthroid, CKD 3, hypertension, TAVR, pacemaker for complete heart block, GERD, and recurrent TIAs who has been seen by neurology for recurrent TIAs. Has symptoms consistent with recurrent TIA, MRI have shown previous chronic lacunar infarct in right cerebellar area. Takes aspirin and Eliquis. She was last seen by neuro 11/01/2022 who noted possible fibromuscular dysplasia noting in the left carotid, was pending DSA with [facility] to confirm. Noted treatment would be similar including aspirin and regular carotid screening. Did take medications this morning. Reports she has been lightheaded and dizzy. At time bedside assessment she is not lightheaded or dizzy, is not having chest pain or chest pressure. She has not noticed any bleeding. Reports she has had EGDs in the past last with [facility] in the last year and no ulcers were mentioned. She has had a history of bypass. She has not had any bright red blood per rectum, melena, or epigastric tenderness. She reports her fall was from lightheadedness after bending over, and she landed on her butt which is sore but tolerable to her. Per ER: Stopping coreg, supposed to start MTP No head strike Lightheaded, dizzy Contusion expanding from L buttock Hgb 10 --> 8.6 CT negative mild troponin elevation Medical History: Reviewed Medications: Reviewed Surgical History: Reviewed Allergies: Reviewed Social History: No tobacco/etoh Code Status: DNRDNI Allergies Allergy/AdvReac Type Severity Reaction Status Date / Time lactose Allergy Mild Intolerance Verified 11/10/22 15:33 oxycodone Allergy Mild Rash Verified 11/10/22 15:33 prednisone Allergy Mild Itchy Verified 11/10/22 15:33 Sulfa (Sulfonamide Allergy Mild Takes off Verified 11/10/22 15:33 Antibiotics) "top layer of tongue" simvastatin [From Zocor] Allergy Muscle Verified 11/10/22 15:33 aches, bone pain Lpjuqpf-PUV-AgU Reductase AdvReac Mild Bone pain Verified 11/10/22 15:33 Inhibitor [Pcsyyrm-Vep-Fdm Reductase Inhibitor] Home Medications Medication Instructions Recorded Confirmed Type calcium carbonate 600 mg calcium 600 mg PO BID 09/10/18 11/10/22 History (1,500 mg) tablet ferrous sulfate 142 mg (45 mg 142 mg PO QPM 09/10/18 11/10/22 History iron) tablet,extended release (Slow Release Iron) gabapentin 300 mg capsule 600 mg PO HS 09/10/18 11/10/22 History temazepam 15 mg capsule 15 mg PO HS 09/10/18 11/10/22 History venlafaxine 75 mg capsule,extended 75 mg PO QAM 09/10/18 11/10/22 History release 24 hr vit B6-mag cit,ox-potassium cit 2 tabs PO QAM 09/10/18 11/10/22 History 3.75 mg-45 mg-45 mg-49.5 mg tablet ER (Theralith XR) ziprasidone HCl 80 mg capsule 80 mg PO BID 09/10/18 11/10/22 History (Geodon) bupropion HCl 100 mg tablet 100 mg PO QAM 06/20/19 11/10/22 History carvedilol 6.25 mg tablet 6.25 mg PO BID 06/20/19 11/10/22 History cyclosporine 0.05 % eye drops in a 1 drops ophthalmic (eye) BID PRN 06/20/19 11/10/22 History dropperette Dry Eye(S) modafinil 100 mg tablet 100 mg PO QAM 06/20/19 11/10/22 History potassium chloride 20 mEq 20 meq PO BID #30 tabs 06/20/19 11/10/22 History tablet,extended release alendronate 70 mg tablet (Fosamax) 70 mg PO WK 09/13/19 11/10/22 History cyanocobalamin (vitamin B-12) 1,000 mcg subcut UD 09/13/19 11/10/22 History 1,000 mcg/mL injection solution hydroxyzine HCl 25 mg tablet 25 mg PO HS 09/13/19 11/10/22 History acetaminophen 650 mg 1,300 mg PO Q12H 06/07/22 11/10/22 History tablet,extended release apixaban 5 mg tablet (Eliquis) 5 mg PO BID 06/07/22 11/10/22 History furosemide 20 mg tablet 20 mg PO BID 06/07/22 11/10/22 History tramadol 50 mg tablet 50 mg PO Q8H PRN pain #30 tabs 07/09/22 11/10/22 Rx Bariactric Advantage Multi Vit 1 tab PO BID 09/17/22 11/10/22 History levothyroxine 200 mcg tablet 200 mcg PO DAILYBB 09/17/22 11/10/22 History atorvastatin 20 mg tablet 20 mg PO DAILY 11/01/22 11/10/22 History Past Med/Surg History Medical History Anemia Chronic Anxiety Chronic kidney disease, stage 3 (moderate) Follows with [facility] (Dr. Kraus) Congestive heart failure Daytime sleepiness Reason for modafinil Depression Esophageal reflux History of aortic valve stenosis s/p AVR (04/2019) History of thyroid cancer s/p partial thyroidectomy/radiation (2002) Hypercholesterolemia Hypertension Hypothyroidism Irritable bowel syndrome (IBS) Kidney stones Obesity Osteoarthritis Pacemaker Implanted 2017 ([employer]) Follows with Dr. Walker Paroxysmal atrial fibrillation Paroxysmal atrial tachycardia Restless legs syndrome Sleep apnea CPAP + 2L O2 Surgical History History of aortic valve replacement [place] [place] History of appendectomy History of arthroscopic knee surgery History of bilateral cataract extraction History of bilateral tubal ligation History of cardiac cath 03/2019 ([place]) > no stents History of colonoscopy with polypectomy History of esophagogastroduodenoscopy (EGD) History of gastric bypass History of nephrolithotomy with removal of calculi History of open reduction and internal fixation (ORIF) procedure left wrist---hardware in place History of open reduction and internal fixation (ORIF) procedure left elbow--hardware in place History of partial thyroidectomy d/t cancer History of tonsillectomy and adenoidectomy History of tooth extraction History of total left knee replacement (TKR) History of total right hip replacement History of total right knee replacement (TKR) History of wisdom tooth extraction S/P cardiac pacemaker procedure 2018 Status post biopsy of thyroid gland malignant Family History Mother Ovarian cancer Father Parkinson disease Other No family history of adverse response to anesthesia Social History Smoking Status: Never smoker Second Hand Exposure: No; Hx Alcohol Use: Yes Alcohol type: wine Alcohol Intake Frequency: Monthly or Less Hx Substance Use: No Preferred Language: [place] Citizen Communication Ability: Effective Tie Knitter Helper Required: No Beliefs That Will Affect Care: None marital status: / Current Living Situation: Alone current occupational status: 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 NAD. Cooperative. HEENT: Atraumatic, normocephalic. Pulm: CTAB A&P. -wheezes, -rales, -rhonchi. Symmetrical chest rise. No increased work of breathing. No respiratory distress. Cardiac: RRR, +sm. Radial pulses intact and symmetrical. Abdominal: Nontender, nondistended, soft. BS present. No epigastric tenderness Extremities: L buttock/hip with ~4cm contusion with firm hematoma. TTP. Distal extremity strength and sesnation intact. Results & Data Results & Data ([facility]) Vital Signs (Past 12 Hours) Vital Signs Temp Pulse Resp BP Pulse Ox O2 Del Method 11/27/22 12:49 Room Air 11/27/22 12:29 36.9 C 64 20 116/61 97 Room Air PG Care Time/CCT Total # of Minutes Spent Total Time Spent with Patient: Total time spent is greater than 50% in coordination of care (as documented) at patient's floor/unit and/or counseling patient: Coding Level of Care Code 62053 INT INP/OBS CARE 2/55MIN Diagnoses Acute anemia D64.9 Fall W19.XXXA Chronic kidney disease, stage 3 (moderate) N18.3 Depression F32.9 History of aortic valve replacement Z95.2 Hypotension I95.9 MDD (major depressive disorder) F32.9 Obstructive sleep apnea of adult G47.33 Sleep apnea G47.30
[2022-11-27] MEDS ORDERED: PANTOprazole 40 MG in DEXTROSE 5% 100 ML IV SCH (16:15)
[2022-11-27] MEDS: LACTATED RINGER'S 1,000 ML IV SCH (19:47)
[2022-11-27] MEDS: ACETAMINOPHEN 325 MG TAB PO PRN (19:48)
[2022-11-27] MEDS: ziprasidone HCL 80 MG CAP PO SCH (20:24)
[2022-11-27] MEDS: TEMAZEPAM 15 MG CAPSULE PO SCH (21:31)
[2022-11-27] MEDS ORDERED: HYDROmorphone INJ 0.5 MG/0.5 ML SYR IV STA (22:06)
[2022-11-27] MEDS: PANTOprazole 40 MG in SYRINGE 0 ML IV SCH (22:22)
[2022-11-28 00:49] LABS: Hematocrit (blood only) 22.2 % (37.0-47.0); Hemoglobin 7.3 g/dl (12.0-16.0)
[2022-11-28] MEDS: LEVOTHYROXINE SODIUM 200 MCG TABLET PO SCH (05:08)
[2022-11-28 06:55] LABS: Basophils # (auto) 0.06 K/uL (0-0.2); Eosinophils # (auto) 0.18 K/uL (0-0.50); Eosinophils % (auto) 3.1 %; Hematocrit (blood only) 22.1 % (37.0-47.0); Hemoglobin 7.2 g/dl (12.0-16.0); Immature Granulocytes # (auto) 0.03 K/uL (0.01-0.20); Immature Granulocytes % (auto) 0.5 %; Lymphocytes # (auto) 1.01 K/uL (1.2-3.4); Lymphocytes % (auto) 17.2 %; Mean Corpuscular Hemoglobin 28.8 pg (25.0-34.0); Mean Corpuscular Hgb Conc 32.6 g/dL (32.0-36.0); Mean Corpuscular Volume 88.4 fL (80.0-100.0); Mean Platelet Volume 10.2 fL (9.4-12.4); Monocytes # (auto) 0.63 K/uL (0.11-0.59); Monocytes % (auto) 10.8 %; Neutrophils # (auto) 3.95 K/uL (1.40-6.50); Neutrophils % (auto) 67.4 %; Platelet Count 163 K/uL (130-400); RDW Coefficient of Variation 15.1 % (11.5-14.5); RDW Standard Deviation 49.1 fL (36.4-46.3); White Blood Count 5.86 K/ul (4.8-10.8)
[2022-11-28] MEDS: ziprasidone HCL 80 MG CAP PO SCH ×2 (06:58→20:32)
[2022-11-28] MEDS: PANTOprazole 40 MG in SYRINGE 0 ML IV SCH ×2 (06:58→20:31)
[2022-11-28] MEDS: buPROPion HCl 100 MG TABLET PO SCH (06:59)
[2022-11-28] MEDS: VENLAFAXINE HCL XR 75 MG CAPXR PO SCH (06:59)
[2022-11-28 07:30] LABS: BUN Creatinine Ratio 20.9 (10-20); Calcium 7.9 mg/dl (8.5-10.1); Creatinine Clr Calc Pharmacy 39.9 ml/min; Est GFR (African American) 54.5 ml/min; Potassium 4.1 mmol/L (3.5-5.1)
[2022-11-28 08:04] LABS: RBC Morphology Unremarkable
[2022-11-28] MEDS: modafiniL 100 MG TAB PO SCH (08:08)
[2022-11-28] MEDS: ACETAMINOPHEN 325 MG TAB PO PRN (08:10)
[2022-11-28] MEDS: LACTATED RINGER'S 1,000 ML IV SCH ×2 (08:39→22:01)
[2022-11-28] MEDS ORDERED: oxyCODONE HCL IR 5 MG TAB (IMMEDIATE RELEASE) PO PRN (11:15)
[2022-11-28 14:23] LABS: Hematocrit (blood only) 22.1 % (37.0-47.0); Hemoglobin 7.1 g/dl (12.0-16.0)
--- NOTE | 2022-11-28 16:36 | Hospitalist Progress Note ---
Date of Service November 28, 2022 Assessment & Plan (1) Acute anemia: Plan: Racheal is a 82-year-old female with past medical history of paroxysmal atrial fibrillation, right total shoulder arthroplasty, iron deficiency anemia, thyroid a cancer s/p thyroidectomy with subsequent hypothyroidism on Synthroid, CKD 3, hypertension, TAVR, pacemaker for complete heart block, GERD, and recurrent TIAs who has been seen by neurology for recurrent TIAs. Acute blood loss anemia Baseline hemoglobin dropped from 10-8.6 Patient did fall and has a left hip hematoma Patient has not had epigastric pain, had an EGD in the last year which did not show ulcers per patient, and has had no melena/bright red blood per rectum. Hemoccult in ER was positive for blood. She has been started on a PPI which will be converted to twice daily, although suspect the source of her hemoglobin drop is likely Hold Eliquis/aspirin H&H trended N.p.o. 11/28--patient hemoglobin 7.2 today compared to 8 upon arrival and 7.3 subsequently We will monitor hemoglobin trend Will obtain GI evaluation as patient had heme positive stools and is on anticoagulation with Eliquis Maintain liquid diet today to facilitate endoscopy if needed Patient will have 2 units type and screen in case hemoglobin continues to drop from hip hematoma or ongoing GI bleed Fall Patient was bending over and stood up, was lightheaded and dizzy which is frequently happened to her while on carvedilol Blood pressure is low 100s in room, no tachycardia Hold antihypertensives at this time Suspect orthostasis, follow H&H Does have history of TIAs, patient denies any focal symptoms or anything similar to prior TIAs on admission Anxiety/depression/insomnia Continue monae Huntladwight Did discuss long-term risk of harm of temazepam. Patient voices understanding of this but reports significantly improved sleep and she takes this every day. We will continue given risk of withdrawal, patient will discuss down titration and alternatives of this as outpatient Mild troponin elevation, history of CHF Patient denies history of stents/[place] EKG without ST segment changes. Clinically with no chest pain.? Volume depletion/demand Trended Follow on telemetry DVT PPx: Apixaban/aspirin held in the setting of acute bleeding, SCDs Diet: Liquid diet (2) Fall: (3) Chronic kidney disease, stage 3 (moderate): (4) Depression: (5) History of aortic valve replacement: (6) Hypotension: (7) MDD (major depressive disorder): (8) Obstructive sleep apnea of adult: (9) Sleep apnea: Admission and Anticipated Discharge Date Admission Date: November 27, 2022 Subjective Patient reports some pain in the hip area Otherwise she reports some generalized weakness no chest pain Able to tolerate liquid diet, stool Hemoccult positive in ED Physical Exam Physical Exam: Head and ENT no thyroid enlargement trachea midline Cardiovascular S1-S2 are normal no S3 Lungs bilateral air entry fair no wheezing Abdomen soft nondistended positive bowel sounds no rebound tenderness Extremity shows trace edema . Hip area tenderness noted Neurologically no focal deficits Skin shows no rash no cyanosis Results & Data Results & [facility] ([facility]) Vital Signs (Past 12 Hours) Vital Signs Temp Pulse Pulse Pulse Resp BP Pulse Ox 11/28/22 15:44 37.1 C 73 19 120/69 97 11/28/22 15:14 68 11/28/22 12:38 36.8 C 66 16 104/52 L 96 11/28/22 07:58 36.8 C 64 16 110/62 94 11/28/22 07:16 63 11/28/22 06:58 36.8 C 66 20 110/54 L 96 O2 Del Method 11/28/22 15:44 Room Air 11/28/22 15:14 11/28/22 12:38 Room Air 11/28/22 07:58 Room Air 11/28/22 07:16 11/28/22 06:58 CPAP Laboratory Results Short CBC 11/27/22 11/28/22 11/28/22 Range/Units 19:34 00:35 06:38 WBC 5.86 (4.8-10.8) K/ul Hgb 8.0 L 7.3 L 7.2 L (12.0-16.0) g/dl Hct 25.0 L 22.2 L 22.1 L (37.0-47.0) % Plt Count 163 (130-400) K/uL 11/28/22 Range/Units 14:09 WBC (4.8-10.8) K/ul Hgb 7.1 L (12.0-16.0) g/dl Hct 22.1 L (37.0-47.0) % Plt Count (130-400) K/uL BMP 11/28/22 06:38 Sodium 138 Potassium 4.1 Chloride 103 Carbon Dioxide 34 H BUN 23 Creatinine 1.10 Glucose 99 Calcium 7.9 L PG Care Time/CCT Total # of Minutes Spent Total Time Spent with Patient: Total time spent is greater than 50% in coordination of care (as documented) at patient's floor/unit and/or counseling patient: Coding Level of Care Code 23403 SUB INP/OBS CARE 2/35MIN Diagnoses Acute anemia D64.9 Fall W19.XXXA Encounter type: initial encounter Chronic kidney disease, stage 3 (moderate) N18.3 Depression F32.9 History of aortic valve replacement Z95.2 Hypotension I95.9 MDD (major depressive disorder) F32.9 Obstructive sleep apnea of adult G47.33 Sleep apnea G47.30 (1) Fall Encounter type: initial encounter Qualified Code(s): W19.XXXA - Unspecified fall, initial encounter
[2022-11-28] MEDS: TEMAZEPAM 15 MG CAPSULE PO SCH (20:31)
[2022-11-28] MEDS: GABAPENTIN 600 MG TAB PO SCH (21:59)
[2022-11-29] MEDS: LEVOTHYROXINE SODIUM 200 MCG TABLET PO SCH (06:29)
[2022-11-29 06:50] LABS: Hematocrit (blood only) 22.3 % (37.0-47.0); Mean Corpuscular Hemoglobin 28.5 pg (25.0-34.0); Mean Corpuscular Hgb Conc 31.4 g/dL (32.0-36.0); Mean Corpuscular Volume 90.7 fL (80.0-100.0); Mean Platelet Volume 10.2 fL (9.4-12.4); Platelet Count 147 K/uL (130-400); RDW Coefficient of Variation 15.2 % (11.5-14.5); RDW Standard Deviation 50.6 fL (36.4-46.3); Red Blood Count 2.46 M/uL (4.20-5.40); White Blood Count 5.44 K/ul (4.8-10.8)
[2022-11-29 06:52] LABS: BUN Creatinine Ratio 16.5 (10-20); Calcium 7.6 mg/dl (8.5-10.1); Est GFR (African American) 74.5 ml/min; Est GFR (Non-African American) 64.3 ml/min; Potassium 3.7 mmol/L (3.5-5.1)
[2022-11-29 08:22] LABS: Reticulocyte % 2.5 % (0.5-2.0); Reticulocytes # 0.06 10^6/uL (0.02-0.10)
[2022-11-29] MEDS: buPROPion HCl 100 MG TABLET PO SCH (08:44)
[2022-11-29] MEDS: PANTOprazole 40 MG in SYRINGE 0 ML IV SCH ×2 (08:44→21:10)
[2022-11-29] MEDS: ziprasidone HCL 80 MG CAP PO SCH ×2 (08:44→21:10)
[2022-11-29] MEDS: VENLAFAXINE HCL XR 75 MG CAPXR PO SCH (08:44)
[2022-11-29] MEDS: LACTATED RINGER'S 1,000 ML IV SCH (08:49)
[2022-11-29] MEDS: modafiniL 100 MG TAB PO SCH (08:49)
[2022-11-29 08:50] LABS: Ferritin 16.8 ng/ml (8-388)
--- NOTE | 2022-11-29 10:07 | Gastrointestinal Consultation ---
Date of Consultation November 29, 2022 Assessment & Plan (1) Heme positive stool: (2) Traumatic hematoma of buttock: (3) Acute anemia: Plan This an 82-year-old female with multiple comorbidities, on Eliquis and aspirin, who had a fall at home, injury to her left hip, and was found to have drop in HGB from baseline and heme positive stool, concern for GIB, for which we are consulted. However she has had no overt GI bleeding, including no melena, hematochezia, hematemesis both before her hospitalization and since admission, and over all presentation not c/w acute GIB. Abd is soft, nontender. Is HD stable. We were planning EGD today to evaluate for any upper GI source of anemia, however, given her co-morbidities, anesthesia has decided they are not comfortable sedating the pt for procedure today. Therefore we will plan on outpt EGD and colonoscopy in several weeks time, once she recovers from this acute issue - Recommend considering CT of the hip given her mechanism of injury in the setting of aspirin and Eliquis use - Consider iron studies to evaluate her anemia further and consider iron supplementation - Pt can have diet today - Would trend H&H, transfuse as needed Would monitor and document GI output - We will arrange OP endoscopies for the patient after discharge, in anticipation that the pt has no overt GIB episodes while here Thank you for allowing us to participate in the care of this patient. Please call with any acute changes, questions or concerns. Please see addendum below with additional recommendation from my supervising physician. Supervising Physician Co-Signing Physician Notes I saw and evaluated the patient. We are consulted for evaluation of anema and heme + stool in the setting of a recent fall. Surgical hx isnotable for a prior gastric bypass. 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 PE: NAD, no icterus large bruise / hematoma noted in the left gluteal region. Ipression: The patient 's Heme positive stool is an unlikely cause of her acute anemia, would favor the large hematoma Recs: CT of hip / pelvis OP EGD and colonsocopy to be scheduled please call with questions History of Present Illness Reason for Consultation: anemia/+hemestool Requesting Physician: Dr. Main Attending Physician: Prudencio Jackson MD History of Present Illness Patient is an 82-year-old female with PMH s/p RYGB, paroxysmal A-fib on Eliquis, ASA, history of iron deficiency anemia, anxiety, depression, CHF, thyroid cancer status post thyroidectomy, on Synthroid, CKD 3, HTN, TAVR, pacer for complete heart block, GERD, recurrent TIA and others, who had a fall at home where she landed on her left buttock and was brought to the hospital. CT head and xray hip nonacute. Was found to have slight drop in hemoglobin from her baseline of 10-8.6. Today hemoglobin is 7.0. She had no significant BUN elevation. She had mild troponin elevation, and this is being trended. Though she had no GI output, she was noted to have heme positive stool, and we are consulted for this in the setting of anemia. Patient seen sitting upright in bed, states that she has no GI symptoms including abdominal pain, nausea vomiting, melena or hematochezia, hematemesis, heartburn change in bowel habits she is due to have a routine screening colonoscopy next month. At home, she takes a daily PPI. She said she had a prior colonoscopy some years ago, and is due for another one; had prior EGD in 2019. She states at home, her stools have been brown, last BM was on Tuesday No tobacco or EtOH use. She uses Eliquis and aspirin. EGD 2019 - Normal esophagus. Biopsied. - Gastric bypass with a normal-sized pouch. - Jejunal polyp(s). Complete resection. Polyp tissue not retrieved. Biopsied. A. SMALL INTESTINE, RESIDUAL POLYP, BIOPSY: - SMALL INTESTINE MUCOSA WITH NOTABLE LAMINA PROPRIA EDEMA - NO POLYPOID TISSUE IS IDENTIFIED - NEGATIVE FOR DYSPLASIA AND MALIGNANCY B. STOMACH, ANTRUM, BIOPSY: - GASTRIC MUCOSA WITH VERY MILD PATCHY CHRONIC INFLAMMATION - NEGATIVE FOR INTESTINAL METAPLASIA, DYSPLASIA AND MALIGNANCY - NEGATIVE FOR HELICOBACTER PYLORI ORGANISMS BY MORPHOLOGY C. ESOPHAGUS, BIOPSY: - SQUAMOUS EPITHELIUM WITH REACTIVE CHANGES, SUGGESTIVE OF REFLUX ESOPHAGITIS - NEGATIVE FOR DYSPLASIA AND MALIGNANCY - NO GLANDULAR EPITHELIUM IDENTIFIED Allergies Allergy/AdvReac Type Severity Reaction Status Date / Time lactose Allergy Mild Intolerance Verified 11/27/22 17:31 oxycodone Allergy Mild Rash Verified 11/27/22 17:31 prednisone Allergy Mild Itchy Verified 11/27/22 17:31 Sulfa (Sulfonamide Allergy Mild Takes off Verified 11/27/22 17:31 Antibiotics) "top layer of tongue" simvastatin [From Zocor] Allergy Muscle Verified 11/27/22 17:31 aches, bone pain Qiitnwd-DVC-GgK Reductase AdvReac Mild Bone pain Verified 11/27/22 17:31 Inhibitor [Ztyaisl-Uox-Rex Reductase Inhibitor] Home Medications Medication Instructions Recorded Confirmed Type calcium carbonate 600 mg calcium 600 mg PO BID 09/10/18 11/27/22 History (1,500 mg) tablet ferrous sulfate 142 mg (45 mg 142 mg PO QPM 09/10/18 11/27/22 History iron) tablet,extended release (Slow Release Iron) gabapentin 300 mg capsule 600 mg PO HS 09/10/18 11/27/22 History temazepam 15 mg capsule 15 mg PO HS 09/10/18 11/27/22 History venlafaxine 75 mg capsule,extended 75 mg PO QAM 09/10/18 11/27/22 History release 24 hr vit B6-mag cit,ox-potassium cit 2 tabs PO QAM 09/10/18 11/27/22 History 3.75 mg-45 mg-45 mg-49.5 mg tablet ER (Theralith XR) ziprasidone HCl 80 mg capsule 80 mg PO BID 09/10/18 11/27/22 History (Geodon) bupropion HCl 100 mg tablet 100 mg PO QAM 06/20/19 11/27/22 History modafinil 100 mg tablet 100 mg PO QAM 06/20/19 11/27/22 History potassium chloride 20 mEq 20 meq PO BID #30 tabs 06/20/19 11/27/22 History tablet,extended release alendronate 70 mg tablet (Fosamax) 70 mg PO WK 09/13/19 11/27/22 History cyanocobalamin (vitamin B-12) 1,000 mcg subcut UD 09/13/19 11/27/22 History 1,000 mcg/mL injection solution hydroxyzine HCl 25 mg tablet 25 mg PO HS 09/13/19 11/27/22 History acetaminophen 650 mg 1,300 mg PO Q12H 06/07/22 11/27/22 History tablet,extended release apixaban 5 mg tablet (Eliquis) 5 mg PO BID 06/07/22 11/27/22 History furosemide 20 mg tablet 20 mg PO BID 06/07/22 11/27/22 History tramadol 50 mg tablet 50 mg PO Q8H PRN pain #30 tabs 07/09/22 11/27/22 Rx Bariactric Advantage Multi Vit 1 tab PO BID 09/17/22 11/27/22 History levothyroxine 200 mcg tablet 200 mcg PO DAILYBB 09/17/22 11/27/22 History atorvastatin 20 mg tablet 40 mg PO DAILY 11/01/22 11/27/22 History Lactobacillus rhamnosus GG 15 1 cap PO DAILY 11/27/22 11/27/22 History billion cell sprinkle capsule (Culturelle) aspirin 81 mg tablet,delayed 81 mg PO QAM 11/27/22 11/27/22 History release cholecalciferol (vitamin D3) 50 50 mcg PO DAILY 11/27/22 11/27/22 History mcg (2,000 unit) tablet (Vitamin D3) copper 2 mg tablet 2 mg PO DAILY 11/27/22 11/27/22 History cyanocobalamin (vitamin B-12) 2,500 mcg PO QAM 11/27/22 11/27/22 History 2,500 mcg tablet metoprolol succinate 25 mg 12.5 mg PO BID 11/27/22 11/27/22 History tablet,extended release 24 hr omeprazole 40 mg capsule,delayed 40 mg PO QAM 11/27/22 11/27/22 History release vit C 250 mg-vit E 90 mg-zinc 40 1 tab PO BID 11/27/22 11/27/22 History mg-copper 1 cv-birinb-gfmbbm capsule (PreserVision AREDS-2) Patient History Medical History Anemia Chronic Anxiety Chronic kidney disease, stage 3 (moderate) Follows with [facility] nephro (Dr. Kraus) Congestive heart failure Daytime sleepiness Reason for modafinil Depression Esophageal reflux History of aortic valve stenosis s/p AVR (04/2019) History of thyroid cancer s/p partial thyroidectomy/radiation (2002) Hypercholesterolemia Hypertension Hypothyroidism Irritable bowel syndrome (IBS) Kidney stones Obesity Osteoarthritis Pacemaker Implanted 2017 ([employer]tronic) Follows with Dr. Walker Paroxysmal atrial fibrillation Paroxysmal atrial tachycardia Restless legs syndrome Sleep apnea CPAP + 2L O2 Surgical History History of aortic valve replacement 2018 ([facility]) History of appendectomy History of arthroscopic knee surgery History of bilateral cataract extraction History of bilateral tubal ligation History of cardiac cath 03/2019 ([place]) > no stents History of colonoscopy with polypectomy History of esophagogastroduodenoscopy (EGD) History of gastric bypass History of nephrolithotomy with removal of calculi History of open reduction and internal fixation (ORIF) procedure left wrist---hardware in place History of open reduction and internal fixation (ORIF) procedure left elbow--hardware in place History of partial thyroidectomy d/t cancer History of tonsillectomy and adenoidectomy History of tooth extraction History of total left knee replacement (TKR) History of total right hip replacement History of total right knee replacement (TKR) History of wisdom tooth extraction S/P cardiac pacemaker procedure 2018 Status post biopsy of thyroid gland malignant Family History Mother Ovarian cancer Father Parkinson disease Other No family history of adverse response to anesthesia Social History Smoking Status: Never smoker Second Hand Exposure: No; Hx Alcohol Use: No Hx Substance Use: No Preferred Language: Moroccan Communication Ability: Effective Sql Application Developer Required: No Beliefs That Will Affect Care: None marital status: / Current Living Situation: Alone current occupational status: 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 How many Children do You have: 4 Other Information That Helps Us Care for You: No Feels Safe at Home: Yes Assistive Devices: Walker Review of Systems Review of Systems: All systems reviewed & are unremarkable except as noted in HPI & below Physical Exam Constitutional: well developed, well nourished and comfortable; no acute distress Eyes: Sclera anicteric, no conjunctival injection ENMT: moist mucous membranes, no pallor Neck: trachea midline supple Respiratory: normal respiratory effort, lungs clear to auscultation Cardiovascular: RRR, soft systolic murmur Gastrointestinal (Abdomen): normal bowel sounds, soft, nontender, no hepatosplenomegaly Inspection/Auscultation: abdomen not distended Musculoskeletal: Left hip with + hematoma Skin: no rashes, warm and dry Neurologic: alert and oriented x 3, no obvious focal neuro deficit Psychiatric: normal mood and affect Results & Data ([facility]) Vital Signs (Past 12 Hours) Vital Signs Temp Pulse Pulse Resp BP Pulse Ox O2 Del Method 11/29/22 07:40 Room Air 11/29/22 07:38 58 L 18 128/61 97 BiPAP 11/29/22 07:34 36.7 C 62 16 110/65 95 Room Air 11/29/22 05:59 62 11/29/22 03:10 66 18 143/70 H 97 BiPAP 11/29/22 00:05 65 11/28/22 23:00 Room Air 11/28/22 22:56 63 18 122/62 99 BiPAP 11/28/22 22:12 64 24 99 O2 Flow Rate 11/29/22 07:40 11/29/22 07:38 1 11/29/22 07:34 11/29/22 05:59 11/29/22 03:10 1 11/29/22 00:05 11/28/22 23:00 11/28/22 22:56 1 11/28/22 22:12 2 Laboratory Results 11/29/22 11/29/22 11/29/22 Range/Units 06:06 06:06 06:06 WBC (4.8-10.8) K/ul RBC (4.20-5.40) M/uL Hgb (12.0-16.0) g/dl Hct (37.0-47.0) % MCV (80.0-100.0) fL MCH (25.0-34.0) pg MCHC (32.0-36.0) g/dL RDW Std Deviation (36.4-46.3) fL RDW Coeff of Mary (11.5-14.5) % Plt Count (130-400) K/uL MPV (9.4-12.4) fL Reticulocyte % (Auto) 2.5 H (0.5-2.0) % Reticulocyte # 0.06 (0.02-0.10) 10^6/uL Sodium 140 (136-145) mmol/L Potassium 3.7 (3.5-5.1) mmol/L Chloride 105 (98-107) mmol/L Carbon Dioxide 34 H (21-32) mmol/L Anion Gap 1 L (3-11) BUN 14 (6-23) mg/dl Creatinine 0.85 (0.6-1.2) mg/dl Est Cr Clr Drug Dosing 52.0 ml/min Est GFR ( Amer) 74.5 ml/min Est GFR (Non-Af Amer) 64.3 ml/min BUN/Creatinine Ratio 16.5 (10-20) Glucose 100 H (70-99(Fasting)) mg/dl Calcium 7.6 L (8.5-10.1) mg/dl Iron Cancelled 21 L (35-150) mcg/dl Ferritin Cancelled 16.8 (8-388) ng/ml Troponin I High Sens (0-14) pg/ml 11/29/22 11/28/22 11/28/22 Range/Units 06:06 14:09 12:56 WBC 5.44 (4.8-10.8) K/ul RBC 2.46 L (4.20-5.40) M/uL Hgb 7.0 L 7.1 L (12.0-16.0) g/dl Hct 22.3 L 22.1 L (37.0-47.0) % MCV 90.7 (80.0-100.0) fL MCH 28.5 (25.0-34.0) pg MCHC 31.4 L (32.0-36.0) g/dL RDW Std Deviation 50.6 H (36.4-46.3) fL RDW Coeff of Mary 15.2 H (11.5-14.5) % Plt Count 147 (130-400) K/uL MPV 10.2 (9.4-12.4) fL Reticulocyte % (Auto) (0.5-2.0) % Reticulocyte # (0.02-0.10) 10^6/uL Sodium (136-145) mmol/L Potassium (3.5-5.1) mmol/L Chloride (98-107) mmol/L Carbon Dioxide (21-32) mmol/L Anion Gap (3-11) BUN (6-23) mg/dl Creatinine (0.6-1.2) mg/dl Est Cr Clr Drug Dosing ml/min Est GFR ( Amer) ml/min Est GFR (Non-Af Amer) ml/min BUN/Creatinine Ratio (10-20) Glucose (70-99(Fasting)) mg/dl Calcium (8.5-10.1) mg/dl Iron (35-150) mcg/dl Ferritin (8-388) ng/ml Troponin I High Sens 26.9 H (0-14) pg/ml Diagnostic Findings CT head: No acute intracranial hemorrhage, midline shift, intracranial mass, hydrocephalus, territorial ischemia or abnormal extra-axial collection. Involutional changes with chronic microvascular ischemic disease. The calvarium is intact. Hyperostosis frontalis interna. Prior bilateral lens repair. The paranasal sinuses, mastoid air cells, and middle ear cavities are clear. IMPRESSION: No acute intracranial abnormality identified. Xray hip: FINDINGS: PELVIS/LEFT HIP: Right hip total joint arthroplasty. Mild to moderate osteoarthritis of the left hip. The mineralized appearance of the bones. No acute fracture, dislocation or avascular necrosis. There is suggestion of a healed chronic fracture of the left inferior pubic ramus. Herniorrhaphy coils within the right lower abdomen. SACRUM/COCCYX: Demineralized appearance of the bones. Moderate degeneration of the SI joints with severe degeneration and levoscoliosis of the lumbar spine. Severe degeneration of the pubic symphysis. (1) Traumatic hematoma of buttock Encounter type: initial encounter Qualified Code(s): S30.0XXA - Contusion of lower back and pelvis, initial encounter
--- NOTE | 2022-11-29 10:37 | CT Scan Report ---
CT hip LT wo con HISTORY: 82 years-old Female left hip injury/hematoma acute pain of the left hip status post fall COMPARISON: Pelvis and hip radiographs 11/27/2022, CT abdomen and pelvis 08/02/2012 TECHNIQUE: Multiple axial CT images of the left hip were obtained without the use of IV contrast. A d ose lowering technique was used consistent with the principals of BERNARDO. FINDINGS: Streak artifact from right hip total joint arthroplasty limits the study. No acute intrapelvic abnorm ality identified. Moderate diffuse subcutaneous edema. 13.1 x 5.4 x 9.7 cm subcutaneous left gluteal hematoma. No intramuscular extension. Arterial calcifications. Moderate degeneration of the left SI joint. Mild to moderate left hip osteoarthritis. No acute fractu re, dislocation or avascular necrosis. IMPRESSION: 1. No acute fracture or dislocation. 2. 13 cm subcutaneous left gluteal hematoma. ACT 112: Negative or not required by law. The above report was generated using voice recognition software. It may contain grammatical, syntax o r spelling errors. Electronically signed by: Moises Colvin M.D. 11/29/2022 10:35 AM
[2022-11-29] MEDS ORDERED: SODIUM CHLORIDE 0.9% 250 ML IV PRN (12:44)
--- NOTE | 2022-11-29 13:34 | Communication Note ---
Date of Service: November 29, 2022 See consult note for Details. The patients CT does show a large hematoma, defer to hospitalists with regard to managament of this acute finding.
--- NOTE | 2022-11-29 14:52 | Hospitalist Progress Note ---
Date of Service November 29, 2022 Assessment & Plan (1) Acute anemia: Plan: Due to blood loss into the soft tissues of the left hip and buttock from falling at home. She also has iron deficiency. She has given consent for blood transfusion today. We will start iron replacement tomorrow. Serial labs ordered. Odilon remains on hold . Stool was Hemoccult positive on admission but no overt melena or hematochezia. GI consultation appreciated. No EGD planned this admission (2) Fall: Plan: OT and PT assessments. Supportive care (3) Chronic kidney disease, stage 3 (moderate): Plan: Monitor intake and output. Serial labs (4) Depression: Plan: Stable with current medical management (5) History of aortic valve replacement: Plan: Known history of TAVR procedure. No acute problems (6) Hypotension: Plan: Resolved. Blood transfusion to maintain hemoglobin greater than 8. (7) MDD (major depressive disorder): Plan: Stable with current medications (8) Obstructive sleep apnea of adult: Plan: Stable. CPAP as needed (9) Sleep apnea: (10) Paroxysmal atrial fibrillation: Plan: Stable with medical management. Odilon is temporarily on hold. Telemetry Plan OT and PT assessments pending. She may need short-term SNF placement prior to return home Admission and Anticipated Discharge Date Admission Date: November 29, 2022 Subjective Alert and oriented. Pleasant. Hemoglobin has decreased to 7.0. Fecal occult blood positive on admission but no melena or hematochezia. She has given consent for blood transfusion. Iron levels are low as expected. She will receive blood today and will start iron replacement tomorrow. She no longer n eeds intravenous fluids. OT and PT assessments requested. Review of Systems Review of Systems: Constitutional-no fever or chills ENT-no blurred vision, no double vision, no epistaxis, no sore throat Respiratory-no cough, no wheezing, no shortness of breath Cardiac-no palpitations, no chest pain, no syncope GI-no nausea, vomiting, diarrhea, melena, hematochezia -no urinary retention, no urinary incontinence, no dysuria, no hematuria Musculoskeletal-no joint pain, no muscle tenderness Skin-no bruising, no rashes, no pruritus Neuro-no isolated weakness, no paresthesia, no weakness Psych-no depression, no anxiety Physical Exam Physical Exam: General-alert and oriented x3, no fevers, no chills HEENT-head atraumatic and normocephalic, pupils equal and reactive to light, extraocular muscles intact Neck-no lymphadenopathy or thyromegaly, trachea midline Chest-clear to auscultation percussion. No rales wheezing or rhonchi Cardiac-regular rate and rhythm, normal S1 and S2 Abdomen-normal bowel sounds, nontender, no hepatosplenomegaly Extremities-no cyanosis, clubbing, or edema. Left hip hematoma from recent fall Neuro-cranial nerves II through XII intact, motor and sensory function within normal limits, strength symmetrical , no focal deficits Psych-normal affect, normal mood Results & Data Results & Data ([facility]) Vital Signs (Past 12 Hours) Vital Signs Temp Pulse Pulse Resp BP BP Pulse Ox 11/29/22 14:32 36.9 C 59 L 20 123/76 98 11/29/22 14:08 36.9 C 59 L 20 137/56 L 95 11/29/22 13:45 37.1 C 61 18 135/69 98 11/29/22 13:23 36.6 C 62 18 143/67 H 99 11/29/22 11:04 36.6 C 60 16 114/64 95 11/29/22 07:40 11/29/22 07:38 58 L 18 128/61 97 11/29/22 07:34 36.7 C 62 16 110/65 95 11/29/22 05:59 62 11/29/22 03:10 66 18 143/70 H 97 O2 Del Method O2 Flow Rate 11/29/22 14:32 11/29/22 14:08 11/29/22 13:45 11/29/22 13:23 11/29/22 11:04 Room Air 11/29/22 07:40 Room Air 11/29/22 07:38 BiPAP 1 11/29/22 07:34 Room Air 11/29/22 05:59 11/29/22 03:10 BiPAP 1 Laboratory Results 11/29/22 06:06 11/29/22 06:06 PG Care Time/CCT Total # of Minutes Spent Total Time Spent with Patient: Total time spent is greater than 50% in coordination of care (as documented) at patient's floor/unit and/or counseling patient: Coding Level of Care Code 94244 SUB INP/OBS CARE 3/50MIN Diagnoses Acute anemia D64.9 Fall W19.XXXA Encounter type: initial encounter Chronic kidney disease, stage 3 (moderate) N18.3 Depression F32.9 History of aortic valve replacement Z95.2 Hypotension I95.9 MDD (major depressive disorder) F32.9 Obstructive sleep apnea of adult G47.33 Sleep apnea G47.30 Paroxysmal atrial fibrillation I48.0 (1) Fall Encounter type: initial encounter Qualified Code(s): W19.XXXA - Unspecified fall, initial encounter
[2022-11-29] MEDS: GABAPENTIN 600 MG TAB PO SCH (21:10)
[2022-11-29] MEDS: TEMAZEPAM 15 MG CAPSULE PO SCH (21:12)
[2022-11-30 06:32] LABS: Hematocrit (blood only) 25.6 % (37.0-47.0); Hemoglobin 8.3 g/dl (12.0-16.0); Mean Corpuscular Hemoglobin 28.7 pg (25.0-34.0); Mean Corpuscular Hgb Conc 32.4 g/dL (32.0-36.0); Mean Corpuscular Volume 88.6 fL (80.0-100.0); Mean Platelet Volume 10.3 fL (9.4-12.4); Platelet Count 143 K/uL (130-400); RDW Coefficient of Variation 14.9 % (11.5-14.5); RDW Standard Deviation 48.2 fL (36.4-46.3); Red Blood Count 2.89 M/uL (4.20-5.40); White Blood Count 4.72 K/ul (4.8-10.8)
[2022-11-30] MEDS: LEVOTHYROXINE SODIUM 200 MCG TABLET PO SCH (06:32)
[2022-11-30 06:55] LABS: Calcium 7.6 mg/dl (8.5-10.1); Creatinine Clr Calc Pharmacy 53.9 ml/min; Est GFR (African American) 76.6 ml/min; Est GFR (Non-African American) 66.1 ml/min; Potassium 3.8 mmol/L (3.5-5.1)
[2022-11-30] MEDS ORDERED: IRON SUCROSE 200 MG in 0.9 % SODIUM CHLORIDE 100 ML IV ONE (07:30)
[2022-11-30] MEDS: buPROPion HCl 100 MG TABLET PO SCH (09:10)
[2022-11-30] MEDS: PANTOprazole 40 MG TAB PO SCH ×2 (09:10→21:25)
[2022-11-30] MEDS: ziprasidone HCL 80 MG CAP PO SCH ×2 (09:10→21:25)
[2022-11-30] MEDS: VENLAFAXINE HCL XR 75 MG CAPXR PO SCH (09:10)
[2022-11-30] MEDS: modafiniL 100 MG TAB PO SCH (09:13)
--- NOTE | 2022-11-30 13:19 | XRay Report ---
SINGLE VIEW CHEST CLINICAL HISTORY: Dyspnea. FINDINGS: An AP, portable, upright chest radiograph is compared to study dated 09/17/2022 and correla toni with chest CT dated 04/27/2012. A 2-lead cardiac pacemaker is unchanged in position and partially o bscures left upper chest. There is evidence of previous cardiac valve surgery. The heart is enlarged noting atherosclerotic calcification of the thoracic aorta. The pulmonary vasculature is noncongested . Chronic interstitial thickening similar to previous. Atelectasis is noted at both lung bases, left greater than right. No airspace consolidation or large pleural effusion is identified. No pneumothora x is seen. The skeletal structures are osteopenic. The bony thorax is grossly intact. A right shoulde r arthroplasty is in place. Advanced arthritic change is noted in the left shoulder. Degenerative dante nge and scoliosis is noted in the spine. IMPRESSION: 1. Cardiomegaly and cardiac pacemaker without radiographic evidence of congestive failure. 2. No airspace consolidation or large pleural effusion is identified. ACT 112: Negative or not required by law. Electronically signed by: Jack Villegas M.D. 11/30/2022 1:18 PM
--- NOTE | 2022-11-30 13:55 | Hospitalist Progress Note ---
Date of Service November 30, 2022 Assessment & Plan (1) Acute anemia: Plan: Due to blood loss into the soft tissues of the left hip and buttock from falling at home. She also has iron deficiency. Hemoglobin improved to 8.3 after 2 units packed red blood cells given yesterday, November 29. Parenteral iron replacement started today, November 30. Serial labs ordered. Kerlinequis remains on hold. Stool was Hemoccult positive on admission but no overt melena or hematoc hezia. GI consultation appreciated. No EGD planned this admission (2) Fall: Plan: OT and PT assessments. Supportive care (3) Chronic kidney disease, stage 3 (moderate): Plan: Monitor intake and output. Serial labs (4) Depression: Plan: Stable with current medical management (5) History of aortic valve replacement: Plan: Known history of TAVR procedure. No acute problems (6) Hypotension: Plan: Resolved. Blood transfusion to maintain hemoglobin greater than 8. (7) MDD (major depressive disorder): Plan: Stable with current medications (8) Obstructive sleep apnea of adult: Plan: Stable. CPAP as needed (9) Sleep apnea: Plan: Stable. No intervention needed at this time (10) Paroxysmal atrial fibrillation: Plan: Stable with medical management. Kerlinequis is temporarily on hold. Telemetry (11) Demand ischemia: Plan: From mild tachycardia caused by anemia present on admission. Now resolved. No evidence of acute coronary syndrome. Plan OT and PT assessments appreciated . She will need short-term SNF placement prior to return home. Daughter updated by phone Admission and Anticipated Discharge Date Admission Date: November 29, 2022 Subjective Alert and oriented. Pleasant. Hemoglobin improved to 8.3 after 2 units packed red blood cells given yesterday. Fecal occult blood positive but no overt melena or hematochezia. GI consultation appreciated. They recommend outpatient endoscopy. Portable chest x-ray is negative for any signs of CHF. Parenteral iron replacement started. I spoke to her daughter, Juliana, by phone. She is aware the patient will need short-term SNF placement at discharge hopefully this week. Review of Systems Review of Systems: Constitutional-no fever or chills ENT-no blurred vision, no double vision, no epistaxis, no sore throat Respiratory-no cough, no wheezing, no shortness of breath Cardiac-no palpitations, no chest pain, no syncope GI-no nausea, vomiting, diarrhea, melena, hematochezia -no urinary retention, no urinary incontinence, no dysuria, no hematuria Musculoskeletal-no joint pain, no muscle tenderness Skin-no bruising, no rashes, no pruritus Neuro-no isolated weakness, no paresthesia, no weakness Psych-no depression, no anxiety Physical Exam Physical Exam: General-alert and oriented x3, no fevers, no chills HEENT-head atraumatic and normocephalic, pupils equal and reactive to light, ext raocular muscles intact Neck-no lymphadenopathy or thyromegaly, trachea midline Chest-clear to auscultation percussion. No rales wheezing or rhonchi Cardiac-regular rate and rhythm, normal S1 and S2 Abdomen-normal bowel sounds, nontender, no hepatosplenomegaly Extremities-no cyanosis, clubbing, or edema. Left hip hematoma from recent fall Neuro-cranial nerves II through XII intact, motor and sensory function within normal limits, strength symmetrical , no focal deficits Psych-normal affect, normal mood Results & Data Results & Data ([facility]) Vital Signs (Past 12 Hours) Vital Signs Temp Pulse Pulse Resp BP Pulse Ox O2 Del Method 11/30/22 11:22 37.0 C 69 20 112/63 93 Room Air 11/30/22 07:45 Room Air 11/30/22 07:35 36.8 C 61 20 130/75 94 Room Air 11/30/22 05:59 60 11/30/22 02:38 60 18 146/70 H 99 BiPAP 11/30/22 03:18 60 15 96 O2 Flow Rate 11/30/22 11:22 11/30/22 07:45 11/30/22 07:35 11/30/22 05:59 11/30/22 02:38 2 11/30/22 03:18 2 Laboratory Results 11/30/22 05:51 11/30/22 05:51 PG Care Time/CCT Total # of Minutes Spent Total Time Spent with Patient: Total time spent is greater than 50% in coordination of care (as documented) at patient's floor/unit and/or counseling patient: Coding Level of Care Code 39190 SUB INP/OBS CARE 3/50MIN Diagnoses Acute anemia D64.9 Fall W19.XXXA Encounter type: initial encounter Chronic kidney disease, stage 3 (moderate) N18.3 Depression F32.9 History of aortic valve replacement Z95.2 Hypotension I95.9 MDD (major depressive disorder) F32.9 Obstructive sleep apnea of adult G47.33 Sleep apnea G47.30 Paroxysmal atrial fibrillation I48.0 Demand ischemia I24.8 (1) Fall Encounter type: initial encounter Qualified Code(s): W19.XXXA - Unspecified fall, initial encounter
[2022-11-30] MEDS: ACETAMINOPHEN 325 MG TAB PO PRN (21:25)
[2022-11-30] MEDS: TEMAZEPAM 15 MG CAPSULE PO SCH (21:25)
[2022-11-30] MEDS: GABAPENTIN 600 MG TAB PO SCH (21:26)
[2022-12-01] MEDS: LEVOTHYROXINE SODIUM 200 MCG TABLET PO SCH (06:36)
[2022-12-01 07:45] LABS: Basophils # (auto) 0.04 K/uL (0-0.2); Basophils % (auto) 0.8 %; Eosinophils # (auto) 0.25 K/uL (0-0.50); Eosinophils % (auto) 5.2 %; Hematocrit (blood only) 27.5 % (37.0-47.0); Hemoglobin 8.8 g/dl (12.0-16.0); Immature Granulocytes # (auto) 0.03 K/uL (0.01-0.20); Immature Granulocytes % (auto) 0.6 %; Lymphocytes # (auto) 0.74 K/uL (1.2-3.4); Lymphocytes % (auto) 15.4 %; Mean Corpuscular Hemoglobin 28.8 pg (25.0-34.0); Mean Corpuscular Volume 89.9 fL (80.0-100.0); Mean Platelet Volume 9.9 fL (9.4-12.4); Monocytes # (auto) 0.59 K/uL (0.11-0.59); Monocytes % (auto) 12.3 %; Neutrophils # (auto) 3.14 K/uL (1.40-6.50); Neutrophils % (auto) 65.7 %; Platelet Count 158 K/uL (130-400); RDW Standard Deviation 49.1 fL (36.4-46.3); Red Blood Count 3.06 M/uL (4.20-5.40); White Blood Count 4.79 K/ul (4.8-10.8)
[2022-12-01 08:23] LABS: BUN Creatinine Ratio 12.3 (10-20); Calcium 7.6 mg/dl (8.5-10.1); Creatinine Clr Calc Pharmacy 54.7 ml/min; Est GFR (African American) 78.9 ml/min; Est GFR (Non-African American) 68.1 ml/min; Potassium 3.7 mmol/L (3.5-5.1)
[2022-12-01] MEDS: VENLAFAXINE HCL XR 75 MG CAPXR PO SCH (08:35)
[2022-12-01] MEDS: buPROPion HCl 100 MG TABLET PO SCH (08:35)
[2022-12-01] MEDS: PANTOprazole 40 MG TAB PO SCH ×2 (08:35→20:03)
[2022-12-01] MEDS: ziprasidone HCL 80 MG CAP PO SCH ×2 (08:35→20:04)
[2022-12-01] MEDS: modafiniL 100 MG TAB PO SCH (08:37)
[2022-12-01] MEDS ORDERED: IRON SUCROSE 200 MG in 0.9 % SODIUM CHLORIDE 100 ML IV ONE (10:00)
--- NOTE | 2022-12-01 14:14 | Hospitalist Progress Note ---
Date of Service December 01, 2022 Assessment & Plan (1) Acute anemia: Plan: Due to blood loss into the soft tissues of the left hip and buttock from falling at home. She also has iron deficiency. Hemoglobin improved to 8.3 after 2 units packed red blood cells given on November 29. Parenteral iron replacement started on November 30. Serial labs ordered. Eliquis remains on hold. Stool was Hemoccult positive on admission but no overt melena or hematochezia. GI consultation appreciated. No EGD planned this admission (2) Fall: Plan: OT and PT assessments. Supportive care (3) Chronic kidney disease, stage 3 (moderate): Plan: Monitor intake and output. Serial labs (4) Depression: Plan: Stable with current medical management (5) History of aortic valve replacement: Plan: Known history of TAVR procedure. No acute problems (6) Hypotension: Plan: Resolved. Blood transfusion to maintain hemoglobin greater than 8. (7) MDD (major depressive disorder): Plan: Stable with current medications (8) Obstructive sleep apnea of adult: Plan: Stable. CPAP as needed (9) Sleep apnea: Plan: Stable. No intervention needed at this time (10) Paroxysmal atrial fibrillation: Plan: Stable with medical management. Eliquis is temporarily on hold. Telemetry (11) Demand ischemia: Plan: From mild tachycardia caused by anemia present on admission. Now resolved. No evidence of acute coronary syndrome. Plan OT and PT assessments appreciated . Hopeful discharge to [facility] soon, hopefully tomorrow December 02 Admission and Anticipated Discharge Date Admission Date: November 29, 2022 Subjective Alert and oriented. No complaints. The patient was seen ambulating in the hallway with a walker with physical therapy. Hopeful discharge to [facility] tomorrow. Hemoglobin is stable. Continue parenteral iron replacement. Review of Systems Review of Systems: Constitutional-no fever or chills ENT-no blurred vision, no double vision, no epistaxis, no sore throat Respiratory-no cough, no wheezing, no shortness of breath Cardiac-no palpitations, no chest pain, no syncope GI-no nausea, vomiting, diarrhea, melena, hematochezia -no urinary retention, no urinary incontinence, no dysuria, no hematuria Musculoskeletal-no joint pain, no muscle tenderness Skin-no bruising, no rashes, no pruritus Neuro-no isolated weakness, no paresthesia, no weakness Psych-no depression, no anxiety Physical Exam Physical Exam: General-alert and oriented x3, no fevers, no chills HEENT-head atraumatic and normocephalic, pupils equal and reactive to light, extraocular muscles intact Neck-no lymphadenopathy or thyromegaly, trachea midline Chest-clear to auscultation percussion. No rales wheezing or rhonchi Cardiac-regular rate and rhythm, normal S1 and S2 Abdomen-normal bowel sounds, nontender, no hepatosplenomegaly Extremities-no cyanosis, clubbing, or edema. Left hip hematoma from recent fall Neuro-cranial nerves II through XII intact, motor and sensory function within normal limits, strength symmetrical , no focal deficits Psych-normal affect, normal mood Results & Data Results & Data ([facility]) Vital Signs (Past 12 Hours) Vital Signs Temp Pulse Pulse Resp BP BP Pulse Ox 12/01/22 12:00 37.1 C 67 18 131/65 95 12/01/22 05:57 61 12/01/22 07:00 36.7 C 61 18 137/71 92 12/01/22 02:20 60 17 96 12/01/22 03:04 72 18 145/69 H 97 O2 Del Method O2 Flow Rate 12/01/22 12:00 Room Air 12/01/22 05:57 12/01/22 07:00 Room Air 12/01/22 02:20 2 12/01/22 03:04 CPAP 2 Laboratory Results 12/01/22 06:58 12/01/22 06:58 PG Care Time/CCT Total # of Minutes Spent Total Time Spent with Patient: Total time spent is greater than 50% in coordination of care (as documented) at patient's floor/unit and/or counseling patient: Coding Level of Care Code 55208 SUB INP/OBS CARE 3/50MIN Diagnoses Acute anemia D64.9 Fall W19.XXXA Encounter type: initial encounter Chronic kidney disease, stage 3 (moderate) N18.3 Depression F32.9 History of aortic valve replacement Z95.2 Hypotension I95.9 MDD (major depressive disorder) F32.9 Obstructive sleep apnea of adult G47.33 Sleep apnea G47.30 Paroxysmal atrial fibrillation I48.0 Demand ischemia I24.8 (1) Fall Encounter type: initial encounter Qualified Code(s): W19.XXXA - Unspecified fall, initial encounter
[2022-12-01] MEDS: FERROUS SULFATE 325 MG TAB PO SCH (16:30)
[2022-12-01] MEDS: GABAPENTIN 600 MG TAB PO SCH (20:04)
[2022-12-01] MEDS: TEMAZEPAM 15 MG CAPSULE PO SCH (21:55)
[2022-12-02] MEDS: LEVOTHYROXINE SODIUM 200 MCG TABLET PO SCH (04:53)
[2022-12-02] MEDS: ACETAMINOPHEN 325 MG TAB PO PRN ×2 (04:53→10:10)
[2022-12-02 08:16] LABS: BUN Creatinine Ratio 13.8 (10-20); Calcium 7.5 mg/dl (8.5-10.1); Creatinine Clr Calc Pharmacy 50.4 ml/min; Est GFR (African American) 72.4 ml/min; Est GFR (Non-African American) 62.5 ml/min; Potassium 3.7 mmol/L (3.5-5.1)
[2022-12-02 08:30] LABS: Basophils # (auto) 0.06 K/uL (0-0.2); Basophils % (auto) 0.9 %; Eosinophils # (auto) 0.27 K/uL (0-0.50); Eosinophils % (auto) 4.1 %; Hematocrit (blood only) 28.6 % (37.0-47.0); Hemoglobin 9.1 g/dl (12.0-16.0); Immature Granulocytes # (auto) 0.05 K/uL (0.01-0.20); Immature Granulocytes % (auto) 0.8 %; Lymphocytes # (auto) 0.91 K/uL (1.2-3.4); Lymphocytes % (auto) 13.7 %; Mean Corpuscular Hemoglobin 28.8 pg (25.0-34.0); Mean Corpuscular Hgb Conc 31.8 g/dL (32.0-36.0); Mean Corpuscular Volume 90.5 fL (80.0-100.0); Mean Platelet Volume 10.5 fL (9.4-12.4); Monocytes # (auto) 0.83 K/uL (0.11-0.59); Monocytes % (auto) 12.5 %; Neutrophils # (auto) 4.51 K/uL (1.40-6.50); Platelet Count 194 K/uL (130-400); Red Blood Count 3.16 M/uL (4.20-5.40); White Blood Count 6.63 K/ul (4.8-10.8)
[2022-12-02] MEDS ORDERED: IRON SUCROSE 200 MG in 0.9 % SODIUM CHLORIDE 100 ML IV ONE (09:30)
[2022-12-02] MEDS: PANTOprazole 40 MG TAB PO SCH (10:00)
[2022-12-02] MEDS: FERROUS SULFATE 325 MG TAB PO SCH (10:00)
[2022-12-02] MEDS: VENLAFAXINE HCL XR 75 MG CAPXR PO SCH (10:01)
[2022-12-02] MEDS: buPROPion HCl 100 MG TABLET PO SCH (10:01)
[2022-12-02] MEDS: ziprasidone HCL 80 MG CAP PO SCH (10:02)
[2022-12-02] MEDS: modafiniL 100 MG TAB PO SCH (10:10)
--- NOTE | 2022-12-02 11:55 | Discharge Summary ---
Date of Service December 02, 2022 Admission HPI Per Admitting Provider Racheal is a 82-year-old female with past medical history of paroxysmal atrial fibrillation, right total shoulder arthroplasty, iron deficiency anemia, thyroid a cancer s/p thyroidectomy with subsequent hypothyroidism on Synthroid, CKD 3, hypertension, TAVR, pacemaker for complete heart block, GERD, and recurrent TIAs who has been seen by neurology for recurrent TIAs. Has symptoms consistent with recurrent TIA, MRI have shown previous chronic lacunar infarct in right cerebellar area. Takes aspirin and Eliquis. She was last seen by neuro 11/01/2022 who noted possible fibromuscular dysplasia noting in the left carotid, was pending DSA with [facility] to confirm. Noted treatment would be similar including aspirin and regular carotid screening. Did take medications this morning. Reports she has been lightheaded and dizzy. At time bedside assessment she is not lightheaded or dizzy, is not having chest pain or chest pressure. She has not noticed any bleeding. Reports she has had EGDs in the past last with [facility] in the last year and no ulcers were mentioned. She has had a history of bypass. She has not had any bright red blood per rectum, melena, or epigastric tenderness. She reports her fall was from lightheadedness after bending over, and she landed on her butt which is sore but tolerable to her. Per ER: Stopping coreg, supposed to start MTP No head strike Lightheaded, dizzy Contusion expanding from L buttock Hgb 10 --> 8.6 CT negative mild troponin elevation Medical History: Reviewed Medications: Reviewed Surgical History: Reviewed Allergies: Reviewed Social History: No tobacco/etoh Code Status: DNRDNI Principal Diagnosis Acute blood loss anemia, mechanical fall with left hip and left buttock hematoma, iron deficiency, Hemoccult positive stool Discharge Exam General-alert and oriented x3, no fevers, no chills HEENT-head atraumatic and normocephalic, pupils equal and reactive to light, extraocular muscles intact Neck-no lymphadenopathy or thyromegaly, trachea midline Chest-clear to auscultation percussion. No rales wheezing or rhonchi Cardiac-regular rate and rhythm, normal S1 and S2 Abdomen-normal bowel sounds, nontender, no hepatosplenomegaly Extremities-no cyanosis, clubbing, or edema. Left hip hematoma from recent fall Neuro-cranial nerves II through XII intact, motor and sensory function within normal limits, strength symmetrical , no focal deficits Psych-normal affect, normal mood Discharge Data Allergies Allergy/AdvReac Type Severity Reaction Status Date / Time lactose Allergy Mild Intolerance Verified 11/27/22 17:31 oxycodone Allergy Mild Rash Verified 11/27/22 17:31 prednisone Allergy Mild Itchy Verified 11/27/22 17:31 Sulfa (Sulfonamide Allergy Mild Takes off Verified 11/27/22 17:31 Antibiotics) "top layer of tongue" simvastatin [From Zocor] Allergy Muscle Verified 11/27/22 17:31 aches, bone pain Mbvfqlv-NZC-NcO Reductase AdvReac Mild Bone pain Verified 11/27/22 17:31 Inhibitor [Yqvmqfo-Crj-Oak Reductase Inhibitor] Consultations 11/27/22 15:51 ED Decision to Admit Stat 11/28/22 12:09 Consult Gastroenterology Routine Procedures Performed Operation Date: 11/29/22 17:00 <No data on this case meets the specified criteria> Ordered Studies 11/27/22 12:41 CT head/brain wo con Stat 11/29/22 09:02 CT hip LT wo con Urgent Hospital Course (1) Acute anemia: Due to blood loss into the soft tissues of the left hip and buttock from falling at home. She also has iron deficiency. Hemoglobin improved to 8.3 after 2 units packed red blood cells given on November 29. Parenteral iron replacement started on November 30. Serial labs ordered. Eliquis remains on hold at discharge. PCP can decide if this should be restarted or not. Stool was Hemoccult positive on admission but no overt melena or hematochezia. GI consultation appreciated. No EGD planned this admission (2) Fall: OT and PT assessments. Supportive care (3) Chronic kidney disease, stage 3 (moderate): Monitor intake and output. Serial labs (4) Depression: Stable with current medical management (5) History of aortic valve replacement: Known history of TAVR procedure. No acute problems (6) Hypotension: Resolved. Blood transfusion to maintain hemoglobin greater than 8. (7) MDD (major depressive disorder): Stable with current medications (8) Obstructive sleep apnea of adult: Stable. CPAP as needed (9) Sleep apnea: Stable. No intervention needed at this time (10) Paroxysmal atrial fibrillation: Stable with medical management. Eliquis is on hold. Telemetry (11) Demand ischemia: From mild tachycardia caused by anemia present on admission. Now resolved. No evidence of acute coronary syndrome. Plan Discharged to [facility] today, December 02 Total Time Total Time Spent Total Time Spent (In Minutes): 35 minutes Discharge Plan Discharge Items Patient Disposition: Transfer Inpatient Rehab Fac Reason For Visit: FALL/ORTHOSTASIS,ACUTE BLOOD LOSS ANEMIA Discharge Diagnosis: Mechanical fall with left hip and left buttock hematoma, acute blood loss anemia, iron deficiency, Hemoccult positive stool Activity: Resume your previous activity Non-emergency contact: Primary Care Provider Call non-emergency contact if: you have any medication questions Follow-up/Referrals: Raad Skinner MD [Primary Care Provider] - Diet: Heart Healthy Addtl Attending Provider Instructions: Eliquis has been discontinued Pending Studies at Discharge: No Stand-Alone Forms: My [facility] Skilled Items Patient informed of condition?: Yes DNR: No Discharge Level of Care: Acute rehab Communicable Disease: No Discharge Prognosis: Stable Lines: None Urinary Catheter: No Medications and DC Order Prescriptions: New ferrous sulfate 325 mg (65 mg iron) Tablet,Delayed Release (Dr/Ec) 325 mg PO BIDM Qty: 0 0RF Continued atorvastatin 20 mg tablet 40 mg PO DAILY bupropion HCl 100 mg tablet 100 mg PO QAM potassium chloride 20 mEq tablet extended release 20 meq PO BID Qty: 30 modafinil 100 mg tablet 100 mg PO QAM alendronate [Fosamax] 70 mg Tablet 70 mg PO WK Rx Instructions: TAKE THIS MED EVERY TUESDAY MORNING hydroxyzine HCl 25 mg Tablet 25 mg PO HS cyanocobalamin (vitamin B-12) 1,000 mcg/mL Solution 1,000 mcg SUBCUT UD Rx Instructions: every 3 months gabapentin 300 mg capsule 600 mg PO HS ziprasidone HCl [Geodon] 80 mg capsule 80 mg PO BID venlafaxine 75 mg capsule,extended release 24hr 75 mg PO QAM temazepam 15 mg capsule 15 mg PO HS calcium carbonate 600 mg calcium (1,500 mg) Tablet 600 mg PO BID Theralith XR 3.75-45-45-49.5 mg Tablet Extended Release 2 tabs PO QAM metoprolol succinate 25 mg Tablet Extended Release 24 Hr 12.5 mg PO BID cyanocobalamin (vitamin B-12) 2,500 mcg Tablet 2,500 mcg PO QAM aspirin [Aspir-81] 81 mg Tablet,Delayed Release (Dr/Ec) 81 mg PO QAM copper 2 mg Tablet 2 mg PO DAILY omeprazole 40 mg capsule,delayed release(DR/EC) 40 mg PO QAM cholecalciferol (vitamin D3) [Vitamin D3] 50 mcg (2,000 unit) Tablet 50 mcg PO DAILY Culturelle 15 billion cell Capsule, Sprinkle 1 cap PO DAILY PreserVision AREDS-2 250-90-40-1 mg Capsule 1 tab PO BID furosemide 20 mg tablet 20 mg PO BID acetaminophen 650 mg Tablet Extended Release 1,300 mg PO Q12H tramadol 50 mg tablet 50 mg PO Q8H PRN (Reason: pain) Qty: 30 0RF Bariactric Advantage Multi Vit tablet 1 tab PO BID levothyroxine 200 mcg Tablet 200 mcg PO DAILYBB Discontinued Slow Release Iron 142 mg (45 mg iron) Tablet Extended Release 142 mg PO QPM Eliquis 5 mg Tablet 5 mg PO BID Discharge Orders: Discharge Order (Routine); Ordered 12/02/22 Ordered By: Prudencio Jackson Admission Data Admit Date/Time: 11/29/22 12:44 Attending Provider: Prudencio Jackson Admit Provider: Ernie Daily Primary Care Provider: Raad Skinner Other Providers: Ernie Daily ; [facility] ; [facility] ; [facility] Coding Level of Care Code HOSP INP/OBS DISCH >30 MIN Diagnoses Acute anemia D64.9 Fall W19.XXXA Encounter type: initial encounter Chronic kidney disease, stage 3 (moderate) N18.3 Depression F32.9 History of aortic valve replacement Z95.2 Hypotension I95.9 MDD (major depressive disorder) F32.9 Obstructive sleep apnea of adult G47.33 Sleep apnea G47.30 Paroxysmal atrial fibrillation I48.0 Demand ischemia I24.8
== END 2022-12-02 14:55 | DRG 605 ==
LOC: ED 12:19 → EDINP 12:19 → SUATTDRO 16:40 → 2N 18:35